=== PATIENT | female | born 1965 | race Caucasian/White ===

== ENCOUNTER 2017-02-16 08:03 | Day surgery (SDC) | payer OTHER ==
[2017-02-16] MEDS ORDERED: CEFAZOLIN 2 GM in DEXTROSE 5%-WATER - 100 ML IVPB ONE (08:25)
[2017-02-16] MEDS: oxyCODONE HCL 10 MG SUSTAINED ACTING TABLET PO STA ×2 (09:00→16:15)
[2017-02-16] MEDS ORDERED: MIDAZOLAM HCL 2 MG/2 ML SINGLE DOSE VIAL ONE (09:04)
[2017-02-16] MEDS ORDERED: fentaNYL CITRATE 250 MCG/5 ML VIAL ONE (09:04)
[2017-02-16] MEDS ORDERED: ONDANSETRON 4 MG/2 ML VIAL ONE (09:15)
[2017-02-16] MEDS ORDERED: ePHEDrine SULFATE 50 MG/1 ML AMPULE ONE (09:15)
[2017-02-16] MEDS ORDERED: PROPOFOL 20 ML ONE ×12 (09:15→12:52)
[2017-02-16] MEDS ORDERED: DEXAMETHASONE SOD PHOSPHATE 4 MG/1 ML VIAL ONE (09:15)
[2017-02-16] MEDS ORDERED: PHENYLEPHRINE HCL 10 MG/1 ML SINGLE DOSE VIAL ONE (09:15)
[2017-02-16] MEDS ORDERED: SODIUM CHLORIDE 0.9% P/F 10 ML VIAL IJ ONE (09:19)
[2017-02-16] MEDS ORDERED: ceFAZolin SODIUM 1 GM VIAL ONE (09:19)
[2017-02-16] MEDS ORDERED: LIDOCAINE HCL/PF 2% SDV 5ML VIAL ONE (09:23)
[2017-02-16 09:46] VITALS: BMI 35.7
--- NOTE | 2017-02-16 10:45 | HP ---
History & Physical Update - History History: No Change - Physical Physical: No Change - Assessment Assessment: No Change - Plan Plan: No Change
[2017-02-16] MEDS ORDERED: LIDOCAINE 1%/EPI 1:100000 (20 ML MULTI DOSE VIAL) ONE (10:57)
[2017-02-16] MEDS ORDERED: THROMBIN (BOVINE) 5,000 UNIT VIAL TP ONE ×2 (10:57→12:36)
[2017-02-16] MEDS ORDERED: LIDOCAINE 1%/EPI 1:100000 (50 ML MULTI DOSE VIAL) INF ONE (12:00)
[2017-02-16] MEDS ORDERED: GELATIN SPONGE,ABSORBABLE 1 GM PACKET TP ONE (12:36)
[2017-02-16] MEDS ORDERED: morphine CARPU-JECT 4 MG/1 ML DISP.SYRIN IVPUSH PRN (13:26)
[2017-02-16] MEDS ORDERED: oxyCODONE HCL 5 MG TABLET PO PRN (13:26)
[2017-02-16] MEDS ORDERED: ONDANSETRON 4 MG/2 ML VIAL IVPUSH PRN (13:26)
[2017-02-16] MEDS ORDERED: LACTATED RINGERS SOLUTION 1,000 ML IV SCH ×2 (13:30→13:45)
--- NOTE | 2017-02-16 13:32 | OP ---
Operative Note - Note: Operative Date: 02/16/17 Pre-Operative Diagnosis: Cervical stenosis with radiculopathy Operation: C5-C7 ACDF Implants: allograft x2 Post-Operative Diagnosis: Same as Pre-op Surgeon: Khadar Umanzor Treatment Technician: Elif Montoya Anesthesiologist/TECHNOLOGY SALES CONSULTANT: Gerard Pimentel Anesthesia: General Specimens Removed: C5/6, C6/7 discs Estimated Blood Loss (mls): 5 Fluid Volume Replaced (mls): 900 Operative Report Dictated: Yes
--- NOTE | 2017-02-16 13:33 | SURG ---
Surgery Security Strategist Note Security Strategist: Gerard Pimentel PA-C Date of Service: 02/16/17 Diagnosis: Cervical stenosis C5/6, C6/7; radiculopathy Procedure: C5-C7 ACDF I was present for the entirety of the operative procedure. For further detail, please refer to operative report. Visit type - Case Type Case Type: Scheduled Admission - New patient This patient is new to me today: Yes Date on this admission: 02/16/17
[2017-02-16] MEDS: ACETAMINOPHEN 1000 MG/100 ML VIAL (NON FORMULARY) IVPB ONE ×2 (13:40→14:14)
[2017-02-16] MEDS ORDERED: PROMETHAZINE HCL 25 MG/1 ML VIAL IVPUSH PRN (13:42)
[2017-02-16] MEDS: KETOROLAC TROMETHAMINE 30 MG/1 ML VIAL IVPUSH PRN ×2 (13:54→20:16)
[2017-02-16] MEDS: oxyCODONE HCL 5 MG TABLET PO PRN (20:16)
[2017-02-16] MEDS: CEFAZOLIN 1 GM/D5W 1 GM/50 ML BAG IVPB SCH (20:16)
[2017-02-16] MEDS ORDERED: QUEtiapine FUMARATE 25 MG TABLET (FP) ONE ×2 (21:14→21:15)
--- NOTE | 2017-02-16 21:40 | OP ---
DATE OF OPERATION: 02/16/2017 PREOPERATIVE DIAGNOSIS: Cervical stenosis, C5-6, C6-7. POSTOPERATIVE DIAGNOSIS: Cervical stenosis, C5-6, C6-7. PROCEDURE PERFORMED: 1. Anterior cervical diskectomy and fusion, C5-6. 2. Anterior cervical diskectomy and fusion, C6-7. 3. Placement of instrumentation at C5 to C7. SURGEON: Khadar Umanzor MD [facility] SUPERVISOR: AYLEEN Monge ESTIMATED BLOOD LOSS: 50 mL INTRAVENOUS FLUIDS: Per Anesthesia. COMPLICATIONS: None. DISPOSITION: Patient brought to the PACU in stable condition. INDICATION FOR SURGERY: The patient is a 51-year-old female who has been suffering from pain from her neck down her arms after an accident. X-rays and MRI noted that she had a herniated disk at C5-6 and C6-7. She had gone through an exhaustive course of treatment for this, which included medications, physical therapy, as well as injections. Unfortunately, her pain continued to persist despite all this. At this point, risks, benefits, and alternatives were discussed, and the patient consented to surgery. DESCRIPTION OF PROCEDURE: Patient was brought to the operating room by anesthesia staff. After appropriate patient identification was performed, general anesthesia was administered. Appropriate anesthesia lines were placed. SCDs were placed on the patient. Her neck was distended to the point that she could tolerate it in the preoperative holding area. A needle was taped onto her neck to juan miguel off the C5-6 level. An x-ray was taken to confirm this as correct. Needle was removed, and 10 mL of lidocaine with epinephrine was injected into her neck at this time. Her neck was prepped and draped in a sterile manner. At this point, timeout was completed. An incision was made in the left side of her neck. Dissection was carried down to the platysma. The platysma was cut in line with the skin incision. Next, the interval between the sternocleidomastoid as well as strap muscles was developed. Next, the interval between the carotid sheath and tracheoesophagus was developed. Peanuts were used to elevate it off of the prevertebral fascia. A needle was placed into the C6-7 disk. An x-ray was taken to confirm this as correct. The needle was removed. Longus coli muscles were elevated off, and retractor blade was placed in. At this point, a Goldsmith pin was placed into the body of C5 and C7. A knife was used to incise the disk, and the disk was distracted. At this point, a Singh was used to elevate the disk off the endplate using a series of pituitaries, Kerrisons, and curettes. A diskectomy was completed. Endplates were decorticated at this time. Cages filled with bone graft were placed into the C5-6 and C6-7 levels. Distraction was removed. Screws were placed into the body of C5, C6, and C7. Goldsmith pins were removed. AP and lateral x-rays confirmed the instrumentation to be in good position. Final tightening was performed. All bleeding was well controlled. Platysma was closed with 2-0 Vicryl suture. Skin was closed with 3-0 Monocryl suture. Dermabond was applied. Steri-Strips were applied. A sterile dressing was applied. Patient was placed supine on the OR bed, extubated in the OR, and brought to the PACU in stable condition. Lily SEGOVIA/[id number]
[2017-02-16] MEDS ORDERED: QUEtiapine FUMARATE 50 MG TABLET PO SCH (22:00)
[2017-02-16] MEDS ORDERED: METFORMIN HCL 1000 MG PO SCH (22:00)
[2017-02-16] MEDS ORDERED: LOSARTAN HCTZ PO SCH (22:00)
[2017-02-16] MEDS ORDERED: PARoxetine HCL 20 MG TABLET (FP) PO SCH (22:00)
[2017-02-16] MEDS ORDERED: LOSARTAN 50MG/HCTZ 12.5MG 1 TAB (FP) PO SCH (22:00)
[2017-02-16] MEDS ORDERED: PAROXETINE HCL 40 MG PO SCH (22:00)
[2017-02-17] MEDS: oxyCODONE HCL 5 MG TABLET PO PRN (02:42)
[2017-02-17] MEDS: CEFAZOLIN 1 GM/D5W 1 GM/50 ML BAG IVPB SCH (03:21)
[2017-02-17 06:14] VITALS: BP 132/69; PULSE 85; TEMP 99
--- NOTE | 2017-02-17 06:59 | DS ---
Physical Exam: SUBJECTIVE: Patient seen and examined. POD #1 s/p C5-C7 ACDF. Alert. Resting in position of comfort. Wearing her c-collar as instructed. According to RN, she is ambulating hallways without difficulty. Voiding spontaneously. C/o incisional tenderness. Adequate pain control via PRN PO meds. Denies n/v/f/c, CP , SOB, LANDIN, palpitations, numbness/weakness. OBJECTIVE: Vital Signs Temperature 99.0 F 02/17/17 06:12 Pulse Rate 85 02/17/17 06:12 Respiratory Rate 18 02/17/17 06:12 Blood Pressure 132/69 02/17/17 06:12 O2 Sat by Pulse Oximetry (%) 98 02/17/17 06:12 PHYSICAL EXAM GENERAL: Awake, alert, and fully oriented, in no acute distress. HEAD: NC. AT EYES: PERRL NECK: Trachea midline, c-collar in place. Transverse incision from midline extending lateral c/d/i. No palpable hematoma LUNGS: CTA bilat anteriorly HEART: RRR ABDOMEN: Soft, NT. ND EXTREMITIES: 2+ pulses, warm, well-perfused, no edema. NEUROLOGICAL: CN II through XII grossly intact. Normal speech, gait not observed. PSYCH: Normal mood, normal affect. SKIN: Warm, dry, normal turgor, no rashes or lesions noted. LABS CBC,CMP POC Glucometer 118 UNITS (80-120) 02/17/17 06:07 HOSPITAL COURSE: Date of Admission:02/16/17 Date of Discharge: 02/17/17 The patient was admitted to the Med-Surg Unit after an elective repair of their C5-C7 spinal stenosis. Now, s/p C5-C7 ACDF. The day of surgery, the patient ambulated the hallways with assistance. Narcotic and non-narcotic pain management control was achieved with an oral and IV approach. An xray was obtained and confirmed hardware placement at C5/6, C6/7, no fractures or dislocations. Maddison-operative IV ABX were administered. DVT prophylaxis was achieved with SCDs and early ambulation. The patient ambulated with Physical Therapy and no services were recommended upon discharge. Narcotic scripts and or muscle relaxants were checked with [facility] [employer] prior to escibe. The discharge instructions and an oral pain management plan were reviewed with the patient. All questions answered. Above plan discussed with Dr. Umanzor and agreed. Minutes to complete discharge: 15 <Gerard Pimentel P - Last Filed: 02/17/17 08:46> Physical Exam: SUBJECTIVE: Patient seen and examined OBJECTIVE: Vital Signs Temperature 99.0 F 02/17/17 06:12 Pulse Rate 85 02/17/17 06:12 Respiratory Rate 18 02/17/17 06:12 Blood Pressure 132/69 02/17/17 06:12 O2 Sat by Pulse Oximetry (%) 98 02/17/17 06:12 PHYSICAL EXAM GENERAL: The patient is awake, alert, and fully oriented, in no acute distress. HEAD: Normal with no signs of trauma. EYES: PERRL, extraocular movements intact, sclera anicteric, conjunctiva clear. ENT: Ears normal, nares patent, oropharynx clear without exudates, moist mucous membranes. NECK: Trachea midline, full range of motion, supple. LUNGS: Breath sounds equal, clear to auscultation bilaterally, no wheezes, no crackles, no accessory muscle use. HEART: Regular rate and rhythm, S1, S2 without murmur, rub or gallop. ABDOMEN: Soft, nontender, nondistended, normoactive bowel sounds, no guarding, no rebound, no hepatosplenomegaly, no masses. EXTREMITIES: 2+ pulses, warm, well-perfused, no edema. NEUROLOGICAL: Cranial nerves II through XII grossly intact. Normal speech, gait not observed. PSYCH: Normal mood, normal affect. SKIN: Warm, dry, normal turgor, no rashes or lesions noted. LABS CBC,CMP POC Glucometer 118 UNITS (80-120) 02/17/17 06:07 HOSPITAL COURSE: Date of Admission:02/16/17 Date of Discharge: 02/19/17 The patient was admitted to the Med-Surg Unit after an elective repair of their C5-7 herniated discs. The day of surgery, the patient ambulated the hallways with assistance. Narcotic and non-narcotic pain management control was achieved with an oral and IV approach. POD #1, the surgical drain was removed fully intact and without incident. An xray was obtained and confirmed hardware placement at C5-7, no fractures or dislocations. Maddison-operative IV ABX were administered. DVT prophylaxis was achieved with SCDs and early ambulation. The patient ambulated with Physical Therapy and no services were recommended upon discharge. Narcotic scripts and or muscle relaxants were checked with [facility] [employer] UNDERWRITER prior to escibe. The discharge instructions and an oral pain management plan were reviewed with the patient. All questions answered. Above plan discussed with Dr. Umanzor and agreed. <Khadar Umanzor - Last Filed: 02/19/17 11:55> Visit type - Case Type Case Type: Scheduled Admission <Gerard Pimentel - Last Filed: 02/17/17 08:46>
[2017-02-17] MEDS ORDERED: morphine SULFATE 4 MG/ML VIAL IVPUSH PRN (08:15)
[2017-02-17] MEDS ORDERED: PT OWN MED DRAWER 7, Y5N ONE (09:20)
[2017-02-17] MEDS ORDERED: PATIENT'S OWN MEDICATION (NON-FORMULARY) (Vitamin B Complex [Vitamin B Complex] 1 EACH) PO SCH (10:00)
[2017-02-17] MEDS ORDERED: VITAMIN B COMP W-C 1 EA TABLET PO SCH (10:00)
[2017-02-17] MEDS ORDERED: FOLIC ACID 1 MG TABLET (FP) PO SCH (10:00)
[2017-02-17] MEDS ORDERED: CITALOPRAM HYDROBROMIDE 20 MG TABLET (FP) PO SCH (10:00)
--- NOTE | 2017-02-17 11:13 | PN ---
Progress Note (short form) - Note Progress Note: 51F POD1 s/p ACDF under [facility]T. Pt doing well, states that pain is moderately well controlled. Does no report any anesthetic complications. Sensory and motor function at baseline in all 4 extremities.
[2017-02-17] MEDS ORDERED: QUEtiapine FUMARATE 25 MG TABLET (FP) PO SCH (22:00)
--- NOTE | 2017-02-18 13:52 | PATH ---
Surgical Pathology Report Patient Name: FRANCISCO RICHARDS Med. Rec. #: [id number] /Age/Gender: 1965 (Age: 51) / F Account: [id number] Location: [facility] Taken: 02/16/2017 Received: 02/16/2017 Reported: 02/18/2017 Physicians: Khadar Umanzor M.D. Specimen(s) Received C5-6, C6-7 DISC Clinical History Cervical stenosis Final Diagnosis C5-6, C6-7, DISCECTOMY: CARTILAGE WITH DEGENERATIVE CHANGES. Electronically Signed Billie Alamo M.D. Gross Description Received in formalin labeled "C5, 6-C6, 7 disc," is a 2.4 x 2.0 x 0.3 cm aggregate of guillen fragments of fibrocartilaginous tissue. A automotive sales representative portion is submitted in one cassette. /02/17/2017 saudi02/17/2017
== END 2017-02-17 13:05 | disposition home or self-care (01) ==
LOC: FASU 08:03 → FM/S 15:13 → FASU 02-17 13:05
PROVIDERS: ATTEND Orthopaedic Surgery Orthopaedic Surgery of the Spine
PROC: 0RG10A0 Fusion of Cervical Vertebral Joint with Interbody Fusion Device, Anterior Approach, Anterior Column, Open Approach (ICD-10-PCS; 2017-02-16)
PROC: 0RG10K0 Fusion of Cervical Vertebral Joint with Nonautologous Tissue Substitute, Anterior Approach, Anterior Column, Open Approach (ICD-10-PCS; 2017-02-16)
PROC: 0RB30ZZ Excision of Cervical Vertebral Disc, Open Approach (ICD-10-PCS; principal; 2017-02-16 10:15)
DX: M48.02 Spinal stenosis, cervical region (principal)
CPT/HCPCS: 72050-TC; 82962; 88304-TC; 94760; 97116-GP; 97161-GP

== ENCOUNTER 2018-01-03 04:04 | Inpatient (IN) | payer OTHER ==
[2018-01-03] MEDS ORDERED: METOPROLOL TARTRATE 5 MG/5 ML VIAL ONE (04:18)
[2018-01-03] MEDS ORDERED: METOPROLOL TARTRATE 5 MG/5 ML VIAL IVPUSH ONE (04:20)
[2018-01-03] MEDS ORDERED: METOPROLOL TARTRATE 50 MG TABLET (FP) PO ONE (04:20)
[2018-01-03] MEDS ORDERED: ASPIRIN 81 MG CHEWABLE TABLETS PO ONE (04:22)
[2018-01-03] MEDS ORDERED: NITROGLYCERIN 2% OINTMENT - 1GM PACKET TD ONE ×2 (04:22→04:25)
[2018-01-03] MEDS ORDERED: NITROGLYCERIN SUBLINGUAL 1/150 0.4 MG TAB SL ONE (04:24)
--- NOTE | 2018-01-03 04:28 | PDOC ---
History of Present Illness - General Chief Complaint: Shortness of Breath Stated Complaint: S.O.B. Time Seen by Provider: 01/03/18 04:20 History Source: Patient Exam Limitations: No Limitations - History of Present Illness Initial Comments: 01/03/18 04:25 SOB; pt is a smoker and she comes with a pulsox on RA of 80% Timing/Duration: momentarily Severity: severe Past History - Travel Traveled outside of the country in the last 30 days: No Close contact w/someone who was outside of country & ill: No - Past Medical History Allergies/Adverse Reactions: Allergies Allergy/AdvReac Type Severity Reaction Status Date / Time No Known Allergies Allergy Verified 01/03/18 04:08 Home Medications: Ambulatory Orders Citalopram Hydrobromide [Celexa -] 20 mg PO DAILY 02/13/17 Folic Acid - 1 mg PO DAILY 02/13/17 Losartan-Hctz 50-12.5 mg Tab 1 each PO HS 02/13/17 Metformin HCl ER 1,000 mg PO HS 02/13/17 Paroxetine HCl [Paxil] 40 mg PO HS 02/13/17 Quetiapine Fumarate [Seroquel -] 50 mg PO HS 02/13/17 Vitamin B Complex 1 each PO DAILY 02/13/17 Hydrocodone/Acetaminophen [Vicodin 5-300 mg Tablet] 1 each PO Q6H PRN #10 tablet MDD 4 02/17/17 Anemia: No Asthma: No Cancer: No Cardiac Disorders: No CVA: No COPD: No CHF: No Dementia: No Diabetes: Yes (TAKES ORAL MEDICATION) GI Disorders: No Disorders: No HTN: Yes Hypercholesterolemia: Yes Liver Disease: No Seizures: No Thyroid Disease: No - Surgical History Abdominal Surgery: No Appendectomy: No Cardiac Surgery: No Cholecystectomy: No Lung Surgery: No Neurologic Surgery: No Orthopedic Surgery: Yes (LEFT HIP REPLACEMENT 2008) - Suicide/Smoking/Psychosocial Hx Smoking Status: Yes Smoking History: Current every day smoker Have you smoked in the past 12 months: No Number of Cigarettes Smoked Daily: 4 Information on smoking cessation initiated: No Hx Alcohol Use: No Drug/Substance Use Hx: No Substance Use Type: None Hx Substance Use Treatment: No Review of Systems - Review of Systems Able to Perform ROS?: Yes Is the patient limited Turkmen proficient: No Constitutional: No: Symptoms Reported, See HPI, Chills, Diaphoresis, Fever, Loss of Appetite, Malaise, Night Sweats, Weakness, Weight Stable, Unintentional Wgt. Loss, Unexplained wgt Loss, Other HEENTM: No: Symptoms Reported, See HPI, Eye Pain, Blurred Vision, Tearing, Recent change in vision, Double Vision, Cataracts, Ear Pain, Ocular Prothesis, Ear Discharge, Nose Pain, Nose Congestion, Tinnitus, Nose Bleeding, Hearing Loss , Throat Pain, Throat Swelling, Mouth Pain, Dental Problems, Difficulty Swallowing, Mouth Swelling, Other Respiratory: Yes: Shortness of Breath, SOB with Exertion, SOB at Rest. No: Symptoms reported, See HPI, Cough, Orthopnea, Stridor, Wheezing, Productive cough, Hemoptysis, Other Cardiac (ROS): Yes: Chest Pain. No: Symptoms Reported, See HPI, Edema, Irregular Heart Rate, Lightheadedness, Palpitations, Syncope, Chest Tightness, Other ABD/GI: No: Symptoms Reported, See HPI, Abdominal Distended, Abd. Pain w/ defecation, Blood Streaked Bowels, Constipated, Diarrhea, Difficulty Swallowing , Nausea, Poor Appetite, Poor Fluid Intake, Rectal Bleeding, Vomiting, Indigestion, Abdominal cramping, Tarry Stools, Other : No: Symptoms Reported, See HPI, Burning, Dysuria, Discharge, Frequency, Flank Pain, Hematuria, Incontinence, Pain, Urgency, Testicular Mass, Testicular Swelling, Lesions, Testicular Pain, Other Musculoskeletal: No: Symptoms Reported, See HPI, Back Pain, Gout, Joint Pain, Joint Swelling, Muscle Pain, Muscle Weakness, Neck Pain, Joint Stiffness, Other Integumentary: No: Symptoms Reported, See HPI, Bruising, Change in Color, Change in Hair/Nails, Dryness, Erythema, Flushing, Lesions, Lumps, Pallor, Pruritus, Rash, Sweating, Other Endocrine: No: Symptoms Reported, See HPI, Excessive Sweating, Flushing, Intolerance to Cold, Intolerance to Heat, Increased Hunger, Increased Thirst, Increased Urine, Unexplained Weight Gain, Unexplained Weight Loss, Change in Weight, Other Hematologic/Lymphatic: No: Symptoms Reported, See HPI, Anemia, Blood Clots, Easy Bleeding, Easy Bruising, Bleeding Diathesis, Lymph Node Abnormalities, Swollen Glands, Other *Physical Exam - Vital Signs Last Vital Signs Temp Pulse Resp BP Pulse Ox 97.3 F L 107 H 24 H 186/113 H 94 L 01/03/18 04:10 01/03/18 04:10 01/03/18 04:10 01/03/18 04:10 01/03/18 04:10 - Physical Exam General Appearance: Yes: Moderate Distress, Obese HEENT: positive: EOMI, MARYANNE, Normal ENT Inspection, Normal Voice, TMs Normal, Pharynx Normal Neck: positive: Trachea midline, Supple Respiratory/Chest: positive: Lungs Clear, Normal Breath Sounds, Respiratory Distress, Wheezing Cardiovascular: positive: Regular Rhythm, S1, S2, Tachycardia Gastrointestinal/Abdominal: positive: Soft, Protuberent. negative: Organomegaly , Increased Bowel Sounds Musculoskeletal: positive: Normal Inspection, CVA Tenderness Extremity: positive: Normal Capillary Refill, Normal Inspection, Normal Range of Motion Integumentary: positive: Normal Color, Dry, Warm Neurologic: positive: project reservoir engineer II-XII NML intact, Fully Oriented, Alert, Normal Mood/ Affect, Normal Response Heart Score/ECG Review - History History: Moderately suspicious - Electrocardiogram EKG: Non specific repolarization disturbance - Age Age: 45-65 - Risk Factors Risk Factors Heart Score: Yes Hx Hypertension, Yes Hx Diabetes, Yes Smoking History, Yes Hx Obesity Based on the list above the patient has:: >/=3 risk factors or Hx atherosclerotic disease - Troponin Troponin: </= normal limit - Score Heart Score - Total: 5 - ECG Intrepretation Rhythm: Regular Rhythm - Archer Archer: Normal - P and PA Delta Wave(s) Present: No WPW: No - QRS Poor R Wave Progression: No Q Wave Present: No - ST and T Early Repolarization: No Non Specific ST-T Wave changes: No Flattened T Waves: No Prolonged Q-T Interval: No - ECG Impressions Normal ECG: Yes Non-specific ST Elevation: No Ischemic Changes: Yes (Q waves in septal leads) ED Treatment Course - LABORATORY CBC & Chemistry Diagram: 01/03/18 04:32 01/03/18 04:32 - RADIOLOGY Radiology Studies Ordered: Category Date Time Status CHEST X-RAY PORTABLE* [RAD] Stat Radiology 01/03/18 04:21 Ordered Medical Decision Making - Medical Decision Making 01/03/18 04:53 VBG pH is normal. Pt is doing better on NRB 100% mask; asnd even better on BiPAP. Pt has a normal CBC. 01/03/18 05:01 BP came down with SLNTG, nitro paste, metoprolol. EKG shows septal Qs. No old EKG for comparison. 01/03/18 05:32 Labs normal. Pt will get a CTA, as admitting team wants to r/o PE; CXR is clear. CTA done. 01/03/18 06:48 Patient Name: FRANCISCO RICHARDS THIS IS A PRELIMINARY REPORT FROM [facility] [employer] DATE OF SERVICE: 2018-01-03 05:48:05 IMAGES: [id number] EXAM: CHEST CTA HISTORY: Shortness of breath COMPARISON: None. FINDINGS: No evidence of a pulmonary embolism, thoracic aortic aneurysm, or dissection The heart is within the upper limits of normal with bilateral interlobular septal thickening and groundglass opacities that is consistent with pulmonary vascular congestion No consolidation, pneumothorax, pleural effusion, or mediastinal lymphadenopathy. Survey of the upper abdomen demonstrate no acute abnormality Mild thoracic spondylosis 01/03/18 06:48 Pt's BP came down to 150s systolic. She has pulm vascular congestion. No pneumonia and no PE. She will be admitted to telemetry observation for CP, ACS, as she has DM and HTN *DC/Admit/Observation/Transfer Diagnosis at time of Disposition: Chest pain, Hypertension, Abnormal Q waves on electrocardiogram, Obesity, Diabetes - Discharge Dispostion Condition at time of disposition: Guarded Decision to Admit order: Yes - Referrals Referrals: Elijah Wolff MD [Primary Care Provider] - - Patient Instructions - Post Discharge Activity
[2018-01-03 04:41] LABS: VENOUS PC02 42.4 mmHg (38-52); VENOUS PH 7.4 (7.32-7.42); VENOUS PO2 46.1 mmHg (28-48)
[2018-01-03] MEDS ORDERED: METOPROLOL TARTRATE 50 MG TABLET (FP) ONE (04:41)
[2018-01-03] MEDS ORDERED: ASPIRIN 81 MG CHEWABLE TABLETS ONE (04:41)
[2018-01-03 04:42] LABS: BASO % 1.2 % (0-2.0); EOS % 1.5 % (0-4.5); HEMATOCRIT 32.9 % (32.4-45.2); HEMOGLOBIN 11.3 GM/dL (10.7-15.3); LYMPH % 29.3 % (8-40); MCH 28.8 pg (25.7-33.7); MCHC 34.4 g/dl (32.0-36.0); MEAN CELL VOLUME 83.7 fl (80-96); MEAN PLT VOLUME 8.9 fl (7.5-11.1); MONO % 6.4 % (3.8-10.2); NEUT % 61.6 % (42.8-82.8); PLATELET COUNT 445 K/MM3 (134-434); RBC 3.94 M/mm3 (3.60-5.2); RDW 16.7 % (11.6-15.6); WHITE BLOOD COUNT 8.8 K/mm3 (4.0-10.0)
[2018-01-03 04:54] LABS: INR 1.19 (0.83-1.09); PROTHROMBIN TIME (PATIENT) 14.1 SEC (9.7-13.0)
[2018-01-03 05:06] LABS: ALBUMIN 3.6 g/dl (3.4-5.0); ALK PHOS 59 U/L (45-117); ANION GAP 8 MMOL/L (8-16); BILIRUBIN,TOTAL 0.4 mg/dL (0.2-1); BLOOD UREA NITROGEN 17 mg/dL (7-18); CALCIUM 8.8 mg/dL (8.5-10.1); CHLORIDE 107 mmol/L (98-107); CO2 25 mmol/L (21-32); CREATININE 0.9 mg/dL (0.55-1.3); GLUCOSE,RANDOM 104 mg/dL (74-106); POTASSIUM 3.6 mmol/L (3.5-5.1); SGOT/AST 18 U/L (15-37); SGPT/ALT 21 U/L (13-61); SODIUM 141 mmol/L (136-145); TOT PROT 7.5 g/dl (6.4-8.2)
[2018-01-03 07:07] LABS: ARTERIAL BLOOD GAS BASE EXCESS 1.8 meq/l (-2-2); ARTERIAL BLOOD GAS PCO2 43.1 mmHg (35-45); CARBOXYHEMOGLOBIN 1.8 gm% (0.5-2.0)
[2018-01-03 07:13] LABS: ALLENS TEST POSITIVE
[2018-01-03 07:21] LABS: ARTERIAL BLOOD GAS PO2 36.4 mmHg (80-100)
[2018-01-03 07:22] LABS: ARTERIAL BLD GAS O2 SATURATION 60.9 % (90-98.9)
--- NOTE | 2018-01-03 08:56 | PDOC ---
*Physical Exam - Vital Signs Last Vital Signs Temp Pulse Resp BP Pulse Ox 97.3 F L 77 18 142/84 97 01/03/18 04:10 01/03/18 05:29 01/03/18 05:29 01/03/18 05:29 01/03/18 08:38 ED Treatment Course - LABORATORY CBC & Chemistry Diagram: 01/03/18 04:32 01/03/18 04:32 - ADDITIONAL ORDERS Additional order review: Laboratory Results 01/03/18 01/03/18 01/03/18 06:52 04:32 04:32 WBC RBC Hgb Hct MCV MCH MCHC RDW Plt Count MPV Absolute Neuts (auto) Neutrophils % Lymphocytes % Monocytes % Eosinophils % Basophils % Nucleated RBC % PT with INR INR Anticoagulation Therapy No Result Required. Puncture Site Right brachial ABG pH 7.40 ABG pCO2 at Pt Temp 43.1 ABG pO2 at Pt Temp 36.4 L* ABG HCO3 26.3 H ABG O2 Sat (Measured) 60.9 L* ABG O2 Content 8.5 L* ABG Base Excess 1.8 Ryland Test Positive VBG pH 7.40 POC VBG pCO2 42.4 POC VBG pO2 46.1 Mixed VBG HCO3 25.7 H Carboxyhemoglobin 1.8 Methemoglobin 0.2 L O2 Delivery Device Non rebreather Oxygen Flow Rate 100% Vent Mode No Result Required. Vent Rate No Result Required. Mechanical Rate No Result Required. Pressure Support Vent No Result Required. Sodium Potassium Chloride Carbon Dioxide Anion Gap BUN Creatinine Creat Clearance w eGFR Random Glucose Lactic Acid 1.4 Calcium Total Bilirubin AST ALT Alkaline Phosphatase Creatine Kinase Creatine Kinase Index CK-MB (CK-2) Troponin I Total Protein Albumin 01/03/18 01/03/18 01/03/18 04:32 04:32 04:32 WBC 8.8 RBC 3.94 Hgb 11.3 Hct 32.9 D MCV 83.7 MCH 28.8 MCHC 34.4 RDW 16.7 H Plt Count 445 H D MPV 8.9 Absolute Neuts (auto) 5.4 Neutrophils % 61.6 Lymphocytes % 29.3 D Monocytes % 6.4 Eosinophils % 1.5 D Basophils % 1.2 Nucleated RBC % 0 PT with INR 14.10 H INR 1.19 H Anticoagulation Therapy Puncture Site ABG pH ABG pCO2 at Pt Temp ABG pO2 at Pt Temp ABG HCO3 ABG O2 Sat (Measured) ABG O2 Content ABG Base Excess Ryland Test VBG pH POC VBG pCO2 POC VBG pO2 Mixed VBG HCO3 Carboxyhemoglobin Methemoglobin O2 Delivery Device Oxygen Flow Rate Vent Mode Vent Rate Mechanical Rate Pressure Support Vent Sodium 141 Potassium 3.6 Chloride 107 Carbon Dioxide 25 Anion Gap 8 BUN 17 Creatinine 0.9 Creat Clearance w eGFR > 60 Random Glucose 104 Lactic Acid Calcium 8.8 Total Bilirubin 0.4 AST 18 ALT 21 Alkaline Phosphatase 59 Creatine Kinase 184 Creatine Kinase Index 0.9 CK-MB (CK-2) 1.8 Troponin I 0.03 Total Protein 7.5 Albumin 3.6 01/03/18 04:32 RBC 3.94 MCV 83.7 MCHC 34.4 RDW 16.7 H MPV 8.9 Neutrophils % 61.6 Lymphocytes % 29.3 D Monocytes % 6.4 Eosinophils % 1.5 D Basophils % 1.2 - Medications Given in the ED: ED Medications Discontinued Medications Generic Name Dose Route Start Last Admin Trade Name Rizwanq PRN Reason Stop Dose Admin Aspirin 162 mg 01/03/18 04:22 01/03/18 04:50 Asa - PO 01/03/18 04:23 162 mg ONCE ONE Administration Metoprolol Tartrate 50 mg 01/03/18 04:20 01/03/18 04:49 Lopressor - PO 01/03/18 04:21 50 mg ONCE ONE Administration Metoprolol Tartrate 5 mg 01/03/18 04:20 01/03/18 04:38 Lopressor Injection - IVPUSH 01/03/18 04:21 5 mg ONCE ONE Administration Nitroglycerin 1 inch 01/03/18 04:22 01/03/18 04:38 Nitro-Bid 2% Paste - TD 01/03/18 04:23 1 inch ONCE ONE Administration Nitroglycerin 0.8 mg 01/03/18 04:24 01/03/18 04:38 Nitrostat - SL 01/03/18 04:25 0.8 mg ONCE ONE Administration Medical Decision Making - Medical Decision Making 01/03/18 08:53 Care received at 0700 Pt pending admission Briefly, pt presents with SOB, hypoxia, HTN SOB improved with nitro, metorpolol CTA neg for PE, infiltrates, +pulm vasc congestion Possible acute pulm edema Case signed out to Dr. Marquez, pt admitted to Dr. Linares Case discussed in detail with admitting physician including history, physical exam and ancillary studies. Admitting physician has assumed care for the patient, will follow all pending diagnostics and will complete the evaluation and treatment. *DC/Admit/Observation/Transfer Diagnosis at time of Disposition: Chest pain, Hypertension, Abnormal Q waves on electrocardiogram, Obesity, Diabetes - Discharge Dispostion Condition at time of disposition: Guarded Decision to Admit order: Yes - Referrals Referrals: Elijah Wolff MD [Primary Care Provider] - - Patient Instructions - Post Discharge Activity - Attestations Physician Attestion: 01/03/18 08:56 I, Dr. Mello Rendon MD, attest that this document has been prepared under my direction and personally reviewed by me in its entirety. I further attest, that it accurately reflects all work, treatment, procedures and medical decision -making performed by me.
[2018-01-03 09:13] LABS: N-TERMINAL BNP 725.1 pg/ml (5-125)
--- NOTE | 2018-01-03 09:16 | PN ---
Teaching Attending Note Name of Resident: Ashly Marquez ATTENDING PHYSICIAN STATEMENT I saw and evaluated the patient. I reviewed the resident's note and discussed the case with the resident. I agree with the resident's findings and plan as documented. SUBJECTIVE: Patient is a 52yo female presents with SOB on exertion and at rest. No fever or chills, no nausea or vomiting. OBJECTIVE: Initial Vital Signs Temp Pulse Resp BP Pulse Ox 97.3 F L 107 H 24 H 186/113 H 94 L 01/03/18 04:10 01/03/18 04:10 01/03/18 04:10 01/03/18 04:10 01/03/18 04:10 Vital Signs Temperature 98.0 F 01/03/18 08:59 Pulse Rate 84 01/03/18 08:59 Respiratory Rate 20 01/03/18 08:59 Blood Pressure 136/83 01/03/18 08:59 O2 Sat by Pulse Oximetry (%) 97 01/03/18 08:38 GENERAL: Awake, alert, and fully oriented, in no acute distress. HEAD: Normal with no signs of trauma. EYES: Pupils equal, round and reactive to light, extraocular movements intact, sclera anicteric, conjunctiva clear. EARS, NOSE, THROAT: Ears normal, oropharynx clear without exudates. Moist mucous membranes. NECK: Normal range of motion, supple without lymphadenopathy, JVD, or masses. LUNGS: decreased BS BL, decreased air entery bilaterally. positive for accessory muscle use. positive for wheezing and coarse BS. HEART: Regular rate and rhythm, normal S1 and S2 , without murmur, rub or gallop. ABDOMEN: Soft, nontender, not distended, normoactive bowel sounds, no guarding, no rebound, no masses. MUSCULOSKELETAL: Normal range of motion at all joints. No bony deformities or tenderness. No CVA tenderness. EXTREMITIES: 2+ pulses, warm, well-perfused. No calf tenderness. No peripheral edema. NEUROLOGICAL: Cranial nerves II-XII intact. Normal speech. Normal gait. PSYCHIATRIC: Cooperative. Good eye contact. Appropriate mood and affect. SKIN: Warm, dry, normal turgor, no rashes or lesions noted, normal capillary refill. CBCD WBC 8.8 K/mm3 (4.0-10.0) 01/03/18 04:32 RBC 3.94 M/mm3 (3.60-5.2) 01/03/18 04:32 Hgb 11.3 GM/dL (10.7-15.3) 01/03/18 04:32 Hct 32.9 % (32.4-45.2) D 01/03/18 04:32 MCV 83.7 fl (80-96) 01/03/18 04:32 MCHC 34.4 g/dl (32.0-36.0) 01/03/18 04:32 RDW 16.7 % (11.6-15.6) H 01/03/18 04:32 Plt Count 445 K/MM3 (134-434) H D 01/03/18 04:32 MPV 8.9 fl (7.5-11.1) 01/03/18 04:32 CMP Sodium 141 mmol/L (136-145) 01/03/18 04:32 Potassium 3.6 mmol/L (3.5-5.1) 01/03/18 04:32 Chloride 107 mmol/L (98-107) 01/03/18 04:32 Carbon Dioxide 25 mmol/L (21-32) 01/03/18 04:32 Anion Gap 8 MMOL/L (8-16) 01/03/18 04:32 BUN 17 mg/dL (7-18) 01/03/18 04:32 Creatinine 0.9 mg/dL (0.55-1.3) 01/03/18 04:32 Creat Clearance w eGFR > 60 (>60) 01/03/18 04:32 Random Glucose 104 mg/dL (74-106) 01/03/18 04:32 Calcium 8.8 mg/dL (8.5-10.1) 01/03/18 04:32 Total Bilirubin 0.4 mg/dL (0.2-1) 01/03/18 04:32 AST 18 U/L (15-37) 01/03/18 04:32 ALT 21 U/L (13-61) 01/03/18 04:32 Alkaline Phosphatase 59 U/L (45-117) 01/03/18 04:32 Total Protein 7.5 g/dl (6.4-8.2) 01/03/18 04:32 Albumin 3.6 g/dl (3.4-5.0) 01/03/18 04:32 CARDIAC ENZYMES Creatine Kinase 184 IU/L (26-192) 01/03/18 04:32 Troponin I 0.03 ng/ml (0.00-0.05) 01/03/18 04:32 Home Medications Medication Instructions Recorded Citalopram Hydrobromide [Celexa -] 20 mg PO DAILY 02/13/17 Folic Acid - 1 mg PO DAILY 02/13/17 Losartan-Hctz 50-12.5 mg Tab 1 each PO HS 02/13/17 Metformin HCl ER 1,000 mg PO HS 02/13/17 Paroxetine HCl [Paxil] 40 mg PO HS 02/13/17 Quetiapine Fumarate [Seroquel -] 50 mg PO HS 02/13/17 Vitamin B Complex 1 each PO DAILY 02/13/17 Hydrocodone/Acetaminophen [Vicodin 1 each PO Q6H PRN #10 tablet MDD 4 02/17/17 5-300 mg Tablet] ABG Results ABG pH 7.40 (7.35-7.45) 01/03/18 06:52 ABG pCO2 at Pt Temp 43.1 mmHg (35-45) 01/03/18 06:52 ABG pO2 at Pt Temp 36.4 mmHg (80-100) L* 01/03/18 06:52 ABG HCO3 26.3 meq/L (22-26) H 01/03/18 06:52 ABG O2 Sat (Measured) 60.9 % (90-98.9) L* 01/03/18 06:52 ABG O2 Content 8.5 % vol (15-22) L* 01/03/18 06:52 ABG Base Excess 1.8 meq/l (-2-2) 01/03/18 06:52 CTA:No evidence of a pulmonary embolism, thoracic aortic aneurysm, or dissection , the heart is within the upper limits of normal with bilateral interlobular septal thickening and groundglass opacities that is consistent with pulmonary vascular congestion. No consolidation, pneumothorax, pleural effusion, or mediastinal lymphadenopathy. Survey of the upper abdomen demonstrate no acute abnormality. Mild thoracic spondylosis ASSESSMENT AND PLAN: This is a 52 year old female, with a history of T2DM, HTN, manic depression, tobacco use 1ppd x30yrs, who presents with coughing, shortness of breath, and chest pain, and was found to be in COPD exacerbation with possible diastolic CHF. #Acute Hypoxic respiratory failure with Acute COPD exacerbation on Venti- mask continue keep O2>90, duonebs Q4H, albuterol prn, given Solu Medrol 125mf IV x1 then continue q6h, zithromax iv. #Acute Diastolic CHF exacerbation troponins q6 x2 sets, 1st set is negative, cardio consult appreciated. # T2DM: sliding scale with coverage # HTN continue BP meds. DVT Px: Heparin - -
--- NOTE | 2018-01-03 09:30 | HP ---
CHIEF COMPLAINT: sob/chest pain PCP: HISTORY OF PRESENT ILLNESS: This is a 52 year old female, with a history of DMII, HTN, manic depression, tobacco use 1ppd x30yrs, who presents with coughing, shortness of breath, and chest pain. Patient was at a green party, unable to dance due to shortness of breath, which provoked ED visit. She endorses clear sputum production for the past week , with intermittent chills and wheezing. Denies fever, n, v, hemoptysis, abdominal pain, orthopnea, jaw pain, numbness, tingling, leg swelling. Chest pain started upon arrival to the emergency room. Pain was a dull heaviness, and constant. Patient was hypoxic in the 80s in ER, hypertensive. She was started on BiPAP, given lasix and nitro. CTA done to r/o pulmonary embolism was negative. Recent Travel: no PAST MEDICAL HISTORY: HTN, DMII, manic depression PAST SURGICAL HISTORY: Spine surgery Social History: Smoking:+30yrs one 1ppd; currently smoking Alcohol:none Drugs: cocaine years ago Family History: Allergies No Known Allergies Allergy (Verified 01/03/18 04:08) HOME MEDICATIONS: Home Medications Medication Instructions Recorded Citalopram Hydrobromide [Celexa -] 20 mg PO DAILY 02/13/17 Folic Acid - 1 mg PO DAILY 02/13/17 Losartan-Hctz 50-12.5 mg Tab 1 each PO HS 02/13/17 Metformin HCl ER 1,000 mg PO HS 02/13/17 Paroxetine HCl [Paxil] 40 mg PO HS 02/13/17 Quetiapine Fumarate [Seroquel -] 50 mg PO HS 02/13/17 Vitamin B Complex 1 each PO DAILY 02/13/17 Hydrocodone/Acetaminophen [Vicodin 1 each PO Q6H PRN #10 tablet MDD 4 02/17/17 5-300 mg Tablet] REVIEW OF SYSTEMS CONSTITUTIONAL: Absent: fever, chills, diaphoresis, generalized weakness, malaise, loss of appetite, weight change HEENT: Absent: rhinorrhea, nasal congestion, throat pain, throat swelling, difficulty swallowing, mouth swelling, ear pain, eye pain, visual changes CARDIOVASCULAR: Absent: chest pain, syncope, palpitations, irregular heart rate, lightheadedness , peripheral edema RESPIRATORY: Absent: cough, shortness of breath, dyspnea with exertion, orthopnea, wheezing, stridor, hemoptysis GASTROINTESTINAL: Absent: abdominal pain, abdominal distension, nausea, vomiting, diarrhea, constipation, melena, hematochezia GENITOURINARY: Absent: dysuria, frequency, urgency, hesitancy, hematuria, flank pain, genital pain MUSCULOSKELETAL: Absent: myalgia, arthralgia, joint swelling, back pain, neck pain SKIN: Absent: rash, itching, pallor HEMATOLOGIC/IMMUNOLOGIC: Absent: easy bleeding, easy bruising, lymphadenopathy, frequent infections ENDOCRINE: Absent: unexplained weight gain, unexplained weight loss, heat intolerance, cold intolerance NEUROLOGIC: Absent: headache, focal weakness or paresthesias, dizziness, unsteady gait, seizure, mental status changes, bladder or bowel incontinence PSYCHIATRIC: Absent: anxiety, depression, suicidal or homicidal ideation, hallucinations. PHYSICAL EXAMINATION Vital Signs - 24 hr 01/03/18 01/03/18 01/03/18 04:10 04:30 04:36 Temperature 97.3 F L Pulse Rate 107 H 88 Pulse Rate [ Right] Respiratory 24 H Rate Blood Pressure 186/113 H Blood Pressure [Left Arm] O2 Sat by Pulse 94 L 100 100 Oximetry (%) 01/03/18 01/03/18 01/03/18 04:38 05:29 08:38 Temperature Pulse Rate Pulse Rate [ 77 Right] Respiratory 18 Rate Blood Pressure 186/115 H Blood Pressure 142/84 [Left Arm] O2 Sat by Pulse 100 97 Oximetry (%) 01/03/18 08:59 Temperature 98.0 F Pulse Rate Pulse Rate [ 84 Right] Respiratory 20 Rate Blood Pressure Blood Pressure 136/83 [Left Arm] O2 Sat by Pulse Oximetry (%) GENERAL: Awake, alert, on venti mask HEAD: Normal with no signs of trauma. EYES: Pupils equal, round and reactive to light, extraocular movements intact, sclera anicteric, conjunctiva clear. No lid lag. EARS, NOSE, THROAT: Ears normal, nares patent, oropharynx clear without exudates. Moist mucous membranes. NECK: Normal range of motion, supple without lymphadenopathy, JVD, or masses. LUNGS:very course breath sounds with wheezing throughout lung dior HEART: Regular rate and rhythm, normal S1 and S2 without murmur, rub or gallop. ABDOMEN: Soft, nontender, not distended, normoactive bowel sounds, no guarding, no rebound, no masses. No hepatomegaly or splenomegaly. MUSCULOSKELETAL: Normal range of motion at all joints. No bony deformities or tenderness. No CVA tenderness. UPPER EXTREMITIES: 2+ pulses, warm, well-perfused. No cyanosis. No clubbing. No peripheral edema. LOWER EXTREMITIES: 2+ pulses, warm, well-perfused. No calf tenderness. trace bilateral edema pedal NEUROLOGICAL: Cranial nerves II-XII intact. Normal speech. Normal gait. PSYCHIATRIC: Cooperative. Good eye contact. Appropriate mood and affect. SKIN: Warm, dry, normal turgor, no rashes or lesions noted, normal capillary refill. Laboratory Results - last 24 hr 01/03/18 01/03/18 01/03/18 04:32 04:32 04:32 WBC 8.8 RBC 3.94 Hgb 11.3 Hct 32.9 D MCV 83.7 MCH 28.8 MCHC 34.4 RDW 16.7 H Plt Count 445 H D MPV 8.9 Absolute Neuts (auto) 5.4 Neutrophils % 61.6 Lymphocytes % 29.3 D Monocytes % 6.4 Eosinophils % 1.5 D Basophils % 1.2 Nucleated RBC % 0 PT with INR 14.10 H INR 1.19 H Anticoagulation Therapy Puncture Site ABG pH ABG pCO2 at Pt Temp ABG pO2 at Pt Temp ABG HCO3 ABG O2 Sat (Measured) ABG O2 Content ABG Base Excess Ryland Test VBG pH POC VBG pCO2 POC VBG pO2 Mixed VBG HCO3 Carboxyhemoglobin Methemoglobin O2 Delivery Device Oxygen Flow Rate Vent Mode Vent Rate Mechanical Rate Pressure Support Vent Sodium 141 Potassium 3.6 Chloride 107 Carbon Dioxide 25 Anion Gap 8 BUN 17 Creatinine 0.9 Creat Clearance w eGFR > 60 Random Glucose 104 Lactic Acid Calcium 8.8 Total Bilirubin 0.4 AST 18 ALT 21 Alkaline Phosphatase 59 Creatine Kinase 184 Creatine Kinase Index 0.9 CK-MB (CK-2) 1.8 Troponin I 0.03 B-Natriuretic Peptide 725.1 H Total Protein 7.5 Albumin 3.6 01/03/18 01/03/18 01/03/18 04:32 04:32 06:52 WBC RBC Hgb Hct MCV MCH MCHC RDW Plt Count MPV Absolute Neuts (auto) Neutrophils % Lymphocytes % Monocytes % Eosinophils % Basophils % Nucleated RBC % PT with INR INR Anticoagulation Therapy No Result Required. Puncture Site Right brachial ABG pH 7.40 ABG pCO2 at Pt Temp 43.1 ABG pO2 at Pt Temp 36.4 L* ABG HCO3 26.3 H ABG O2 Sat (Measured) 60.9 L* ABG O2 Content 8.5 L* ABG Base Excess 1.8 Ryland Test Positive VBG pH 7.40 POC VBG pCO2 42.4 POC VBG pO2 46.1 Mixed VBG HCO3 25.7 H Carboxyhemoglobin 1.8 Methemoglobin 0.2 L O2 Delivery Device Non rebreather Oxygen Flow Rate 100% Vent Mode No Result Required. Vent Rate No Result Required. Mechanical Rate No Result Required. Pressure Support Vent No Result Required. Sodium Potassium Chloride Carbon Dioxide Anion Gap BUN Creatinine Creat Clearance w eGFR Random Glucose Lactic Acid 1.4 Calcium Total Bilirubin AST ALT Alkaline Phosphatase Creatine Kinase Creatine Kinase Index CK-MB (CK-2) Troponin I B-Natriuretic Peptide Total Protein Albumin ASSESSMENT/PLAN: This is a 52 year old female with a 30year smoking history, DMII, hypertension, who presents short of breath, chest pain and hypoxic. Most likely acute exacerbation of undiagnosed COPD, bronchospasm. Will work up for ACS and CHF. #Acute hypoxic respiratory failure #Acute COPD exacerbation #DMII #Hypertension -cont venti mask; keep O2>90 -duonebs Q4H -albuterol Q1H prn -stat 1x solumedrol 125mg IV -continue with 40mg IV solumedrol q8H -azithromycin IVPB; for broncospasm -influenza swab -Chest CTA noted; no PE; +ground glass; atelectasis -f/u echo -f/u second troponin -ECG -insulin SS; BGM ACHS -cont antihypertensive -cardiac and pulmonary consulted Diabetic diet GI ppl: N/A VTE ppl; heparin sq Disposition: admit to telemetry Visit type - Emergency Visit Emergency Visit: Yes ED Registration Date: 01/03/18 Care time: The patient presented to the Emergency Department on the above date and was hospitalized for further evaluation of their emergent condition. - New Patient This patient is new to me today: Yes Date on this admission: 01/03/18 - Critical Care Critical Care patient: No
[2018-01-03] MEDS ORDERED: ALBUTEROL SO4 0.083% IH SOL 2.5 MG/3 ML VIAL.NEB. NEB PRN (10:12)
[2018-01-03] MEDS ORDERED: methylPREDNISolone NA SUCC 125 MG/2 ML VIAL IVPUSH ONE (10:30)
[2018-01-03] MEDS ORDERED: AZITHROMYCIN IVPB 500 MG/250 ML BAG IVPB ONE ×3 (10:30→10:37)
[2018-01-03] MEDS ORDERED: methylPREDNISolone NA SUCC 125 MG/2 ML VIAL ONE (10:34)
[2018-01-03] MEDS: FOLIC ACID 1 MG TABLET (FP) PO SCH (10:47)
[2018-01-03] MEDS: VITAMIN B COMPLEX W/C COMBO TABLET (FP) PO SCH (10:47)
[2018-01-03] MEDS: CITALOPRAM HYDROBROMIDE 20 MG TABLET (FP) PO SCH (10:47)
[2018-01-03] MEDS: INSULIN SLIDING SCALE (NOVOLOG) 1 VIAL SQ SCH ×3 (11:48→22:24)
[2018-01-03] MEDS: NICOTINE 14 MG/24 HOURS TOPICAL PATCH TD SCH (12:44)
[2018-01-03] MEDS ORDERED: ALBUTEROL SO4 2.5/IPRATROPIUM 0.5 INH SOL 3 ML VIAL.NEB. NEB ONE ×3 (12:58→21:31)
[2018-01-03] MEDS: ALBUTEROL SO4 2.5/IPRATROPIUM 0.5 INH SOL 3 ML VIAL.NEB. NEB SCH ×3 (13:00→21:43)
--- NOTE | 2018-01-03 13:34 | EKG ---
Test Reason : Blood Pressure : / mmHG Vent. Rate : 101 BPM Atrial Rate : 101 BPM P-R Int : 128 ms QRS Dur : 086 ms QT Int : 366 ms P-R-T Axes : 063 054 005 degrees QTc Int : 474 ms POOR DATA QUALITY, INTERPRETATION MAY BE ADVERSELY AFFECTED SINUS TACHYCARDIA BIATRIAL ENLARGEMENT SEPTAL INFARCT , AGE UNDETERMINED NONSPECIFIC ST AND T WAVE ABNORMALITY ABNORMAL ECG NO PREVIOUS ECGS AVAILABLE Confirmed by EMMIE LORENZO MD ([id number]) on 01/03/2018 1:34:02 PM Referred By: Confirmed By:EMMIE LORENZO MD
--- NOTE | 2018-01-03 14:29 | CON.CARD ---
Consult Consult Specialty:: Cardiology Referred by:: Hospitalist Reason for Consultation:: SOB, possible CHF - History of Present Illness Chief Complaint: SOB, cough, wheezing History of Present Illness: 52 year old woman pmh HTN, DMII, smoker, depression admitted with sob, cough, chest tightness, chills, wheezing found to be in acute hypoxic respiratory failure. Pt seen and examined today, currently on BIPAP, appears sob. Pt states that her symptoms started approximately 1 month ago and have gotten progressively worse over the past month and significantly worse over the past 3 days. states she has mold in the house at home and she feels this is the source as everytime she goes in the house she gets sob. states her chest pain has been going on over the same period mainly associated with the sob and cough but also on exertion. She states she saw a doctor once in a clinic who prescribed her bronchodilator inhalers but she does not follow regularly with a doctor. denies any known cardiac history. Denies palpitations, pnd, orthopnea, LE edema. No lightheadedness, dizziness, syncope, or near syncope. - History Source History Provided By: Patient, Family Member, Significant Other Limitations to Obtaining History: No Limitations - Past Medical History Cardio/Vascular: Yes: HTN Psych: Yes: Depression Endocrine: Yes: Diabetes Mellitus - Alcohol/Substance Use Hx Alcohol Use: No - Smoking History Smoking history: Current every day smoker Have you smoked in the past 12 months: No Aproximately how many cigarettes per day: 4 - Social History Usual Living Arrangement: With Significant Other ADL: Independent History of Recent Travel: No Home Medications - Allergies Allergies/Adverse Reactions: Allergies Allergy/AdvReac Type Severity Reaction Status Date / Time No Known Allergies Allergy Verified 01/03/18 04:08 - Home Medications Home Medications: Ambulatory Orders Citalopram Hydrobromide [Celexa -] 20 mg PO DAILY 02/13/17 Folic Acid - 1 mg PO DAILY 02/13/17 Losartan-Hctz 50-12.5 mg Tab 1 each PO HS 02/13/17 Metformin HCl ER 1,000 mg PO HS 02/13/17 Paroxetine HCl [Paxil] 40 mg PO HS 02/13/17 Quetiapine Fumarate [Seroquel -] 50 mg PO HS 02/13/17 Vitamin B Complex 1 each PO DAILY 02/13/17 Hydrocodone/Acetaminophen [Vicodin 5-300 mg Tablet] 1 each PO Q6H PRN #10 tablet MDD 4 02/17/17 Family Disease History - Family Disease History Family History: Denies Review of Systems - Review of Systems Constitutional: denies: No Symptoms, Chills, Diaphoresis, Fever, Lethargy, Loss of Appetite, Malaise, Night Sweats, Unintentional Wgt. Loss, Weakness, Other Eyes: denies: No Symptoms, Blind Spots, Blurred Vision, Double Vision, Eye Pain , Floaters, Photophobia, Recent Change in Vision, Other HENT: denies: No Symptoms, Difficult Swallowing, Ear Discharge, Ear Pain, Epistaxis, Gingival Bleeding, Hearing Loss, Mouth Swelling, Nasal Congestion, Ocular Prosthesis, Throat Pain, Toothache, Ringing in Ears, Other Neck: denies: No Symptoms, Decreased ROM, Lumps, Pain on Movement, Stiffness, Swollen Glands, Tenderness, Other Cardiovascular: reports: Chest Pain, Shortness of Breath. denies: No Symptoms, Edema, Palpitations, Other Respiratory: reports: Cough, Exercise Intolerance, SOB, SOB on Exertion, Wheezing. denies: No Symptoms, Hemoptysis, Orthopnea, PND, Snoring, Other Gastrointestinal: denies: No Symptoms, Abdominal Pain, Bloating, Constipation, Diarrhea, Dysphagia, Indigestion, Melena, Nausea, Rectal Bleeding, Vomiting, Vomiting Blood, Other Genitourinary: denies: No Symptoms, Burning, Discharge, Dysuria, Flank Pain, Frequency, Hematuria, Incontinence, Lesions, Menses, Pain, Testicular Mass, Testicular Pain, Testicular Swelling, Urgency, Vaginal Bleeding, Other Breasts: denies: No Symptoms Reported, See HPI, Breast Implants, Discharge from Nipple, Lumps, Pain, Skin Changes, Other Musculoskeletal: denies: No Symptoms, Back Pain, Crepitus, Decreased ROM, Extremity Pain, Joint Pain, Joint Swelling, Muscle Pain, Muscle Cramps, Muscle Weakness, Other Integumentary: denies: No Symptoms, Blister, Bruising, Change in Color, Eczema, Erythema, Incision, Lesions, Lump, Pallor, Pruritis, Rash, Wound, Other Neurological: denies: No Symptoms, Change in LOC, Change in Speech, Confusion, Dizziness, Headache, Incoordination, Numbness, Parasthesia, Pre-Existing Deficit , Seizure, Syncope, Tremors, Unsteady Gait, Weakness, Other Endocrine: denies: No Symptoms, Excessive Sweating, Flushing, Increased Hunger, Increased Thirst, Intolerance to Cold, Intolerance to Heat, Unexplained Weight Gain, Unexplained Weight Loss, Other Hematology/Lymphatic: denies: No Symptoms, Easily Bruised, Excessive Bleeding, Swollen Glands, Other Psychiatric: denies: No Symptoms, Altered Sleep Pattern, Anxiety, Depression, Hallucinations, Panic, Paranoia, Suicidal, Other - Risk Factors Known Risk Factors: Yes: Diabetes Mellitus, Hypertension, Smoking Vital Signs: Vital Signs Temperature 98.0 F 01/03/18 08:59 Pulse Rate 84 01/03/18 08:59 Respiratory Rate 20 01/03/18 13:02 Blood Pressure 136/83 01/03/18 08:59 O2 Sat by Pulse Oximetry (%) 100 01/03/18 13:02 Constitutional: Yes: No Distress, Calm Eyes: Yes: Conjunctiva Clear, EOM Intact, PERRL HENT: Yes: Atraumatic, Normocephalic Neck: Yes: Supple, Trachea Midline Respiratory: Yes: On BiPap, Poor Air Entry, Rhonchi, SOB, Tachypnea, Wheezes. No: Rales Gastrointestinal: Yes: Normal Bowel Sounds, Soft. No: Distention, Tenderness Cardiovascular: Yes: Regular Rate and Rhythm. No: Bradycardia, Tachycardia, Pulse Irregular, Gallop, Rub, Varicosities JVD: No Carotid Bruit: No PMI: Non-Displaced Heart Sounds: Yes: S1, S2. No: Split S2, S3, S4, Clicks, Gallop, Rub, Bruit Murmur: No: Systolic Murmur, Diastolic Murmur Musculoskeletal: Yes: WNL Extremities: Yes: WNL Edema: No Peripheral Pulses WNL: Yes Peripheral Pulses: 2+ Left Doralis Pedis, 2+ Right Dorsalis Pedis Integumentary: Yes: WNL Neurological: Yes: Alert, Oriented Psychiatric: Yes: Alert, Oriented - Other Data Labs, Other Data: CBC, BMP 01/03/18 04:32 01/03/18 04:32 INR, PTT INR 1.19 (0.83-1.09) H 01/03/18 04:32 Troponin, BNP 01/03/18 01/03/18 04:32 11:49 Troponin I 0.03 0.03 B-Natriuretic Peptide 725.1 H Troponin, BNP 01/03/18 01/03/18 04:32 11:49 Troponin I 0.03 0.03 B-Natriuretic Peptide 725.1 H ekg-nsr 77bpm. normal ecg Imaging - Results Chest X-ray: Report Reviewed, Image Reviewed Cat Scan: Report Reviewed, Image Reviewed EKG: Report Reviewed, Image Reviewed Assessment/Plan 52 year old woman pmh HTN, DMII, smoker, depression admitted with sob, cough, chest tightness, chills, wheezing found to be in acute hypoxic respiratory failure. currently on BIPAP, appears sob. Pt states that her symptoms started approximately 1 month ago and have gotten progressively worse over the past month and significantly worse over the past 3 days. states she has mold in the house at home and she feels this is the source as everytime she goes in the house she gets sob. states her chest pain has been going on over the same period mainly associated with the sob and cough but also on exertion. She states she saw a doctor once in a clinic who prescribed her bronchodilator inhalers but she does not follow regularly with a doctor. denies any known cardiac history. Denies palpitations, pnd, orthopnea, LE edema. No lightheadedness, dizziness, syncope, or near syncope. SOB/chest tightness/cough-hypoxic/hypercapneic respiratory failure -wheezing on exam, no peripheral edema, no significant pulmonary edema on CTA chest or on exam, no PE on CTA chest -most likely acute bronchitis, AE COPD, possible contribution of mold in home -Pulmonary to evaluate, pt on Azithromycin, solumedrol, nebulizers, bipap -cardiac enzymes not significantly elevated, no ischemia on ekg -pt was given IV Lasix in ER, can hold further diuretics for now and use Lasix prn -check echo to evaluate LV function, and other structural heart disease -pt does have multiple cardiac risk factors, would benefit from an ischemic evaluation which can likely be done as outpatient when she recovers from her acute illness
--- NOTE | 2018-01-03 14:33 | CON.PULM ---
Consult Consult Specialty:: PULMONARY Referred by:: Dr. Marquez Reason for Consultation:: shortness of breath - History of Present Illness Chief Complaint: shortness of breath History of Present Illness: 52yo female with h/o HTN, DM, bipolar disorder, smoker who presents with worsening shortness of breath x "weeks." Denies chest pain or discomfort but with a cough productive of thick white sputum and wheezing. No fevers but with intermittent chills. Noted to be hypoxic in the 80s in the ER, placed on BiPAP. She is a long time smoker, started at age 20 now down to ~5 cigarettes/day. Denies history of asthma or COPD. CTA chest done which did not show evidence of PE but with areas or mosaic attenuation. - History Source History Provided By: Patient, Medical Record Limitations to Obtaining History: Clinical Condition - Past Medical History Cardio/Vascular: Yes: HTN Psych: Yes: Bipolar Endocrine: Yes: Diabetes Mellitus - Alcohol/Substance Use Hx Alcohol Use: No - Smoking History Smoking history: Current every day smoker Have you smoked in the past 12 months: No Aproximately how many cigarettes per day: 4 Home Medications - Allergies Allergies/Adverse Reactions: Allergies Allergy/AdvReac Type Severity Reaction Status Date / Time No Known Allergies Allergy Verified 01/03/18 04:08 - Home Medications Home Medications: Ambulatory Orders Citalopram Hydrobromide [Celexa -] 20 mg PO DAILY 02/13/17 Folic Acid - 1 mg PO DAILY 02/13/17 Losartan-Hctz 50-12.5 mg Tab 1 each PO HS 02/13/17 Metformin HCl ER 1,000 mg PO HS 02/13/17 Paroxetine HCl [Paxil] 40 mg PO HS 02/13/17 Quetiapine Fumarate [Seroquel -] 50 mg PO HS 02/13/17 Vitamin B Complex 1 each PO DAILY 02/13/17 Hydrocodone/Acetaminophen [Vicodin 5-300 mg Tablet] 1 each PO Q6H PRN #10 tablet MDD 4 02/17/17 Review of Systems - Review of Systems Constitutional: reports: Chills. denies: Fever Eyes: denies: Recent Change in Vision HENT: denies: Nasal Congestion, Throat Pain Neck: denies: Stiffness, Tenderness Cardiovascular: reports: Shortness of Breath. denies: Chest Pain, Palpitations Respiratory: reports: Cough, Exercise Intolerance, Wheezing. denies: Hemoptysis Gastrointestinal: denies: Abdominal Pain, Nausea, Vomiting Genitourinary: denies: Dysuria, Hematuria Neurological: denies: Dizziness, Headache Endocrine: denies: Unexplained Weight Loss Physical Exam Vital Sings: Vital Signs Temperature 98.0 F 01/03/18 08:59 Pulse Rate 84 01/03/18 08:59 Respiratory Rate 20 01/03/18 13:02 Blood Pressure 136/83 01/03/18 08:59 O2 Sat by Pulse Oximetry (%) 100 01/03/18 13:02 Constitutional: Yes: Anxious, Mild Distress Eyes: Yes: Conjunctiva Clear, EOM Intact HENT: Yes: Atraumatic, Normocephalic Neck: Yes: Supple, Trachea Midline Cardiovascular: Yes: Tachycardia Respiratory: Yes: On BiPap, Rhonchi, Wheezes ...Clubbing: No Gastrointestinal: Yes: Normal Bowel Sounds, Soft, Abdomen, Obese. No: Tenderness Edema: No Neurological: Yes: Alert, Oriented Labs: CBC, BMP 01/03/18 04:32 01/03/18 04:32 ABG Results ABG pH 7.40 (7.35-7.45) 01/03/18 06:52 ABG pCO2 at Pt Temp 43.1 mmHg (35-45) 01/03/18 06:52 ABG pO2 at Pt Temp 36.4 mmHg (80-100) L* 01/03/18 06:52 ABG HCO3 26.3 meq/L (22-26) H 01/03/18 06:52 ABG O2 Sat (Measured) 60.9 % (90-98.9) L* 01/03/18 06:52 ABG O2 Content 8.5 % vol (15-22) L* 01/03/18 06:52 ABG Base Excess 1.8 meq/l (-2-2) 01/03/18 06:52 Imaging - Results Chest X-ray: Report Reviewed, Image Reviewed Cat Scan: Report Reviewed, Image Reviewed (bilateral patchy ground glass opacities, mosaic attenuation) Assessment/Plan Acute Hypoxic Respiratory Failure Acute COPD/Asthma Exacerbation Hypertensive Urgency DM Smoker Bipolar Disorder - IV medrol - inhaled bronchodilators standing and PRN - O2 to keep SpO2 >90% - BiPAP as needed to assist in work of breathing - BP control - smoking cessation discussed - outpt PFTs - DVT prophylaxis Thank you for this consult Fransisco Alcazar MD
[2018-01-03] MEDS: HEPARIN NA (PORCINE) 5,000 UNITS/ML 1ML VIAL SQ SCH ×2 (17:58→22:24)
[2018-01-03] MEDS ORDERED: HEPARIN NA (PORCINE) 5,000 UNITS/ML 1ML VIAL ONE (18:00)
[2018-01-03] MEDS ORDERED: INSULIN (NOVOLOG) ASPART 100 UNITS/ML 10ML VIAL ONE ×2 (18:01→22:10)
[2018-01-03] MEDS: LOSARTAN 50MG/HCTZ 12.5MG 1 TAB (FP) PO SCH (22:24)
[2018-01-03] MEDS: QUEtiapine FUMARATE 50 MG TABLET PO SCH (22:25)
[2018-01-03] MEDS: PARoxetine HCL 20 MG TABLET (FP) PO SCH (22:25)
[2018-01-03 23:25] VITALS: BMI 34.9
[2018-01-04] MEDS: methylPREDNISolone NA SUCC 40 MG/1 ML VIAL IVPUSH SCH ×4 (01:03→21:11)
[2018-01-04] MEDS: INSULIN SLIDING SCALE (NOVOLOG) 1 VIAL SQ SCH ×4 (06:29→21:14)
[2018-01-04] MEDS: HEPARIN NA (PORCINE) 5,000 UNITS/ML 1ML VIAL SQ SCH ×3 (06:34→21:11)
[2018-01-04 06:58] LABS: BASO % 0.6 % (0-2.0); HEMATOCRIT 31.4 % (32.4-45.2); MCH 27.1 pg (25.7-33.7); MCHC 31.9 g/dl (32.0-36.0); MEAN CELL VOLUME 84.8 fl (80-96); MEAN PLT VOLUME 8.9 fl (7.5-11.1); MONO % 7.1 % (3.8-10.2); NEUT % 72.3 % (42.8-82.8); PLATELET COUNT 365 K/MM3 (134-434); RDW 16.5 % (11.6-15.6); WHITE BLOOD COUNT 12.4 K/mm3 (4.0-10.0)
[2018-01-04] MEDS: ALBUTEROL SO4 2.5/IPRATROPIUM 0.5 INH SOL 3 ML VIAL.NEB. NEB SCH ×4 (07:20→20:50)
[2018-01-04 07:33] LABS: CHOLESTEROL 198 mg/dL (50-200); HDL CHOLESTEROL 45 mg/dL (40-60); TRIGLYCERIDES 111 mg/dL (0-150)
[2018-01-04 07:46] LABS: ANION GAP 8 MMOL/L (8-16); BLOOD UREA NITROGEN 18 mg/dL (7-18); CHLORIDE 104 mmol/L (98-107); CO2 27 mmol/L (21-32); CREATININE 0.8 mg/dL (0.55-1.3); GLUCOSE,RANDOM 102 mg/dL (74-106); MAGNESIUM 2.4 mg/dL (1.8-2.4); N-TERMINAL BNP 1172.4 pg/ml (5-125); SODIUM 139 mmol/L (136-145)
--- NOTE | 2018-01-04 09:26 | PN ---
Physical Exam: SUBJECTIVE: Patient is 52 y/o female with a history of DM II, bipolar, and hypertension who presents for SOB. Patient reports she had a lot of coughing overnight, but has not had any more sputum production today. Reports she is still having some tightness in her chest. OBJECTIVE: Vital Signs Temperature 98.6 F 01/04/18 06:00 Pulse Rate 93 H 01/04/18 06:00 Respiratory Rate 20 01/04/18 06:00 Blood Pressure 151/91 01/04/18 06:00 O2 Sat by Pulse Oximetry (%) 100 01/03/18 22:53 GENERAL: The patient is awake, alert, and fully oriented, in no acute distress. HEAD: Normal with no signs of trauma. EYES: PERRL, extraocular movements intact LUNGS: patient tachypenic off O2, mild wheezing diffusely HEART: Regular rate and rhythm, S1, S2 without murmur, rub or gallop. ABDOMEN: Soft, nontender, nondistended, normoactive bowel sounds EXTREMITIES: 2+ pulses, warm, well-perfused, no edema. SKIN: Warm, dry, normal turgor, no rashes or lesions noted CBC, BMP 01/04/18 05:50 01/04/18 05:50 Active Medications Albuterol Sulfate (Ventolin 0.083% Nebulizer Soln -) 1 amp NEB Q1H PRN PRN Reason: SHORT OF BREATH/WHEEZING Albuterol/Ipratropium (Duoneb -) 1 amp NEB RQID [facility] Last Admin: 01/04/18 07:20 Dose: 1 amp Citalopram Hydrobromide (Celexa -) 20 mg PO DAILY [facility] Last Admin: 01/03/18 10:47 Dose: 20 mg Folic Acid (Folic Acid -) 1 mg PO DAILY [facility] Last Admin: 01/03/18 10:47 Dose: 1 mg HCTZ/Losartan Potassium (Hyzaar -) 1 tab PO HS [facility] Last Admin: 01/03/18 22:24 Dose: 1 tab Heparin Sodium (Porcine) (Heparin -) 5,000 unit SQ TID [facility] Last Admin: 01/04/18 06:34 Dose: 5,000 unit Azithromycin 250 mg/ Dextrose 250 mls @ 250 mls/hr IVPB DAILY [facility] Insulin Aspart (Novolog Vial Sliding Scale -) 1 vial SQ ACHS [facility]; Protocol Last Admin: 01/04/18 06:29 Dose: Not Given Methylprednisolone Sodium Succinate (Solu-Medrol -) 40 mg IVPUSH Q8H-IV [facility] Last Admin: 01/04/18 01:03 Dose: 40 mg Multivitamins (Total B With C -) 1 each PO DAILY [facility] Last Admin: 01/03/18 10:47 Dose: 1 each Nicotine (Nicoderm Patch -) 14 mg TD DAILY [facility] Last Admin: 01/03/18 12:44 Dose: 14 mg Paroxetine HCl (Paxil -) 40 mg PO HS [facility] Last Admin: 01/03/18 22:25 Dose: 40 mg Quetiapine Fumarate (Seroquel -) 50 mg PO HS [facility] Last Admin: 01/03/18 22:25 Dose: 50 mg ASSESSMENT/PLAN: Patient is 52 y/o female with a history of DM II, bipolar, and hypertension who presents for SOB. #Acute Hypoxic failure 2/2 to Acute COPD vs Asthma exacerbation - satting 96 % on 4L mask - Chest CTA: no PE, scattered ground glass opacification - continue solumderol 60mg q6h - Albuterol q1h prn - Duonebs 1 amp - BIPAP as needed to assist in breathing - f/u Dr. Alcazar/ Dr. Soto - Azythromycin 250 daily day 2 ( QTC 474) #HTN - Hctz/Losartan - BP more controlled - echo: LV normal, LV systolycic fxn normal, EF: 65-70%, RV systolic fxn normal, moderate to severe mitral regurgitation, moderate tricuspid regurgitation #Bipolar - Paroxetine 40 mg hs - Quetiapine 50 mg hs - Citalopram 20 mg daily #DVT ppx - heparin TID DC: monitor clinically, continue IV steroids Visit type - Emergency Visit Emergency Visit: No - New Patient This patient is new to me today: Yes Date on this admission: 01/04/18 - Critical Care Critical Care patient: No
[2018-01-04] MEDS ORDERED: AZITHROMYCIN IVPB 500 MG in DEXTROSE 5%-WATER - 250 ML IVPB ONE (09:47)
[2018-01-04] MEDS: VITAMIN B COMPLEX W/C COMBO TABLET (FP) PO SCH (10:28)
[2018-01-04] MEDS: CITALOPRAM HYDROBROMIDE 20 MG TABLET (FP) PO SCH (10:31)
[2018-01-04] MEDS: NICOTINE 14 MG/24 HOURS TOPICAL PATCH TD SCH (10:31)
[2018-01-04] MEDS: FOLIC ACID 1 MG TABLET (FP) PO SCH (10:31)
--- NOTE | 2018-01-04 10:52 | PN ---
Progress Note, Physician History of Present Illness: PULMONARY ALERT,STILL DYSPNEIC,MILDLY TACHYPNEIC - Current Medication List Current Medications: Active Medications Albuterol Sulfate (Ventolin 0.083% Nebulizer Soln -) 1 amp NEB Q1H PRN PRN Reason: SHORT OF BREATH/WHEEZING Albuterol/Ipratropium (Duoneb -) 1 amp NEB RQID [facility] Last Admin: 01/04/18 07:20 Dose: 1 amp Citalopram Hydrobromide (Celexa -) 20 mg PO DAILY [facility] Last Admin: 01/04/18 10:31 Dose: 20 mg Folic Acid (Folic Acid -) 1 mg PO DAILY [facility] Last Admin: 01/04/18 10:31 Dose: 1 mg HCTZ/Losartan Potassium (Hyzaar -) 1 tab PO HS [facility] Last Admin: 01/03/18 22:24 Dose: 1 tab Heparin Sodium (Porcine) (Heparin -) 5,000 unit SQ TID [facility] Last Admin: 01/04/18 06:34 Dose: 5,000 unit Azithromycin 250 mg/ Dextrose 250 mls @ 250 mls/hr IVPB DAILY [facility] Insulin Aspart (Novolog Vial Sliding Scale -) 1 vial SQ ACHS [facility]; Protocol Last Admin: 01/04/18 06:29 Dose: Not Given Methylprednisolone Sodium Succinate (Solu-Medrol -) 40 mg IVPUSH Q8H-IV [facility] Last Admin: 01/04/18 10:28 Dose: 40 mg Multivitamins (Total B With C -) 1 each PO DAILY [facility] Last Admin: 01/04/18 10:28 Dose: 1 each Nicotine (Nicoderm Patch -) 14 mg TD DAILY [facility] Last Admin: 01/04/18 10:31 Dose: 14 mg Paroxetine HCl (Paxil -) 40 mg PO HS [facility] Last Admin: 01/03/18 22:25 Dose: 40 mg Quetiapine Fumarate (Seroquel -) 50 mg PO HS [facility] Last Admin: 01/03/18 22:25 Dose: 50 mg - Objective Vital Signs: Vital Signs Temperature 98.6 F 01/04/18 06:00 Pulse Rate 93 H 01/04/18 06:00 Respiratory Rate 20 01/04/18 06:00 Blood Pressure 151/91 01/04/18 06:00 O2 Sat by Pulse Oximetry (%) 100 01/03/18 22:53 Constitutional: Yes: Well Nourished, Mild Distress Eyes: Yes: WNL HENT: Yes: WNL Neck: Yes: WNL Cardiovascular: Yes: Regular Rate and Rhythm, S1, S2 Respiratory: Yes: Wheezes (BILATERAL WHEEZES) Gastrointestinal: Yes: Normal Bowel Sounds, Soft Extremities: Yes: WNL Edema: No Labs: CBC, BMP 01/04/18 05:50 01/04/18 05:50 INR, PTT INR 1.19 (0.83-1.09) H 01/03/18 04:32 Problem List - Problems (1) Acute respiratory failure with hypoxia Code(s): J96.01 - ACUTE RESPIRATORY FAILURE WITH HYPOXIA (2) Diabetes Code(s): E11.9 - TYPE 2 DIABETES MELLITUS WITHOUT COMPLICATIONS (3) Hypertension Code(s): I10 - ESSENTIAL (PRIMARY) HYPERTENSION (4) Obesity Code(s): E66.9 - OBESITY, UNSPECIFIED (5) COPD exacerbation Code(s): J44.1 - CHRONIC OBSTRUCTIVE PULMONARY DISEASE W (ACUTE) EXACERBATION (6) Tobacco abuse Code(s): Z72.0 - TOBACCO USE (7) Tobacco abuse counseling Code(s): Z71.6 - TOBACCO ABUSE COUNSELING (8) Hypertensive urgency Code(s): I16.0 - HYPERTENSIVE URGENCY Assessment/Plan Assessment/Plan Acute Hypoxic Respiratory Failure Acute COPD/Asthma Exacerbation Hypertensive Urgency DM Smoker Bipolar Disorder - IV medrol increase dose to 60 q6 - inhaled bronchodilators standing and PRN - O2 to keep SpO2 >90% - BiPAP as needed to assist in work of breathing - BP control - smoking cessation discussed - outpt PFTs - DVT prophylaxis DR HDZ
--- NOTE | 2018-01-04 12:22 | ECHO ---
Name: FRANCISCO RICHARDS Exam:Adult Echocardiogram Study Date: 01/04/2018 09:35 AM Age: 52 yrs Reason For Study: VOLUME OVERLOAD RESPIRATORY FAILURE R/O CHF Height: 69 in Weight: 205 lb BSA: 2.1 m2 MMode/2D Measurements & Calculations IVSd: 1.0 cm Ao root diam: 3.1 cm LVIDd: 4.4 cm LA dimension: 4.8 cm LVIDs: 3.1 cm LVPWd: 1.0 cm EDV(Teich): 87.8 ml ESV(Teich): 36.7 ml Doppler Measurements & Calculations MV V2 max: 271.5 cm/sec MV E max rza: 150.8 cm/sec MV max P.5 mmHg MV A max raz: 54.8 cm/sec MV V2 mean: 154.4 cm/sec MV E/A: 2.7 MV mean P.0 mmHg MV dec time: 0.36 sec MV V2 VTI: 56.5 cm Ao V2 max: 212.2 cm/sec AI max raz: 487.4 cm/sec Ao max P.0 mmHg AI max P.1 mmHg Ao V2 mean: 123.0 cm/sec Ao mean P.1 mmHg AI dec slope: 289.5 cm/sec2 Ao V2 VTI: 39.4 cm AI P1/2t: 493.1 msec LV V1 max P.9 mmHg MR max raz: 585.3 cm/sec LV V1 max: 110.8 cm/sec MR max P.2 mmHg TR max raz: 301.4 cm/sec Med Peak E' Raz: 7.8 cm/sec TR max P.4 mmHg Med E/e': 19.3 Lat Peak E' Raz: 13.1 cm/sec Lat E/e': 11.5 Procedure A complete two-dimensional transthoracic echocardiogram was performed (2D, M-mode, Doppler and color flow Doppler). Left Ventricle The left ventricle is normal in size. Left ventricular systolic function is normal. Ejection Fraction = 65- 70%. No regional wall motion abnormalities noted. Right Ventricle The right ventricle is normal size. The right ventricular systolic function is normal. RV systolic TD I is 10 cm/s. Atria The left atrium is moderately dilated. Right atrial size is normal. Mitral Valve There is mild mitral annular calcification. There is moderate to severe mitral regurgitation. Tricuspid Valve The tricuspid valve is normal in structure and function. There is moderate tricuspid regurgitation. P ulmonary artery systolic pressure is at least 50 mmHg assuming RA pressure of 8 mmHg. Aortic Valve There is mild aortic sclerosis.;. Mild to moderate aortic regurgitation. Pulmonic Valve The pulmonic valve is not well visualized. Mild pulmonic valvular regurgitation. Great Vessels The aortic root is normal size. Pericardium/Pleura There is no pericardial effusion. Interpretation Summary The left ventricle is normal in size. Left ventricular systolic function is normal. No regional wall motion abnormalities noted. Ejection Fraction = 65-70%. The right ventricular systolic function is normal. The left atrium is moderately dilated. Right atrial size is normal. There is mild mitral annular calcification. There is moderate to severe mitral regurgitation. There is moderate tricuspid regurgitation. Pulmonary artery systolic pressure is at least 50 mmHg assuming RA pressure of 8 mmHg There is mild aortic sclerosis. Mild to moderate aortic regurgitation. Mild pulmonic valvular regurgitation. There is no pericardial effusion. Previous study is not available for comparison John Jha MD 01/04/2018 12:22 PM
[2018-01-04] MEDS: AZITHROMYCIN IVPB 250 MG in DEXTROSE 5%-WATER - 250 ML IVPB SCH (13:37)
--- NOTE | 2018-01-04 15:35 | PN ---
Progress Note, Physician Chief Complaint: SOB - improving History of Present Illness: This is a 52 year old female with a PMH of HTN, DM, smoker, depression, admitted with SOB, cough, chest tightness, chills, and presented with hypoxic respiratory failure. She improved with BiPAP. Echocardiogram 01/04/18: Normal LV size and function. EF 65 - 70% The RV is normal. The LA is moderately dilated. Mild MAC. Moderate to severe MR. Moderate TR. PASP 50 mmHg. Mild to moderate AI. Mild pulmonic regurgitation. - Current Medication List Current Medications: Active Medications Albuterol Sulfate (Ventolin 0.083% Nebulizer Soln -) 1 amp NEB Q1H PRN PRN Reason: SHORT OF BREATH/WHEEZING Albuterol/Ipratropium (Duoneb -) 1 amp NEB RQID [facility] Last Admin: 01/04/18 11:30 Dose: 1 amp Citalopram Hydrobromide (Celexa -) 20 mg PO DAILY [facility] Last Admin: 01/04/18 10:31 Dose: 20 mg Folic Acid (Folic Acid -) 1 mg PO DAILY [facility] Last Admin: 01/04/18 10:31 Dose: 1 mg HCTZ/Losartan Potassium (Hyzaar -) 1 tab PO HS [facility] Last Admin: 01/03/18 22:24 Dose: 1 tab Heparin Sodium (Porcine) (Heparin -) 5,000 unit SQ TID [facility] Last Admin: 01/04/18 06:34 Dose: 5,000 unit Azithromycin 250 mg/ Dextrose 250 mls @ 250 mls/hr IVPB DAILY [facility] Last Admin: 01/04/18 13:37 Dose: 250 mls/hr Insulin Aspart (Novolog Vial Sliding Scale -) 1 vial SQ ACHS [facility]; Protocol Last Admin: 01/04/18 12:23 Dose: Not Given Methylprednisolone Sodium Succinate (Solu-Medrol -) 60 mg IVPUSH Q6H-IV [facility] Multivitamins (Total B With C -) 1 each PO DAILY [facility] Last Admin: 01/04/18 10:28 Dose: 1 each Nicotine (Nicoderm Patch -) 14 mg TD DAILY [facility] Last Admin: 01/04/18 10:31 Dose: 14 mg Paroxetine HCl (Paxil -) 40 mg PO HS [facility] Last Admin: 01/03/18 22:25 Dose: 40 mg Quetiapine Fumarate (Seroquel -) 50 mg PO HS [facility] Last Admin: 01/03/18 22:25 Dose: 50 mg - Objective Vital Signs: Vital Signs Temperature 98.6 F 01/04/18 14:00 Pulse Rate 96 H 01/04/18 14:00 Respiratory Rate 20 01/04/18 14:00 Blood Pressure 151/95 01/04/18 14:00 O2 Sat by Pulse Oximetry (%) 100 01/03/18 22:53 Constitutional: Yes: No Distress Eyes: Yes: WNL HENT: Yes: WNL Neck: Yes: WNL Cardiovascular: Yes: Regular Rate and Rhythm (NL S1S2 2/6 HSM apex to axilla) Respiratory: Yes: On Venti-Mask (Scattered wheezing) Gastrointestinal: Yes: Normal Bowel Sounds, Soft Extremities: Yes: WNL Edema: No Neurological: Yes: Alert, Oriented (No focal) Labs: CBC, BMP 01/04/18 05:50 01/04/18 05:50 INR, PTT INR 1.19 (0.83-1.09) H 01/03/18 04:32 Assessment/Plan 52 year old female with a PMH of HTN, DM, smoker, depression, admitted with SOB , cough, chest tightness, chills, and presented with hypoxic respiratory failure. She improved with BiPAP. Pulmonary Status: Improving on current therapy Echocardiogram reveals moderate to severe MR and a PASP of 50 mmHg. She should be followed by Cardiology as an outpatient and an echocardiogram should be repeated when her pulmonary status is improved. At some point in the future (as an outpatient) a right heart cath should be considered to help determine what role the MR has in the high pulmonary pressures. A cardiac stress test as an outpatient (when the [pulmonary status is baseline) is also a consideration. Continue nebs/steroids/Hyzaar Will follow with you.
--- NOTE | 2018-01-04 20:18 | PN ---
Teaching Attending Note Name of Resident: Mary Ellen Ananth ATTENDING PHYSICIAN STATEMENT I saw and evaluated the patient. I reviewed the resident's note and discussed the case with the resident. I agree with the resident's findings and plan as documented. SUBJECTIVE: Patient is feeling better with no acute distress. OBJECTIVE: Vital Signs Temperature 98.4 F 01/04/18 18:00 Pulse Rate 97 H 01/04/18 18:00 Respiratory Rate 20 01/04/18 18:00 Blood Pressure 144/80 01/04/18 18:00 O2 Sat by Pulse Oximetry (%) 98 01/04/18 09:00 GENERAL: Awake, alert, and fully oriented, in no acute distress. HEAD: Normal with no signs of trauma. EYES: Pupils equal, round and reactive to light, extraocular movements intact, sclera anicteric, conjunctiva clear. EARS, NOSE, THROAT: Ears normal, oropharynx clear without exudates. Moist mucous membranes. NECK: Normal range of motion, supple without lymphadenopathy, JVD, or masses. LUNGS: Breath sounds equal, clear to auscultation bilaterally. No wheezes, and no crackles. No accessory muscle use. HEART: Regular rate and rhythm, normal S1 and S2 without murmur, rub or gallop. ABDOMEN: Soft, nontender, not distended, normoactive bowel sounds, no guarding, no rebound, no masses. MUSCULOSKELETAL: Normal range of motion at all joints. No bony deformities or tenderness. No CVA tenderness. EXTREMITIES: 2+ pulses, warm, well-perfused. No calf tenderness. No peripheral edema. NEUROLOGICAL: Cranial nerves II-XII intact. Normal speech. Normal gait. PSYCHIATRIC: Cooperative. Good eye contact. Appropriate mood and affect. SKIN: Warm, dry, normal turgor, no rashes or lesions noted, normal capillary refill. CBCD WBC 12.4 K/mm3 (4.0-10.0) H 01/04/18 05:50 RBC 3.70 M/mm3 (3.60-5.2) 01/04/18 05:50 Hgb 10.0 GM/dL (10.7-15.3) L 01/04/18 05:50 Hct 31.4 % (32.4-45.2) L 01/04/18 05:50 MCV 84.8 fl (80-96) 01/04/18 05:50 MCHC 31.9 g/dl (32.0-36.0) L 01/04/18 05:50 RDW 16.5 % (11.6-15.6) H 01/04/18 05:50 Plt Count 365 K/MM3 (134-434) 01/04/18 05:50 MPV 8.9 fl (7.5-11.1) 01/04/18 05:50 CMP Sodium 139 mmol/L (136-145) 01/04/18 05:50 Potassium 4.0 mmol/L (3.5-5.1) 01/04/18 05:50 Chloride 104 mmol/L (98-107) 01/04/18 05:50 Carbon Dioxide 27 mmol/L (21-32) 01/04/18 05:50 Anion Gap 8 MMOL/L (8-16) 01/04/18 05:50 BUN 18 mg/dL (7-18) 01/04/18 05:50 Creatinine 0.8 mg/dL (0.55-1.3) 01/04/18 05:50 Creat Clearance w eGFR > 60 (>60) 01/04/18 05:50 Random Glucose 102 mg/dL (74-106) 01/04/18 05:50 Calcium 9.0 mg/dL (8.5-10.1) 01/04/18 05:50 Total Bilirubin 0.4 mg/dL (0.2-1) 01/03/18 04:32 AST 18 U/L (15-37) 01/03/18 04:32 ALT 21 U/L (13-61) 01/03/18 04:32 Alkaline Phosphatase 59 U/L (45-117) 01/03/18 04:32 Total Protein 7.5 g/dl (6.4-8.2) 01/03/18 04:32 Albumin 3.6 g/dl (3.4-5.0) 01/03/18 04:32 CARDIAC ENZYMES Creatine Kinase 85 IU/L (26-192) 01/04/18 05:50 Troponin I < 0.02 ng/ml (0.00-0.05) 01/04/18 05:50 Current Medications Generic Name Dose Route Start Last Admin Trade Name Freq PRN Reason Stop Dose Admin Albuterol Sulfate 1 amp 01/03/18 10:12 Ventolin 0.083% Nebulizer Soln - NEB Q1H PRN SHORT OF BREATH/WHEEZING Albuterol/Ipratropium 1 amp 01/03/18 12:00 01/04/18 15:40 Duoneb - NEB 1 amp RQID [facility] Administration Citalopram Hydrobromide 20 mg 01/03/18 10:00 01/04/18 10:31 Celexa - PO 20 mg DAILY [facility] Administration Folic Acid 1 mg 01/03/18 10:00 01/04/18 10:31 Folic Acid - PO 1 mg DAILY [facility] Administration HCTZ/Losartan Potassium 1 tab 01/03/18 22:00 01/03/18 22:24 Hyzaar - PO 1 tab HS [facility] Administration Heparin Sodium (Porcine) 5,000 unit 01/03/18 14:00 01/04/18 15:37 Heparin - SQ 5,000 unit TID [facility] Administration Azithromycin 250 mg/ Dextrose 250 mls @ 250 mls/hr 01/04/18 10:00 01/04/18 13 :37 IVPB 250 mls/hr DAILY [facility] Administration Insulin Aspart 1 vial 01/03/18 11:00 01/04/18 18:35 Novolog Vial Sliding Scale - SQ 4 units ACHS [facility] Administration Protocol Methylprednisolone Sodium Succinate 60 mg 01/04/18 15:00 01/04/18 15:37 Solu-Medrol - IVPUSH 60 mg Q6H-IV [facility] Administration Multivitamins 1 each 01/03/18 10:00 01/04/18 10:28 Total B With C - PO 1 each DAILY [facility] Administration Nicotine 14 mg 01/03/18 10:30 01/04/18 10:31 Nicoderm Patch - TD 14 mg DAILY [facility] Administration Paroxetine HCl 40 mg 01/03/18 22:00 01/03/18 22:25 Paxil - PO 40 mg HS [facility] Administration Quetiapine Fumarate 50 mg 01/03/18 22:00 01/03/18 22:25 Seroquel - PO 50 mg HS [facility] Administration Home Medications Medication Instructions Recorded Citalopram Hydrobromide [Celexa -] 20 mg PO DAILY 02/13/17 Folic Acid - 1 mg PO DAILY 02/13/17 Losartan-Hctz 50-12.5 mg Tab 1 each PO HS 02/13/17 Metformin HCl ER 1,000 mg PO HS 02/13/17 Paroxetine HCl [Paxil] 40 mg PO HS 02/13/17 Quetiapine Fumarate [Seroquel -] 50 mg PO HS 02/13/17 Vitamin B Complex 1 each PO DAILY 02/13/17 Hydrocodone/Acetaminophen [Vicodin 1 each PO Q6H PRN #10 tablet MDD 4 02/17/17 5-300 mg Tablet] Albuterol Sulfate Inhaler - 0.623 mg IH BID 01/04/18 [Ventolin Hfa Inhaler -] Diclofenac Sodium [Voltaren] 20 grams TP DAILY 01/04/18 Ergocalciferol (Vitamin D2) 1 cap PO WEEKLY 01/04/18 [Vitamin D2] Omeprazole 20 mg PO DAILY 01/04/18 CTA:No evidence of a pulmonary embolism, thoracic aortic aneurysm, or dissection ASSESSMENT AND PLAN: This is a 52 year old female, with a history of T2DM, HTN, manic depression, tobacco use 1ppd x30yrs, who presents with coughing, shortness of breath, and chest pain, and was found have COPD exacerbation/CHD. #Acute COPD exacerbation On nebulizer txments/steroid/zithromax continue # Diastolic CHF stable at this time # HTN: continue home meds. DVT Px: Heparin
[2018-01-04] MEDS ORDERED: PT OWN MED DRAWER 7, Y5N ONE (20:51)
[2018-01-04] MEDS: LOSARTAN 50MG/HCTZ 12.5MG 1 TAB (FP) PO SCH (21:11)
[2018-01-04] MEDS: PARoxetine HCL 20 MG TABLET (FP) PO SCH (21:11)
[2018-01-04] MEDS: QUEtiapine FUMARATE 50 MG TABLET PO SCH (21:12)
[2018-01-05] MEDS: methylPREDNISolone NA SUCC 40 MG/1 ML VIAL IVPUSH SCH ×3 (04:00→17:48)
[2018-01-05] MEDS: HEPARIN NA (PORCINE) 5,000 UNITS/ML 1ML VIAL SQ SCH ×3 (05:57→21:48)
[2018-01-05] MEDS: INSULIN SLIDING SCALE (NOVOLOG) 1 VIAL SQ SCH ×4 (06:00→21:48)
[2018-01-05 06:45] LABS: HEMOGLOBIN 10.6 GM/dL (10.7-15.3); MCH 26.6 pg (25.7-33.7); MCHC 31.2 g/dl (32.0-36.0); MEAN CELL VOLUME 85.2 fl (80-96); PLATELET COUNT 398 K/MM3 (134-434); RBC 3.99 M/mm3 (3.60-5.2); RDW 16.8 % (11.6-15.6); WHITE BLOOD COUNT 13.3 K/mm3 (4.0-10.0)
--- NOTE | 2018-01-05 07:14 | PN ---
Physical Exam: SUBJECTIVE:Patient is 52 y/o female with a history of DM II, bipolar, and hypertension who presents for SOB. Patient reports she is still bringing phlem up over night and still feels that she has a tightness when she is breathing. OBJECTIVE: Vital Signs Temperature 98 F 01/05/18 10:30 Pulse Rate 90 01/05/18 10:30 Respiratory Rate 20 01/05/18 10:30 Blood Pressure 153/76 01/05/18 10:30 O2 Sat by Pulse Oximetry (%) 92 L 01/05/18 12:13 GENERAL: The patient is awake, alert, and fully oriented, in no acute distress. HEAD: Normal with no signs of trauma. EYES: PERRL, extraocular movements intact LUNGS: patient tachypenic off O2, mild wheezing diffusely HEART: Regular rate and rhythm, S1, S2 without murmur, rub or gallop. ABDOMEN: Soft, nontender, nondistended, normoactive bowel sounds EXTREMITIES: 2+ pulses, warm, well-perfused, no edema. SKIN: Warm, dry, normal turgor, no rashes or lesions noted Laboratory Results - last 24 hr CBC, BMP 01/05/18 05:30 01/05/18 05:30 Active Medications Albuterol Sulfate (Ventolin 0.083% Nebulizer Soln -) 1 amp NEB Q1H PRN PRN Reason: SHORT OF BREATH/WHEEZING Last Admin: 01/05/18 06:20 Dose: 1 amp Albuterol/Ipratropium (Duoneb -) 1 amp NEB RQID [facility] Last Admin: 01/04/18 20:50 Dose: Not Given Citalopram Hydrobromide (Celexa -) 20 mg PO DAILY [facility] Last Admin: 01/04/18 10:31 Dose: 20 mg Folic Acid (Folic Acid -) 1 mg PO DAILY [facility] Last Admin: 01/04/18 10:31 Dose: 1 mg HCTZ/Losartan Potassium (Hyzaar -) 1 tab PO HS [facility] Last Admin: 01/04/18 21:11 Dose: 1 tab Heparin Sodium (Porcine) (Heparin -) 5,000 unit SQ TID [facility] Last Admin: 01/05/18 05:57 Dose: 5,000 unit Azithromycin 250 mg/ Dextrose 250 mls @ 250 mls/hr IVPB DAILY [facility] Last Admin: 01/04/18 13:37 Dose: 250 mls/hr Insulin Aspart (Novolog Vial Sliding Scale -) 1 vial SQ ACHS [facility]; Protocol Last Admin: 01/05/18 06:00 Dose: Not Given Methylprednisolone Sodium Succinate (Solu-Medrol -) 60 mg IVPUSH Q6H-IV [facility] Last Admin: 01/05/18 04:00 Dose: 60 mg Multivitamins (Total B With C -) 1 each PO DAILY [facility] Last Admin: 01/04/18 10:28 Dose: 1 each Nicotine (Nicoderm Patch -) 14 mg TD DAILY [facility] Last Admin: 01/04/18 10:31 Dose: 14 mg Paroxetine HCl (Paxil -) 40 mg PO HS [facility] Last Admin: 01/04/18 21:11 Dose: 40 mg Quetiapine Fumarate (Seroquel -) 50 mg PO HS [facility] Last Admin: 01/04/18 21:12 Dose: 50 mg ASSESSMENT/PLAN: Patient is 52 y/o female with a history of DM II, bipolar, and hypertension who presents for SOB. #Acute Hypoxic failure 2/2 to Acute COPD vs Asthma exacerbation - satting 96 % on 2.5L NC - Chest CTA: no PE, scattered ground glass opacification - corticosteroid taper, 40 mg q8h today - Albuterol q1h prn - Duonebs 1 amp - BIPAP as needed to assist in breathing - f/u Dr. Alcazar/ Dr. Soto - Azythromycin 250 daily day 3 ( QTC 474) #HTN - Hctz/Losartan 100/25 once a day - BP more controlled - echo: LV normal, LV systolycic fxn normal, EF: 65-70%, RV systolic fxn normal, moderate to severe mitral regurgitation, moderate tricuspid regurgitation #Bipolar - Quetiapine 50 mg hs - Citalopram 20 mg daily #DVT ppx - heparin TID DC: continue steroid taper, can likely go today, continue taper down O2 Visit type - Emergency Visit Emergency Visit: No - New Patient This patient is new to me today: No - Critical Care Critical Care patient: No
[2018-01-05 07:46] LABS: ANION GAP 9 MMOL/L (8-16); BLOOD UREA NITROGEN 21 mg/dL (7-18); CALCIUM 8.7 mg/dL (8.5-10.1); CHLORIDE 104 mmol/L (98-107); CO2 27 mmol/L (21-32); CREATININE 0.9 mg/dL (0.55-1.3); GLUCOSE,RANDOM 123 mg/dL (74-106); POTASSIUM 4.3 mmol/L (3.5-5.1); SODIUM 140 mmol/L (136-145)
[2018-01-05] MEDS: ALBUTEROL SO4 2.5/IPRATROPIUM 0.5 INH SOL 3 ML VIAL.NEB. NEB SCH ×4 (08:40→20:53)
--- NOTE | 2018-01-05 09:43 | PN ---
Teaching Attending Note Name of Resident: Mary Ellen Ananth ATTENDING PHYSICIAN STATEMENT I saw and evaluated the patient. I reviewed the resident's note and discussed the case with the resident. I agree with the resident's findings and plan as documented. SUBJECTIVE: Patient is comfortable, NAD, feels better today. OBJECTIVE: Vital Signs Temperature 98.0 F 01/05/18 07:19 Pulse Rate 94 H 01/05/18 07:19 Respiratory Rate 20 01/05/18 07:19 Blood Pressure 153/72 01/05/18 07:19 O2 Sat by Pulse Oximetry (%) 99 01/05/18 08:40 GENERAL: Awake, alert, and fully oriented, in no acute distress. HEAD: Normal with no signs of trauma. EYES: Pupils equal, round and reactive to light, extraocular movements intact, sclera anicteric, conjunctiva clear. EARS, NOSE, THROAT: Ears normal, oropharynx clear without exudates. Moist mucous membranes. NECK: Normal range of motion, supple without lymphadenopathy, JVD, or masses. LUNGS: Breath sounds equal, clear to auscultation bilaterally. No wheezes, and no crackles. No accessory muscle use. HEART: Regular rate and rhythm, normal S1 and S2 without murmur, rub or gallop. ABDOMEN: Soft, nontender, not distended, normoactive bowel sounds, no guarding, no rebound, no masses. MUSCULOSKELETAL: Normal range of motion at all joints. No bony deformities or tenderness. No CVA tenderness. EXTREMITIES: 2+ pulses, warm, well-perfused. No calf tenderness. No peripheral edema. NEUROLOGICAL: Cranial nerves II-XII intact. Normal speech. Normal gait. PSYCHIATRIC: Cooperative. Good eye contact. Appropriate mood and affect. SKIN: Warm, dry, normal turgor, no rashes or lesions noted, normal capillary refill. CBCD WBC 13.3 K/mm3 (4.0-10.0) H 01/05/18 05:30 RBC 3.99 M/mm3 (3.60-5.2) 01/05/18 05:30 Hgb 10.6 GM/dL (10.7-15.3) L 01/05/18 05:30 Hct 34.0 % (32.4-45.2) 01/05/18 05:30 MCV 85.2 fl (80-96) 01/05/18 05:30 MCHC 31.2 g/dl (32.0-36.0) L 01/05/18 05:30 RDW 16.8 % (11.6-15.6) H 01/05/18 05:30 Plt Count 398 K/MM3 (134-434) 01/05/18 05:30 MPV 9.0 fl (7.5-11.1) 01/05/18 05:30 CMP Sodium 140 mmol/L (136-145) 01/05/18 05:30 Potassium 4.3 mmol/L (3.5-5.1) 01/05/18 05:30 Chloride 104 mmol/L (98-107) 01/05/18 05:30 Carbon Dioxide 27 mmol/L (21-32) 01/05/18 05:30 Anion Gap 9 MMOL/L (8-16) 01/05/18 05:30 BUN 21 mg/dL (7-18) H 01/05/18 05:30 Creatinine 0.9 mg/dL (0.55-1.3) 01/05/18 05:30 Creat Clearance w eGFR > 60 (>60) 01/05/18 05:30 Random Glucose 123 mg/dL (74-106) H 01/05/18 05:30 Calcium 8.7 mg/dL (8.5-10.1) 01/05/18 05:30 Total Bilirubin 0.4 mg/dL (0.2-1) 01/03/18 04:32 AST 18 U/L (15-37) 01/03/18 04:32 ALT 21 U/L (13-61) 01/03/18 04:32 Alkaline Phosphatase 59 U/L (45-117) 01/03/18 04:32 Total Protein 7.5 g/dl (6.4-8.2) 01/03/18 04:32 Albumin 3.6 g/dl (3.4-5.0) 01/03/18 04:32 CARDIAC ENZYMES Creatine Kinase 85 IU/L (26-192) 01/04/18 05:50 Troponin I < 0.02 ng/ml (0.00-0.05) 01/04/18 05:50 Current Medications Generic Name Dose Route Start Last Admin Trade Name Freq PRN Reason Stop Dose Admin Albuterol Sulfate 1 amp 01/03/18 10:12 01/05/18 06:20 Ventolin 0.083% Nebulizer Soln - NEB 1 amp Q1H PRN Administration SHORT OF BREATH/WHEEZING Albuterol/Ipratropium 1 amp 01/03/18 12:00 01/05/18 08:40 Duoneb - NEB 1 amp RQID [facility] Administration Citalopram Hydrobromide 20 mg 01/03/18 10:00 01/04/18 10:31 Celexa - PO 20 mg DAILY [facility] Administration Folic Acid 1 mg 01/03/18 10:00 01/04/18 10:31 Folic Acid - PO 1 mg DAILY [facility] Administration HCTZ/Losartan Potassium 2 tab 01/05/18 10:00 Hyzaar - PO DAILY [facility] Heparin Sodium (Porcine) 5,000 unit 01/03/18 14:00 01/05/18 05:57 Heparin - SQ 5,000 unit TID [facility] Administration Azithromycin 250 mg/ Dextrose 250 mls @ 250 mls/hr 01/04/18 10:00 01/04/18 13 :37 IVPB 250 mls/hr DAILY [facility] Administration Insulin Aspart 1 vial 01/03/18 11:00 01/05/18 06:00 Novolog Vial Sliding Scale - SQ Not Given ACHS [facility] Protocol Methylprednisolone Sodium Succinate 60 mg 01/04/18 15:00 01/05/18 04:00 Solu-Medrol - IVPUSH 60 mg Q6H-IV [facility] Administration Multivitamins 1 each 01/03/18 10:00 01/04/18 10:28 Total B With C - PO 1 each DAILY [facility] Administration Nicotine 14 mg 01/03/18 10:30 01/04/18 10:31 Nicoderm Patch - TD 14 mg DAILY [facility] Administration Paroxetine HCl 40 mg 01/03/18 22:00 01/04/18 21:11 Paxil - PO 40 mg HS [facility] Administration Quetiapine Fumarate 50 mg 01/03/18 22:00 01/04/18 21:12 Seroquel - PO 50 mg HS [facility] Administration Home Medications Medication Instructions Recorded Citalopram Hydrobromide [Celexa -] 20 mg PO DAILY 02/13/17 Folic Acid - 1 mg PO DAILY 02/13/17 Metformin HCl ER 1,000 mg PO HS 02/13/17 Paroxetine HCl [Paxil] 40 mg PO HS 02/13/17 Quetiapine Fumarate [Seroquel -] 50 mg PO HS 02/13/17 Hydrocodone/Acetaminophen [Vicodin 1 each PO Q6H PRN #10 tablet MDD 4 02/17/17 5-300 mg Tablet] Albuterol Sulfate Inhaler - 0.623 mg IH BID 01/04/18 [Ventolin Hfa Inhaler -] Diclofenac Sodium [Voltaren] 20 grams TP DAILY 01/04/18 Ergocalciferol (Vitamin D2) 1 cap PO WEEKLY 01/04/18 [Vitamin D2] Omeprazole 20 mg PO DAILY 01/04/18 Losartan/Hydrochlorothiazide 1 each PO DAILY 01/05/18 [Losartan-Hctz 100-25 mg Tab] Echocardiogram reveals moderate to severe MR and a PASP of 50 mmHg. CTA:No evidence of a pulmonary embolism, thoracic aortic aneurysm, or dissection ASSESSMENT AND PLAN: This is a 52 year old female, with a history of T2DM, HTN, manic depression, tobacco use 1ppd x30yrs, who presents with coughing, shortness of breath, and chest pain, and was found to be in CHF and COPD exacerbation. #Acute COPD exacerbation continue steroid IV 60mg q6h --> reduced the dose to 40mg q8h IV per pulm. continue to taper. continue neb. treatments. Pulmonary consult appreciated. # Diastolic CHF stable at this time. Patient needs follow up an echocardiogram once pulmonary status is improved. As per cardio: A cardiac stress test as an outpatient (when the pulmonary status is baseline) and Right heart cath. recommended. # HTN uncontrolled continue meds. # Hx of Depression Continue Celexa/seroquel # Smoking hx on Nicoderm patch. continue DVT Px: Heparin
--- NOTE | 2018-01-05 09:49 | PN ---
Progress Note, Physician History of Present Illness: seen and examined today in nad. lying flat comfortable. no overnight events. states she is feeling better. - Current Medication List Current Medications: Active Medications Albuterol Sulfate (Ventolin 0.083% Nebulizer Soln -) 1 amp NEB Q1H PRN PRN Reason: SHORT OF BREATH/WHEEZING Last Admin: 01/05/18 06:20 Dose: 1 amp Albuterol/Ipratropium (Duoneb -) 1 amp NEB RQID [facility] Last Admin: 01/05/18 08:40 Dose: 1 amp Citalopram Hydrobromide (Celexa -) 20 mg PO DAILY [facility] Last Admin: 01/04/18 10:31 Dose: 20 mg Folic Acid (Folic Acid -) 1 mg PO DAILY [facility] Last Admin: 01/04/18 10:31 Dose: 1 mg HCTZ/Losartan Potassium (Hyzaar -) 2 tab PO DAILY [facility] Heparin Sodium (Porcine) (Heparin -) 5,000 unit SQ TID [facility] Last Admin: 01/05/18 05:57 Dose: 5,000 unit Azithromycin 250 mg/ Dextrose 250 mls @ 250 mls/hr IVPB DAILY [facility] Last Admin: 01/04/18 13:37 Dose: 250 mls/hr Insulin Aspart (Novolog Vial Sliding Scale -) 1 vial SQ ACHS [facility]; Protocol Last Admin: 01/05/18 06:00 Dose: Not Given Methylprednisolone Sodium Succinate (Solu-Medrol -) 60 mg IVPUSH Q6H-IV [facility] Last Admin: 01/05/18 04:00 Dose: 60 mg Multivitamins (Total B With C -) 1 each PO DAILY [facility] Last Admin: 01/04/18 10:28 Dose: 1 each Nicotine (Nicoderm Patch -) 14 mg TD DAILY [facility] Last Admin: 01/04/18 10:31 Dose: 14 mg Paroxetine HCl (Paxil -) 40 mg PO HS [facility] Last Admin: 01/04/18 21:11 Dose: 40 mg Quetiapine Fumarate (Seroquel -) 50 mg PO HS [facility] Last Admin: 01/04/18 21:12 Dose: 50 mg - Objective Vital Signs: Vital Signs Temperature 98.0 F 01/05/18 07:19 Pulse Rate 94 H 01/05/18 07:19 Respiratory Rate 20 01/05/18 07:19 Blood Pressure 153/72 01/05/18 07:19 O2 Sat by Pulse Oximetry (%) 99 01/05/18 08:40 Constitutional: Yes: No Distress, Calm Eyes: Yes: Conjunctiva Clear, EOM Intact HENT: Yes: Atraumatic, Normocephalic Neck: Yes: Supple, Trachea Midline Cardiovascular: Yes: Regular Rate and Rhythm, Murmur, S1, S2. No: Bradycardia, Tachycardia, Pulse Irregular, Bruit, JVD, Gallop, Rub, S3, S4, Varicosities Respiratory: Yes: Regular, Poor Air Entry. No: Rales, Rhonchi, SOB, Wheezes Gastrointestinal: Yes: Normal Bowel Sounds, Soft. No: Distention, Tenderness Extremities: Yes: WNL Edema: No Peripheral Pulses WNL: Yes Neurological: Yes: Alert, Oriented Psychiatric: Yes: Alert, Oriented Labs: CBC, BMP 01/05/18 05:30 01/05/18 05:30 INR, PTT INR 1.19 (0.83-1.09) H 01/03/18 04:32 - ....Imaging Chest X-ray: Report Reviewed, Image Reviewed EKG: Report Reviewed, Image Reviewed Other: Report Reviewed, Image Reviewed (tele-NSR, frequent APCs, brief self limited PSVT episodes, no clear afib) Assessment/Plan 52 year old woman pmh HTN, DMII, smoker, depression admitted with sob, cough, chest tightness, chills, wheezing found to be in acute hypoxic respiratory failure. currently on BIPAP, appears sob. Pt states that her symptoms started approximately 1 month ago and have gotten progressively worse over the past month and significantly worse over the past 3 days. states she has mold in the house at home and she feels this is the source as everytime she goes in the house she gets sob. states her chest pain has been going on over the same period mainly associated with the sob and cough but also on exertion. She states she saw a doctor once in a clinic who prescribed her bronchodilator inhalers but she does not follow regularly with a doctor. denies any known cardiac history. SOB/chest tightness/cough-hypoxic/hypercapneic respiratory failure -Acute bronchitis, likely AE COPD -improving on current treatment regimen -no signs of CHF or ACS -pulmonary following, cont tx as per their reccs -does not require diuresis -cardiac enzymes did not trend up -pt does have multiple cardiac risk factors, would benefit from an ischemic evaluation which can likely be done as outpatient when she recovers from her acute illness -Echocardiogram reveals moderate to severe MR and a PASP of 50 mmHg. She should be followed by Cardiology as an outpatient and an echocardiogram should be repeated when her pulmonary status is improved. At some point in the future (as an outpatient) a right heart cath should be considered to help determine what role the MR has in the high pulmonary pressures. A cardiac stress test as an outpatient (when the [pulmonary status is baseline) is also a consideration. Arrhythmia-NSR with frequent APCs, brief episodes of PSVT, no clear afib thus far -cont tele until ready for discharge from med/pulm standpoint -if otherwise ready for discharge, should be followed closely as outpatient with plan for Holter monitor in addition to the above work up to further evaluate arrhythmia -would not use bblockers at this time in the setting of acute bronchitis -no current indication for AC unless she develops clear Afib or Aflutter
[2018-01-05] MEDS ORDERED: PT OWN MED DRAWER 7, Y5N ONE (09:53)
[2018-01-05] MEDS: FOLIC ACID 1 MG TABLET (FP) PO SCH (10:31)
[2018-01-05] MEDS: LOSARTAN 50MG/HCTZ 12.5MG 1 TAB (FP) PO SCH (10:31)
[2018-01-05] MEDS: CITALOPRAM HYDROBROMIDE 20 MG TABLET (FP) PO SCH (10:31)
[2018-01-05] MEDS: VITAMIN B COMPLEX W/C COMBO TABLET (FP) PO SCH (10:31)
[2018-01-05] MEDS: NICOTINE 14 MG/24 HOURS TOPICAL PATCH TD SCH (10:32)
[2018-01-05] MEDS: AZITHROMYCIN IVPB 250 MG in DEXTROSE 5%-WATER - 250 ML IVPB SCH (10:32)
--- NOTE | 2018-01-05 11:36 | PN ---
Progress Note, Physician History of Present Illness: PULMONARY ALERT,FEELING BETTER,LESS DYSPNEIC,LESS COUGH - Current Medication List Current Medications: Active Medications Albuterol Sulfate (Ventolin 0.083% Nebulizer Soln -) 1 amp NEB Q1H PRN PRN Reason: SHORT OF BREATH/WHEEZING Last Admin: 01/05/18 06:20 Dose: 1 amp Albuterol/Ipratropium (Duoneb -) 1 amp NEB RQID [facility] Last Admin: 01/05/18 08:40 Dose: 1 amp Citalopram Hydrobromide (Celexa -) 20 mg PO DAILY [facility] Last Admin: 01/05/18 10:31 Dose: 20 mg Folic Acid (Folic Acid -) 1 mg PO DAILY [facility] Last Admin: 01/05/18 10:31 Dose: 1 mg HCTZ/Losartan Potassium (Hyzaar -) 2 tab PO DAILY [facility] Last Admin: 01/05/18 10:31 Dose: 2 tab Heparin Sodium (Porcine) (Heparin -) 5,000 unit SQ TID [facility] Last Admin: 01/05/18 05:57 Dose: 5,000 unit Azithromycin 250 mg/ Dextrose 250 mls @ 250 mls/hr IVPB DAILY [facility] Last Admin: 01/05/18 10:32 Dose: 250 mls/hr Insulin Aspart (Novolog Vial Sliding Scale -) [address] [facility]; Protocol Last Admin: 01/05/18 06:00 Dose: Not Given Methylprednisolone Sodium Succinate (Solu-Medrol -) 60 mg IVPUSH Q6H-IV [facility] Last Admin: 01/05/18 10:32 Dose: 60 mg Multivitamins (Total B With C -) 1 each PO DAILY [facility] Last Admin: 01/05/18 10:31 Dose: 1 each Nicotine (Nicoderm Patch -) 14 mg TD DAILY [facility] Last Admin: 01/05/18 10:32 Dose: 14 mg Paroxetine HCl (Paxil -) 40 mg PO HS [facility] Last Admin: 01/04/18 21:11 Dose: 40 mg Quetiapine Fumarate (Seroquel -) 50 mg PO HS [facility] Last Admin: 01/04/18 21:12 Dose: 50 mg - Objective Vital Signs: Vital Signs Temperature 98 F 01/05/18 10:30 Pulse Rate 90 01/05/18 10:30 Respiratory Rate 20 11/27/18 10:30 Blood Pressure 153/76 11/27/18 10:30 O2 Sat by Pulse Oximetry (%) 99 01/05/18 09:00 Constitutional: Yes: Well Nourished, Calm Eyes: Yes: WNL HENT: Yes: WNL Neck: Yes: WNL Cardiovascular: Yes: Regular Rate and Rhythm, S1, S2 Respiratory: Yes: Wheezes (LESS WHEEZES BILATERALLY) Gastrointestinal: Yes: WNL Extremities: Yes: WNL Edema: No Labs: CBC, BMP 01/05/18 05:30 01/05/18 05:30 INR, PTT INR 1.19 (0.83-1.09) H 01/03/18 04:32 Problem List - Problems (1) Acute respiratory failure with hypoxia Code(s): J96.01 - ACUTE RESPIRATORY FAILURE WITH HYPOXIA (2) Diabetes Code(s): E11.9 - TYPE 2 DIABETES MELLITUS WITHOUT COMPLICATIONS (3) Hypertension Code(s): I10 - ESSENTIAL (PRIMARY) HYPERTENSION (4) Obesity Code(s): E66.9 - OBESITY, UNSPECIFIED (5) COPD exacerbation Code(s): J44.1 - CHRONIC OBSTRUCTIVE PULMONARY DISEASE W (ACUTE) EXACERBATION (6) Tobacco abuse Code(s): Z72.0 - TOBACCO USE (7) Tobacco abuse counseling Code(s): Z71.6 - TOBACCO ABUSE COUNSELING (8) Hypertensive urgency Code(s): I16.0 - HYPERTENSIVE URGENCY Assessment/Plan Assessment/Plan Acute Hypoxic Respiratory Failure improving Acute COPD/Asthma Exacerbation improving Hypertensive Urgency improved DM Smoker Bipolar Disorder - IV medrol start taper - inhaled bronchodilators standing and PRN - O2 to keep SpO2 >90% - BiPAP as needed to assist in work of breathing - BP control - smoking cessation discussed - outpt PFTs - DVT prophylaxis DR HDZ
[2018-01-05] MEDS: QUEtiapine FUMARATE 50 MG TABLET PO SCH (21:48)
[2018-01-05] MEDS ORDERED: RANITIDINE HCL 150 MG TABLET (FP) PO ONE (22:14)
[2018-01-06] MEDS: methylPREDNISolone NA SUCC 40 MG/1 ML VIAL IVPUSH SCH ×2 (02:20→10:03)
[2018-01-06] MEDS: HEPARIN NA (PORCINE) 5,000 UNITS/ML 1ML VIAL SQ SCH ×2 (06:20→14:51)
[2018-01-06] MEDS: INSULIN SLIDING SCALE (NOVOLOG) 1 VIAL SQ SCH ×2 (06:21→12:33)
[2018-01-06 07:20] LABS: HEMATOCRIT 32.8 % (32.4-45.2); HEMOGLOBIN 11.2 GM/dL (10.7-15.3); MCH 28.4 pg (25.7-33.7); MCHC 34.3 g/dl (32.0-36.0); MEAN CELL VOLUME 82.8 fl (80-96); MEAN PLT VOLUME 9.1 fl (7.5-11.1); PLATELET COUNT 430 K/MM3 (134-434); RBC 3.96 M/mm3 (3.60-5.2); RDW 16.5 % (11.6-15.6); WHITE BLOOD COUNT 15.4 K/mm3 (4.0-10.0)
[2018-01-06] MEDS: ALBUTEROL SO4 2.5/IPRATROPIUM 0.5 INH SOL 3 ML VIAL.NEB. NEB SCH (07:35)
[2018-01-06 08:10] LABS: ANION GAP 7 MMOL/L (8-16); BLOOD UREA NITROGEN 21 mg/dL (7-18); CALCIUM 8.7 mg/dL (8.5-10.1); CHLORIDE 103 mmol/L (98-107); CO2 29 mmol/L (21-32); CREATININE 0.9 mg/dL (0.55-1.3); GLUCOSE,RANDOM 80 mg/dL (74-106); POTASSIUM 3.8 mmol/L (3.5-5.1); SODIUM 139 mmol/L (136-145)
[2018-01-06] MEDS ORDERED: PT OWN MED DRAWER 7, Y5N ONE ×2 (09:35→15:29)
[2018-01-06 10:03] VITALS: BP 154/73; TEMP 98
[2018-01-06] MEDS: LOSARTAN 50MG/HCTZ 12.5MG 1 TAB (FP) PO SCH (10:03)
[2018-01-06] MEDS: VITAMIN B COMPLEX W/C COMBO TABLET (FP) PO SCH (10:03)
[2018-01-06] MEDS: CITALOPRAM HYDROBROMIDE 20 MG TABLET (FP) PO SCH (10:03)
[2018-01-06] MEDS: FOLIC ACID 1 MG TABLET (FP) PO SCH (10:03)
[2018-01-06] MEDS: NICOTINE 14 MG/24 HOURS TOPICAL PATCH TD SCH (10:04)
[2018-01-06] MEDS: AZITHROMYCIN IVPB 250 MG in DEXTROSE 5%-WATER - 250 ML IVPB SCH (10:04)
--- NOTE | 2018-01-06 12:00 | PN ---
Progress Note, Physician History of Present Illness: PULMONARY ALERT,FEELING BETTER,DYSPNEA IMPROVING. O2 SAT 98% ON RA - Current Medication List Current Medications: Active Medications Albuterol Sulfate (Ventolin 0.083% Nebulizer Soln -) 1 amp NEB Q1H PRN PRN Reason: SHORT OF BREATH/WHEEZING Last Admin: 01/05/18 06:20 Dose: 1 amp Albuterol/Ipratropium (Duoneb -) 1 amp NEB RQID [facility] Last Admin: 01/06/18 07:35 Dose: 1 amp Citalopram Hydrobromide (Celexa -) 20 mg PO DAILY [facility] Last Admin: 01/06/18 10:03 Dose: 20 mg Folic Acid (Folic Acid -) 1 mg PO DAILY [facility] Last Admin: 01/06/18 10:03 Dose: 1 mg HCTZ/Losartan Potassium (Hyzaar -) 2 tab PO DAILY [facility] Last Admin: 01/06/18 10:03 Dose: 2 tab Heparin Sodium (Porcine) (Heparin -) 5,000 unit SQ TID [facility] Last Admin: 01/06/18 06:20 Dose: 5,000 unit Azithromycin 250 mg/ Dextrose 250 mls @ 250 mls/hr IVPB DAILY [facility] Last Admin: 01/06/18 10:04 Dose: 250 mls/hr Insulin Aspart (Novolog Vial Sliding Scale -) 1 vial SQ ACHS [facility]; Protocol Last Admin: 01/06/18 06:21 Dose: Not Given Methylprednisolone Sodium Succinate (Solu-Medrol -) 40 mg IVPUSH Q8H-IV [facility] Last Admin: 01/06/18 10:03 Dose: 40 mg Multivitamins (Total B With C -) 1 each PO DAILY [facility] Last Admin: 01/06/18 10:03 Dose: 1 each Nicotine (Nicoderm Patch -) 14 mg TD DAILY [facility] Last Admin: 01/06/18 10:04 Dose: 14 mg Quetiapine Fumarate (Seroquel -) 50 mg PO HS [facility] Last Admin: 01/05/18 21:48 Dose: 50 mg - Objective Vital Signs: Vital Signs Temperature 98 F 01/06/18 10:00 Pulse Rate 90 01/06/18 10:00 Respiratory Rate 20 01/06/18 10:00 Blood Pressure 154/73 01/06/18 10:00 O2 Sat by Pulse Oximetry (%) 96 01/06/18 08:29 Constitutional: Yes: Well Nourished, Calm Eyes: Yes: WNL HENT: Yes: WNL Neck: Yes: WNL Cardiovascular: Yes: Regular Rate and Rhythm, S1, S2 Respiratory: Yes: Wheezes (LESS WHEEZES AND RHONCHI BILATERALLY) Gastrointestinal: Yes: Normal Bowel Sounds, Soft Extremities: Yes: WNL Edema: No Labs: CBC, BMP 01/06/18 06:20 01/06/18 06:20 INR, PTT INR 1.19 (0.83-1.09) H 01/03/18 04:32 Problem List - Problems (1) Acute respiratory failure with hypoxia Code(s): J96.01 - ACUTE RESPIRATORY FAILURE WITH HYPOXIA (2) Diabetes Code(s): E11.9 - TYPE 2 DIABETES MELLITUS WITHOUT COMPLICATIONS (3) Hypertension Code(s): I10 - ESSENTIAL (PRIMARY) HYPERTENSION (4) Obesity Code(s): E66.9 - OBESITY, UNSPECIFIED (5) COPD exacerbation Code(s): J44.1 - CHRONIC OBSTRUCTIVE PULMONARY DISEASE W (ACUTE) EXACERBATION (6) Tobacco abuse Code(s): Z72.0 - TOBACCO USE (7) Tobacco abuse counseling Code(s): Z71.6 - TOBACCO ABUSE COUNSELING (8) Hypertensive urgency Code(s): I16.0 - HYPERTENSIVE URGENCY Assessment/Plan Assessment/Plan Acute Hypoxic Respiratory Failure improved Acute COPD/Asthma Exacerbation improving Hypertensive Urgency improved DM Smoker Bipolar Disorder - steroid taper - inhaled bronchodilators standing and PRN - SYMBICORT 160/4.5 2puffs bid - SPIRIVA 2 PUFFS DAILY - O2 to keep SpO2 >90% - BiPAP as needed to assist in work of breathing - BP control - smoking cessation discussed - outpt PFTs - DVT prophylaxis DR HDZ
[2018-01-06] MEDS ORDERED: ALBUTEROL SO4 0.083% IH SOL 2.5 MG/3 ML VIAL.NEB. NEB PRN (12:01)
[2018-01-06] MEDS ORDERED: BUDESONIDE/FORMETEROL FUMARATE 160/4.5 mcg INHALER IH SCH (13:00)
[2018-01-06] MEDS ORDERED: TIOTROPIUM BROMIDE 2.5 MCG (SPIRIVA) RESPIMAT INHALER IH SCH (13:00)
[2018-01-06 14:50] VITALS: PULSE 111
--- NOTE | 2018-01-06 15:21 | PN ---
Progress Note (short form) - Note Progress Note: To whom it may concern, Ms. Tomlinson has expressed that she has significant mold in her home. She has been admitted to the hospital with severe shortness of breathe. We are concerned that the mold at home may at least in part be contributing to her illness. This issue must be addressed and appropriate accommodations be made. Thank you for your assistance in this matter. Sincerely, Adonis Harrison MD.
--- NOTE | 2018-01-06 15:27 | PN ---
Teaching Attending Note Name of Resident: Mary Ellen Wadsworth ATTENDING PHYSICIAN STATEMENT I saw and evaluated the patient. I reviewed the resident's note and discussed the case with the resident. I agree with the resident's findings and plan as documented. SUBJECTIVE: No fever or chills. No OSB . cough has decreased. walked with no SOB OBJECTIVE: NAD Cv : RRR Lungs: CTAB Ext : no edema ASSESSMENT AND PLAN: 52 y/o lady with h/o HTN, active smoking , DM and HLP who presented with SOB , and was diagnosed with active COPD exacerbation . - Acute COPD exa - H/o DM , HTN, and HLP plan: - cont prednisone taper - inhalers ( spiriva and symbicort) at dc - refill her Albuterol Neb at home - f/u with Pulm for PFTs - advised to stop smoking dc home
--- NOTE | 2018-01-06 16:17 | DS ---
Physical Exam: SUBJECTIVE: Patient is 52 y/o female with a history of DM II, bipolar, and hypertension who presents for SOB. Patient reports she is feeling much better today and feels she is back to her baseline. Removed nasal cannula from patients nose her saturations remained above 95%. OBJECTIVE: Vital Signs Temperature 98 F 01/06/18 10:00 Pulse Rate 111 H 01/06/18 13:45 Respiratory Rate 20 01/06/18 10:00 Blood Pressure 154/73 01/06/18 10:00 O2 Sat by Pulse Oximetry (%) 97 01/06/18 13:45 PHYSICAL EXAM GENERAL: The patient is awake, alert, and fully oriented, in no acute distress. HEAD: Normal with no signs of trauma. EYES: PERRL, extraocular movements intact LUNGS: Breath sounds equal, clear to auscultation bilaterally, no wheezes, no crackles, no accessory muscle use. HEART: Regular rate and rhythm, S1, S2 without murmur, rub or gallop. ABDOMEN: Soft, nontender, nondistended, normoactive bowel sounds EXTREMITIES: 2+ pulses, warm, well-perfused, no edema. SKIN: Warm, dry, normal turgor, no rashes or lesions noted CBC, BMP 01/06/18 06:20 01/06/18 06:20 HOSPITAL COURSE: Date of Admission:01/03/18 Patient admitted for SOB. Patient evaluated by Pulmonology and began on IV steroids. Patients dose had to be increased until symptoms began to improve. Patients also covered with Azithromycin for potential PNA. Patients symptoms improved and she was able to be weaned off nasal cannula. Patients vitals remained stable. Patient discharged home on spiriva and symbicort. Patients psych medications continued as home dose. Influenza swab negative CXR: excessive soft tissue, large heart, unfolded aorta, congestive changes and questionable atelectasis or infiltrate at left base CT chest: no evidence of pulmonary embolism, scattered areas of groundglass opacification and atelectasis, may be chronic Date of Discharge: 01/06/18 Minutes to complete discharge: 40 Discharge Summary Reason For Visit: PULMONARY VENOUS CONGESTION,CHEST PAIN,HYPERTENSIO Current Active Problems Obesity (Chronic) Tobacco abuse (Chronic) Condition: Improved - Instructions Diet, Activity, Other Instructions: You came to the hospital because you were short of breath. We treated you with medications to help resolve this. you had COPD exacerbation To finish treatment for your shortness of breath please take: Corticosteroids for 16 days 60 mg ( 6 pills) by mouth for 2 days 50 mg ( 5 pills) by mouth for 2 days 40 mg (4 pills) by mouth for 3 days 30 mg (3 pills) by mouth for 3 days 20 mg (2 pills) by mouth for 3 days 10 mg ( 1 pill) by mouth for 3 days Spiriva 2 puff by mouth every day Symbicort 160/4.5 2 puff's by mouth twice a day Please follow up with Dr. Soto within one week for treatment of your shortness of breath. Please follow up with your Primary Care physician within one week Continue your home medications as prescribed. Return to the Emergency Department if you have worsening shortness of breath, nausea, vomiting, chest pain, or headache. Referrals: Jean Marie Soto MD [Staff Physician] - 1 Week Elijah Wolff MD [Primary Care Provider] - 1 Week Disposition: HOME - Home Medications Comprehensive Discharge Medication List: Ambulatory Orders Citalopram Hydrobromide [Celexa -] 20 mg PO DAILY 02/13/17 Metformin HCl ER 1,000 mg PO HS 02/13/17 Quetiapine Fumarate [Seroquel -] 200 mg PO HS PRN 02/13/17 Albuterol Sulfate Inhaler - [Ventolin HFA Inhaler -] 0.623 mg IH BID 01/04/18 Diclofenac Sodium [Voltaren] 20 grams TP DAILY 01/04/18 Ergocalciferol (Vitamin D2) [Vitamin D2] 1 cap PO WEEKLY 01/04/18 Omeprazole 20 mg PO DAILY 01/04/18 Losartan/Hydrochlorothiazide [Losartan-Hctz 100-25 mg Tab] 1 each PO DAILY 01/05 Albuterol 0.083% Nebulizer Nina [Ventolin 0.083% Nebulizer Soln -] 1 amp NEB DAILY #1 amp 01/06/18 Budesonide/Formeterol Fumarate [SYMBICORT 160/4.5mcg -] 2 puff IH BID #1 inhaler 01/06/18 Prednisone See Taper PO DAILY #52 tablet 01/06/18 Tiotropium [place] [Spiriva Respimat] 2 puff IH DAILY #1 inhaler 01/06/18 This patient is new to me today: No Emergency Visit: No Critical Care patient: No - Discharge Referral Referred to [facility] No
--- NOTE | 2018-01-06 16:43 | PN ---
Progress Note, Physician History of Present Illness: seen and examined today in nad. symptoms significantly improved. pt being discharged. - Current Medication List Current Medications: Active Medications Albuterol Sulfate (Ventolin 0.083% Nebulizer Soln -) 1 amp NEB Q1H PRN PRN Reason: SHORT OF BREATH/WHEEZING Last Admin: 01/05/18 06:20 Dose: 1 amp Albuterol Sulfate (Ventolin 0.083% Nebulizer Soln -) 1 amp NEB Q4H PRN PRN Reason: SHORT OF BREATH/WHEEZING Budesonide/Formoterol Fumarate (Symbicort 160/4.5mcg -) 2 puff IH BID SHAMIR Last Admin: 01/06/18 15:31 Dose: 2 puff Citalopram Hydrobromide (Celexa -) 20 mg PO DAILY SHAMIR Last Admin: 01/06/18 10:03 Dose: 20 mg Folic Acid (Folic Acid -) 1 mg PO DAILY SHAMIR Last Admin: 01/06/18 10:03 Dose: 1 mg HCTZ/Losartan Potassium (Hyzaar -) 2 tab PO DAILY SHAMIR Last Admin: 01/06/18 10:03 Dose: 2 tab Heparin Sodium (Porcine) (Heparin -) 5,000 unit SQ TID SHAMIR Last Admin: 01/06/18 14:51 Dose: Not Given Azithromycin 250 mg/ Dextrose 250 mls @ 250 mls/hr IVPB DAILY SHAMIR Last Admin: 01/06/18 10:04 Dose: 250 mls/hr Insulin Aspart (Novolog Vial Sliding Scale -) 1 vial SQ ACHS SHAMIR; Protocol Last Admin: 01/06/18 12:33 Dose: Not Given Methylprednisolone Sodium Succinate (Solu-Medrol -) 40 mg IVPUSH Q8H-IV SHAMIR Last Admin: 01/06/18 10:03 Dose: 40 mg Multivitamins (Total B With C -) 1 each PO DAILY SHAMIR Last Admin: 01/06/18 10:03 Dose: 1 each Nicotine (Nicoderm Patch -) 14 mg TD DAILY SHAMIR Last Admin: 01/06/18 10:04 Dose: 14 mg Quetiapine Fumarate (Seroquel -) 50 mg PO HS SHAMIR Last Admin: 01/05/18 21:48 Dose: 50 mg Tiotropium [place] (Spiriva Respimat) 2 puff IH DAILY [facility] Last Admin: 01/06/18 15:31 Dose: 2 puff - Objective Vital Signs: Vital Signs Temperature 98 F 01/06/18 10:00 Pulse Rate 111 H 01/06/18 13:45 Respiratory Rate 20 01/06/18 10:00 Blood Pressure 154/73 01/06/18 10:00 O2 Sat by Pulse Oximetry (%) 97 01/06/18 13:45 Constitutional: Yes: No Distress, Calm Eyes: Yes: Conjunctiva Clear, EOM Intact HENT: Yes: Atraumatic, Normocephalic Neck: Yes: Supple, Trachea Midline Cardiovascular: Yes: Regular Rate and Rhythm, S1, S2. No: Bradycardia, Tachycardia, Pulse Irregular, Bruit, JVD, Gallop, Murmur, Rub, S3, S4, Varicosities Respiratory: Yes: Regular. No: Rales, Rhonchi, SOB, Wheezes Gastrointestinal: Yes: Normal Bowel Sounds, Soft. No: Distention, Tenderness Musculoskeletal: Yes: WNL Extremities: Yes: WNL Edema: No Peripheral Pulses WNL: Yes Peripheral Pulses: Left Doralis Pedis: 2+, Right Dorsalis Pedis: 2+ Neurological: Yes: Alert, Oriented Psychiatric: Yes: Alert, Oriented Labs: CBC, BMP 01/06/18 06:20 01/06/18 06:20 INR, PTT INR 1.19 (0.83-1.09) H 01/03/18 04:32 - ....Imaging Chest X-ray: Report Reviewed, Image Reviewed EKG: Report Reviewed, Image Reviewed Other: Report Reviewed, Image Reviewed (tele-nsr, sinus tach no arrhythmias) Assessment/Plan 52 year old woman pmh HTN, DMII, smoker, depression admitted with sob, cough, chest tightness, chills, wheezing found to be in acute hypoxic respiratory failure. currently on BIPAP, appears sob. Pt states that her symptoms started approximately 1 month ago and have gotten progressively worse over the past month and significantly worse over the past 3 days. states she has mold in the house at home and she feels this is the source as everytime she goes in the house she gets sob. states her chest pain has been going on over the same period mainly associated with the sob and cough but also on exertion. She states she saw a doctor once in a clinic who prescribed her bronchodilator inhalers but she does not follow regularly with a doctor. denies any known cardiac history. SOB/chest tightness/cough-hypoxic/hypercapneic respiratory failure -Acute bronchitis, likely AE COPD -improving on current treatment regimen -no signs of CHF or ACS -pulmonary following, cont tx as per their reccs -does not require diuresis -cardiac enzymes did not trend up -pt does have multiple cardiac risk factors, would benefit from an ischemic evaluation which can likely be done as outpatient when she recovers from her acute illness -Echocardiogram reveals moderate to severe MR and a PASP of 50 mmHg. She should be followed by Cardiology as an outpatient and an echocardiogram should be repeated when her pulmonary status is improved. At some point in the future (as an outpatient) a right heart cath should be considered to help determine what role the MR has in the high pulmonary pressures. A cardiac stress test as an outpatient (when the [pulmonary status is baseline) is also a consideration. Arrhythmia-NSR with frequent APCs, brief episodes of PSVT, no clear afib thus far -no further arrhythmias on telemetry -should be followed closely as outpatient with plan for Holter monitor in addition to the above work up to further evaluate arrhythmia -would not use bblockers at this time in the setting of acute bronchitis -no current indication for AC unless she develops clear Afib or Aflutter Please call with any additional questions.
== END 2018-01-06 16:48 | disposition home or self-care (01) | DRG 133 ==
LOC: JER 04:04 → JERBED 08:56 → J4W 22:50
PROVIDERS: ADMIT Internal Medicine; ATTEND Internal Medicine
PROC: 5A09457 Assistance with Respiratory Ventilation, 24-96 Consecutive Hours, Continuous Positive Airway Pressure (ICD-10-PCS; principal; 2018-01-03)
PROC: 3E0F7GC Introduction of Other Therapeutic Substance into Respiratory Tract, Via Natural or Artificial Opening (ICD-10-PCS; 2018-01-03)
DX: J96.01 Acute respiratory failure with hypoxia (principal); J96.92 Respiratory failure, unspecified with hypercapnia; J18.9 Pneumonia, unspecified organism; I11.0 Hypertensive heart disease with heart failure; J44.1 Chronic obstructive pulmonary disease with (acute) exacerbation; I36.1 Nonrheumatic tricuspid (valve) insufficiency; J44.0 Chronic obstructive pulmonary disease with (acute) lower respiratory infection; J45.901 Unspecified asthma with (acute) exacerbation; I50.30 Unspecified diastolic (congestive) heart failure; E66.9 Obesity, unspecified; Z68.34 Body mass index [BMI] 34.0-34.9, adult; J20.9 Acute bronchitis, unspecified; E11.9 Type 2 diabetes mellitus without complications; I16.0 Hypertensive urgency; J98.11 Atelectasis; F17.210 Nicotine dependence, cigarettes, uncomplicated; F31.9 Bipolar disorder, unspecified; Z79.84 Long term (current) use of oral hypoglycemic drugs; I34.0 Nonrheumatic mitral (valve) insufficiency; Z71.6 Tobacco abuse counseling
CPT/HCPCS: 36415; 36600; 71045-TC-FY; 71275-TC; 80048; 80053; 80061; 82375; 82550; 82553; 82803; 82962; 83050; 83605; 83721; 83735; 83880; 84484; 85025; 85027; 85610; 93005; 93010; 93306-TC; 94640; 94761; 99285-25; J1644

== ENCOUNTER 2018-01-29 08:51 | Emergency (ER) | payer SELFPAY ==
[2018-01-29 09:03] VITALS: BMI 33.5
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
[2018-01-29] MEDS ORDERED: VANCOMYCIN 1,000 MG in DEXTROSE 5%-WATER - 250 ML IVPB ONE (09:48)
[2018-01-29] MEDS ORDERED: ALPRAZolam 0.25 MG TABLET PO ONE (09:49)
[2018-01-29] MEDS ORDERED: PIPERACILLIN/TAZOB 3.375 GM 3.375 GM in DEXTROSE 5%-WATER - 50 ML IVPB ONE (09:49)
[2018-01-29 10:18] LABS: EOS % 1.2 % (0-4.5); HEMATOCRIT 28.2 % (32.4-45.2); HEMOGLOBIN 9.3 GM/dL (10.7-15.3); LYMPH % 18.5 % (8-40); MCH 27.4 pg (25.7-33.7); MEAN CELL VOLUME 83.1 fl (80-96); MONO % 5.3 % (3.8-10.2); PLATELET COUNT 457 K/MM3 (134-434); RDW 17.9 % (11.6-15.6); WHITE BLOOD COUNT 12.2 K/mm3 (4.0-10.0)
[2018-01-29 10:41] LABS: INR 1.19 (0.83-1.09); PROTHROMBIN TIME (PATIENT) 14.1 SEC (9.7-13.0)
[2018-01-29 11:01] LABS: ALBUMIN 3.6 g/dl (3.4-5.0); ALK PHOS 51 U/L (45-117); ANION GAP 9 MMOL/L (8-16); BILIRUBIN,TOTAL 0.9 mg/dL (0.2-1); BLOOD UREA NITROGEN 14 mg/dL (7-18); CALCIUM 9.5 mg/dL (8.5-10.1); CHLORIDE 105 mmol/L (98-107); CO2 26 mmol/L (21-32); CREATININE 1.2 mg/dL (0.55-1.3); GLUCOSE,RANDOM 140 mg/dL (74-106); POTASSIUM 3.6 mmol/L (3.5-5.1); SGOT/AST 28 U/L (15-37); SGPT/ALT 23 U/L (13-61); SODIUM 140 mmol/L (136-145); TOT PROT 7.2 g/dl (6.4-8.2)
[2018-01-29] MEDS ORDERED: ALPRAZolam 0.25 MG TABLET ONE (11:12)
[2018-01-29 11:29] LABS: URINE APPEARANCE CLOUDY; URINE GLUCOSE (UA) NEGATIVE (NEGATIVE); URINE KETONE NEGATIVE (NEGATIVE); URINE LEUK ESTERASE NEGATIVE (NEGATIVE); URINE NITRITE NEGATIVE (NEGATIVE); URINE PROTEIN 1+ (NEGATIVE); URINE UROBILINOGEN 4.0 E.U/dl mg/dL (0.2-1.0)
[2018-01-29 11:33] LABS: URINE COLOR YELLOW
[2018-01-29] MEDS ORDERED: SODIUM CHLORIDE 1,000 ML IV STA (11:33)
[2018-01-29 11:42] LABS: EPI CELLS MODERATE /HPF (FEW); URINE HYALINE CAST 16 /lpf; URINE MUCUS MODERATE
--- NOTE | 2018-01-29 15:22 | EKG ---
Test Reason : Blood Pressure : / mmHG Vent. Rate : 088 BPM Atrial Rate : 088 BPM P-R Int : 144 ms QRS Dur : 088 ms QT Int : 376 ms P-R-T Axes : 061 050 -02 degrees QTc Int : 454 ms NORMAL SINUS RHYTHM SEPTAL INFARCT (CITED ON OR BEFORE 03-JAN-2018) T WAVE ABNORMALITY, CONSIDER INFERIOR ISCHEMIA ABNORMAL ECG WHEN COMPARED WITH ECG OF 03-JAN-2018 04:16, NONSPECIFIC T WAVE ABNORMALITY NOW EVIDENT IN ANTEROLATERAL LEADS Confirmed by SAMMI BOYKIN, JODY ([id number]) on 01/29/2018 3:22:20 PM Referred By: Confirmed By:JODY CHAPA MD
[2018-01-29 15:56] VITALS: BP 120/78; TEMP 98.1
[2018-01-29 16:15] VITALS: PULSE 86
== END 2018-01-29 16:24 | disposition short-term general hospital (02) ==
LOC: JER 08:51
DX: M27.2 Inflammatory conditions of jaws (principal); I10 Essential (primary) hypertension; E11.9 Type 2 diabetes mellitus without complications; E78.00 Pure hypercholesterolemia, unspecified; Z96.642 Presence of left artificial hip joint
CPT/HCPCS: 36415; 70487-TC; 80053; 81003; 81015; 83605; 84702; 84703; 85025; 85610; 87040; 87086; 93005; 93010; 99285-25; J7030

== ENCOUNTER 2018-07-05 23:58 | Inpatient (IN) | payer OTHER ==
[2018-07-06 00:49] VITALS: BMI 23.6
--- NOTE | 2018-07-06 00:52 | PDOC ---
History of Present Illness - General Chief Complaint: Shortness of Breath Stated Complaint: SOB History Source: Patient Exam Limitations: No Limitations - History of Present Illness Initial Comments: 07/06/18 00:41 52YOF with h/o HTN, DMII, smoker, depression, bipolar disorder, paroxysmal SVT, bronchitis, and likely COPD as diagnosed on last [facility] admission, who p/w SOB for the past 2-3 weeks, significantly worse today, and now with left chest tightness/discomfort. She notes having just returned from a trip to [place] where her symptoms worsened progressively. She has additionally had cough and recent weight loss, but denies any additional symptoms. She has tried her albuterol neb and MDI treatments without improvement. States has never been placed on steroids for her breathing. Past History - Past Medical History Allergies/Adverse Reactions: Allergies Allergy/AdvReac Type Severity Reaction Status Date / Time No Known Allergies Allergy Verified 01/29/18 09:32 Home Medications: Ambulatory Orders NK [No Known Home Medication] 01/29/18 Anemia: No Asthma: No Cancer: No Cardiac Disorders: No CVA: No COPD: No CHF: No Dementia: No Diabetes: Yes GI Disorders: No Disorders: No HTN: Yes Hypercholesterolemia: Yes Liver Disease: No Seizures: No Thyroid Disease: No - Surgical History Abdominal Surgery: No Appendectomy: No Cardiac Surgery: No Cholecystectomy: No Lung Surgery: No Neurologic Surgery: No Orthopedic Surgery: Yes (LEFT HIP REPLACEMENT 2008) - Immunization History Immunization Up to Date: Yes - Suicide/Smoking/Psychosocial Hx Smoking Status: Yes Smoking History: Current some day smoker Have you smoked in the past 12 months: No Number of Cigarettes Smoked Daily: 10 Hx Alcohol Use: No Drug/Substance Use Hx: No Substance Use Type: None Hx Substance Use Treatment: No Review of Systems - Review of Systems Able to Perform ROS?: Yes Comments:: 07/06/18 00:56 GEN: weight loss, no fever, chills, malaise, or generalized weakness HEENT: no ear pain, sore throat, vision change, or eye pain CV: chest pain, palpitations, no lightheadedness, syncope, or edema RESP: cough, wheezing, or SOB GI: no abdominal pain, nausea, vomiting, diarrhea, constipation, or white/black/ bloody stool : no dysuria, hematuria, incontinence, retention, bleeding, or discharge MSK: no neck/back pain, muscle weakness/pain, or joint swelling/pain NEURO: headache, no seizure, vertigo, numbness, tingling, or focal weakness PSYCH: anxiety, no substance use, no behavior change SKIN: no jaundice, no rash ROS otherwise negative except as noted in HPI *Physical Exam - Vital Signs Initial Vital Signs Temp Pulse Resp BP Pulse Ox 98.7 F 102 H 22 H 143/84 96 07/05/18 23:58 07/05/18 23:58 07/05/18 23:58 07/05/18 23:58 07/05/18 23:58 - Physical Exam Comments: 07/06/18 00:57 GENERAL: anxious and occasionally tearful, well-appearing, A/Ox4, no distress, answers questions appropriately HEENT: PERRLA, EOMI, moist mucous membranes NECK/BACK: no midline ttp, no spinal stepoff or deformity, no hematoma, full ROM , neck supple CARDIOVASCULAR: regular rate/rhythm, normal S1S2, no MGR, strong peripheral pulses, capillary refill <2 seconds, extremities wwp, no edema LUNGS/RESPIRATORY: no respiratory distress, CTAB GI/ABDOMEN: symmetric [id number], normoactive BS, soft, no ttp, no midline pulsatile masses : no CVA tenderness EXTREMITIES: no muscle atrophy, no acute deformity SKIN: warm and dry, no pallor, no jaundice, no rash, no bruising, no skin breakdown, no cuts, no lesions NEUROLOGICAL: GCS 15, CN II-XII grossly intact, 5/5 strength proximally and distally, no facial droop Heart Score/ECG Review - History History: Moderately suspicious - Electrocardiogram EKG: Normal - Age Age: 45-65 - Risk Factors Risk Factors Heart Score: Yes Hx Hypercholesterolemia, Yes Hx Hypertension, Yes Hx Diabetes, Yes Smoking History Based on the list above the patient has:: >/=3 risk factors or Hx atherosclerotic disease - Troponin Troponin: </= normal limit - Score Heart Score - Total: 4 #1 07/06/18 02:02 Sinus tachycardia, rate 101, normal axis, prolonged [id number], no ischemic ST-T changes ED Treatment Course - LABORATORY CBC & Chemistry Diagram: 07/06/18 01:28 07/06/18 01:28 Medical Decision Making - Medical Decision Making 07/06/18 02:55 Adult Pt p/w chest pain. Initial Vital Signs Temp Pulse Resp BP Pulse Ox 98.7 F 102 H 22 H 143/84 96 07/05/18 23:58 07/05/18 23:58 07/05/18 23:58 07/05/18 23:58 07/05/18 23:58 Exam: As noted in Physical Exam section. DDX IBNLT: ACS, pericarditis, tamponade, aortic dissection, AAA, PTX, PE, esophageal tear, esophagitis (e.g. pill, infectious), esophageal stricture, esophageal FB, gastritis, PUD, pancreatitis, cholecystitis, cholangitis, colitis , bowel perforation, PNA/bronchitis, pleurisy, pleuritis, MVP, pulmonary HTN, musculoskeletal, panic/anxiety, etc. W/U ordered: Labs as noted below, EKG CXR. TX ordered: monitor, ASA 324, O2 via NC if needed EKG: Reviewed; results as noted in ECG Review section. Laboratory Tests 07/06/18 07/06/18 07/06/18 01:28 01:28 01:28 WBC 9.5 RBC 3.83 Hgb 8.5 L Hct 27.8 L MCV 72.6 L MCH 22.1 L MCHC 30.5 L RDW 20.7 H Plt Count 355 D MPV 8.6 Absolute Neuts (auto) 6.2 Neutrophils % 64.7 Lymphocytes % 25.5 D Monocytes % 7.0 Eosinophils % 1.5 Basophils % 1.3 Nucleated RBC % 0 Hypochromia 1+ Platelet Estimate Adequate Platelet Comment No clotting detected Polychromasia 1+ Anisocytosis 2+ Microcytosis 1+ Spherocytes 1+ Sodium 143 Potassium 3.5 Chloride 114 H Carbon Dioxide 23 Anion Gap 6 L BUN 18 Creatinine 0.9 Est GFR (CKD-EPI)AfAm 86.41 Est GFR (CKD-EPI)NonAf 74.55 Random Glucose 98 Calcium 8.3 L Total Bilirubin 0.4 AST 16 ALT 26 Alkaline Phosphatase 53 Creatine Kinase 186 Creatine Kinase Index 0.8 CK-MB (CK-2) 1.5 Troponin I 0.04 Total Protein 6.5 Albumin 3.1 L Serum , Qual Negative Reassessment: Patient with improved WOB still with residual expiratory wheezes. 07/06/18 03:28 Patient still with chest discomfort and some residual SOB. DuoNeb x2 and Ofirmev ordered. CXR shows some vascular congestion and has been sent to [facility] and order created; pending results. 07/06/18 03:51 HEART score of 4 indicates Pt is higher risk and should be managed in hospital with cardiology consult. The Pt is unsafe for discharge at this time. They require further hospital observation, workup, and treatment. Patient states she has ho PCP at this time. Microblog sent to [facility] for admission. Blank Decision to Admit order is placed per ED protocol. I have [facility], Decision to Admit corrected with Dr. Arellano's name. Repeat cardiac enzymes ordered, also BNP, UA, UCx, U-tox, serum EtOH. *DC/Admit/Observation/Transfer Diagnosis at time of Disposition: COPD exacerbation Chest pain Qualifiers: Chest pain type: unspecified Qualified Code(s): R07.9 - Chest pain, unspecified CHF (congestive heart failure) Qualifiers: Heart failure type: unspecified Heart failure chronicity: unspecified Qualified Code(s): I50.9 - Heart failure, unspecified - Discharge Dispostion Condition at time of disposition: Guarded Decision to Admit order: Yes - Referrals - Patient Instructions - Post Discharge Activity
[2018-07-06] MEDS ORDERED: ALBUTEROL SO4 2.5/IPRATROPIUM 0.5 INH SOL 3 ML VIAL.NEB. NEB ONE ×4 (00:53→03:28)
[2018-07-06] MEDS ORDERED: methylPREDNISolone NA SUCC 125 MG/2 ML VIAL IVPB ONE (00:53)
[2018-07-06] MEDS ORDERED: methylPREDNISolone NA SUCC 125 MG/2 ML VIAL ONE (01:14)
[2018-07-06 01:41] LABS: BASO % 1.3 % (0-2.0); EOS % 1.5 % (0-4.5); HEMATOCRIT 27.8 % (32.4-45.2); HEMOGLOBIN 8.5 GM/dL (10.7-15.3); LYMPH % 25.5 % (8-40); MCH 22.1 pg (25.7-33.7); MCHC 30.5 g/dl (32.0-36.0); MEAN CELL VOLUME 72.6 fl (80-96); MEAN PLT VOLUME 8.6 fl (7.5-11.1); NEUT % 64.7 % (42.8-82.8); PLATELET COUNT 355 K/MM3 (134-434); RBC 3.83 M/mm3 (3.60-5.2); RDW 20.7 % (11.6-15.6); WHITE BLOOD COUNT 9.5 K/mm3 (4.0-10.0)
--- NOTE | 2018-07-06 02:01 | PDOC ---
Documentation entered by Waldo Campos SCRIBE, acting as scribe for Olga Christensen MD. Olga Christensen MD: This documentation has been prepared by the nAdres whitfield Matthew, SCRIBE, under my direction and personally reviewed by me in its entirety. I confirm that the documentation accurately reflects all work, treatment, procedures, and medical decision making performed by me. Attending Attestation - Resident Resident Name: Kayla Mccullough - ED Attending Attestation I have performed the following: I have examined & evaluated the patient, The case was reviewed & discussed with the resident, I agree w/resident's findings & plan, Exceptions are as noted - HPI HPI: 07/06/18 01:14 Patient is a 52 year old female with a significant past medical history of HTN , DMII, smoker, depression, bipolar disorder, paroxysmal SVT, bronchitis, who presents to the ED with complaints of shortness of breath that began 3 weeks ago. Patient reports experiencing gradual shortness of breath that she states increased in intensity shortly after returning from a trip to [place]. Patient states she has additionally had cough and recent weight loss, but denies any additional symptoms. She reports trying her albuterol neb and MDI treatments without improvement. Denies chest pain, sob. [place] nausea, vomiting. Denies contact with sick individuals. Denies dysuria, hematuria. Denies dysuria, hematuria. Denies any other symptoms. Allergies: NKDA Social history: current smoker. No alcohol. No illicit drugs. Surgical history: None PMD: None - Physicial Exam PE: 07/06/18 01:15 wnwd 52 yo female states she has chest pain and shortness of breath head ncat neck supple lungs no rales,no crackles cvs [id number] abd nontender extremities no pitting edema no cva tenderness skin warm and dry neuro axox3,ambulatory, no gross focal neuro deficits psych anxious - Medical Decision Making 07/06/18 01:02 52 yo female p/w shortness of breath PMH HTN,DM2,bipolar,Tobacco use since age 20 -she had echo 12/27 that showed normal LV and EF of 65% 07/06/18 01:30 pt is not hypoxic and her pulse ox=99% on room air lungs cta b/l diff diag includes asthma ,ACS,PNA cxr,ekg,labs pending
[2018-07-06 02:15] LABS: ALBUMIN 3.1 g/dl (3.4-5.0); BILIRUBIN,TOTAL 0.4 mg/dL (0.2-1); CALCIUM 8.3 mg/dL (8.5-10.1); CREATININE 0.9 mg/dL (0.55-1.3); POTASSIUM 3.5 mmol/L (3.5-5.1); TOT PROT 6.5 g/dl (6.4-8.2)
[2018-07-06 02:53] LABS: ANISOCYTOSIS 2+; PLATELET ESTIMATE ADEQUATE
[2018-07-06] MEDS ORDERED: ASPIRIN 81 MG CHEWABLE TABLETS PO ONE (02:58)
[2018-07-06] MEDS ORDERED: ASPIRIN 81 MG CHEWABLE TABLETS ONE (03:27)
[2018-07-06] MEDS ORDERED: ACETAMINOPHEN INJECTION 100 ML IVPB ONE (03:27)
[2018-07-06] MEDS ORDERED: ACETAMINOPHEN 1000 MG/100 ML VIAL (NON FORMULARY) IVPB ONE (03:28)
--- NOTE | 2018-07-06 04:19 | PN ---
Teaching Attending Note Name of Resident: Rk Mane ATTENDING PHYSICIAN STATEMENT I saw and evaluated the patient. I reviewed the resident's note and discussed the case with the resident. I agree with the resident's findings and plan as documented. SUBJECTIVE: Patient is a 52 year old woman with PMH of HTN, NIDDM, Tobacco use, depression, cocaine and marijuana abuse, left hip replacement, bipolar disorder, paroxysmal SVT and bronchitis, who presents to the ER with complaints of shortness of breath that began 3 weeks ago. Patient reports experiencing gradual shortness of breath that she states increased in intensity shortly after returning from a trip to [place]. Pain is significantly worse today, and now with associated left chest tightness/discomfort. Patient states she has additionally had cough and recent weight loss, but denies any additional symptoms. She reports trying her Albuterol nebulizer and Metered Dose Inhaler treatments without improvement. Denies chest pain, nausea or vomiting. Denies contact with sick individuals, dysuria or hematuria. Menopause was 15 years ago. OBJECTIVE: Alert Vital Signs Period Temp Pulse Resp BP Sys/Melvin Pulse Ox Last 24 Hr 98.7 F-98.7 F 98-102 20-24 143-175/84-104 95-99 HEENT: No Jaundice, eye redness or discharge, PERRLA, EOMI. Normocephalic, atraumatic. External ears are normal and hearing is grossly intact. No nasal discharge. Neck: Supple, nontender. No palpable adenopathy or thyromegaly. No JVD Chest: Good effort. Clear to auscultation. End expiratory wheezing and prolonged expiration. Heart: Regular. No S3, rub or murmur Abdomen: Not distended, soft, nontender and no HSM. No rebound or guarding. Normal bowel sounds. Ext: Peripheral pulses intact. No leg edema. Skin: Warm and dry. No petechiae, rash or ecchymosis. Neuro: Alert. Oriented x3. CN 2-12 grossly intact. Sensation grossly intact in all four extremities and DTR are symmetric. Psych: Appropriate mood and affect. Good insight. Home Medications Medication Instructions Recorded NK [No Known Home Medication] 01/29/18 Abnormal Lab Results 07/06/18 07/06/18 01:28 01:28 Hgb 8.5 L Hct 27.8 L MCV 72.6 L MCH 22.1 L MCHC 30.5 L RDW 20.7 H Chloride 114 H Anion Gap 6 L Calcium 8.3 L Albumin 3.1 L ASSESSMENT AND PLAN: 1. Chest pain/COPD exacerbation - Will treat for COPD exacerbation with duoneb, solumedrol and azithromycin. Chest pain is atypical. Initial troponin is negative and EKG shows sinus tachycardia with no significant ST-T wave changes. In view history of cocaine use, will admit to telemetry to rule out ACS. CXR shows cardiomegaly, possible pericardial effusion and increased interstitial markings. Repeat ECHO. ECHO from 01/04/18 showed normal right ventricular and left ventricular systolic function, LVEF of 65-70% and valvular disease. Despite recent travel history, low index of suspicion for pulmonary embolism. Will get urinalysis, urine toxicology and d-dimer. 2. Hypoalbuminemia - Possibly due to combined effects of malnutrition and inflammation associated with comorbid chronic conditions. Will ensure adequate dietary protein intake and also consult cloth burler. 3. DM Will implement sliding scale insulin regimen. Provide comprehensive diabetes care with patient teaching and counseling about the importance of adherence to prescribed diabetes regimen, euglycemia, eye care and foot care. 4. Low MCV Anemia - Cause unclear. Will do basic anemia work up including serial stool guaiacs, reticulocyte count and iron studies. GI consult for possible outpatient colonoscopy. 5. Drug abuse - Counseled patient about abstaining from illicit drug use. Will consult software applications specialist and refer to drug detox upon discharge. 6. Hypertension - Restart outpatient antihypertensive drugs and revise regimen to ensure smooth [id number] good BP control. Nonpharmacologic measures to control hypertension like weight loss, salt restriction and exercise discussed. 7. Tobacco Use Counseled on risks associated with tobacco use. We will provide patient all the necessary assistance to facilitate smoking cessation and prescribe Nicotine patch. 8. DVT prophylaxis - Lovenox 40 mg SQ q 24 hours. 9. Advance directives - Full code
[2018-07-06] MEDS ORDERED: ONDANSETRON 4 MG/2 ML VIAL IVPUSH ONE (04:38)
[2018-07-06] MEDS ORDERED: ALBUTEROL SO4 0.083% IH SOL 2.5 MG/3 ML VIAL.NEB. NEB PRN (05:12)
--- NOTE | 2018-07-06 05:16 | HP ---
CHIEF COMPLAINT: sob PCP: none HISTORY OF PRESENT ILLNESS: Patient is a 52 yo F with a PMHx of DM, HTN, Depression, Bipolar disorder, Paroxysmal SVTs, recently dx COPD, presented to the ED with 2 weeks of worsening SOB. She said it became significantly worse yesterday after flying back from [place] with associated chest tightness/discomfort and wheezing. She says she also has been coughing (dry) more with no improvement when taking her breathing treatments. Patient has been off all of her medications due to insurance issues since being discharged on in 01/06. At the time, she was discharged on a steroid taper. She says she now has insurance and needs to start taking her meds. Patient denies fevers, chills, nausea, vomiting, chest pain, runny nose, sick contacts, urinary changes, diarrhea, blood in stool. ER course was notable for: (1) Duonebs, Medrol 125mg IV (2) CXR w/ B/L interstitial prominence. Cardiomegaly and/or pericardial effusion. Recent Travel: Came back from [place] yesterday PAST MEDICAL HISTORY: per [facility] LMP 15 years ago. PAST SURGICAL HISTORY: hip replacement, 3 cervical herniated disk repairs Social History: Smokin-4 Cigs a day from 2 PPD 1 month ago. Drugs: smokes marijuana daily. "quit" cocaine 2 months ago Allergies No Known Allergies Allergy (Verified 01/29/18 09:32) HOME MEDICATIONS: Home Medications Medication Instructions Recorded NK [No Known Home Medication] 01/29/18 REVIEW OF SYSTEMS CONSTITUTIONAL: Absent: fever, chills, diaphoresis, generalized weakness, malaise, loss of appetite, weight change HEENT: Absent: rhinorrhea, nasal congestion, throat pain, throat swelling, difficulty swallowing, mouth swelling, ear pain, eye pain, visual changes CARDIOVASCULAR: peripheral edema Absent: chest pain, syncope, palpitations, irregular heart rate, lightheadedness RESPIRATORY: sob, cough, wheezing Absent: dyspnea with exertion, orthopnea, stridor, hemoptysis GASTROINTESTINAL: Absent: abdominal pain, abdominal distension, nausea, vomiting, diarrhea, constipation, melena, hematochezia GENITOURINARY: Absent: dysuria, frequency, urgency, hesitancy, hematuria, flank pain, genital pain NEUROLOGIC: Absent: headache, focal weakness or paresthesias, dizziness, unsteady gait, seizure, mental status changes, bladder or bowel incontinence PSYCHIATRIC: Absent: anxiety, depression, suicidal or homicidal ideation, hallucinations. PHYSICAL EXAMINATION Vital Signs - 24 hr 07/05/18 07/06/18 07/06/18 23:58 00:40 02:07 Temperature 98.7 F 98.7 F Pulse Rate 102 H Pulse Rate [ 98 H Right] Respiratory 22 H 24 H Rate Blood Pressure 143/84 Blood Pressure 145/87 [Left] O2 Sat by Pulse 96 96 99 Oximetry (%) 07/06/18 03:44 Temperature Pulse Rate Pulse Rate [ 102 H Right] Respiratory 20 Rate Blood Pressure Blood Pressure 175/104 H [Left] O2 Sat by Pulse 95 Oximetry (%) GENERAL: dyspneic, a/o x 3 HEAD: Normal with no signs of trauma. EYES: Pupils equal, round and reactive to light, extraocular movements intact, sclera anicteric, conjunctiva clear EARS, NOSE, THROAT: oropharynx clear without exudates. Moist mucous membranes. NECK: supple without lymphadenopathy, JVD, or masses. LUNGS: mild exp wheezing, crackles in b/l bases HEART: RRR, no murmurs appreciated ABDOMEN: soft, nt, nd. LOWER EXTREMITIES: 2+ pulses, warm, well-perfused. No peripheral edema. NEUROLOGICAL: Cranial nerves II-XII intact. Normal speech. Laboratory Results - last 24 hr 07/06/18 07/06/18 07/06/18 01:28 01:28 01:28 WBC 9.5 RBC 3.83 Hgb 8.5 L Hct 27.8 L MCV 72.6 L MCH 22.1 L MCHC 30.5 L RDW 20.7 H Plt Count 355 D MPV 8.6 Absolute Neuts (auto) 6.2 Neutrophils % 64.7 Lymphocytes % 25.5 D Monocytes % 7.0 Eosinophils % 1.5 Basophils % 1.3 Nucleated RBC % 0 Hypochromia 1+ Platelet Estimate Adequate Platelet Comment No clotting detected Polychromasia 1+ Anisocytosis 2+ Microcytosis 1+ Spherocytes 1+ Sodium 143 Potassium 3.5 Chloride 114 H Carbon Dioxide 23 Anion Gap 6 L BUN 18 Creatinine 0.9 Est GFR (CKD-EPI)AfAm 86.41 Est GFR (CKD-EPI)NonAf 74.55 Random Glucose 98 Calcium 8.3 L Total Bilirubin 0.4 AST 16 ALT 26 Alkaline Phosphatase 53 Creatine Kinase 186 Creatine Kinase Index 0.8 CK-MB (CK-2) 1.5 Troponin I 0.04 Total Protein 6.5 Albumin 3.1 L Serum , Qual Negative ASSESSMENT/PLAN: 52 yo F with a PMHx of DM, HTN, Depression, Bipolar disorder, Paroxysmal SVTs, recently dx COPD, presented to the ED with 2 weeks of worsening SOB. #SOB -2/2 COPD exacerbation and/or New Onset CHF -CXR w/ B/L interstitial prominence. Cardiomegaly and/or pericardial effusion. -B/L Crackles on PE -Duonebs QID standing -Albuterol PRN -IV Medrol 40q8 -Pulm consult: Dr. Soto -unlikely PE due to the overall clinical picture and history, consider d-dimer if suspicious -Supplemental o2 -Keep O2 > 88 -FU ABG -FU BNP -Echo Ordered. -Echo on 01/29: LVEF 65-70%. -1x Lasix 40mg #Chest pain/tightness -likely from COPD exacerbation -trend trop. first trop 0.04 -tele monitoring -treat COPD as per above. #HTN -not on any meds since last d/c -start Losartan/HCTZ 100/25mg daily. She was discharged on this in December. #DM -SSI -BGM q4h -HgbA1c #Microcytic Anemia -FU stool for occult -iron studies -b12/folic acid -retic count #Bipolar/Depression -currently not on any meds -patient was d/c last time on Celexa 20mg Daily, Seroquel 200mg HS -Consider restarting #Drug abuse -patient uses cocaine, marijuana -classification counselor on importance of quitting -FU urine tox #QTc Prolongation -QTC 500 -avoid qtc prolonging agents #FEN -No IV fluids -monitor lytes -sodium diet #Dvt -hep sq Visit type - Emergency Visit Emergency Visit: Yes ED Registration Date: 07/06/18 Care time: The patient presented to the Emergency Department on the above date and was hospitalized for further evaluation of their emergent condition. - New Patient This patient is new to me today: Yes Date on this admission: 07/06/18 - Critical Care Critical Care patient: No
[2018-07-06] MEDS ORDERED: ONDANSETRON 4 MG/2 ML VIAL ONE (05:28)
[2018-07-06] MEDS ORDERED: FUROSEMIDE 40 MG/4 ML INJECTABLE VIAL IVPUSH ONE (05:39)
[2018-07-06 06:33] LABS: ARTERIAL BLD GAS O2 SATURATION 93.9 % (95-98); ARTERIAL BLOOD GAS BASE EXCESS -2.7 meq/l (-2-2); ARTERIAL BLOOD GAS PCO2 35.3 mmHg (35-45); ARTERIAL BLOOD GAS PO2 76.3 mmHg (80-105)
[2018-07-06] MEDS ORDERED: HEPARIN NA (PORCINE) 5,000 UNITS/ML 1ML VIAL ONE (07:09)
[2018-07-06] MEDS ORDERED: FUROSEMIDE 40 MG/4 ML INJECTABLE VIAL ONE (07:10)
[2018-07-06] MEDS: HEPARIN NA (PORCINE) 5,000 UNITS/ML 1ML VIAL SQ SCH ×3 (07:29→22:50)
[2018-07-06 07:40] LABS: BASO % 0.5 % (0-2.0); HEMATOCRIT 29.2 % (32.4-45.2); LYMPH % 5.5 % (8-40); MCH 22.5 pg (25.7-33.7); MCHC 30.9 g/dl (32.0-36.0); MEAN CELL VOLUME 72.6 fl (80-96); MEAN PLT VOLUME 8.5 fl (7.5-11.1); PLATELET COUNT 403 K/MM3 (134-434); RBC 4.02 M/mm3 (3.60-5.2); RDW 20.8 % (11.6-15.6); WHITE BLOOD COUNT 8.4 K/mm3 (4.0-10.0)
[2018-07-06] MEDS ORDERED: ALBUTEROL SO4 2.5/IPRATROPIUM 0.5 INH SOL 3 ML VIAL.NEB. NEB SCH (08:00)
--- NOTE | 2018-07-06 08:20 | PN ---
Physical Exam: SUBJECTIVE: Patient seen and examined at bedside; patient states that she is feeling"ok"- that her breathing has gotten worse over the past few weeks, that her exercise tolerance has decreased and that her albuterol treatments havent been helping and that she needs to get on the right track for her kids- she denies CP/N/V fevers or chills OBJECTIVE: Vital Signs Period Temp Pulse Resp BP Sys/Melvin Pulse Ox Last 24 Hr 98.1 F-98.7 F 98-102 20-24 143-175/84-104 95-100 GENERAL: The patient is awake, alert, and fully oriented, in slight acute distress on nasal canula. EYES: PEERLA: EOMI no scleral icterus. NECK: no JVD; no lymphadenopathy LUNGS: slight crackles at the bases B/L HEART: Regular rate and rhythm, S1, S2 without murmur, rub or gallop. ABDOMEN: Soft, nontender, nondistended, normoactive bowel sounds, no guarding, no rebound, no hepatosplenomegaly, no masses. EXTREMITIES: 2+ pulses, warm, well-perfused, trace edema B/L. PSYCH: Normal mood, normal affect. SKIN: Warm, dry, normal turgor, no rashes or lesions noted Laboratory Results - last 24 hr 07/06/18 07/06/18 07/06/18 01:28 01:28 01:28 WBC 9.5 RBC 3.83 Hgb 8.5 L Hct 27.8 L MCV 72.6 L MCH 22.1 L MCHC 30.5 L RDW 20.7 H Plt Count 355 D MPV 8.6 Absolute Neuts (auto) 6.2 Neutrophils % 64.7 Lymphocytes % 25.5 D Monocytes % 7.0 Eosinophils % 1.5 Basophils % 1.3 Nucleated RBC % 0 Hypochromia 1+ Platelet Estimate Adequate Platelet Comment No clotting detected Polychromasia 1+ Anisocytosis 2+ Microcytosis 1+ Spherocytes 1+ Anticoagulation Therapy Puncture Site ABG pH ABG pCO2 at Pt Temp ABG pO2 at Pt Temp ABG HCO3 ABG O2 Sat (Measured) ABG O2 Content ABG Base Excess Ryland Test O2 Delivery Device Oxygen Flow Rate Vent Mode Vent Rate Mechanical Rate Pressure Support Vent Sodium 143 Potassium 3.5 Chloride 114 H Carbon Dioxide 23 Anion Gap 6 L BUN 18 Creatinine 0.9 Est GFR (CKD-EPI)AfAm 86.41 Est GFR (CKD-EPI)NonAf 74.55 Random Glucose 98 Calcium 8.3 L Total Bilirubin 0.4 AST 16 ALT 26 Alkaline Phosphatase 53 Creatine Kinase 186 Creatine Kinase Index 0.8 CK-MB (CK-2) 1.5 Troponin I 0.04 B-Natriuretic Peptide Total Protein 6.5 Albumin 3.1 L Serum , Qual Negative Alcohol, Quantitative 07/06/18 07/06/18 07/06/18 05:30 05:30 05:30 WBC RBC Hgb Hct MCV MCH MCHC RDW Plt Count MPV Absolute Neuts (auto) Neutrophils % Lymphocytes % Monocytes % Eosinophils % Basophils % Nucleated RBC % Hypochromia Platelet Estimate Platelet Comment Polychromasia Anisocytosis Microcytosis Spherocytes Anticoagulation Therapy Puncture Site ABG pH ABG pCO2 at Pt Temp ABG pO2 at Pt Temp ABG HCO3 ABG O2 Sat (Measured) ABG O2 Content ABG Base Excess Ryland Test O2 Delivery Device Oxygen Flow Rate Vent Mode Vent Rate Mechanical Rate Pressure Support Vent Sodium Potassium Chloride Carbon Dioxide Anion Gap BUN Creatinine Est GFR (CKD-EPI)AfAm Est GFR (CKD-EPI)NonAf Random Glucose Calcium Total Bilirubin AST ALT Alkaline Phosphatase Creatine Kinase Creatine Kinase Index CK-MB (CK-2) Troponin I 0.03 B-Natriuretic Peptide 1149.2 H Total Protein Albumin Serum , Qual Alcohol, Quantitative < 3.0 07/06/18 07/06/18 06:18 07:18 WBC 8.4 RBC 4.02 Hgb 9.0 L Hct 29.2 L MCV 72.6 L MCH 22.5 L MCHC 30.9 L RDW 20.8 H Plt Count 403 MPV 8.5 Absolute Neuts (auto) 7.9 Neutrophils % 93.0 H D Lymphocytes % 5.5 L D Monocytes % 1.0 L D Eosinophils % 0.0 D Basophils % 0.5 Nucleated RBC % 0 Hypochromia Platelet Estimate Platelet Comment Polychromasia Anisocytosis Microcytosis Spherocytes Anticoagulation Therapy No Result Required. Puncture Site Right radial ABG pH 7.40 ABG pCO2 at Pt Temp 35.3 ABG pO2 at Pt Temp 76.3 L ABG HCO3 21.2 L ABG O2 Sat (Measured) 93.9 L ABG O2 Content 11.5 L ABG Base Excess -2.7 L Ryland Test No Result Required. O2 Delivery Device N/c Oxygen Flow Rate 3 lpm Vent Mode No Result Required. Vent Rate No Result Required. Mechanical Rate No Result Required. Pressure Support Vent No Result Required. Sodium Potassium Chloride Carbon Dioxide Anion Gap BUN Creatinine Est GFR (CKD-EPI)AfAm Est GFR (CKD-EPI)NonAf Random Glucose Calcium Total Bilirubin AST ALT Alkaline Phosphatase Creatine Kinase Creatine Kinase Index CK-MB (CK-2) Troponin I B-Natriuretic Peptide Total Protein Albumin Serum , Qual Alcohol, Quantitative Active Medications Generic Name Dose Route Start Last Admin Trade Name Freq PRN Reason Stop Dose Admin Albuterol Sulfate 1 amp 07/06/18 05:12 Ventolin 0.083% Nebulizer Soln - NEB Q6H PRN SHORT OF BREATH/WHEEZING Albuterol/Ipratropium 1 amp 07/06/18 08:00 Duoneb - NEB RQID SHAMIR Heparin Sodium (Porcine) 5,000 unit 07/06/18 06:00 07/06/18 07:29 Heparin - SQ 5,000 unit TID SHAMIR Administration Hydrochlorothiazide 25 mg 07/06/18 08:00 Hctz - PO DAILY [facility] Insulin Aspart 1 vial 07/06/18 07:00 Novolog Vial Sliding Scale - SQ ACHS [facility] Protocol Losartan Potassium 100 mg 07/06/18 10:00 Cozaar - PO DAILY SHAMIR Methylprednisolone Sodium Succinate 40 mg 07/06/18 10:00 Solu-Medrol - IVPUSH Q8H-IV SHAMIR ASSESSMENT/PLAN: 52 yo F with a PMHx of DM, HTN, Depression, Bipolar disorder, Paroxysmal SVTs, recently dx COPD, presented to the ED with 2 weeks of worsening SOB. #SOB -2/2 COPD exacerbation and/or New Onset CHF -CXR w/ B/L interstitial prominence. Cardiomegaly seen -Azithromycin -Duonebs QID standing -Albuterol PRN -IV Medrol 40q8 -Pulm consult: Dr. Soto -Supplemental o2 -Keep O2 > 88 -BNP 1149 (slightly decreased from last visit) -Echo done showing EF 60% severe TR, mild-mod TR, mild pulmonary hypertension; trivial pericardial effusion not hemodynamically significant -D-dimer and LE dopplers ordered given patients recent travel to [place] #Chest pain/tightness -likely from COPD exacerbation -trop 0.04 (#1), 0.03 (#2) 0.02 (#3) -treat COPD as per above. -cardio consulted #HTN -not on any meds since last d/c -start Losartan/HCTZ 100/25mg daily. She was discharged on this in December. #DM -SSI -BGM q4h -HgbA1c (5.4) #Microcytic Anemia -FU stool for occult -iron studies still pending -b12/folic acid; wnl -retic count elevated at 2.01 #Bipolar/Depression -currently not on any meds -patient was d/c last time on Celexa 20mg Daily, Seroquel 200mg HS -Consider restarting #Drug abuse -patient uses cocaine, marijuana -budget counselor on importance of quitting -FU urine tox #QTc Prolongation -QTC 500 -avoid qtc prolonging agents #FEN -No IV fluids -monitor lytes -sodium diet Problem List - Problems (1) CHF (congestive heart failure) Code(s): I50.9 - HEART FAILURE, UNSPECIFIED Qualifiers: Heart failure type: unspecified Heart failure chronicity: unspecified Qualified Code(s): I50.9 - Heart failure, unspecified (2) COPD exacerbation Code(s): J44.1 - CHRONIC OBSTRUCTIVE PULMONARY DISEASE W (ACUTE) EXACERBATION (3) Chest pain Code(s): R07.9 - CHEST PAIN, UNSPECIFIED Qualifiers: Chest pain type: unspecified Qualified Code(s): R07.9 - Chest pain, unspecified Visit type - Emergency Visit Emergency Visit: Yes ED Registration Date: 07/06/18 Care time: The patient presented to the Emergency Department on the above date and was hospitalized for further evaluation of their emergent condition. - New Patient This patient is new to me today: Yes Date on this admission: 07/06/18 - Critical Care Critical Care patient: No
[2018-07-06 08:49] LABS: ALBUMIN 3.6 g/dl (3.4-5.0); ALK PHOS 61 U/L (45-117); ANION GAP 9 MMOL/L (8-16); BILIRUBIN,TOTAL 0.5 mg/dL (0.2-1); BLOOD UREA NITROGEN 18 mg/dL (7-18); CALCIUM 8.6 mg/dL (8.5-10.1); CHLORIDE 109 mmol/L (98-107); CHOLESTEROL 235 mg/dL (50-200); CO2 22 mmol/L (21-32); CREATININE 1.1 mg/dL (0.55-1.3); GLUCOSE,RANDOM 180 mg/dL (74-106); HDL CHOLESTEROL 55 mg/dL (40-60); MAGNESIUM 2.4 mg/dL (1.8-2.4); PHOSPHOROUS 3.7 mg/dL (2.5-4.9); POTASSIUM 3.6 mmol/L (3.5-5.1); SGOT/AST 14 U/L (15-37); SGPT/ALT 30 U/L (13-61); SODIUM 140 mmol/L (136-145); TOT PROT 7.6 g/dl (6.4-8.2); TRIGLYCERIDES 43 mg/dL (0-150)
--- NOTE | 2018-07-06 09:29 | ECHO ---
Version: 1 Name: FRANCISCO RICHARDS Exam: Adult Echocardiogram Study Date: 07/06/2018, 8:56 AM Age: 52 Years MMode/2D Measurements & Calculations IVSd: 1.27 cm LVIDs: 2.9 cm LVIDd: 5.0 cm LVPWd: 1.40 cm LAV (MOD-bp): 102.0 ml LVOT diam: 1.96 cm Ao root diam: 2.9 cm Doppler Measurements & Calculations MV E max raz: 156.0 cm/sec MVA(VTI): 1.60 cm MV A max raz: 147.5 cm/sec MV V2 max: 209.6 cm/sec MV mean P.9 mmHg MV max P.6 mmHg MV E/A: 1.06 Med E/e': 21.1 Lat E/e': 28.1 Med Peak E' Raz: 7.4 cm/sec Lat Peak E' Raz: 5.5 cm/sec MR max P.9 mmHg Ao max P.2 mmHg WIN(I,D): 2.09 cm Ao mean P.7 mmHg LV V1 mean: 97.0 cm/sec Ao V2 max: 224.8 cm/sec LV V1 mean P.4 mmHg AI P1/2t: 403.8 msec TR max raz: 316.7 cm/sec TR max P.3 mmHg Procedure A complete two-dimensional transthoracic echocardiogram was performed (2D, M-mode, Doppler and color flow Doppler). Left Ventricle The left ventricle is normal in size. There is mild concentric left ventricular hypertrophy. Ejectio n Fraction = 60%. The transmitral spectral Doppler flow pattern is suggestive of impaired LV relaxatio n. The left ventricular wall motion is normal. Right Ventricle The right ventricle is normal in size and function. Atria The left atrium is moderately dilated. Right atrial size is normal. Mitral Valve The mitral valve leaflets appear normal. There is no evidence of stenosis, fluttering, or prolapse. Prolapse of the posterior mitral leaflet(s). There is moderate to severe mitral regurgitation. Tricuspid Valve Right ventricular systolic pressure is elevated at 40 mmhg. There is mild pulmonary hypertension. Th ere is mild to moderate tricuspid regurgitation. Aortic Valve There is mild aortic valve thickening. Trace to mild aortic regurgitation. Pulmonic Valve The pulmonic valve is normal in structure and function. Trace pulmonic valvular regurgitation. Great Vessels The aortic root is normal size. Pericardium/Pleura Trivial pericardial effusion not hemodynamically significant. There is no pleural effusion. Summary Statements The left ventricle is normal in size. There is mild concentric left ventricular hypertrophy. Ejection Fraction = 60%. The right ventricle is normal in size and function. The left atrium is moderately dilated. Prolapse of the posterior mitral leaflet(s). There is moderate to severe mitral regurgitation. There is mild to moderate tricuspid regurgitation. Right ventricular systolic pressure is elevated at 40 mmhg. There is mild pulmonary hypertension. There is mild aortic valve thickening. Trace to mild aortic regurgitation. Trivial pericardial effusion not hemodynamically significant MD Jamie Desir 07/06/2018, 8:28 AM Ordering Physician: Rk Mane Performed By: Drea Yates
[2018-07-06] MEDS: INSULIN SLIDING SCALE (NOVOLOG) 1 VIAL SQ SCH ×2 (09:30→13:58)
[2018-07-06] MEDS: HYDROCHLOROTHIAZIDE 25 MG TABLET (FP) PO SCH (09:30)
[2018-07-06] MEDS ORDERED: HYDROCHLOROTHIAZIDE 25 MG TABLET (FP) PO SCH (10:00)
[2018-07-06] MEDS: LOSARTAN POTASSIUM 50 MG TABLET (FP) PO SCH (10:00)
[2018-07-06] MEDS ORDERED: methylPREDNISolone NA SUCC 40 MG/1 ML VIAL IVPUSH SCH (10:00)
[2018-07-06] MEDS ORDERED: INSULIN (NOVOLOG) ASPART 100 UNITS/ML 10ML VIAL ONE (10:18)
[2018-07-06] MEDS ORDERED: AZITHROMYCIN IVPB 500 MG/250 ML BAG IVPB ONE (10:45)
--- NOTE | 2018-07-06 10:51 | CON.CARD ---
Consult Consult Specialty:: Cardiology Referred by:: Hospitalist Reason for Consultation:: possible pericardial effusion, possible chf, sob - History of Present Illness Chief Complaint: sob, cough, wheezing History of Present Illness: 52 year old woman pmh HTN, DMII, smoker, depression, COPD prior admission with sob, cough, chest tightness, chills, wheezing found to be in acute hypoxic respiratory failure, now admitted with 2 week h/o progressively worsening SOB, cough, wheezing, chest tightness. recently traveled to [place] by plane but states her symptoms started prior to her trip. states she has not taken her medications due to insurance issues. when she returned home last night she used her nebulizers and inhaled bronchodilators but did not improve so she came to the ER. She was seen and examined today in [facility]. states she feels slightly better this am but still sob and wheezing with chest tightness. - History Source History Provided By: Patient, Medical Record Limitations to Obtaining History: No Limitations - Past Medical History Cardio/Vascular: Yes: HTN Pulmonary: Yes: COPD Psych: Yes: Depression Endocrine: Yes: Diabetes Mellitus - Alcohol/Substance Use Hx Alcohol Use: No - Smoking History Smoking history: Current every day smoker Have you smoked in the past 12 months: No Aproximately how many cigarettes per day: 10 - Social History Usual Living Arrangement: With Significant Other ADL: Independent History of Recent Travel: No Home Medications - Allergies Allergies/Adverse Reactions: Allergies Allergy/AdvReac Type Severity Reaction Status Date / Time No Known Allergies Allergy Verified 07/06/18 05:52 - Home Medications Home Medications: Ambulatory Orders Bupropion HCl [Wellbutrin -] 100 mg PO BID 07/06/18 Quetiapine Fumarate "Xr" [Seroquel Xr -] 200 mg PO DAILY 07/06/18 Family Disease History - Family Disease History Family History: Denies Review of Systems - Review of Systems Constitutional: denies: No Symptoms, Chills, Diaphoresis, Fever, Lethargy, Loss of Appetite, Malaise, Night Sweats, Unintentional Wgt. Loss, Weakness, Other Eyes: denies: No Symptoms, Blind Spots, Blurred Vision, Double Vision, Eye Pain , Floaters, Photophobia, Recent Change in Vision, Other HENT: denies: No Symptoms, Difficult Swallowing, Ear Discharge, Ear Pain, Epistaxis, Gingival Bleeding, Hearing Loss, Mouth Swelling, Nasal Congestion, Ocular Prosthesis, Throat Pain, Toothache, Ringing in Ears, Other Neck: denies: No Symptoms, Decreased ROM, Lumps, Pain on Movement, Stiffness, Swollen Glands, Tenderness, Other Cardiovascular: reports: Shortness of Breath. denies: No Symptoms, Chest Pain, Edema, Palpitations, Other Respiratory: reports: Cough, SOB, SOB on Exertion, Wheezing. denies: No Symptoms, Exercise Intolerance, Hemoptysis, Orthopnea, PND, Snoring, Other Gastrointestinal: denies: No Symptoms, Abdominal Pain, Bloating, Constipation, Diarrhea, Dysphagia, Indigestion, Melena, Nausea, Rectal Bleeding, Vomiting, Vomiting Blood, Other Genitourinary: denies: No Symptoms, Burning, Discharge, Dysuria, Flank Pain, Frequency, Hematuria, Incontinence, Lesions, Menses, Pain, Testicular Mass, Testicular Pain, Testicular Swelling, Urgency, Vaginal Bleeding, Other Breasts: denies: No Symptoms Reported, See HPI, Breast Implants, Discharge from Nipple, Lumps, Pain, Skin Changes, Other Musculoskeletal: denies: No Symptoms, Back Pain, Crepitus, Decreased ROM, Extremity Pain, Joint Pain, Joint Swelling, Muscle Pain, Muscle Cramps, Muscle Weakness, Other Integumentary: denies: No Symptoms, Blister, Bruising, Change in Color, Eczema, Erythema, Incision, Lesions, Lump, Pallor, Pruritis, Rash, Wound, Other Neurological: denies: No Symptoms, Change in LOC, Change in Speech, Confusion, Dizziness, Headache, Incoordination, Numbness, Parasthesia, Pre-Existing Deficit , Seizure, Syncope, Tremors, Unsteady Gait, Weakness, Other Endocrine: denies: No Symptoms, Excessive Sweating, Flushing, Increased Hunger, Increased Thirst, Intolerance to Cold, Intolerance to Heat, Unexplained Weight Gain, Unexplained Weight Loss, Other Hematology/Lymphatic: denies: No Symptoms, Easily Bruised, Excessive Bleeding, Swollen Glands, Other Psychiatric: denies: No Symptoms, Altered Sleep Pattern, Anxiety, Depression, Hallucinations, Panic, Paranoia, Suicidal, Other Vital Signs: Vital Signs Temperature 98.1 F 07/06/18 06:10 Pulse Rate 95 H 07/06/18 10:00 Respiratory Rate 28 H 07/06/18 10:00 Blood Pressure 149/76 07/06/18 10:00 O2 Sat by Pulse Oximetry (%) 98 07/06/18 10:00 Constitutional: Yes: No Distress, Calm Eyes: Yes: Conjunctiva Clear, EOM Intact HENT: Yes: Atraumatic, Normocephalic Neck: Yes: Supple, Trachea Midline Respiratory: Yes: Regular, Cough, SOB, Wheezes Gastrointestinal: No: WNL, Normal Bowel Sounds, Soft, Abdomen, Obese, Ascites, Distention, Hematemesis, Hemorrhoids, Hepatomegaly, Hernia, Hyperactive Bowel Sounds, Hypoactive Bowel Sounds, Melena, Palpable Mass, Pulsatile Mass, Rectal Bleeding, Splenomegaly, Tenderness, Tenderness, Epigastrium, Tenderness, Rebound , Vomiting, Other Renal/: No: WNL, Anuria, Bladder Distention, CVA Tenderness - Left, CVA Tenderness - Right, Navarro Present, Hematuria, Incontinence, Menses Present, Oliguria, Polyuria, , Scrotal Edema, Urethral Discharge, Vaginal Bleeding, Vaginal Discharge, Other Cardiovascular: Yes: Regular Rate and Rhythm. No: Bradycardia, Tachycardia, Pulse Irregular, Gallop, Rub, Varicosities JVD: No Carotid Bruit: No PMI: Non-Displaced Heart Sounds: Yes: S1, S2. No: Split S2, S3, S4, Clicks, Gallop, Rub, Bruit Murmur: No: Systolic Murmur Musculoskeletal: Yes: WNL Extremities: Yes: WNL Edema: No Peripheral Pulses WNL: Yes Peripheral Pulses: 2+ Left Doralis Pedis, 2+ Right Dorsalis Pedis Neurological: Yes: Alert, Oriented Psychiatric: Yes: Alert, Oriented - Other Data Labs, Other Data: CBC, BMP 07/06/18 07:18 07/06/18 08:06 Troponin, BNP 07/06/18 07/06/18 07/06/18 01:28 05:30 05:30 Troponin I 0.04 0.03 B-Natriuretic Peptide 1149.2 H 07/06/18 08:06 Troponin I < 0.02 B-Natriuretic Peptide Troponin, BNP 07/06/18 07/06/18 07/06/18 01:28 05:30 05:30 Troponin I 0.04 0.03 B-Natriuretic Peptide 1149.2 H 07/06/18 08:06 Troponin I < 0.02 B-Natriuretic Peptide ekg sinus tach 101bpm, septal infarct, lae Echo: Report Reviewed Imaging - Results Chest X-ray: Report Reviewed, Image Reviewed EKG: Report Reviewed, Image Reviewed Other: Report Reviewed, Image Reviewed Assessment/Plan 52 year old woman pmh HTN, DMII, smoker, depression, COPD prior admission with sob, cough, chest tightness, chills, wheezing found to be in acute hypoxic respiratory failure, now admitted with 2 week h/o progressively worsening SOB, cough, wheezing, chest tightness. recently traveled to [place] by plane but states her symptoms started prior to her trip. states she has not taken her medications due to insurance issues. when she returned home last night she used her nebulizers and inhaled bronchodilators but did not improve so she came to the ER. She was seen and examined today in [facility]. states she feels slightly better this am but still sob and wheezing with chest tightness. SOB/chest tightness/cough- -does not appear cardiac in origin -most likely recurrent Acute bronchitis, likely AE COPD, in setting of continued smoking -no signs of CHF or ACS -does not require diuresis at this time -cardiac enzymes wnl -ECHO today 07/06/18 showed normal LVEF, mod to severe MR (unchanged from prior echo), Trivial pericardial effusion -pt does have multiple cardiac risk factors, would benefit from an ischemic evaluation which can likely be done as outpatient when she recovers from her acute illness -Echocardiogram shows moderate to severe MR and a previous PASP of 50 mmHg. She should be followed by Cardiology as an outpatient and an echocardiogram should be repeated when her pulmonary status is improved. At some point in the future ( as an outpatient) a right heart cath should be considered to help determine what role the MR has in the high pulmonary pressures. A cardiac stress test as an outpatient (when the pulmonary status is baseline) is also a consideration. Arrhythmia-NSR with frequent APCs, History of brief episodes of PSVT on prior admission, no clear afib had been documented thus far -should be followed closely as outpatient with plan for Holter monitor in addition to the above work up to further evaluate arrhythmia -would not use bblockers at this time in the setting of acute bronchitis -no current indication for AC unless she develops clear Afib or Aflutter
[2018-07-06 11:16] LABS: ANISOCYTOSIS 2+; MACROCYTOSIS 0; PLATELET ESTIMATE NORMAL; TEAR DROP CELLS 1+
--- NOTE | 2018-07-06 11:27 | EKG ---
Test Reason : Blood Pressure : / mmHG Vent. Rate : 101 BPM Atrial Rate : 101 BPM P-R Int : 134 ms QRS Dur : 086 ms QT Int : 386 ms P-R-T Axes : 057 052 045 degrees QTc Int : 500 ms SINUS TACHYCARDIA POSSIBLE LEFT ATRIAL ENLARGEMENT SEPTAL INFARCT (CITED ON OR BEFORE 03-JAN-2018) ABNORMAL ECG WHEN COMPARED WITH ECG OF 29-JAN-2018 15:08, NO SIGNIFICANT CHANGE WAS FOUND Confirmed by Jamie Desir MD ([id number]) on 07/06/2018 11:26:44 AM Referred By: Confirmed By:Jamie Desir MD
--- NOTE | 2018-07-06 12:00 | PN ---
Teaching Attending Note Name of Resident: Jeimy Murphy ATTENDING PHYSICIAN STATEMENT I saw and evaluated the patient. I reviewed the resident's note and discussed the case with the resident. I agree with the resident's findings and plan as documented. SUBJECTIVE:c.o dyspnea at rest but improved since arrival. states she had these symptoms since her discharge in December because she was unable to afford any of her medications but now has medicaid and coverage. says her symptoms escalated since her flight home from [place]. Denies Cp, fever, chills, N/V/C/D OBJECTIVE: Last Vital Signs Temp Pulse Resp BP Pulse Ox 98.1 F 95 H 28 H 149/76 98 07/06/18 06:10 07/06/18 10:00 07/06/18 10:00 07/06/18 10:00 07/06/18 10:00 General NAD CV S1 S2 RRR no murmur/rub/gallop Lungs CTA B/L no wheezing/rales/rhonchi Abdomen soft NT/ND extremities 1+ pitting edema iwht calf tenderness ASSESSMENT AND PLAN: 52yo F with PMH HTN, DM, bipolar, depression, SVT and continuous polysubstance dependence presented to the ER with progressive dyspnea and found to have acute hypoxic respiratory failure 1. Acute hypoxic respiratory failure- likely due to COPD exacerbation however could also have PE. although has low suspicion. on Medrol 40mg Q8H, start azithro for inflammatory. re-start inhalers as recommended on previous hospitalization. nebs prn requiring 3L NC to maintain spO2 >90%. check ddimer to r/o PE. pulmonary consulted. will check o2 requirement prior to discharge 2. HTN- uncontrolled likely due to difficulty breathing. re-start home medications. titrate as needed to optimize BP. 3. SVT- echo and cardio pending. would not start betaklocker due to COPD and cocaine use. 4. microcytic anemia- no signs of bleeding. iron studies pending. 5. DM- not on medications. A1c 5.4. pt is not diabetic. will d/c bgm/iss 6. bipolar- cont home regimen 7. Continuous polysubstance abuse- nicotine patch. counselled on drug abstinence. not interested in rehab 8. DVT ppx- hep sq
[2018-07-06 12:13] LABS: URINE APPEARANCE CLEAR; URINE BILIRUBIN NEGATIVE (NEGATIVE); URINE COLOR YELLOW; URINE GLUCOSE (UA) TRACE (NEGATIVE); URINE KETONE NEGATIVE (NEGATIVE); URINE LEUK ESTERASE NEGATIVE (NEGATIVE); URINE NITRITE NEGATIVE (NEGATIVE); URINE PROTEIN NEGATIVE (NEGATIVE); URINE UROBILINOGEN 0.2 mg/dL (0.2-1.0)
[2018-07-06 12:30] LABS: COCAINE, UR NEGATIVE ng/ml (CUTOFF=300); METHADONE, UR NEGATIVE ng/ml (CUTOFF=300); OPIATES, URI NEGATIVE ng/ml (CUTOFF=300); PHENCYCLIDINE,URINE NEGATIVE ng/ml (CUTOFF=25); URINE AMPHETAMINES NEGATIVE ng/ml (CUTOFF=500); URINE BARBITURATES NEGATIVE ng/ml (CUTOFF=200); URINE BENZODIAZEPINES NEGATIVE ng/ml (CUTOFF=200)
--- NOTE | 2018-07-06 14:45 | PN ---
Progress Note (short form) - Note Progress Note: PULMONARY CONSULTATION DICTATED 07/06/18 IMP COPD EXACERBATION HTN DM ELEVATED D-DIMER SMOKER PULMONARY HTN MODERATE-SEVERE MITRAL REGURGITATION PLAN IV STEROIDS INHALED BRONCHODILATORS O2 CHEST CTA PFTS OUTPATIENT SMOKING CESSATION COUNSELED YEARLY LOW DOSE CHEST CT FOR LUNG CANCER SCREENING AMBULATORY O2 SAT PRIOR TO DISCHARGE DR HDZ Problem List - Problems (1) Pulmonary HTN Code(s): I27.20 - PULMONARY HYPERTENSION, UNSPECIFIED (2) COPD exacerbation Code(s): J44.1 - CHRONIC OBSTRUCTIVE PULMONARY DISEASE W (ACUTE) EXACERBATION (3) Chest pain Code(s): R07.9 - CHEST PAIN, UNSPECIFIED Qualifiers: Chest pain type: unspecified Qualified Code(s): R07.9 - Chest pain, unspecified (4) Tobacco abuse Code(s): Z72.0 - TOBACCO USE (5) COPD exacerbation Code(s): J44.1 - CHRONIC OBSTRUCTIVE PULMONARY DISEASE W (ACUTE) EXACERBATION (6) Diabetes Code(s): E11.9 - TYPE 2 DIABETES MELLITUS WITHOUT COMPLICATIONS
[2018-07-06] MEDS: BUDESONIDE/FORMETEROL FUMARATE 160/4.5 mcg INHALER IH SCH ×2 (14:55→22:49)
--- NOTE | 2018-07-06 15:43 | CONS ---
DATE OF CONSULTATION: 07/06/2018 PULMONARY CONSULTATION REFERRING PHYSICIAN: Rosy De Guzman MD HISTORY OF PRESENT ILLNESS: Patient is a 52-year-old black female known to me in previous hospitalization with past medical history of chronic obstructive disease, longstanding history of tobacco use, diabetes, hypertension, depression, hospitalized in December 2017 secondary to hypoxic respiratory failure treated with inhaled bronchodilators and good response who was admitted to [facility] complaining of a 2-week history of progressive shortness of breath, cough, bronchospasm, and chest tightness. Patient states that she recently went to [place]. She returned home this past Thursday. She states the symptoms started prior to going to [place], but they have worsened since returning home. Patient states she has been using her inhaler, which is not offering much improvement. She presented to the emergency room with the above. In the ER, she was treated with inhaled bronchodilators and steroids with some clinical response. She was evaluated by Cardiology who felt that the patient had a COPD asthma exacerbation. No evidence of CHF. Echocardiogram was performed today which revealed normal LV function, no evidence of pulmonary hypertension, [id number] mitral regurgitation. Of note, also the patient has been noted to have elevated D-dimer of 1856. Patient denies any history of pulmonary emboli in the past. PAST MEDICAL HISTORY: Again includes COPD, history of hypoxic respiratory failure, hypertension, diabetes, depression. REVIEW OF SYSTEMS: Positive for cough. Positive chest tightness. Positive chest pressure. No fever. No chills. No hemoptysis. No nausea. No vomiting. No diaphoresis. No abdominal pain. Positive mild lower extremity edema. CURRENT MEDICATIONS: Include Symbicort 160/4.5, Solu-Medrol 40 q.8, Cozaar, Zithromax, heparin, Spiriva, albuterol, and hydrochlorothiazide. PHYSICAL EXAMINATION: General: Patient is a well-developed, well-nourished female, awake, alert, in no acute distress. Vital Signs: She is afebrile, heart rate is 95, respiratory rate is 20, blood pressure 136/76, and O2 saturation is 98% on 2 L nasal cannula. HEENT: Exam is normocephalic, atraumatic. Neck: Supple. Heart: Regular, S1, S2. Chest: Scattered bilateral wheezes. Abdomen: Soft. Bowel sounds positive. Extremities: No cyanosis or edema. LABORATORIES: Initial blood gas on admission was pH 7.40, PCO2 of 35, PO2 of 76, a bicarbonate of 21, saturating 93.9. WBC is 8.4, hemoglobin 9, hematocrit 29.2. BUN 18, creatinine 1.1. Hemoglobin A1c is 5.4. D-dimer is 1856. DUPLEX LOWER EXTREMITIES: No evidence of DVT. CHEST X-RAY: Less congestive changes. No infiltrates or effusions. IMPRESSION: 1. Dyspnea, cough, most likely secondary to chronic obstructive pulmonary disease exacerbation, acute exacerbation. 2. Hypertension. 3. Diabetes. 4. History of hypoxemic respiratory failure. 5. Elevated D-dimer, nonspecific, although cannot completely exclude pulmonary embolus. Patient with increased risk secondary to recent air travel and smoker. 6. Smoker. PLAN: IV steroids. Inhaled bronchodilators. Supplemental O2. Chest CTA. Pulmonary function tests outpatient. Smoking cessation counseled. Also, yearly low-dose chest CT for lung cancer screening. MYRTLE HDZ M.D. [id number]
[2018-07-06] MEDS: methylPREDNISolone NA SUCC 40 MG/1 ML VIAL IVPUSH SCH ×2 (16:37→21:50)
[2018-07-06] MEDS: PANTOPRAZOLE 40 MG TABLET (FP) PO SCH (16:38)
[2018-07-06] MEDS: buPROPion HCL 100 MG TABLET PO SCH (22:49)
[2018-07-07 05:00] LABS: SERUM IRON SATURATION 6 % (15-55); TOTAL IRON BINDING CAPACITY 343 ug/dL (250-450); UIBC 324 ug/dL (131-425)
[2018-07-07] MEDS: methylPREDNISolone NA SUCC 40 MG/1 ML VIAL IVPUSH SCH ×4 (06:12→21:50)
[2018-07-07] MEDS: HEPARIN NA (PORCINE) 5,000 UNITS/ML 1ML VIAL SQ SCH ×3 (06:12→21:50)
[2018-07-07 07:26] LABS: HEMATOCRIT 26.6 % (32.4-45.2); HEMOGLOBIN 8.2 GM/dL (10.7-15.3); MCH 22.2 pg (25.7-33.7); MEAN CELL VOLUME 71.6 fl (80-96); MEAN PLT VOLUME 8.8 fl (7.5-11.1); PLATELET COUNT 410 K/MM3 (134-434); RBC 3.71 M/mm3 (3.60-5.2); RDW 20.6 % (11.6-15.6); WHITE BLOOD COUNT 14.7 K/mm3 (4.0-10.0)
--- NOTE | 2018-07-07 07:46 | PN ---
Physical Exam: SUBJECTIVE: Patient seen and examined at bedside- no acute events overnight; patient states that she is feeling better but still getting dyspneic upon exertion- denies CP/N/V fevers or chills OBJECTIVE: Vital Signs Period Temp Pulse Resp BP Sys/Melvin Pulse Ox Last 24 Hr 98 F-98.8 F 95-114 18- 136-153/74-87 98-100 GENERAL: The patient is awake, alert, and fully oriented, in no acute distress. EYES: PEERLA EOMI no scleral icterus NECK: no JVD: no lymphadenopathy LUNGS: slight wheezing B/L gigi at the bases HEART: Regular rate and rhythm, S1, S2 without murmur, rub or gallop. ABDOMEN: Soft, nontender, nondistended, normoactive bowel sounds, no guarding, no rebound, no hepatosplenomegaly, no masses. EXTREMITIES: 2+ pulses, warm, well-perfused, no edema. . PSYCH: Normal mood, normal affect. SKIN: Warm, dry, normal turgor, no rashes or lesions noted Laboratory Results - last 24 hr 07/06/18 07/06/18 07/06/18 07:18 07:18 07:18 WBC 8.4 RBC 4.02 Hgb 9.0 L Hct 29.2 L MCV 72.6 L MCH 22.5 L MCHC 30.9 L RDW 20.8 H Plt Count 403 MPV 8.5 Absolute Neuts (auto) 7.9 Neutrophils % 93.0 H D Neutrophils % (Manual) 91.9 H Band Neutrophils % 0.0 Lymphocytes % 5.5 L D Lymphocytes % (Manual) 7.1 L Monocytes % 1.0 L D Monocytes % (Manual) 0 L Eosinophils % 0.0 D Eosinophils % (Manual) 0.0 Basophils % 0.5 Basophils % (Manual) 0.0 Myelocytes % (Man) 0 Promyelocytes % (Man) 0 Blast Cells % (Manual) 0 Nucleated RBC % 0 Metamyelocytes 0 Hypochromia 1+ Platelet Estimate Normal Platelet Comment Present Polychromasia 1+ Poikilocytosis 0 Anisocytosis 2+ Microcytosis 1+ Macrocytosis 0 Tear Drop Cells 1+ Acanthocytes (Spur) 1+ Schistocytes 1+ Retic Count D-Dimer Sodium Potassium Chloride Carbon Dioxide Anion Gap BUN Creatinine Est GFR (CKD-EPI)AfAm Est GFR (CKD-EPI)NonAf Random Glucose Hemoglobin A1c % 5.4 Calcium Phosphorus Magnesium Iron TIBC Iron Saturation Ferritin 55.7 Total Bilirubin AST ALT Alkaline Phosphatase Troponin I Total Protein Albumin Triglycerides Cholesterol Total LDL Cholesterol HDL Cholesterol Vitamin B12 Serum Folate 5 TSH Urine Color Urine Appearance Urine pH Ur Specific [place] Urine Protein Urine Glucose (UA) Urine Ketones Urine Blood Urine Nitrite Urine Bilirubin Urine Urobilinogen Ur Leukocyte Esterase Opiates Screen Methadone Screen Barbiturate Screen Phencyclidine Screen Ur Amphetamines Screen MDMA (Ecstasy) Screen Benzodiazepines Screen Cocaine Screen U Marijuana (THC) Screen 07/06/18 07/06/18 07/06/18 07:18 08:06 08:06 WBC RBC Hgb Hct MCV MCH MCHC RDW Plt Count MPV Absolute Neuts (auto) Neutrophils % Neutrophils % (Manual) Band Neutrophils % Lymphocytes % Lymphocytes % (Manual) Monocytes % Monocytes % (Manual) Eosinophils % Eosinophils % (Manual) Basophils % Basophils % (Manual) Myelocytes % (Man) Promyelocytes % (Man) Blast Cells % (Manual) Nucleated RBC % Metamyelocytes Hypochromia Platelet Estimate Platelet Comment Polychromasia Poikilocytosis Anisocytosis Microcytosis Macrocytosis Tear Drop Cells Acanthocytes (Spur) Schistocytes Retic Count D-Dimer Sodium 140 Potassium 3.6 Chloride 109 H Carbon Dioxide 22 Anion Gap 9 BUN 18 Creatinine 1.1 Est GFR (CKD-EPI)AfAm 67.79 Est GFR (CKD-EPI)NonAf 58.49 Random Glucose 180 H Hemoglobin A1c % Calcium 8.6 Phosphorus 3.7 Magnesium 2.4 Iron 19 L TIBC 343 Iron Saturation 6 L Ferritin Total Bilirubin 0.5 AST 14 L ALT 30 Alkaline Phosphatase 61 Troponin I < 0.02 Total Protein 7.6 Albumin 3.6 Triglycerides 43 Cholesterol 235 H Total LDL Cholesterol 155 H HDL Cholesterol 55 Vitamin B12 616 Serum Folate TSH 0.38 Urine Color Urine Appearance Urine pH Ur Specific [place] Urine Protein Urine Glucose (UA) Urine Ketones Urine Blood Urine Nitrite Urine Bilirubin Urine Urobilinogen Ur Leukocyte Esterase Opiates Screen Methadone Screen Barbiturate Screen Phencyclidine Screen Ur Amphetamines Screen MDMA (Ecstasy) Screen Benzodiazepines Screen Cocaine Screen U Marijuana (THC) Screen 07/06/18 07/06/18 07/06/18 08:06 11:49 12:00 WBC RBC Hgb Hct MCV MCH MCHC RDW Plt Count MPV Absolute Neuts (auto) Neutrophils % Neutrophils % (Manual) Band Neutrophils % Lymphocytes % Lymphocytes % (Manual) Monocytes % Monocytes % (Manual) Eosinophils % Eosinophils % (Manual) Basophils % Basophils % (Manual) Myelocytes % (Man) Promyelocytes % (Man) Blast Cells % (Manual) Nucleated RBC % Metamyelocytes Hypochromia Platelet Estimate Platelet Comment Polychromasia Poikilocytosis Anisocytosis Microcytosis Macrocytosis Tear Drop Cells Acanthocytes (Spur) Schistocytes Retic Count 2.07 H D-Dimer 1856 H Sodium Potassium Chloride Carbon Dioxide Anion Gap BUN Creatinine Est GFR (CKD-EPI)AfAm Est GFR (CKD-EPI)NonAf Random Glucose Hemoglobin A1c % Calcium Phosphorus Magnesium Iron TIBC Iron Saturation Ferritin Total Bilirubin AST ALT Alkaline Phosphatase Troponin I Total Protein Albumin Triglycerides Cholesterol Total LDL Cholesterol HDL Cholesterol Vitamin B12 Serum Folate TSH Urine Color Yellow Urine Appearance Clear Urine pH 5.0 Ur Specific [place] 1.011 Urine Protein Negative Urine Glucose (UA) Trace Urine Ketones Negative Urine Blood Negative Urine Nitrite Negative Urine Bilirubin Negative Urine Urobilinogen 0.2 Ur Leukocyte Esterase Negative Opiates Screen Methadone Screen Barbiturate Screen Phencyclidine Screen Ur Amphetamines Screen MDMA (Ecstasy) Screen Benzodiazepines Screen Cocaine Screen U Marijuana (THC) Screen 07/06/18 12:00 WBC RBC Hgb Hct MCV MCH MCHC RDW Plt Count MPV Absolute Neuts (auto) Neutrophils % Neutrophils % (Manual) Band Neutrophils % Lymphocytes % Lymphocytes % (Manual) Monocytes % Monocytes % (Manual) Eosinophils % Eosinophils % (Manual) Basophils % Basophils % (Manual) Myelocytes % (Man) Promyelocytes % (Man) Blast Cells % (Manual) Nucleated RBC % Metamyelocytes Hypochromia Platelet Estimate Platelet Comment Polychromasia Poikilocytosis Anisocytosis Microcytosis Macrocytosis Tear Drop Cells Acanthocytes (Spur) Schistocytes Retic Count D-Dimer Sodium Potassium Chloride Carbon Dioxide Anion Gap BUN Creatinine Est GFR (CKD-EPI)AfAm Est GFR (CKD-EPI)NonAf Random Glucose Hemoglobin A1c % Calcium Phosphorus Magnesium Iron TIBC Iron Saturation Ferritin Total Bilirubin AST ALT Alkaline Phosphatase Troponin I Total Protein Albumin Triglycerides Cholesterol Total LDL Cholesterol HDL Cholesterol Vitamin B12 Serum Folate TSH Urine Color Urine Appearance Urine pH Ur Specific [place] Urine Protein Urine Glucose (UA) Urine Ketones Urine Blood Urine Nitrite Urine Bilirubin Urine Urobilinogen Ur Leukocyte Esterase Opiates Screen Negative Methadone Screen Negative Barbiturate Screen Negative Phencyclidine Screen Negative Ur Amphetamines Screen Negative MDMA (Ecstasy) Screen Negative Benzodiazepines Screen Negative Cocaine Screen Negative U Marijuana (THC) Screen Negative Active Medications Generic Name Dose Route Start Last Admin Trade Name Freq PRN Reason Stop Dose Admin Albuterol Sulfate 1 amp 07/06/18 14:56 Ventolin 0.083% Nebulizer Soln - NEB Q4H PRN SHORT OF BREATH/WHEEZING Budesonide/Formoterol Fumarate 2 puff 07/06/18 12:15 07/06/18 22:49 Symbicort 160/4.5mcg - IH 2 puff BID SHAMIR Administration Bupropion HCl 100 mg 07/06/18 22:00 07/06/18 22:49 Wellbutrin - PO 100 mg BID SHAMIR Administration Heparin Sodium (Porcine) 5,000 unit 07/06/18 06:00 07/07/18 06:12 Heparin - SQ 5,000 unit TID SHAMIR Administration Hydrochlorothiazide 25 mg 07/06/18 08:00 07/06/18 09:30 Hctz - PO 25 mg DAILY SHAMIR Administration Azithromycin 250 mg/ Dextrose 250 mls @ 250 mls/hr 07/07/18 10:00 IVPB DAILY SHAMIR Losartan Potassium 100 mg 07/06/18 10:00 07/06/18 10:00 Cozaar - PO 100 mg DAILY SHAMIR Administration Methylprednisolone Sodium Succinate 40 mg 07/06/18 15:00 07/07/18 06:12 Solu-Medrol - IVPUSH 40 mg Q6H-IV SHAMIR Administration Pantoprazole Sodium 40 mg 07/06/18 15:00 07/06/18 16:38 Protonix - PO 40 mg DAILY SHAMIR Administration Quetiapine Fumarate 200 mg 07/07/18 10:00 Seroquel Xr - PO DAILY SHAMIR Tiotropium [place] 2 puff 07/07/18 10:00 Spiriva Respimat IH DAILY SHAMIR ASSESSMENT/PLAN: 52 yo F with a PMHx of DM, HTN, Depression, Bipolar disorder, Paroxysmal SVTs, recently dx COPD, presented to the ED with 2 weeks of worsening SOB. #SOB -2/2 COPD exacerbation and/or New Onset CHF -CXR w/ B/L interstitial prominence. Cardiomegaly seen -Azithromycin ( day 2) -restarted patients spiriva and symbicort -Albuterol PRN -IV Medrol 40q6 -Pulm consult: Dr. Soto -Supplemental o2 -Keep O2 > 88 -BNP 1149 (slightly decreased fr om last visit) -Echo done showing EF 60% severe TR, mild-mod TR, mild pulmonary hypertension; trivial pericardial effusion not hemodynamically significant -CTA negative for PE #Chest pain/tightness -likely from COPD exacerbation -trop 0.04 (#1), 0.03 (#2) 0.02 (#3) -treat COPD as per above. -cardio consulted #HTN -not on any meds since last d/c -start Losartan/HCTZ 100/25mg daily. She was discharged on this in December. #DM -SSI -BGM q4h -HgbA1c (5.4) #Microcytic Anemia -FU stool for occult -iron studies done- ferritn and TIBA wnl; iron low -b12/folic acid; wnl -retic count elevated at 2.01 -will give IV venofer #Bipolar/Depression -c/w seroquel #Drug abuse -patient uses cocaine, marijuana -international student counselor on importance of quitting -FU urine tox #QTc Prolongation -QTC 500 -avoid qtc prolonging agents #FEN -No IV fluids -monitor lytes -sodium diet Problem List - Problems (1) CHF (congestive heart failure) Code(s): I50.9 - HEART FAILURE, UNSPECIFIED Qualifiers: Heart failure type: unspecified Heart failure chronicity: unspecified Qualified Code(s): I50.9 - Heart failure, unspecified (2) COPD exacerbation Code(s): J44.1 - CHRONIC OBSTRUCTIVE PULMONARY DISEASE W (ACUTE) EXACERBATION (3) Chest pain Code(s): R07.9 - CHEST PAIN, UNSPECIFIED Qualifiers: Chest pain type: unspecified Qualified Code(s): R07.9 - Chest pain, unspecified Visit type - Emergency Visit Emergency Visit: Yes ED Registration Date: 07/06/18 Care time: The patient presented to the Emergency Department on the above date and was hospitalized for further evaluation of their emergent condition. - New Patient This patient is new to me today: No - Critical Care Critical Care patient: No
[2018-07-07 08:24] LABS: CALCIUM 8.9 mg/dL (8.5-10.1); CREATININE 0.8 mg/dL (0.55-1.3); MAGNESIUM 2.3 mg/dL (1.8-2.4); PHOSPHOROUS 4.2 mg/dL (2.5-4.9); POTASSIUM 4.1 mmol/L (3.5-5.1)
[2018-07-07] MEDS ORDERED: NAPH,MB-DB/K PH,MBDB POWDER PACKET PO ONE (08:25)
[2018-07-07] MEDS ORDERED: PT OWN MED DRAWER 7, Y5N ONE (09:23)
[2018-07-07] MEDS: AZITHROMYCIN IVPB 250 MG in DEXTROSE 5%-WATER - 250 ML IVPB SCH (09:29)
[2018-07-07] MEDS: PANTOPRAZOLE 40 MG TABLET (FP) PO SCH (09:30)
[2018-07-07] MEDS: BUDESONIDE/FORMETEROL FUMARATE 160/4.5 mcg INHALER IH SCH ×2 (09:30→21:49)
[2018-07-07] MEDS: TIOTROPIUM BROMIDE 2.5 MCG (SPIRIVA) RESPIMAT INHALER IH SCH (09:30)
[2018-07-07] MEDS: HYDROCHLOROTHIAZIDE 25 MG TABLET (FP) PO SCH (09:30)
[2018-07-07] MEDS: LOSARTAN POTASSIUM 50 MG TABLET (FP) PO SCH (09:30)
[2018-07-07] MEDS ORDERED: IRON SUCROSE INJECTION 100 MG in SODIUM CHLORIDE 95 ML IVPB ONE (10:30)
--- NOTE | 2018-07-07 12:09 | PN ---
Teaching Attending Note Name of Resident: Jeimy Murphy ATTENDING PHYSICIAN STATEMENT I saw and evaluated the patient. I reviewed the resident's note and discussed the case with the resident. I agree with the resident's findings and plan as documented. SUBJECTIVE:remains dyspnic on exertion. continues to have cough. denies Cp, fever, chills, N/V/C/D OBJECTIVE: Last Vital Signs Temp Pulse Resp BP Pulse Ox 98.3 F 94 H 18 150/84 95 07/07/18 11:00 07/07/18 11:00 07/07/18 11:00 07/07/18 11:00 07/07/18 09:49 General NAD CV S1 S2 tachy no murmur/rub/gallop Lungs scattered wheezing Abdomen soft NT/ND ASSESSMENT AND PLAN: 52yo F with PMH HTN, DM, bipolar, depression, SVT and continuous polysubstance dependence presented to the ER with progressive dyspnea and found to have acute hypoxic respiratory failure 1. Acute hypoxic respiratory failure- likely due to COPD exacerbation. CTA done and negative for PE. pt noted to be very dyspnic when ambulating down the gautam. will maintain current steroid dosing at Q6H, azithro day 2, symbicort,spiriva, ( was started on last hospitalization but pt not compliant) encourage neb prn. currently requiring 2L NC to maintain spO2 >90% and will need eval if will require on discharge. pulmonary on board. will need furhter testing as outpatient. day camp counselor on smoking cessation 2. HTN- improved. cont current management. 3. SVT- echo noted. appreciate cardio recommendations. will need repeat as outpatient and possible L&R heart cath to further assess. no betablocker use at this time 4. Iron def anemia- could also potentiate dyspnea. Hgb stable, no signs of bleeding. will give venofer x5 doses while hospitalized. will need repeat iron studies 5. DM- not on medications. A1c 5.4. pt is not diabetic. will d/c bgm/iss 6. bipolar- cont home regimen 7. Continuous polysubstance abuse- nicotine patch. counselled on drug abstinence. not interested in rehab 8. DVT ppx- hep sq
--- NOTE | 2018-07-07 12:24 | PN ---
Progress Note (short form) - Note Progress Note: PULMONARY Breathing slightly improving but still short of breath with cough, wheezing and chest tightness. CT chest done showing nonspecific ground glass opacities. Vital Signs Period Temp Pulse Resp BP Sys/Melvin Pulse Ox Last 24 Hr 98 F-98.8 F 94-114 18-20 136-153/74-87 95-100 Gen: tachypneic with speaking Heart: RRR Lung: scattered rhonchi, wheezes Abd: soft, nontender Ext: no edema CBC, BMP 07/07/18 06:45 07/07/18 06:45 Active Medications Albuterol Sulfate (Ventolin 0.083% Nebulizer Soln -) 1 amp NEB Q4H PRN PRN Reason: SHORT OF BREATH/WHEEZING Budesonide/Formoterol Fumarate (Symbicort 160/4.5mcg -) 2 puff IH BID [facility] Last Admin: 07/07/18 09:30 Dose: 2 puff Bupropion HCl (Wellbutrin -) 100 mg PO BID [facility] Last Admin: 07/06/18 22:49 Dose: 100 mg Heparin Sodium (Porcine) (Heparin -) 5,000 unit SQ TID [facility] Last Admin: 07/07/18 06:12 Dose: 5,000 unit Hydrochlorothiazide (Hctz -) 25 mg PO DAILY [facility] Last Admin: 07/07/18 09:30 Dose: 25 mg Azithromycin 250 mg/ Dextrose 250 mls @ 250 mls/hr IVPB DAILY [facility] Last Admin: 07/07/18 09:29 Dose: 250 mls/hr Losartan Potassium (Cozaar -) 100 mg PO DAILY [facility] Last Admin: 07/07/18 09:30 Dose: 100 mg Methylprednisolone Sodium Succinate (Solu-Medrol -) 40 mg IVPUSH Q6H-IV [facility] Last Admin: 07/07/18 09:30 Dose: 40 mg Nicotine (Nicoderm Patch -) 21 mg TD DAILY [facility] Pantoprazole Sodium (Protonix -) 40 mg PO DAILY [facility] Last Admin: 07/07/18 09:30 Dose: 40 mg Quetiapine Fumarate (Seroquel Xr -) 200 mg PO DAILY [facility] Tiotropium [place] (Spiriva Respimat) 2 puff IH DAILY [facility] Last Admin: 07/07/18 09:30 Dose: Not Given A/P Acute COPD Exacerbation Mitral Regurgitation Pulmonary HTN HTN DM Smoker - continue medrol at current dose - inhaled bronchodilators standing and PRN - O2 to keep SpO2 >90% - azithromycin - outpt PFTs - smoking cessation - DVT prophylaxis
[2018-07-07] MEDS: buPROPion HCL 100 MG TABLET PO SCH ×2 (12:30→21:58)
[2018-07-07] MEDS: ALBUTEROL SO4 0.083% IH SOL 2.5 MG/3 ML VIAL.NEB. NEB PRN (12:40)
[2018-07-07] MEDS: NICOTINE 21 MG/24 HOURS TOPICAL PATCH TD SCH (13:23)
--- NOTE | 2018-07-07 14:57 | PN ---
Progress Note, Physician Chief Complaint: less sob History of Present Illness: 52 year old woman pmh HTN, DMII, smoker, depression, COPD prior admission with sob, cough, chest tightness, chills, wheezing found to be in acute hypoxic respiratory failure, now admitted with 2 week h/o progressively worsening SOB, cough, wheezing, chest tightness. recently traveled to [place] by plane but states her symptoms started prior to her trip. states she has not taken her medications due to insurance issues. when she returned home last night she used her nebulizers and inhaled bronchodilators but did not improve so she came to the ER. She was seen and examined today in [facility] [place]. states she feels slightly better this am but still sob and wheezing with chest tightness. - Current Medication List Current Medications: Active Medications Albuterol Sulfate (Ventolin 0.083% Nebulizer Soln -) 1 amp NEB Q4H PRN PRN Reason: SHORT OF BREATH/WHEEZING Last Admin: 07/07/18 12:40 Dose: 1 amp Budesonide/Formoterol Fumarate (Symbicort 160/4.5mcg -) 2 puff IH BID [facility] Last Admin: 07/07/18 09:30 Dose: 2 puff Bupropion HCl (Wellbutrin -) 100 mg PO BID [facility] Last Admin: 07/07/18 12:30 Dose: 100 mg Heparin Sodium (Porcine) (Heparin -) 5,000 unit SQ TID [facility] Last Admin: 07/07/18 13:23 Dose: 5,000 unit Hydrochlorothiazide (Hctz -) 25 mg PO DAILY [facility] Last Admin: 07/07/18 09:30 Dose: 25 mg Azithromycin 250 mg/ Dextrose 250 mls @ 250 mls/hr IVPB DAILY [facility] Last Admin: 07/07/18 09:29 Dose: 250 mls/hr Losartan Potassium (Cozaar -) 100 mg PO DAILY [facility] Last Admin: 07/07/18 09:30 Dose: 100 mg Methylprednisolone Sodium Succinate (Solu-Medrol -) 40 mg IVPUSH Q6H-IV [facility] Last Admin: 07/07/18 09:30 Dose: 40 mg Nicotine (Nicoderm Patch -) 21 mg TD DAILY [facility] Last Admin: 07/07/18 13:23 Dose: 21 mg Pantoprazole Sodium (Protonix -) 40 mg PO DAILY [facility] Last Admin: 05/29/19 09:30 Dose: 40 mg Quetiapine Fumarate (Seroquel Xr -) 200 mg PO DAILY [facility] Last Admin: 07/07/18 12:30 Dose: 200 mg Tiotropium [place] (Spiriva Respimat) 2 puff IH DAILY [facility] Last Admin: 07/07/18 09:30 Dose: Not Given - Objective Vital Signs: Vital Signs Temperature 97.7 F 07/07/18 13:39 Pulse Rate 113 H 07/07/18 13:39 Respiratory Rate 18 07/07/18 13:39 Blood Pressure 157/85 07/07/18 13:39 O2 Sat by Pulse Oximetry (%) 95 07/07/18 09:49 Constitutional: Yes: No Distress, Calm Eyes: Yes: EOM Intact HENT: Yes: Normocephalic Neck: Yes: Trachea Midline Cardiovascular: Yes: Regular Rate and Rhythm Respiratory: Yes: Rhonchi Gastrointestinal: Yes: Normal Bowel Sounds, Soft Musculoskeletal: Yes: WNL Extremities: Yes: WNL Edema: No Labs: CBC, BMP 07/07/18 06:45 07/07/18 06:45 Assessment/Plan 52 year old woman pmh HTN, DMII, smoker, depression, COPD prior admission with sob, cough, chest tightness, chills, wheezing found to be in acute hypoxic respiratory failure, now admitted with 2 week h/o progressively worsening SOB, cough, wheezing, chest tightness. recently traveled to [place] by plane but states her symptoms started prior to her trip. states she has not taken her medications due to insurance issues. when she returned home last night she used her nebulizers and inhaled bronchodilators but did not improve so she came to the ER. She was seen and examined today in [facility] [place]. states she feels slightly better this am but still sob and wheezing with chest tightness. SOB/chest tightness/cough- -does not appear cardiac in origin -most likely recurrent Acute bronchitis, likely AE COPD, in setting of continued smoking -no signs of CHF or ACS -does not require diuresis at this time -cardiac enzymes wnl -ECHO 07/06/18 showed normal LVEF, mod to severe MR (unchanged from prior echo), Trivial pericardial effusion -pt does have multiple cardiac risk factors, would benefit from an ischemic evaluation which can likely be done as outpatient when she recovers from her acute illness -Echocardiogram shows moderate to severe MR and a previous PASP of 50 mmHg. She should be followed by Cardiology as an outpatient and and should be repeated when her pulmonary status is improved. At some point in the future (as an outpatient) a right heart cath should be considered to help determine what role the MR has in the high pulmonary pressures. A cardiac stress test as an outpatient (when the pulmonary status is baseline) is also a consideration. Arrhythmia-NSR with frequent APCs, History of brief episodes of PSVT on prior admission, no clear afib had been documented thus far -should be followed closely as outpatient with plan for Holter monitor in addition to the above work up to further evaluate arrhythmia -would not use bblockers at this time in the setting of acute bronchitis -no current indication for AC unless she develops clear Afib or Aflutter will see as outpatient.
--- NOTE | 2018-07-07 17:24 | EKG ---
Test Reason : Blood Pressure : / mmHG Vent. Rate : 110 BPM Atrial Rate : 110 BPM P-R Int : 142 ms QRS Dur : 086 ms QT Int : 360 ms P-R-T Axes : 066 057 -37 degrees QTc Int : 487 ms SINUS TACHYCARDIA WITH OCCASIONAL PREMATURE VENTRICULAR COMPLEXES LEFT ATRIAL ENLARGEMENT ANTEROSEPTAL INFARCT (CITED ON OR BEFORE 03-JAN-2018) ABNORMAL ECG WHEN COMPARED WITH ECG OF 29-JAN-2018 15:08, PREMATURE VENTRICULAR COMPLEXES ARE NOW PRESENT QUESTIONABLE CHANGE IN INITIAL FORCES OF ANTERIOR LEADS Confirmed by ROBERTO BOYKIN, ALVIN ([id number]) on 07/07/2018 5:24:24 PM Referred By: Confirmed By:ALVIN MEJIA MD
[2018-07-08] MEDS: methylPREDNISolone NA SUCC 40 MG/1 ML VIAL IVPUSH SCH ×3 (04:01→17:03)
[2018-07-08] MEDS: HEPARIN NA (PORCINE) 5,000 UNITS/ML 1ML VIAL SQ SCH ×3 (05:28→21:59)
[2018-07-08 07:05] LABS: HEMATOCRIT 29.4 % (32.4-45.2); HEMOGLOBIN 9.1 GM/dL (10.7-15.3); MCH 22.6 pg (25.7-33.7); MCHC 31.1 g/dl (32.0-36.0); MEAN CELL VOLUME 72.6 fl (80-96); MEAN PLT VOLUME 8.9 fl (7.5-11.1); PLATELET COUNT 419 K/MM3 (134-434); RBC 4.05 M/mm3 (3.60-5.2); RDW 20.7 % (11.6-15.6); WHITE BLOOD COUNT 15.9 K/mm3 (4.0-10.0)
[2018-07-08 07:43] LABS: CALCIUM 9.2 mg/dL (8.5-10.1); MAGNESIUM 2.5 mg/dL (1.8-2.4); PHOSPHOROUS 3.9 mg/dL (2.5-4.9)
--- NOTE | 2018-07-08 08:14 | PN ---
Physical Exam: SUBJECTIVE: Patient seen and examined at bedside- no acute events overnight; patient states that she feels a bit better with her breathing however is still getting slightly breathless with movement and is still having a dry cough; deneis CP/N/v. fevers or chills OBJECTIVE: Vital Signs Period Temp Pulse Resp BP Sys/Melvin Pulse Ox Last 24 Hr 97.7 F-99.0 F 94-113 18-18 146-161/76-93 95-98 GENERAL: The patient is awake, alert, and fully oriented, in no acute distress. EYES: PEERLA: EOMI no scleral icterus NECK: no JVD: no lymphadenopathy LUNGS: slight wheezing B/L however improving HEART: Regular rate and rhythm, S1, S2 without murmur, rub or gallop. ABDOMEN: Soft, nontender, nondistended, normoactive bowel sounds, no guarding, no rebound, no hepatosplenomegaly, no masses. EXTREMITIES: 2+ pulses, warm, well-perfused, no edema. PSYCH: Normal mood, normal affect. SKIN: Warm, dry, normal turgor, no rashes or lesions noted Laboratory Results - last 24 hr 07/07/18 07/07/18 07/07/18 06:45 06:45 21:53 WBC RBC Hgb Hct MCV MCH MCHC RDW Plt Count MPV Sodium 135 L Potassium 4.1 Chloride 104 Carbon Dioxide 24 Anion Gap 8 BUN 16 Creatinine 0.8 Est GFR (CKD-EPI)AfAm 99.63 Est GFR (CKD-EPI)NonAf 85.96 POC Glucometer 248 Random Glucose 146 H Calcium 8.9 Phosphorus 4.2 Magnesium 2.3 Iron 16 L 07/08/18 07/08/18 06:30 06:30 WBC 15.9 H RBC 4.05 Hgb 9.1 L Hct 29.4 L MCV 72.6 L MCH 22.6 L MCHC 31.1 L RDW 20.7 H Plt Count 419 MPV 8.9 Sodium 137 Potassium 4.0 Chloride 104 Carbon Dioxide 26 Anion Gap 8 BUN 21 H Creatinine 1.0 Est GFR (CKD-EPI)AfAm 76.07 Est GFR (CKD-EPI)NonAf 65.64 POC Glucometer Random Glucose 190 H Calcium 9.2 Phosphorus 3.9 Magnesium 2.5 H Iron Active Medications Generic Name Dose Route Start Last Admin Trade Name Freq PRN Reason Stop Dose Admin Albuterol Sulfate 1 amp 07/06/18 14:56 07/07/18 12:40 Ventolin 0.083% Nebulizer Soln - NEB 1 amp Q4H PRN Administration SHORT OF BREATH/WHEEZING Budesonide/Formoterol Fumarate 2 puff 07/06/18 12:15 07/07/18 21:49 Symbicort 160/4.5mcg - IH 2 puff BID SHAMIR Administration Bupropion HCl 100 mg 07/06/18 22:00 07/07/18 21:58 Wellbutrin - PO 100 mg BID SHAMIR Administration Heparin Sodium (Porcine) 5,000 unit 07/06/18 06:00 07/08/18 05:28 Heparin - SQ 5,000 unit TID SHAMIR Administration Hydrochlorothiazide 25 mg 07/06/18 08:00 07/07/18 09:30 Hctz - PO 25 mg DAILY SHAMIR Administration Azithromycin 250 mg/ Dextrose 250 mls @ 250 mls/hr 07/07/18 10:00 07/07/18 09 :29 IVPB 250 mls/hr DAILY SHAMIR Administration Iron Sucrose 100 mg/ Sodium 100 mls @ 200 mls/hr 07/08/18 09:00 Chloride IVPB 07/08/18 09:29 ONCE ONE Losartan Potassium 100 mg 07/06/18 10:00 07/07/18 09:30 Cozaar - PO 100 mg DAILY SHAMIR Administration Methylprednisolone Sodium Succinate 40 mg 07/06/18 15:00 07/08/18 04:01 Solu-Medrol - IVPUSH 40 mg Q6H-IV SHAMIR Administration Nicotine 21 mg 07/07/18 12:15 07/07/18 13:23 Nicoderm Patch - TD 21 mg DAILY SHAMIR Administration Pantoprazole Sodium 40 mg 07/06/18 15:00 07/07/18 09:30 Protonix - PO 40 mg DAILY SHAMIR Administration Quetiapine Fumarate 200 mg 07/07/18 10:00 07/07/18 12:30 Seroquel Xr - PO 200 mg DAILY SHAMIR Administration Tiotropium [place] 2 puff 07/07/18 10:00 07/07/18 09:30 Spiriva Respimat IH Not Given DAILY SHAMIR ASSESSMENT/PLAN: 52 yo F with a PMHx of DM, HTN, Depression, Bipolar disorder, Paroxysmal SVTs, recently dx COPD, presented to the ED with 2 weeks of worsening SOB. #SOB -2/2 COPD exacerbation and/or New Onset CHF -CXR w/ B/L interstitial prominence. Cardiomegaly seen -Azithromycin ( day 3) -restarted patients spiriva and symbicort -Albuterol PRN -IV Medrol 40q8H -Pulm consult: Dr. Soto -Supplemental o2 -Keep O2 > 88 -chest CT showed some interstitial lung disease- will f/u CULLEN and RF #Chest pain/tightness -likely from COPD exacerbation -resolving #HTN -start Losartan/HCTZ 100/25mg daily. #DM -SSI -BGM q4h -HgbA1c (5.4) #Microcytic Anemia -iron studies done- ferritn and TIBA wnl; iron low -b12/folic acid; wnl -retic count elevated at 2.01 -will give IV venofer (X5) #Bipolar/Depression -c/w seroquel #Drug abuse -patient uses cocaine, marijuana -school guidance counselor on importance of quitting -FU urine tox #QTc Prolongation -QTC 500 -avoid qtc prolonging agents #FEN -No IV fluids -monitor lytes -sodium diet Problem List - Problems (1) CHF (congestive heart failure) Code(s): I50.9 - HEART FAILURE, UNSPECIFIED Qualifiers: Heart failure type: unspecified Heart failure chronicity: unspecified Qualified Code(s): I50.9 - Heart failure, unspecified (2) COPD exacerbation Code(s): J44.1 - CHRONIC OBSTRUCTIVE PULMONARY DISEASE W (ACUTE) EXACERBATION (3) Chest pain Code(s): R07.9 - CHEST PAIN, UNSPECIFIED Qualifiers: Chest pain type: unspecified Qualified Code(s): R07.9 - Chest pain, unspecified Visit type - Emergency Visit Emergency Visit: Yes ED Registration Date: 07/06/18 Care time: The patient presented to the Emergency Department on the above date and was hospitalized for further evaluation of their emergent condition. - New Patient This patient is new to me today: No - Critical Care Critical Care patient: No
[2018-07-08] MEDS ORDERED: IRON SUCROSE INJECTION 100 MG in SODIUM CHLORIDE 95 ML IVPB ONE (09:00)
--- NOTE | 2018-07-08 09:02 | PN ---
Progress Note (short form) - Note Progress Note: Breathing feels the same. Still with some short of breath, cough, wheezing, and chest tightness but less than on admission. No acute events overnight. Intake & Output 07/05/18 07/06/18 07/07/18 07/08/18 23:59 23:59 23:59 23:59 Intake Total 210 1050 50 Balance 210 1050 50 Weight 160 lb 195 lb 9.6 oz 192 lb 14.4 oz 192 lb 3 oz Last Vital Signs Temp Pulse Resp BP Pulse Ox 98.0 F 94 H 18 161/76 97 07/08/18 06:15 07/08/18 06:15 07/08/18 06:15 07/08/18 06:15 07/07/18 20:44 Active Medications Albuterol Sulfate (Ventolin 0.083% Nebulizer Soln -) 1 amp NEB Q4H PRN PRN Reason: SHORT OF BREATH/WHEEZING Last Admin: 07/07/18 12:40 Dose: 1 amp Budesonide/Formoterol Fumarate (Symbicort 160/4.5mcg -) 2 puff IH BID [facility] Last Admin: 07/07/18 21:49 Dose: 2 puff Bupropion HCl (Wellbutrin -) 100 mg PO BID [facility] Last Admin: 07/07/18 21:58 Dose: 100 mg Heparin Sodium (Porcine) (Heparin -) 5,000 unit SQ TID [facility] Last Admin: 07/08/18 05:28 Dose: 5,000 unit Hydrochlorothiazide (Hctz -) 25 mg PO DAILY [facility] Last Admin: 07/07/18 09:30 Dose: 25 mg Azithromycin 250 mg/ Dextrose 250 mls @ 250 mls/hr IVPB DAILY [facility] Last Admin: 07/07/18 09:29 Dose: 250 mls/hr Iron Sucrose 100 mg/ Sodium (Chloride) 100 mls @ 200 mls/hr IVPB ONCE ONE Stop: 07/08/18 09:29 Losartan Potassium (Cozaar -) 100 mg PO DAILY [facility] Last Admin: 07/07/18 09:30 Dose: 100 mg Methylprednisolone Sodium Succinate (Solu-Medrol -) 40 mg IVPUSH Q6H-IV [facility] Last Admin: 07/08/18 04:01 Dose: 40 mg Nicotine (Nicoderm Patch -) 21 mg TD DAILY [facility] Last Admin: 07/07/18 13:23 Dose: 21 mg Pantoprazole Sodium (Protonix -) 40 mg PO DAILY [facility] Last Admin: 07/07/18 09:30 Dose: 40 mg Quetiapine Fumarate (Seroquel Xr -) 200 mg PO DAILY [facility] Last Admin: 07/07/18 12:30 Dose: 200 mg Tiotropium [place] (Spiriva Respimat) 2 puff IH DAILY [facility] Last Admin: 07/07/18 09:30 Dose: Not Given Gen: Mildly tachypneic with speaking Heart: RRR Lung: scattered rhonchi, wheezes Abd: soft, nontender Ext: no edema Laboratory Results - last 24 hr 07/07/18 07/07/18 07/08/18 06:45 21:53 06:30 WBC 15.9 H RBC 4.05 Hgb 9.1 L Hct 29.4 L MCV 72.6 L MCH 22.6 L MCHC 31.1 L RDW 20.7 H Plt Count 419 MPV 8.9 Sodium Potassium Chloride Carbon Dioxide Anion Gap BUN Creatinine Est GFR (CKD-EPI)AfAm Est GFR (CKD-EPI)NonAf POC Glucometer 248 Random Glucose Calcium Phosphorus Magnesium Iron 16 L 07/08/18 06:30 WBC RBC Hgb Hct MCV MCH MCHC RDW Plt Count MPV Sodium 137 Potassium 4.0 Chloride 104 Carbon Dioxide 26 Anion Gap 8 BUN 21 H Creatinine 1.0 Est GFR (CKD-EPI)AfAm 76.07 Est GFR (CKD-EPI)NonAf 65.64 POC Glucometer Random Glucose 190 H Calcium 9.2 Phosphorus 3.9 Magnesium 2.5 H Iron A/P Suspected ILD: diffuse ground glass changes noted on CT 12/27: no previous imaging to this Acute COPD Exacerbation Mitral Regurgitation Pulmonary HTN HTN DM Smoker - Can screen with CULLEN & RF - continue medrol at current dose - inhaled bronchodilators standing and PRN - O2 to keep SpO2 >90% - azithromycin - Will need outpatient PFTs and High resolution CT in about 4 o 6 weeks after discharge - smoking cessation - DVT prophylaxis Dr Blackmon
[2018-07-08] MEDS: AZITHROMYCIN IVPB 250 MG in DEXTROSE 5%-WATER - 250 ML IVPB SCH (09:32)
[2018-07-08] MEDS: PANTOPRAZOLE 40 MG TABLET (FP) PO SCH (09:33)
[2018-07-08] MEDS: NICOTINE 21 MG/24 HOURS TOPICAL PATCH TD SCH (09:33)
[2018-07-08] MEDS: HYDROCHLOROTHIAZIDE 25 MG TABLET (FP) PO SCH (09:33)
[2018-07-08] MEDS: LOSARTAN POTASSIUM 50 MG TABLET (FP) PO SCH (09:33)
[2018-07-08] MEDS: buPROPion HCL 100 MG TABLET PO SCH ×2 (09:34→22:00)
[2018-07-08] MEDS: TIOTROPIUM BROMIDE 2.5 MCG (SPIRIVA) RESPIMAT INHALER IH SCH (09:34)
[2018-07-08] MEDS: BUDESONIDE/FORMETEROL FUMARATE 160/4.5 mcg INHALER IH SCH ×2 (09:34→21:59)
--- NOTE | 2018-07-08 13:22 | PN ---
Teaching Attending Note Name of Resident: Jeimy Murphy ATTENDING PHYSICIAN STATEMENT I saw and evaluated the patient. I reviewed the resident's note and discussed the case with the resident. I agree with the resident's findings and plan as documented. SUBJECTIVE:breathing slightly improved. can ambulate to bathroom without dyspnea. denies Cp, SOB, fever, chills, N/V/C/D OBJECTIVE: Last Vital Signs Temp Pulse Resp BP Pulse Ox 97.6 F 95 H 22 H 146/105 H 99 07/08/18 09:00 07/08/18 09:00 07/08/18 09:00 07/08/18 09:00 07/08/18 09:00 General NAD CV S1 S2 tachy no murmur/rub/gallop Lungs scattered wheezing Abdomen soft NT/ND ASSESSMENT AND PLAN: 52yo F with PMH HTN, DM, bipolar, depression, SVT and continuous polysubstance dependence presented to the ER with progressive dyspnea and found to have acute hypoxic respiratory failure 1. Acute hypoxic respiratory failure- likely due to COPD exacerbation. CTA done and negative for PE. improved today. will decrease medrol to Q8H, azithro day 3 , symbicort,spiriva, (was started on last hospitalization but pt not compliant) encourage neb prn. currently requiring 2L NC to maintain spO2 >90% and will need eval if will require on discharge. pulmonary on board. will need further testing as outpatient. family court counsellor on smoking cessation 2. HTN- improved. cont current management. 3. SVT- echo noted. appreciate cardio recommendations. will need repeat as outpatient and possible L&R heart cath to further assess. no betablocker use at this time 4. Iron def anemia- could also potentiate dyspnea. Hgb stable, no signs of bleeding. will give venofer x5 doses while hospitalized. day 2 today. will need repeat iron studies 5. DM- not on medications. A1c 5.4. pt is not diabetic. will d/c bgm/iss 6. bipolar- cont home regimen 7. Continuous polysubstance abuse- nicotine patch. counselled on drug abstinence. not interested in rehab 8. DVT ppx- hep sq
[2018-07-09] MEDS: methylPREDNISolone NA SUCC 40 MG/1 ML VIAL IVPUSH SCH ×3 (01:07→22:50)
[2018-07-09] MEDS: ALBUTEROL SO4 0.083% IH SOL 2.5 MG/3 ML VIAL.NEB. NEB PRN ×2 (05:04→20:09)
[2018-07-09] MEDS: HEPARIN NA (PORCINE) 5,000 UNITS/ML 1ML VIAL SQ SCH ×3 (05:05→22:50)
--- NOTE | 2018-07-09 08:06 | PN ---
Physical Exam: SUBJECTIVE: Patient seen and examined at bedside- no acute events overnight patient states that she feels her breathing is better and walked a little this AM- will repeat pre and post today she is still haing some chest tightness but only associated with coughing; denies N/V/fevers or chills OBJECTIVE: Vital Signs Period Temp Pulse Resp BP Sys/Melvin Pulse Ox Last 24 Hr 97.5 F-98.2 F 92-112 18-22 146-160/80-105 97-99 GENERAL: The patient is awake, alert, and fully oriented, in no acute distress. EYES: PEERLA; EOMI no scleral icterus NECK: no JVD; no lymphadenopathy LUNGS: scattered rhonchi however improving; no rales, wheezing appreciated HEART: Regular rate and rhythm, S1, S2 without murmur, rub or gallop. ABDOMEN: Soft, nontender, nondistended, normoactive bowel sounds, no guarding, no rebound, no hepatosplenomegaly, no masses. EXTREMITIES: 2+ pulses, warm, well-perfused, no edema. PSYCH: Normal mood, normal affect. SKIN: Warm, dry, normal turgor, no rashes or lesions noted Laboratory Results - last 24 hr 07/08/18 09:25 Rheumatoid Factor < 10.0 Active Medications Generic Name Dose Route Start Last Admin Trade Name Freq PRN Reason Stop Dose Admin Albuterol Sulfate 1 amp 07/06/18 14:56 07/09/18 05:04 Ventolin 0.083% Nebulizer Soln - NEB 1 amp Q4H PRN Administration SHORT OF BREATH/WHEEZING Amlodipine Besylate 5 mg 07/09/18 10:00 Norvasc - PO DAILY SHAMIR Budesonide/Formoterol Fumarate 2 puff 07/06/18 12:15 07/08/18 21:59 Symbicort 160/4.5mcg - IH 2 puff BID SHAMIR Administration Bupropion HCl 100 mg 07/06/18 22:00 07/08/18 22:00 Wellbutrin - PO 100 mg BID SHAMIR Administration Heparin Sodium (Porcine) 5,000 unit 07/06/18 06:00 07/09/18 05:05 Heparin - SQ 5,000 unit TID SHAMIR Administration Hydrochlorothiazide 25 mg 07/06/18 08:00 07/08/18 09:33 Hctz - PO 25 mg DAILY SHAMIR Administration Azithromycin 250 mg/ Dextrose 250 mls @ 250 mls/hr 07/07/18 10:00 07/08/18 09 :32 IVPB 250 mls/hr DAILY SHAMIR Administration Iron Sucrose 100 mg/ Sodium 100 mls @ 200 mls/hr 07/09/18 09:00 Chloride IVPB 07/09/18 09:29 ONCE ONE Losartan Potassium 100 mg 07/06/18 10:00 07/08/18 09:33 Cozaar - PO 100 mg DAILY SHAMIR Administration Methylprednisolone Sodium Succinate 40 mg 07/08/18 18:00 07/09/18 01:07 Solu-Medrol - IVPUSH 40 mg Q8H-IV SHAMIR Administration Nicotine 21 mg 07/07/18 12:15 07/08/18 09:33 Nicoderm Patch - TD 21 mg DAILY SHAMIR Administration Pantoprazole Sodium 40 mg 07/06/18 15:00 07/08/18 09:33 Protonix - PO 40 mg DAILY SHAMIR Administration Quetiapine Fumarate 200 mg 07/07/18 10:00 07/08/18 09:33 Seroquel Xr - PO 200 mg DAILY SHAMIR Administration Tiotropium [place] 2 puff 07/07/18 10:00 07/08/18 09:34 Spiriva Respimat IH Not Given DAILY SHAMIR ASSESSMENT/PLAN: 52 yo F with a PMHx of DM, HTN, Depression, Bipolar disorder, Paroxysmal SVTs, recently dx COPD, presented to the ED with 2 weeks of worsening SOB. #SOB -2/2 COPD exacerbation and/or New Onset CHF -Azithromycin ( day 3) - spiriva and symbicort -Albuterol PRN -IV Medrol 40BID -Pulm consult: Dr. Soto -Supplemental o2 -Keep O2 > 88 -chest CT showed some interstitial lung disease- will f/u CULLEN and RF (negative) -will repeat pre and post today and see if patient qualifies for home o2 #Chest pain/tightness -likely from COPD exacerbation -resolving #HTN -restart Losartan/HCTZ 100/25mg daily. -adding norvasc 5mg daily as patients BP has been elevated since being here #DM -SSI -BGM q4h -HgbA1c (5.4) #Microcytic Anemia -b12/folic acid; wnl -retic count elevated at 2.01 -will give IV venofer (X5) #Bipolar/Depression -c/w seroquel #Drug abuse -patient uses cocaine, marijuana -community health counselor on importance of quitting -nicotine patch #QTc Prolongation -QTC 500 -avoid qtc prolonging agents #FEN -No IV fluids -monitor lytes -sodium diet Problem List - Problems (1) CHF (congestive heart failure) Code(s): I50.9 - HEART FAILURE, UNSPECIFIED Qualifiers: Heart failure type: unspecified Heart failure chronicity: unspecified Qualified Code(s): I50.9 - Heart failure, unspecified (2) COPD exacerbation Code(s): J44.1 - CHRONIC OBSTRUCTIVE PULMONARY DISEASE W (ACUTE) EXACERBATION (3) Chest pain Code(s): R07.9 - CHEST PAIN, UNSPECIFIED Qualifiers: Chest pain type: unspecified Qualified Code(s): R07.9 - Chest pain, unspecified Visit type - Emergency Visit Emergency Visit: Yes ED Registration Date: 07/06/18 Care time: The patient presented to the Emergency Department on the above date and was hospitalized for further evaluation of their emergent condition. - New Patient This patient is new to me today: No - Critical Care Critical Care patient: No
[2018-07-09] MEDS ORDERED: IRON SUCROSE INJECTION 100 MG in SODIUM CHLORIDE 95 ML IVPB ONE (09:00)
[2018-07-09] MEDS ORDERED: PT OWN MED DRAWER 7, Y5N ONE ×3 (09:05→23:50)
[2018-07-09] MEDS: PANTOPRAZOLE 40 MG TABLET (FP) PO SCH (09:18)
[2018-07-09] MEDS: LOSARTAN POTASSIUM 50 MG TABLET (FP) PO SCH (09:18)
[2018-07-09] MEDS: HYDROCHLOROTHIAZIDE 25 MG TABLET (FP) PO SCH (09:18)
[2018-07-09] MEDS: buPROPion HCL 100 MG TABLET PO SCH ×2 (09:19→22:50)
[2018-07-09] MEDS: NICOTINE 21 MG/24 HOURS TOPICAL PATCH TD SCH (09:19)
[2018-07-09] MEDS: BUDESONIDE/FORMETEROL FUMARATE 160/4.5 mcg INHALER IH SCH ×2 (09:22→22:50)
[2018-07-09] MEDS: AZITHROMYCIN IVPB 250 MG in DEXTROSE 5%-WATER - 250 ML IVPB SCH (09:28)
[2018-07-09] MEDS ORDERED: amLODIPine BESYLATE 5 MG TABLET (FP) PO SCH (10:00)
--- NOTE | 2018-07-09 11:53 | PN ---
Teaching Attending Note Name of Resident: Jeimy Murphy ATTENDING PHYSICIAN STATEMENT I saw and evaluated the patient. I reviewed the resident's note and discussed the case with the resident. I agree with the resident's findings and plan as documented. SUBJECTIVE:breathing improved. can ambulate to elevators with minimal difficulty. +non productive cough. denies Cp, fever, chills, N/V/C/D OBJECTIVE: Last Vital Signs Temp Pulse Resp BP Pulse Ox 98.3 F 89 18 145/88 97 07/09/18 10:00 07/09/18 10:00 07/09/18 10:07/09/18 10:00 07/08/18 21:00 General NAD CV S1 S2 tachy no murmur/rub/gallop Lungs scattered wheezing Abdomen soft NT/ND ASSESSMENT AND PLAN: 52yo F with PMH HTN, DM, bipolar, depression, SVT and continuous polysubstance dependence presented to the ER with progressive dyspnea and found to have acute hypoxic respiratory failure 1. Acute hypoxic respiratory failure- likely due to COPD exacerbation. CTA done and negative for PE. improved today. will decrease medrol to Q12H, azithro day 4 , symbicort,spiriva, (was started on last hospitalization but pt not compliant) encourage neb prn. will repeat pre and post to see if qualifies for home o2. pulmonary on board. will need further testing as outpatient. assistant counsel on smoking cessation 2. HTN- above goal. will start norvasc. monitor for improvement. 3. SVT- echo noted. appreciate cardio recommendations. will need repeat as outpatient and possible L&R heart cath to further assess. no beta amrit use at this time 4. Iron def anemia- could also potentiate dyspnea. Hgb stable, no signs of bleeding. will give venofer x5 doses while hospitalized. day 3 today. will need repeat iron studies 5. DM-A1c 5.4. now states she take metformin 500mg BID at home. advised to take it 1x/day and have A1c repeated in 3 months. 6. bipolar- cont home regimen 7. Continuous polysubstance abuse- nicotine patch. counselled on drug abstinence. not interested in rehab 8. DVT ppx- hep sq 9. anticipate discharge in next 24H. SW aware of possible need for home o2
--- NOTE | 2018-07-09 15:19 | PN ---
Progress Note, Physician History of Present Illness: PULMONARY ALERT,FEELING BETTER,STILL DYSPNEIC WITH EXERTION,-CP - Current Medication List Current Medications: Active Medications Albuterol Sulfate (Ventolin 0.083% Nebulizer Soln -) 1 amp NEB Q4H PRN PRN Reason: SHORT OF BREATH/WHEEZING Last Admin: 07/09/18 05:04 Dose: 1 amp Amlodipine Besylate (Norvasc -) 5 mg PO DAILY [facility] Last Admin: 07/09/18 09:18 Dose: 5 mg Budesonide/Formoterol Fumarate (Symbicort 160/4.5mcg -) 2 puff IH BID [facility] Last Admin: 07/09/18 09:22 Dose: 2 puff Bupropion HCl (Wellbutrin -) 100 mg PO BID [facility] Last Admin: 07/09/18 09:19 Dose: 100 mg Heparin Sodium (Porcine) (Heparin -) 5,000 unit SQ TID [facility] Last Admin: 07/09/18 14:19 Dose: 5,000 unit Hydrochlorothiazide (Hctz -) 25 mg PO DAILY [facility] Last Admin: 07/09/18 09:18 Dose: 25 mg Azithromycin 250 mg/ Dextrose 250 mls @ 250 mls/hr IVPB DAILY [facility] Last Admin: 07/09/18 09:28 Dose: 250 mls/hr Losartan Potassium (Cozaar -) 100 mg PO DAILY [facility] Last Admin: 07/09/18 09:18 Dose: 100 mg Methylprednisolone Sodium Succinate (Solu-Medrol -) 40 mg IVPUSH BID [facility] Nicotine (Nicoderm Patch -) 21 mg TD DAILY [facility] Last Admin: 07/09/18 09:19 Dose: 21 mg Pantoprazole Sodium (Protonix -) 40 mg PO DAILY [facility] Last Admin: 07/09/18 09:18 Dose: 40 mg Quetiapine Fumarate (Seroquel Xr -) 200 mg PO DAILY [facility] Last Admin: 07/09/18 09:34 Dose: Not Given Tiotropium [place] (Spiriva Respimat) 2 puff IH DAILY [facility] Last Admin: 07/08/18 09:34 Dose: Not Given - Objective Vital Signs: Vital Signs Temperature 98.3 F 07/09/18 10:00 Pulse Rate 98 H 07/09/18 11:20 Respiratory Rate 18 07/09/18 10:00 Blood Pressure 145/88 07/09/18 10:00 O2 Sat by Pulse Oximetry (%) 98 07/09/18 11:20 Constitutional: Yes: Well Nourished, Calm Eyes: Yes: WNL HENT: Yes: WNL Neck: Yes: WNL Cardiovascular: Yes: Regular Rate and Rhythm, S1 Respiratory: Yes: CTA Bilaterally Gastrointestinal: Yes: Normal Bowel Sounds, Soft Extremities: Yes: WNL Edema: No Labs: CBC, BMP 07/08/18 06:30 07/08/18 06:30 Problem List - Problems (1) Pulmonary HTN Code(s): I27.20 - PULMONARY HYPERTENSION, UNSPECIFIED (2) COPD exacerbation Code(s): J44.1 - CHRONIC OBSTRUCTIVE PULMONARY DISEASE W (ACUTE) EXACERBATION (3) Chest pain Code(s): R07.9 - CHEST PAIN, UNSPECIFIED Qualifiers: Chest pain type: unspecified Qualified Code(s): R07.9 - Chest pain, unspecified (4) Tobacco abuse Code(s): Z72.0 - TOBACCO USE (5) COPD exacerbation Code(s): J44.1 - CHRONIC OBSTRUCTIVE PULMONARY DISEASE W (ACUTE) EXACERBATION (6) Diabetes Code(s): E11.9 - TYPE 2 DIABETES MELLITUS WITHOUT COMPLICATIONS Assessment/Plan IMP COPD EXACERBATION IMPROVING ? ILD HTN DM ELEVATED D-DIMER CTA - FOR PE SMOKER PULMONARY HTN MODERATE-SEVERE MITRAL REGURGITATION PLAN IV STEROIDS PREDNISONE IN AM INHALED BRONCHODILATORS PT DOES NOT REQUIRE HOME O2 PFTS OUTPATIENT SMOKING CESSATION COUNSELED CHEST CT HIGH RESOLUTION 4-6 WKS YEARLY LOW DOSE CHEST CT FOR LUNG CANCER SCREENING DR HDZ Problem List - Problems (1) Pulmonary HTN Code(s): I27.20 - PULMONARY HYPERTENSION, UNSPECIFIED (2) COPD exacerbation Code(s): J44.1 - CHRONIC OBSTRUCTIVE PULMONARY DISEASE W (ACUTE) EXACERBATION (3) Chest pain Code(s): R07.9 - CHEST PAIN, UNSPECIFIED Qualifiers: Chest pain type: unspecified Qualified Code(s): R07.9 - Chest pain, unspecified (4) Tobacco abuse Code(s): Z72.0 - TOBACCO USE (5) COPD exacerbation Code(s): J44.1 - CHRONIC OBSTRUCTIVE PULMONARY DISEASE W (ACUTE) EXACERBATION (6) Diabetes Code(s): E11.9 - TYPE 2 DIABETES MELLITUS WITHOUT COMPLICATIONS
[2018-07-09] MEDS: TIOTROPIUM BROMIDE 2.5 MCG (SPIRIVA) RESPIMAT INHALER IH SCH (15:38)
[2018-07-10] MEDS: HEPARIN NA (PORCINE) 5,000 UNITS/ML 1ML VIAL SQ SCH (06:46)
[2018-07-10] MEDS ORDERED: PT OWN MED DRAWER 7, Y5N ONE (07:37)
--- NOTE | 2018-07-10 07:39 | DS ---
Physical Exam: SUBJECTIVE: Patient seen and examined. continues to have non productive cough. able to ambulate with no difficulty OBJECTIVE: Vital Signs Period Temp Pulse Resp BP Sys/Melvin Pulse Ox Last 24 Hr 98.0 F-98.5 F 83-104 18-20 135-164/65-95 98-100 PHYSICAL EXAM GENERAL: The patient is awake, alert, and fully oriented, in no acute distress. HEAD: Normal with no signs of trauma. EYES: PERRL, extraocular movements intact, sclera anicteric, conjunctiva clear. ENT: Ears normal, nares patent, oropharynx clear without exudates, moist mucous membranes. NECK: Trachea midline, full range of motion, supple. LUNGS: few scattered wheezes, no accessory muscle use. HEART: Regular rate and rhythm, S1, S2 without murmur, rub or gallop. ABDOMEN: Soft, nontender, nondistended, normoactive bowel sounds, no guarding, no rebound, no hepatosplenomegaly, no masses. EXTREMITIES: 2+ pulses, warm, well-perfused, no edema. NEUROLOGICAL: Cranial nerves II through XII grossly intact. Normal speech, gait not observed. PSYCH: Normal mood, normal affect. SKIN: Warm, dry, normal turgor, no rashes or lesions noted. LABS Laboratory Results - last 24 hr 07/08/18 09:25 CULLEN Screen Negative HOSPITAL COURSE: Date of Admission:07/06/18 Date of Discharge: 07/10/18 Admitting diagnosis: ACute COPD exacerbation, acute hypoxic respiratory failure , Iron def anemia Pre hospital course Patient is a 52 yo F with a PMHx of DM, HTN, Depression, Bipolar disorder, Paroxysmal SVTs, recently dx COPD, presented to the ED with 2 weeks of worsening SOB. She said it became significantly worse yesterday after flying back from [place] with associated chest tightness/discomfort and wheezing. She says she also has been coughing (dry) more with no improvement when taking her breathing treatments. Patient has been off all of her medications due to insurance issues since being discharged on in 01/06. At the time, she was discharged on a steroid taper. She says she now has insurance and needs to start taking her meds. Patient denies fevers, chills, nausea, vomiting, chest pain, runny nose, sick contacts, urinary changes, diarrhea, blood in stool. Subsequent hospital course Admitted to medicine. started on iv steroids, azithro and re-started inhalers that patient was unable to take from previous hospitalization. pt clinically improved. tested for O2 which she did not qualify, Norvasc started to optimize BP, instructed to take metformin once daily instead of twice based on good A1c. IV Iron given due to iron def anemia. clinically improved. counselled in detail about importance of medication complaince and follow up as well as smoking cessation. d/c on steroid taper and pulm follow up Minutes to complete discharge: 40 Discharge Summary Reason For Visit: ACUTE EXACERBATION OF CHRONIC OBSTRUCTIVE PULMONAR Current Active Problems CHF (congestive heart failure) (Acute) COPD exacerbation (Acute) Chest pain (Acute) Diabetes (Acute) Pulmonary HTN (Acute) Condition: Stable - Instructions Diet, Activity, Other Instructions: You came to the emergency room with complaints of worsening shortness of breath over the past few weeks with increasing cough. You were seen by a machine sizer while you were in the hospital. We did a CT scan of your chest which showed no signs of blood clots in your lungs. We gave you intravenous steroids in addition to restarting some of your inhalers. Your symptoms improved and you were stable to be discharged home. Please resume all of your home medications in addition: We are putting you on a Prednisone taper : 40mg X 3 days (07/11-07/13) 30mg X 3 days (07/14-07/16) 20mg X 3 days (07/17-07/19) 10mg X 3 days (07/20-07/20) Please take your Spiriva and Symbicort inhalers daily, These should be used EVERY day regardless if your having symptoms. The albuterol inhaler is indicated only when you are having symptoms. We started you on an additional blood pressure medication, Norvasc 10mg to be taken daily Please take Metformin 500mg once a day instead of twice a day as your hemoglobin A1c was 5.4 Please have your Hemoglobin A1c repeated in 3 months and decide with your primary care doctor how to adjust your treatment You will need to have a CT scan of your chest repeated in 4-6 weeks in addition to having outpatient pulmonary function testing We are referring you to a primary care physician to follow up with within one week. Have your blood pressure checked and see if you need further adjustment to your medications. You will also need an iron panel repeated in 3 months. You received IV iron while you were hospitalized Please follow up with the machine sizer, Dr. Blackmon within one week we are also referring you to brusher and shearer, Dr. Harrison to follow up with *if you begin to experience worsening shortness of breath, chest pains, nausea/ vomiting, fevers please return to the emergency room immediately Referrals: Oli Garcia MD [Staff Physician] - 1 Week Adonis Harrison MD [Staff Physician] - 1 Week Doron Blackmon MD [Staff Physician] - 1 Week Disposition: HOME - Home Medications Comprehensive Discharge Medication List: Ambulatory Orders Bupropion HCl [Wellbutrin -] 100 mg PO BID 07/06/18 Quetiapine Fumarate "Xr" [Seroquel XR] 200 mg PO DAILY 07/06/18 Budesonide/Formeterol Fumarate [SYMBICORT 160/4.5mcg -] 2 puff IH BID #1 inhaler 07/09/18 Hydrochlorothiazide [Hctz -] 25 mg PO DAILY #30 tablet 07/09/18 Losartan Potassium [Cozaar -] 100 mg PO DAILY #30 tablet 07/09/18 Tiotropium Melvern [Spiriva Respimat] 2 puff IH DAILY #1 inhaler 07/09/18 predniSONE [Deltasone -] See Taper PO UTDICT 12 Days tablet 07/09/18 Amlodipine Besylate [Norvasc -] 10 mg PO DAILY #30 tablet 07/10/18 This patient is new to me today: No Emergency Visit: Yes ED Registration Date: 07/06/18 Care time: The patient presented to the Emergency Department on the above date and was hospitalized for further evaluation of their emergent condition. Critical Care patient: No - Discharge Referral Referred to [facility] Med P.C.: No
[2018-07-10] MEDS: buPROPion HCL 100 MG TABLET PO SCH (09:26)
[2018-07-10] MEDS: AZITHROMYCIN IVPB 250 MG in DEXTROSE 5%-WATER - 250 ML IVPB SCH (09:26)
[2018-07-10] MEDS: TIOTROPIUM BROMIDE 2.5 MCG (SPIRIVA) RESPIMAT INHALER IH SCH (09:26)
[2018-07-10] MEDS: BUDESONIDE/FORMETEROL FUMARATE 160/4.5 mcg INHALER IH SCH (09:26)
[2018-07-10] MEDS: PANTOPRAZOLE 40 MG TABLET (FP) PO SCH (09:27)
[2018-07-10] MEDS: LOSARTAN POTASSIUM 50 MG TABLET (FP) PO SCH (09:27)
[2018-07-10] MEDS: NICOTINE 21 MG/24 HOURS TOPICAL PATCH TD SCH (09:27)
[2018-07-10] MEDS: HYDROCHLOROTHIAZIDE 25 MG TABLET (FP) PO SCH (09:27)
[2018-07-10] MEDS: methylPREDNISolone NA SUCC 40 MG/1 ML VIAL IVPUSH SCH (09:27)
[2018-07-10] MEDS ORDERED: predniSONE 20 MG TABLET (UD) PO SCH (10:00)
[2018-07-10] MEDS ORDERED: amLODIPine BESYLATE 10 MG TABLET (FP) PO SCH (10:00)
[2018-07-10 10:54] VITALS: BP 152/103; PULSE 85; TEMP 97.6
== END 2018-07-10 10:57 | disposition home or self-care (01) | DRG 133 ==
LOC: JER 23:58 → JERBED 07-06 03:50 → J7W 07-06 12:23
PROVIDERS: ADMIT Internal Medicine; ATTEND Internal Medicine
PROC: 3E0F7GC Introduction of Other Therapeutic Substance into Respiratory Tract, Via Natural or Artificial Opening (ICD-10-PCS; principal; 2018-07-06)
DX: J96.01 Acute respiratory failure with hypoxia (principal); J84.9 Interstitial pulmonary disease, unspecified; E46 Unspecified protein-calorie malnutrition; I27.20 Pulmonary hypertension, unspecified; I11.0 Hypertensive heart disease with heart failure; J44.0 Chronic obstructive pulmonary disease with (acute) lower respiratory infection; I47.1 Supraventricular tachycardia; E88.09 Other disorders of plasma-protein metabolism, not elsewhere classified; J44.1 Chronic obstructive pulmonary disease with (acute) exacerbation; I45.81 Long QT syndrome; I50.9 Heart failure, unspecified; E11.9 Type 2 diabetes mellitus without complications; D50.9 Iron deficiency anemia, unspecified; J20.9 Acute bronchitis, unspecified; I34.0 Nonrheumatic mitral (valve) insufficiency; F12.10 Cannabis abuse, uncomplicated; F17.210 Nicotine dependence, cigarettes, uncomplicated; F31.9 Bipolar disorder, unspecified; Z96.642 Presence of left artificial hip joint
CPT/HCPCS: 36415; 36600; 71045-TC-FY; 71275-TC; 80048; 80053; 80061; 80307; 81003; 82550; 82553; 82607; 82728; 82746; 82803; 82962; 83036; 83540; 83550; 83721; 83735; 83880; 84100; 84443; 84484; 84703; 85025; 85027; 85044; 85379; 86038; 86431; 87086; 93005; 93010; 93306-TC; 93970-TC; 94640; 94761; 97116-GP; 97162-GP; 99285-25; J0131; J1644; J1756

== ENCOUNTER 2018-12-30 08:15 | Day surgery (SDC) | payer OTHER ==
[2018-12-29 08:45] VITALS: BMI 25.4
[2018-12-30 09:34] VITALS: TEMP 97.6
[2018-12-30 14:47] VITALS: BP 149/86; PULSE 68
== END 2018-12-30 11:15 | disposition home or self-care (01) ==
LOC: JASU-ENDO 08:15
PROVIDERS: ATTEND Internal Medicine Gastroenterology
PROC: 0DJD8ZZ Inspection of Lower Intestinal Tract, Via Natural or Artificial Opening Endoscopic (ICD-10-PCS; principal; 2018-12-30 09:00)
DX: Z12.11 Encounter for screening for malignant neoplasm of colon (principal); I10 Essential (primary) hypertension; J44.9 Chronic obstructive pulmonary disease, unspecified; G47.30 Sleep apnea, unspecified; E11.9 Type 2 diabetes mellitus without complications; K21.9 Gastro-esophageal reflux disease without esophagitis; Z53.8 Procedure and treatment not carried out for other reasons

== ENCOUNTER 2019-01-11 10:19 | Day surgery (SDC) | payer OTHER ==
[2019-01-10 09:30] VITALS: BMI 25.4
[2019-01-11 12:43] VITALS: TEMP 97.8
[2019-01-11 14:15] VITALS: BP 148/92; PULSE 61
--- NOTE | 2019-01-12 17:31 | PATH ---
Surgical Pathology Report Patient Name: FRANCISCO RICHARDS [facility]. Rec. #: [id number] /Age/Gender: 1965 (Age: 53) / F Account: [id number] Location: [facility]-ENDOSCOPY Taken: 01/11/2019 Received: 01/11/2019 Reported: 01/12/2019 Physicians: Sawyer Manzanares D.O. Specimen(s) Received A: DUODENUM B: ANTRUM C: BODY D: GE JUNCTION Clinical History Weight loss Postoperative diagnosis: Hiatal hernia, reflux esophagitis, gastritis Final Diagnosis A. SECOND PORTION OF DUODENUM, BIOPSY: DUODENUM MUCOSA WITH FOCAL NONSPECIFIC CHRONIC DUODENITIS. NO HISTOLOGIC EVIDENCE OF INTRAEPITHELIAL LYMPHOCYTOSIS. B. ANTRUM AND PREPYLORUS, BIOPSY: GASTRIC MUCOSA WITH REACTIVE GASTROPATHY. IMMUNOSTAIN FOR H. PYLORI IS NEGATIVE. NEGATIVE FOR INTESTINAL METAPLASIA. C. BODY, STOMACH, BIOPSY: GASTRIC MUCOSA WITH MILD CHRONIC GASTRITIS. IMMUNOSTAIN FOR H. PYLORI IS NEGATIVE. NEGATIVE FOR INTESTINAL METAPLASIA. D. GE JUNCTION, EROSION, BIOPSY: GASTROESOPHAGEAL JUNCTIONAL MUCOSA WITH MODERATE TO SEVERE REFLUX ESOPHAGITIS. NEGATIVE FOR INTESTINAL METAPLASIA. Electronically Signed Rand Riggs M.D. Gross Description A. Received in formalin, labeled "biopsy second portion of duodenum" are 3 guillen, irregular portions of soft tissue ranging from 0.1-0.4 cm. in greatest dimension. The specimens are submitted in toto in one cassette. B. Received in formalin, labeled "biopsy antrum" is a guillen, irregular portion of soft tissue measuring 0.5 cm. in greatest dimension. The specimen is submitted in toto in one cassette. C. Received in formalin, labeled "biopsy body" are 2 guillen, irregular portions of soft tissue measuring 0.4 and 0.5 cm. in greatest dimension. The specimens are submitted in toto in one cassette. D. Received in formalin, labeled "biopsy GE junction erosion" are 3 guillen, irregular portions of soft tissue ranging from 0.3-0.6 cm. in greatest dimension. The specimens are submitted in toto in one cassette. DL/01/11/2019 saudi01/11/2019
== END 2019-01-11 14:00 | disposition home or self-care (01) ==
LOC: JASU-ENDO 10:19
PROVIDERS: ATTEND Internal Medicine Gastroenterology
PROC: 0DB68ZX Excision of Stomach, Via Natural or Artificial Opening Endoscopic, Diagnostic (ICD-10-PCS; 2019-01-11)
PROC: 0DB48ZX Excision of Esophagogastric Junction, Via Natural or Artificial Opening Endoscopic, Diagnostic (ICD-10-PCS; 2019-01-11)
PROC: 0DB98ZX Excision of Duodenum, Via Natural or Artificial Opening Endoscopic, Diagnostic (ICD-10-PCS; principal; 2019-01-11 10:15)
DX: K29.70 Gastritis, unspecified, without bleeding (principal); K44.9 Diaphragmatic hernia without obstruction or gangrene; K21.0 Gastro-esophageal reflux disease with esophagitis
CPT/HCPCS: 88305-TC; 88342-TC

== ENCOUNTER 2019-02-10 10:35 | Day surgery (SDC) | payer OTHER ==
[2019-02-07 16:45] VITALS: BMI 25.4
[2019-02-10 12:31] VITALS: TEMP 97.9
[2019-02-10 12:48] VITALS: PULSE 66
[2019-02-10 13:22] VITALS: BP 108/62
--- NOTE | 2019-02-11 15:56 | PATH ---
Surgical Pathology Report Patient Name: FRANCISCO RICHARDS [facility]. Rec. #: [id number] /Age/Gender: 1965 (Age: 53) / F Account: [id number] Location: [facility]-ENDOSCOPY Taken: 02/10/2019 Received: 02/10/2019 Reported: 02/11/2019 Physicians: Sawyer Manzanares D.O. Specimen(s) Received CECAL POLYP Clinical History Abdominal pain Postoperative diagnosis: Colon polyp, mild diverticulosis Final Diagnosis CECAL POLYP, POLYPECTOMY: SESSILE SERRATED POLYP. Electronically Signed Rand Riggs M.D. Gross Description Received in formalin, labeled "biopsy cecal polyp" are 2 guillen, irregular portions of soft tissue averaging 0.2 cm. in greatest dimension. The specimens are submitted in toto in one cassette. 02/10/2019 [facility] with [facility]02/10/2019
== END 2019-02-10 13:21 | disposition home or self-care (01) ==
LOC: JASU-ENDO 10:35
PROVIDERS: ATTEND Internal Medicine Gastroenterology
PROC: 0DBH8ZX Excision of Cecum, Via Natural or Artificial Opening Endoscopic, Diagnostic (ICD-10-PCS; principal; 2019-02-10 11:00)
DX: Z12.11 Encounter for screening for malignant neoplasm of colon (principal); D12.0 Benign neoplasm of cecum; K57.30 Diverticulosis of large intestine without perforation or abscess without bleeding; K64.8 Other hemorrhoids; K63.89 Other specified diseases of intestine; E11.9 Type 2 diabetes mellitus without complications
CPT/HCPCS: 81025; 88305-TC

== ENCOUNTER 2019-11-11 06:45 | Day surgery (SDC) | payer OTHER ==
--- OUTSIDE RECORDS SUMMARY | 2019-11-07 13:04 | XMS ---
:1965 Author Organization [facility] Care Team Providers Name Role Phone Jose, Oli Unavailable Jose, Oli Unavailable Jose, Oli Unavailable Jose, Oli Unavailable Jose, Oli Unavailable Re-disclosure Warning The records that you are about to access may contain information from federally- assisted alcohol or drug abuse programs. If such information is present, then the following federally mandated warning applies: This information has been disclosed to you from records protected by federal confidentiality rules (42 CFR part 2). The federal rules prohibit you from making any further disclosure of this information unless further disclosure is expressly permitted by the written consent of the person to whom it pertains or as otherwise permitted by 42 CFR part 2. A general authorization for the release of medical or other information is NOT sufficient for this purpose. The Federal rules restrict any use of the information to criminally investigate or prosecute any alcohol or drug abuse patient.The records that you are about to access may contain highly sensitive health information, the redisclosure of which is protected by Article 27-F of the [facility] Public Health law. If you continue you may haveaccess to information: Regarding HIV / AIDS; Provided by facilities licensed or operated by the [facility] Office of Mental Health; or Provided by the [facility] Office for People With Developmental Disabilities. If such information is present, then the following [facility] mandated warning applies: This information has been disclosed to you from confidential records which are protected by state law. State law prohibits you from making any further disclosure of this information without the specific written consent of the person to whom it pertains, or as otherwise permitted by law. Any unauthorized further disclosure in violation of state law may result in a fine or longterm sentence or both. A general authorization for the release of medical or other information is NOT sufficient authorization for further disclosure. Encounters Encounter Providers Location Date Indications Data Source(s ) Attender: Oli 08/19/2019 [facility] ( [facility] 12:00:00 AM EDT [facility]) Office Attender: Oli Garcia 08/19/2019 12:00:00 AM E DT [facility] ([facility] Office Attender: Oli Garcia 08/19/2019 12:00:00 AM E DT [facility] ([facility] Office Attender: Oli Garcia 08/19/2019 12:00:00 AM E DT [facility] ([facility] Office Attender: Oli Garcia 08/19/2019 12:00:00 AM E DT [facility] ([facility] Office Attender: Oli Garcia 08/19/2019 12:00:00 AM E DT [facility] ([facility] Office Attender: Oli Garcia 08/19/2019 12:00:00 AM E DT [facility] ([facility] Office Attender: Oli Garcia 08/19/2019 12:00:00 AM E DT [facility] ([facility] Office Attender: Oli Garcia 08/19/2019 12:00:00 AM E DT [facility] ([facility] Office Attender: Oli Garcia 08/19/2019 12:00:00 AM E DT [facility] ([facility] Office Attender: Oli Garcia 08/19/2019 12:00:00 AM E DT [facility] ([facility] Office Attender: Oli Garcia 08/19/2019 12:00:00 AM E DT [facility] ([facility] Office Attender: Oli Aritand 08/19/2019 12:00:00 AM E DT [facility] [place] [place] Attender: Oliashlee Aritand 08/19/2019 12:00:00 AM E DT [facility] [place] [place] Office Attender: Oliashlee Garcia 08/19/2019 12:00:00 AM E DT [facility] [place] [place] Office Attender: Oli Garcia 08/19/2019 12:00:00 AM E DT [facility] [place] [place] Office Attender: Oliashlee Aritand 08/19/2019 12:00:00 AM E DT [facility] [place] [place] Office Attender: Oliashlee Garcia 08/19/2019 12:00:00 AM E DT [facility] [place] [place] Office Immunizations Vaccine Date Status Description Data Source(s) pneumococcal 12/31/2018 completed [facility] ([facility] polysaccharide PPV23 12:00:00 AM EST Medi lamin, ) New in 2011. IIV4 12/31/2018 completed [facility] ([facility] 12:00:00 AM EST Medical, ) pneumococcal 12/31/2018 completed [facility] ([facility] polysaccharide PPV23 12:00:00 AM EST Medi lamin, ) New in 2011. IIV4 12/31/2018 completed [facility] (S t [facility] 12:00:00 AM EST Medical, ) Medications Medication Brand Start Product Dose Route Administrative Pharmacy [facility] Indications Reaction Description Data Name Date Form Instructions Instructions Source(s) Metformin METFOR 04/18/ TABLET 30 complet METFOR MIN [facility] (St hydrochlori MIN:86 2019 ed [facility] de 500 MG 1007 12:00: Medical, Oral Tablet 00 AM ) METFORMIN:8 EDT 71261 Metformin METFOR 04/18/ TABLET 30 complet METFOR MIN [facility] (St hydrochlori MIN:86 2019 ed [facility] de 500 MG 1006 12:00: Medical, Oral Tablet 00 AM ) METFORMIN:8 EDT 81289 atorvastati LIPITO 04/04/ TABLET 90 complet LIPI TOR [facility] (St n 40 MG R:6173 2019 ed [facility] Oral Tablet 20 12:00: Medica l, [Lipitor] 00 AM PC) LIPITOR:617 EST 320 atorvastati LIPITO 04/04/ TABLET 90 complet LIPI TOR [facility] (St n 40 MG R:6173 2019 ed [facility] Oral Tablet 20 12:00: Medica l, [Lipitor] 00 AM PC) LIPITOR:617 EST 320 VASCEPA:181 04/01/ CAPSULE 30 complet VASCE PA [facility] (St 1182019 ed [facility] 12:00: Medical, 00 AM PC) EST VASCEPA:181 04/01/ CAPSULE 30 complet VASCE PA [facility] (St 1182019 ed [facility] 12:00: Medical, 00 AM PC) EST pantoprazol PANTOP 01/11/ DELAYED 60 complet STEIBNERG TOPRAZOLE [facility] (St e 40 MG RAZOLE 2018 RELEASE ed [facility] Delayed :94356 12:00: TABLET Medica l, Release 0 00 AM PC) Oral Tablet EST PANTOPRAZOL E:880532 pantoprazol PANTOP 01/11/ DELAYED 60 complet STEINBERG TOPRAZOLE [facility] (St e 40 MG RAZOLE 2018 RELEASE ed [facility] Delayed :46815 12:00: TABLET Medica l, Release 0 00 AM PC) Oral Tablet EST PANTOPRAZOL E:768691 Albuterol ALBUTE 12/31/ SOLUTION 1 complet ALBU TEROL [facility] (St 0.83 MG/ML ROL 2018 ed SULFATE [facility] Inhalant SULFAT 12:00: Medical , Solution E:6302 00 AM PC) ALBUTEROL 08 EST SULFATE:630 208 Chlorthalid CHLORT 12/31/ TABLET 30 complet CHLO RTHALIDO [facility] (St one 25 MG HALIDO 2018 ed NE [facility] Oral Tablet NE:197 12:00: Medi lamin, CHLORTHALID 499 00 AM PC) ONE:897951 EST quetiapine SEROQU 12/31/ TABLET 30 complet SEROQ UEL [facility] (St 200 MG Oral EL:153 2018 ed [facility] Tablet 640 12:00: Medical, [Seroquel] 00 AM PC) SEROQUEL:15 EST 3640 Chlorthalid CHLORT 12/31/ TABLET 30 complet CHLO RTHALIDO [facility] (St one 25 MG HALIDO 2018 ed NE [facility] Oral Tablet NE:197 12:00: Medi lamin, CHLORTHALID 499 00 AM PC) ONE:221973 EST Paroxetine PAXIL: 12/31/ TABLET 30 complet PAXIL [facility] (St 20 MG Oral [id number] 4365 ed [facility] Tablet 12:00: Medical, [Paxil] 00 AM PC) PAXIL:82717 EST 9 Albuterol ALBUTE 12/31/ SOLUTION 1 complet ALBU TEROL [facility] (St 0.83 MG/ML ROL 2019 ed SULFATE [facility] Inhalant SULFAT 12:00: Medical , Solution E:6302 00 AM PC) ALBUTEROL 08 EST SULFATE:630 208 quetiapine SEROQU 12/31/ TABLET 30 complet SEROQ UEL [facility] (St 200 MG Oral EL:153 2018 ed [facility] Tablet 640 12:00: Medical, [Seroquel] 00 AM PC) SEROQUEL:15 EST 3640 Paroxetine PAXIL: 12/31/ TABLET 30 complet PAXIL [facility] (St 20 MG Oral 118593 4965 ed [facility] Tablet 12:00: Medical, [Paxil] 00 AM PC) PAXIL:70445 EST 9 Bisacodyl 5 DULCOL DELAYED 6 complet DUL COLAX [facility] (St MG Delayed AX 2019 RELEASE ed LAXATIVE [facility] Release LAXATI 12:00: TABLET Medica l, Oral Tablet VE:209 00 AM PC) [Dulcolax] 613 EST DULCOLAX LAXATIVE:20 9613 Bisacodyl 5 DULCOL 12/15/ DELAYED 6 complet DUL COLAX [facility] (St MG Delayed AX 2019 RELEASE ed LAXATIVE [facility] Release LAXATI 12:00: TABLET Medica l, Oral Tablet VE:209 00 AM PC) [Dulcolax] 613 EST DULCOLAX LAXATIVE:20 9613 Losartan LOSART 15/ TABLET 30 complet LOSARTA N [facility] (St Potassium AN 2018 ed POTASSIUM [facility] 100 MG Oral POTASS 12:00: Medi lamin, Tablet IUM:97 00 AM PC) LOSARTAN 9480 EDT POTASSIUM:9 51828 Losartan LOSART 15/ TABLET 30 complet LOSARTA N [facility] (St Potassium AN 2018 ed POTASSIUM [facility] 100 MG Oral POTASS 12:00: Medi lamin, Tablet IUM:97 00 AM PC) LOSARTAN 9480 EDT POTASSIUM:9 38312 Amlodipine AMLODI 11/23/ TABLET 30 complet AMLOD IPINE [facility] (St 10 MG Oral PINE:3 2018 ed [facility] Tablet 55131 12:00: Medical, AMLODIPINE: 00 AM PC) 642030 EDT Amlodipine AMLODI 10/15/ TABLET 30 complet AMLOD IPINE [facility] (St 10 MG Oral PINE:3 2018 ed [facility] Tablet 22320 12:00: Medical, AMLODIPINE: 00 AM PC) 979435 EDT pantoprazol PANTOP 11/16/ DELAYED 30 complet STEINBERG TOPRAZOLE [facility] (St e 40 MG RAZOLE 2019 RELEASE ed [facility] Delayed :30439 12:00: TABLET Medica l, Release 0 00 AM PC) Oral Tablet EDT PANTOPRAZOL E:846864 pantoprazol PANTOP 11/16/ DELAYED 30 complet STEINBERG TOPRAZOLE MED[facility] (St e 40 MG RAZOLE 2019 RELEASE ed [facility] Delayed :20910 12:00: TABLET Medica l, Release 0 00 AM PC) Oral Tablet EDT PANTOPRAZOL E:139518 SPIRIVA 10/25/ AEROSOL 1 complet SPIRIVA M EDGEN (St RESPIMAT:2018 ed RESPIMAT [facility] 20168 12:00: Medical, 00 AM PC) EDT 120 ACTUAT SYMBIC 10/25/ AEROSOL 1 complet SYMB ICORT [facility] (St Budesonide ORT:2018 ed Chana 0.16 89401 12:00: Medical, MG/ACTUAT / 00 AM PC) formoterol EDT fumarate 0.0045 MG/ACTUAT Metered Dose Inhaler [Symbicort] SYMBICORT:1 753736 varenicline CHANTI 10/25/ TABLET 30 complet JI TIX [facility] (St 1 MG Oral X:6371 2018 ed [facility] Tablet 90 12:00: Medical, [Chantix] 00 AM PC) CHANTIX:637 EDT 190 NEBULIZER 10/25/ complet NEBULIZER [facility] (St COMPRESSOR 2018 ed COMPRESSOR [facility] KIT: 12:00: KIT Medical, 00 AM PC) EDT varenicline CHANTI 10/25/ TABLET 30 complet JI TIX [facility] (St 1 MG Oral X:6371 2018 ed Loys Tablet 90 12:00: Medical, [Chantix] 00 AM PC) CHANTIX:637 EDT 190 Albuterol ALBUTE 09/16/ AEROSOL 1 complet ALBUT JAIMIE [facility] (St 0 ROL 2018 ed SULFATE HFA [facility] MG/ACTUAT SULFAT 12:00: Medica l, Metered E 00 AM PC) Dose HFA:13 EDT Inhaler 21551 ALBUTEROL SULFATE HFA:7014406 NEBULIZER 10/25/ complet NEBULIZER MED[facility] (St COMPRESSOR 2018 ed COMPRESSOR [facility] KIT: 12:00: KIT Medical, 00 AM PC) EDT SPIRIVA 10/25/ AEROSOL 1 complet SPIRIVA M EDGEN (St RESPIMAT:2018 ed RESPIMAT [facility] 09076 12:00: Medical, 00 AM PC) EDT Albuterol ALBUTE 10/25/ AEROSOL 1 complet ALBUT JAIMIE [facility] (St 02018 ed SULFATE HFA [facility] MG/ACTUAT SULFAT 12:00: Medica l, Metered E 00 AM PC) Dose HFA:13 EDT Inhaler 47796 ALBUTEROL SULFATE HFA:[id number] 120 ACTUAT SYMBIC 10/25/ AEROSOL 1 complet SYMB ICORT MED[facility] (St Budesonide ORT:2018 ed [facility] 0.16 08572 12:00: Medical, MG/ACTUAT / 00 AM PC) formoterol EDT fumarate 0.0045 MG/ACTUAT Metered Dose Inhaler [Symbicort] SYMBICORT:1 806961 Lisinopril 574246 complet [place] [5 mg 393 ed [facility] Tablet]: 5 Health MG Oral Care DAILY Corporatio n Clindamycin 873953 complet [place] t[place] HCl [150 mg 339 ed [facility] Capsule]: Health 450 MG Oral Care EVERY 6 Corporatio HOURS n Metformin 298052 complet [place] [1,000 mg 974 ed [facility] Tablet]: 1 Health Tablet Oral Care 2 TIMES A Corporatio DAY n Chlorhexidi 515224 complet [place] tcheste ne 959 ed [facility] Gluconate Health [0.12 % Care Cup]: 15 ML Corporat io Oral 3 n TIMES A DAY Ferrous 644728 complet [place] Sulfate 645 ed [facility] [325 mg (65 Health mg iron) Care Tablet]: Corporatio 325 MG Oral n SPECIAL DAYS OF THE WEEK Amlodipine 102968 complet [place] [10 mg 927 ed [facility] Tablet]: 10 Health MG Oral Care DAILY IN Corporatio MORNING n Folic Acid 742155 complet [place] [1 mg 366 ed r [facility] Tablet]: 1 Health MG Oral Care DAILY IN Corporatio MORNING n Insurance Providers Payer name Policy type Policy ID Covered Covered republican's Policy P dinorah / Coverage republican ID relationship to [place] Inf ormation type irving MEDICAID OF [id number] 1 [id number] [place] CARE [id number] 1 [id number] [place] [id number] SP [id number] 000 HEALTH NON CAP [place] [id number] SP [id number] 000 HEALTH NON CAP MEDICAID [id number] SP [id number] MEDICAID [id number] SP [id number] TRAVELERS [id number] SP [id number] THE [id number] MOISE [id number] Problems, Conditions, and Diagnoses Code Display Name Description Problem Effective Data Type Dates Source(s) E66.8 Other obesity OTHER OBESITY Problem 08/19/2019 MEDGEN ( St 12:00:00 AM [facility], ) E66.8 Other obesity OTHER OBESITY Problem 08/19/2019 MEDGEN ( St 12:00:00 AM [facility], ) M54.16 Radiculopathy, lumbar RADICULOPATHY, LUMBAR Problem 07/2019 MEDGEN (St region REGION 12:00:00 AM [facility], ) M50.00 Cervical disc CERVICAL DISC Problem 04/25/2019 MEDGEN ( St disorder with DISORDER WITH 12:00:00 AM [facility] myelopathy, MYELOPATHY, [facility], ) unspecified cervical UNSPECIFIED CERVICAL region REGION M50.00 Cervical disc CERVICAL DISC Problem 04/25/2019 MEDGEN ( St disorder with DISORDER WITH 12:00:00 AM [facility] myelopathy, MYELOPATHY, [facility], ) unspecified cervical UNSPECIFIED CERVICAL region REGION E78.5 Hyperlipidemia, HYPERLIPIDEMIA, Problem 04/19/2019 MEDG EN (St unspecified UNSPECIFIED 12:00:00 AM [facility], ) E78.1 Pure PURE Problem 04/19/2019 MEDGEN (St hyperglyceridemia HYPERGLYCERIDEMIA 12:00:00 AM [facility], ) G56.02 Carpal tunnel CARPAL TUNNEL Problem 04/19/2019 MEDGEN ( St syndrome, left upper SYNDROME, LEFT UPPER 12:00 :00 AM [facility], ) 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 Problem 020 MEDGEN (St and larynx AND LARYNX 12:00:00 AM [facility], ) E78.5 Hyperlipidemia, HYPERLIPIDEMIA, Problem 04/19/2019 MEDG EN (St unspecified UNSPECIFIED 12:00:00 AM [facility], ) E78.1 Pure PURE Problem 04/19/2019 MEDGEN (St hyperglyceridemia HYPERGLYCERIDEMIA 12:00:00 AM [facility], ) G56.02 Carpal tunnel CARPAL TUNNEL Problem 04/19/2019 MEDGEN ( St syndrome, left upper SYNDROME, LEFT UPPER 12:00 :00 AM [facility], ) 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 Problem 020 MEDGEN (St and larynx AND LARYNX 12:00:00 AM [facility], ) R20.2 Paresthesia of skin PARESTHESIA OF SKIN Problem 020 MEDGEN (St 12:00:00 AM [facility], ) Z00.01 Encounter for general ENCOUNTER FOR GENERAL Problem 11/2019 MEDGEN ( adult medical ADULT MEDICAL 12:00:00 AM [facility] examination with EXAMINATION WITH EST Me dical, ) abnormal findings ABNORMAL FINDINGS R20.2 Paresthesia of skin PARESTHESIA OF SKIN Problem 020 MEDGEN (St 12:00:00 AM [facility], ) Z00.01 Encounter for general ENCOUNTER FOR GENERAL Problem 11/2019 MEDGEN (St adult medical ADULT MEDICAL 12:00:00 AM [facility] examination with EXAMINATION WITH EST Me dical, ) abnormal findings ABNORMAL FINDINGS Z12.31 Encounter for ENCOUNTER FOR Problem 12/31/2018 MEDGEN ( St screening mammogram SCREENING MAMMOGRAM 12:00:0 0 AM [facility] for malignant FOR MALIGNANT EST Medical, ) neoplasm of breast NEOPLASM OF BREAST Z12.31 Encounter for ENCOUNTER FOR Problem 12/31/2018 MEDGEN ( St screening mammogram SCREENING MAMMOGRAM 12:00:0 0 AM [facility] for malignant FOR MALIGNANT [facility], ) neoplasm of breast NEOPLASM OF BREAST D64.9 Anemia, unspecified ANEMIA, UNSPECIFIED Problem MEDGEN (St 12:00:00 AM [facility], ) R10.84 Generalized abdominal GENERALIZED ABDOMINAL Problem 07/2018 MEDGEN (St pain PAIN 12:00:00 AM [facility], ) D64.9 Anemia, unspecified ANEMIA, UNSPECIFIED Problem 019 MEDGEN (St 12:00:00 AM [facility], ) R10.84 Generalized abdominal GENERALIZED ABDOMINAL Problem 07/2018 MEDGEN (St pain PAIN 12:00:00 AM [facility], ) R91.8 Other nonspecific OTHER NONSPECIFIC Problem 12/08/2018 MEDGEN (St abnormal finding of ABNORMAL FINDING OF 12:00:0 0 AM [facility] LUNG [facility], ) F31.9 Bipolar disorder, BIPOLAR DISORDER, Problem 12/08/2018 MEDGEN (St unspecified UNSPECIFIED 12:00:00 AM [facility], ) R91.8 Other nonspecific OTHER NONSPECIFIC Problem 12/08/2018 MEDGEN (St abnormal finding of ABNORMAL FINDING OF 12:00:[address] [facility], ) F31.9 Bipolar disorder, BIPOLAR DISORDER, Problem 12/08/2018 MEDGEN (St unspecified UNSPECIFIED 12:00:00 AM [facility], ) R22.1 Localized swelling, LOCALIZED SWELLING, Problem 019 MED[facility] (St mass and lump, neck MASS AND LUMP, NECK 12:00:0 0 AM [facility], ) R22.1 Localized swelling, LOCALIZED SWELLING, Problem MEDGEN (St mass and lump, neck MASS AND LUMP, NECK 12:00:0 0 AM [facility], ) Z71.6 Tobacco abuse TOBACCO ABUSE Problem 11/01/2018 MEDGEN ( St counseling COUNSELING 12:00:00 AM [facility], ) Z71.6 Tobacco abuse TOBACCO ABUSE Problem 11/01/2018 MEDGEN ( St counseling COUNSELING 12:00:00 AM [facility], ) D50.9 Iron deficiency IRON DEFICIENCY Problem 10/25/2018 MEDG EN (St anemia, unspecified ANEMIA, UNSPECIFIED 12:00:0 0 AM [facility], ) J44.9 Chronic obstructive CHRONIC OBSTRUCTIVE Problem 019 MEDGEN (St pulmonary disease, PULMONARY DISEASE, 12:00:00 AM [facility] unspecified UNSPECIFIED [facility], ) K21.9 Gastro-esophageal GASTRO-ESOPHAGEAL Problem 10/25/2018 MEDGEN (St reflux disease REFLUX DISEASE 12:00:00 AM [facility] without esophagitis WITHOUT ESOPHAGITIS [facility], ) I10 Essential (primary) ESSENTIAL (PRIMARY) Problem 019 MEDGEN (St hypertension HYPERTENSION 12:00:00 AM [facility], ) E11.9 Type 2 diabetes TYPE 2 DIABETES Problem 10/25/2018 MEDG EN (St mellitus without MELLITUS WITHOUT 12:00:00 AM J [facility] complications COMPLICATIONS [facility], ) 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 12:00:0 0 AM [facility], ) D50.9 Iron deficiency IRON DEFICIENCY Problem 10/25/2018 MEDG EN (St anemia, unspecified ANEMIA, UNSPECIFIED 12:00:0 0 AM [facility], ) J44.9 Chronic obstructive CHRONIC OBSTRUCTIVE Problem 019 MEDGEN (St pulmonary disease, PULMONARY DISEASE, 12:00:00 AM [facility] unspecified UNSPECIFIED [facility], ) K21.9 Gastro-esophageal GASTRO-ESOPHAGEAL Problem 10/25/2018 MED[facility] (St reflux disease REFLUX DISEASE 12:00:00 AM [facility] without esophagitis WITHOUT ESOPHAGITIS [facility], ) I10 Essential (primary) ESSENTIAL (PRIMARY) Problem 019 MEDGEN (St hypertension HYPERTENSION 12:00:00 AM [facility], ) E11.9 Type 2 diabetes TYPE 2 DIABETES Problem 10/25/2018 MEDG EN (St mellitus without MELLITUS WITHOUT 12:00:00 AM J [facility] complications COMPLICATIONS [facility], ) 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 12:00:0 0 AM [facility] ) Surgeries/Procedures Procedure Description Date Indications Data Source(s) OFFICE OUTPATIENT VISIT 08/19/2019 MED[facility] EN ([facility] 15 MINUTES 12:00:00 AM EDT Medical, ) OFFICE OUTPATIENT VISIT 08/19/2019 MED[facility] EN ([facility] 15 MINUTES 12:00:00 AM EDT [facility], ) Documentation of current 08/15/2019 MED GEN ([facility] medications (procedure) 12:00:00 AM EDT [facility], ) OFFICE OUTPATIENT VISIT 08/15/2019 MEDG EN ([facility] 15 MINUTES 12:00:00 AM EDT Medical, ) OFFICE OUTPATIENT VISIT 04/25/2019 MEDG EN ([facility] 10 MINUTES 12:00:00 AM EDT Medical, ) OFFICE OUTPATIENT VISIT 04/25/2019 MEDG EN ([facility] 10 MINUTES 12:00:00 AM EDT Medical, ) PREVENT MED [employer] MECHANIC&/RISK 04/19/2019 ME DGEN ([facility] FACTOR REDJ SPX 15 MIN 12:00:00 AM EDT Al [facility], ) OFFICE OUTPATIENT VISIT 04/19/2019 MEDG EN ([facility] 15 MINUTES 12:00:00 AM EDT Medical, ) PREVENT MED [employer] G[employer] MECHANIC&/RISK 04/19/2019 ME DGEN ([facility] FACTOR REDJ SPX 15 MIN 12:00:00 AM EDT Al dicwy, ) OFFICE OUTPATIENT VISIT 04/19/2019 MEDG EN ([facility] 15 MINUTES 12:00:00 AM EDT [facility], ) Documentation of current 03/21/2019 MED GEN ([facility] medications (procedure) 12:00:00 AM [facility], ) Documentation of current 03/21/2019 MED GEN ([facility] medications (procedure) 12:00:00 AM [facility], PC) Documentation of current 03/21/2019 MED GEN ([facility] medications (procedure) 12:00:00 AM EST [facility], PC) Documentation of current 03/21/2019 MED GEN ([facility] medications (procedure) 12:00:00 AM [facility], PC) Documentation of current 03/21/2019 MED GEN ([facility] medications (procedure) 12:00:00 AM NOE [facility]) Documentation of current 03/21/2019 MED GEN ([facility] medications (procedure) 12:00:00 AM NOE [place]) Documentation of current 03/21/2019 MED GEN ([facility] medications (procedure) 12:00:00 AM NOE [facility]) Documentation of current 03/21/2019 MED GEN ([facility] medications (procedure) 12:00:00 AM NOE [facility]) Documentation of current 03/21/2019 MED GEN ([facility] medications (procedure) 12:00:00 AM NOE [facility]) Documentation of current 03/21/2019 MED GEN ([facility] medications (procedure) 12:00:00 AM NOE [facility]) Documentation of current 03/21/2019 MED GEN ([facility] medications (procedure) 12:00:00 AM NOE [facility]) Documentation of current 03/21/2019 MED GEN ([facility] medications (procedure) 12:00:00 AM NOE [facility]) Documentation of current 03/21/2019 MED GEN ([facility] medications (procedure) 12:00:00 AM NOE [facility]) Documentation of current 03/21/2019 MED GEN ([facility] medications (procedure) 12:00:00 AM NOE [facility]) Documentation of current 03/21/2019 MED GEN ([facility] medications (procedure) 12:00:00 AM NOE [facility]) OFFICE OUTPATIENT VISIT 03/21/2019 MEDG EN ([facility] 25 MINUTES 12:00:00 AM NOE [place]) Documentation of current 03/21/2019 MED GEN ([facility] medications (procedure) 12:00:00 AM NOE [facility]) Documentation of current 03/21/2019 MED GEN ([facility] medications (procedure) 12:00:00 AM NOE [facility]) Documentation of current 03/21/2019 MED GEN ([facility] medications (procedure) 12:00:00 AM NOE [facility]) Documentation of current 03/21/2019 MED GEN ([facility] medications (procedure) 12:00:00 AM NOE [facility]) Documentation of current 03/21/2019 MED GEN ([facility] medications (procedure) 12:00:00 AM [facility]ON farias, NOE) Documentation of current 03/21/2019 MED GEN ([facility] medications (procedure) 12:00:00 AM NOE [facility]) Documentation of current 03/21/2019 MED GEN ([facility] medications (procedure) 12:00:00 AM NOE [facility]) Documentation of current 03/21/2019 MED GEN ([facility] medications (procedure) 12:00:00 AM [facility] farias, NOE) Documentation of current 03/21/2019 MED GEN ([facility] medications (procedure) 12:00:00 AM [facility] farias, NOE) Documentation of current 03/21/2019 MED GEN ([facility] medications (procedure) 12:00:00 AM [facility] farias, NOE) Documentation of current 03/21/2019 MED GEN ([facility] medications (procedure) 12:00:00 AM [facility] farias, NOE) Documentation of current 03/21/2019 MED GEN ([facility] medications (procedure) 12:00:00 AM [facility] farias, NOE) Documentation of current 03/21/2019 MED GEN ([facility] medications (procedure) 12:00:00 AM [facility], PC) Documentation of current 03/21/2019 MED GEN ([facility] medications (procedure) 12:00:00 AM [facility] farias, NOE) Documentation of current 03/21/2019 MED GEN ([facility] medications (procedure) 12:00:00 AM NOE [facility]) Documentation of current 03/21/2019 MED GEN ([facility] medications (procedure) 12:00:00 AM NOE [place]) Documentation of current 03/21/2019 MED GEN ([facility] medications (procedure) 12:00:00 AM [facility], PC) Documentation of current 03/21/2019 MED GEN ([facility] medications (procedure) 12:00:00 AM [facility] farias, NOE) Documentation of current 03/21/2019 MED GEN ([facility] medications (procedure) 12:00:00 AM [facility], PC) Documentation of current 03/21/2019 MED GEN ([facility] medications (procedure) 12:00:00 AM [facility], PC) Documentation of current 03/21/2019 MED GEN ([facility] medications (procedure) 12:00:00 AM [facility] farias, NOE) Documentation of current 03/21/2019 MED GEN ([facility] medications (procedure) 12:00:00 AM NOE [facility]) OFFICE OUTPATIENT VISIT 03/21/2019 MEDG EN ([facility] 25 MINUTES 12:00:00 AM [facility]) Documentation of current 03/21/2019 MED GEN ([facility] medications (procedure) 12:00:00 AM NOE [facility]) Documentation of current 03/21/2019 MED GEN ([facility] medications (procedure) 12:00:00 AM [facility]arias, NOE) Documentation of current 03/21/2019 MED GEN ([facility] medications (procedure) 12:00:00 AM [facility], NOE) Documentation of current 03/21/2019 MED GEN ([facility] medications (procedure) 12:00:00 AM NOE [facility]) Documentation of current 03/21/2019 MED GEN ([facility] medications (procedure) 12:00:00 AM [facility], NOE) Documentation of current 03/21/2019 MED GEN ([facility] medications (procedure) 12:00:00 AM [facility]) Documentation of current 03/21/2019 MED GEN ([facility] medications (procedure) 12:00:00 AM NOE [place]) Documentation of current 01/03/2019 MED GEN ([facility] medications (procedure) 12:00:00 AM NOE [place]) Documentation of current 01/03/2019 MED GEN ([facility] medications (procedure) 12:00:00 AM NOE [place]) Documentation of current 01/03/2019 MED GEN ([facility] medications (procedure) 12:00:00 AM [facility]) Documentation of current 01/03/2019 MED GEN ([facility] medications (procedure) 12:00:00 AM NOE [place]) Documentation of current 01/03/2019 MED GEN ([facility] medications (procedure) 12:00:00 AM [facility]arias, NOE) OFFICE OUTPATIENT VISIT 01/03/2019 MEDG EN ([facility] 15 MINUTES 12:00:00 AM [facility]) Documentation of current 01/03/2019 MED GEN ([facility] medications (procedure) 12:00:00 AM NOE [place]) Documentation of current 01/03/2019 MED GEN ([facility] medications (procedure) 12:00:00 AM NOE [facility]) Documentation of current 01/03/2019 MED GEN ([facility] medications (procedure) 12:00:00 AM [facility]) Documentation of current 01/03/2019 MED GEN ([facility] medications (procedure) 12:00:00 AM [facility]) Documentation of current 01/03/2019 MED GEN ([facility] medications (procedure) 12:00:00 AM [facility]) OFFICE OUTPATIENT VISIT 01/03/2019 MEDG EN ([facility] 15 MINUTES 12:00:00 AM [facility]) Documentation of current 12/31/2018 MED GEN ([facility] medications (procedure) 12:00:00 AM [facility], NOE) Documentation of current 12/31/2018 MED GEN ([facility] medications (procedure) 12:00:00 AM [facility], NOE) Documentation of current 12/31/2018 MED GEN ([facility] medications (procedure) 12:00:00 AM NOE [facility]) Documentation of current 12/31/2018 MED GEN ([facility] medications (procedure) 12:00:00 AM NOE [facility]) Documentation of current 12/31/2018 MED GEN ([facility] medications (procedure) 12:00:00 AM NOE [place]) Documentation of current 12/31/2018 MED GEN ([facility] medications (procedure) 12:00:00 AM [facility]) Documentation of current 12/31/2018 MED GEN ([facility] medications (procedure) 12:00:00 AM [facility]) Documentation of current 12/31/2018 MED GEN ([facility] medications (procedure) 12:00:00 AM [facility]) Documentation of current 12/31/2018 MED GEN ([facility] medications (procedure) 12:00:00 AM [facility]) OFFICE OUTPATIENT VISIT 12/31/2018 MEDG EN ([facility] 15 MINUTES 12:00:00 AM [facility]) Documentation of current 12/31/2018 MED GEN ([facility] medications (procedure) 12:00:00 AM [facility]) Documentation of current 12/31/2018 MED GEN ([facility] medications (procedure) 12:00:00 AM NOE [facility]) Documentation of current 12/31/2018 MED GEN ([facility] medications (procedure) 12:00:00 AM [facility]) Documentation of current 12/31/2018 MED GEN ([facility] medications (procedure) 12:00:00 AM [facility]) Documentation of current 12/31/2018 MED GEN ([facility] medications (procedure) 12:00:00 AM [facility]) Documentation of current 12/31/2018 MED GEN ([facility] medications (procedure) 12:00:00 AM [facility]) Documentation of current 12/31/2018 MED GEN ([facility] (procedure) 12:00:00 AM [facility]) Documentation of current 12/31/2018 MED GEN ([facility] medications (procedure) 12:00:00 AM [facility]) Documentation of current 12/31/2018 MED GEN ([facility] medications (procedure) 12:00:00 AM NOE [facility]) OFFICE OUTPATIENT VISIT 12/31/2018 MEDG EN ([facility] 15 MINUTES 12:00:00 AM [facility]) Documentation of current 12/15/2018 MED GEN ([facility] medications (procedure) 12:00:00 AM [facility]) Documentation of current 12/15/2018 MED GEN ([facility] medications (procedure) 12:00:00 AM [facility]) Documentation of current 12/15/2018 MED GEN ([facility] medications (procedure) 12:00:00 AM [facility]) Documentation of current 12/15/2018 MED GEN ([facility] medications (procedure) 12:00:00 AM [facility]) Documentation of current 12/15/2018 MED GEN ([facility] medications (procedure) 12:00:00 AM [facility]) Documentation of current 12/15/2018 MED GEN ([facility] medications (procedure) 12:00:00 AM NOE [facility]) Documentation of current 12/15/2018 MED GEN ([facility] medications (procedure) 12:00:00 AM NOE [place]) Documentation of current 12/15/2018 MED GEN ([facility] medications (procedure) 12:00:00 AM NOE [place]) Documentation of current 12/15/2018 MED GEN ([facility] medications (procedure) 12:00:00 AM NOE [place]) Documentation of current 12/15/2018 MED GEN ([facility] medications (procedure) 12:00:00 AM NOE [place]) Documentation of current 12/15/2018 MED GEN ([facility] medications (procedure) 12:00:00 AM NOE [facility]) BLOOD OCCULT PEROXIDASE 12/15/2018 MEDG EN ([facility] ACTV QUAL OTHER SOURCES 12:00:00 AM NOE [facility]) COLLECTION VENOUS BLOOD 12/15/2018 MEDG EN ([facility] VENIPUNCTURE 12:00:00 AM NOE [place]) Documentation of current 12/15/2018 MED GEN ([facility] medications (procedure) 12:00:00 AM NOE [place]) Documentation of current 12/15/2018 MED GEN ([facility] medications (procedure) 12:00:00 AM NOE [place]) Documentation of current 12/15/2018 MED GEN ([facility] medications (procedure) 12:00:00 AM NOE [place]) Documentation of current 12/15/2018 MED GEN ([facility] medications (procedure) 12:00:00 AM NOE [place]) Documentation of current 12/15/2018 MED GEN ([facility] medications (procedure) 12:00:00 AM [facility]) Documentation of current 12/15/2018 MED GEN ([facility] medications (procedure) 12:00:00 AM NOE [place]) Documentation of current 12/15/2018 MED GEN ([facility] medications (procedure) 12:00:00 AM NOE [place]) Documentation of current 12/15/2018 MED GEN ([facility] medications (procedure) 12:00:00 AM NOE [place]) Documentation of current 12/15/2018 MED GEN ([facility] medications (procedure) 12:00:00 AM [facility]) Documentation of current 12/15/2018 MED GEN ([facility] medications (procedure) 12:00:00 AM EST [facility]) Documentation of current 12/15/2018 MED GEN ([facility] medications (procedure) 12:00:00 AM EST [facility]) BLOOD OCCULT PEROXIDASE 12/15/2018 MEDG EN ([facility] ACTV QUAL OTHER SOURCES 12:00:00 AM NOE [place]) COLLECTION VENOUS BLOOD 12/15/2018 MEDG EN ([facility] VENIPUNCTURE 12:00:00 AM [facility]) Documentation of current 12/08/2018 MED GEN ([facility] medications (procedure) 12:00:00 AM EDNOE [place]) Documentation of current 12/08/2018 MED GEN ([facility] medications (procedure) 12:00:00 AM EDNiki [facility]) Documentation of current 12/08/2018 MED GEN ([facility] medications (procedure) 12:00:00 AM EDNiki [facility]) Documentation of current 12/08/2018 MED GEN ([facility] (procedure) 12:00:00 AM EDNiki [facility]) Documentation of current 12/08/2018 MED GEN ([facility] medications (procedure) 12:00:00 AM EDNiki [facility]) Documentation of current 12/08/2018 MED GEN ([facility] medications (procedure) 12:00:00 AM EDNiki [facility]) Documentation of current 12/08/2018 MED GEN ([facility] medications (procedure) 12:00:00 AM EDT [facility]) Documentation of current 12/08/2018 MED GEN ([facility] medications (procedure) 12:00:00 AM EDT [facility]) Documentation of current 12/08/2018 MED GEN ([facility] medications (procedure) 12:00:00 AM EDT [facility]) Documentation of current 12/08/2018 MED GEN ([facility] medications (procedure) 12:00:00 AM EDT [facility]) Documentation of current 12/08/2018 MED GEN ([facility] medications (procedure) 12:00:00 AM EDT edical, ) Documentation of current 12/08/2018 MED GEN ([facility] medications (procedure) 12:00:00 AM EDT edical, ) Documentation of current 12/08/2018 [facility] current 12/08/2018 MED GEN [facility]) [facility] of current 12/08/2018 MED GEN [facility]procedure) [facility]ation of current 12/08/2018 MED GEN ([facility]procedure) [facility]ation of current 12/08/2018 MED GEN ([facility] (procedure) [facility]ation of current 12/08/2018 MED GEN ([facility]procedure) [facility]PAT[facility] VISIT 11/16/2018 MEDG EN ([facility] 15 MINUTES 12:00:00 AM [facility], ) GLUC BLD GLUC MNTR DEV 11/16/2018 MEDGE N ([facility] CLEARED FDA SPEC HOME USE 12:00:00 AM [facility], ) OFFICE OUTPATIENT VISIT 11/16/2018 MEDG EN ([facility] 15 MINUTES 12:00:00 AM [facility], [facility]) GLUC BLD GLUC MNTR DEV 11/16/2018 MEDGE N ([facility] CLEARED FDA SPEC HOME USE 12:00:00 AM [facility], ) Documentation of current 11/01/2018 MED GEN ([facility] medications (procedure) 12:00:00 AM EDT edical, ) Documentation of current 11/01/2018 MED GEN ([facility] medications (procedure) 12:00:00 AM EDT edical, ) Documentation of current 11/01/2018 MED GEN ([facility] medications (procedure) 12:00:00 AM EDT edical, ) Documentation of current 11/01/2018 MED GEN ([facility] medications (procedure) 12:00:00 AM EDT [facility]) Documentation of current 11/01/2018 MED GEN ([facility] medications (procedure) 12:00:00 AM EDT [facility]) Documentation of current 11/01/2018 MED GEN ([facility] medications (procedure) 12:00:00 AM EDT [facility]) Documentation of current 11/01/2018 MED GEN ([facility] medications (procedure) 12:00:00 AM EDT [facility]) Documentation of current 11/01/2018 MED GEN ([facility] medications (procedure) 12:00:00 AM EDT [facility]) Documentation of current 11/01/2018 MED GEN ([facility] medications (procedure) 12:00:00 AM EDT [facility]) Documentation of current 11/01/2018 MED GEN ([facility] medications (procedure) 12:00:00 AM EDT [facility]) Documentation of current 11/01/2018 MED GEN ([facility] medications (procedure) 12:00:00 AM EDT [facility]) Documentation of current 11/01/2018 MED GEN ([facility] medications (procedure) 12:00:00 AM EDT [facility]) Documentation of current 11/01/2018 MED GEN ([facility] medications (procedure) 12:00:00 AM EDT [facility]) Documentation of current 11/01/2018 MED GEN ([facility] medications (procedure) 12:00:00 AM EDT [facility]) Documentation of current 11/01/2018 MED GEN ([facility] medications (procedure) 12:00:00 AM EDT [facility]) Documentation of current 11/01/2018 MED GEN ([facility] medications (procedure) 12:00:00 AM EDT [facility]) Documentation of current 11/01/2018 MED GEN ([facility] medications (procedure) 12:00:00 AM EDT [facility]) Documentation of current 11/01/2018 MED GEN ([facility] medications (procedure) 12:00:00 AM EDT [facility]) Documentation of current 11/01/2018 MED GEN ([facility] medications (procedure) 12:00:00 AM EDT M [facility]) Documentation of current 11/01/2018 MED GEN ([facility] medications (procedure) 12:00:00 AM EDT [facility]) Documentation of current 11/01/2018 MED GEN ([facility] medications (procedure) 12:00:00 AM EDT [facility]) OFFICE OUTPATIENT VISIT 11/01/2018 MEDG EN ([facility] 15 MINUTES 12:00:00 AM EDT [facility], PC) COLLECTION VENOUS BLOOD 11/01/2018 MEDG EN ([facility] VENIPUNCTURE 12:00:00 AM [facility], [facility]) Documentation of current 11/01/2018 MED GEN ([facility] medications (procedure) 12:00:00 AM EDT [facility]) Documentation of current 11/01/2018 MED GEN ([facility] medications (procedure) 12:00:00 AM EDT [facility]) Documentation of current 11/01/2018 MED GEN ([facility] medications (procedure) 12:00:00 AM EDT [facility]) Documentation of current 11/01/2018 MED GEN ([facility] medications (procedure) 12:00:00 AM EDT [facility]) Documentation of current 11/01/2018 MED GEN ([facility] medications (procedure) 12:00:00 AM EDT [facility]) Documentation of current 11/01/2018 MED GEN ([facility] medications (procedure) 12:00:00 AM EDT [facility]) Documentation of current 11/01/2018 MED GEN ([facility] medications (procedure) 12:00:00 AM EDT [facility]) Documentation of current 11/01/2018 MED GEN ([facility] medications (procedure) 12:00:00 AM EDT [facility]) Documentation of current 11/01/2018 MED GEN ([facility] medications (procedure) 12:00:00 AM EDT [facility]) Documentation of current 11/01/2018 MED GEN ([facility] medications (procedure) 12:00:00 AM EDT [facility]) Documentation of current 11/01/2018 MED GEN ([facility] medications (procedure) 12:00:00 AM EDT [facility]) Documentation of current 11/01/2018 MED GEN ([facility] medications (procedure) 12:00:00 AM EDT [facility]) Documentation of current 11/01/2018 MED GEN ([facility] medications (procedure) 12:00:00 AM EDT [facility]) Documentation of current 11/01/2018 MED GEN ([facility] medications (procedure) 12:00:00 AM EDT [facility]) Documentation of current 11/01/2018 MED GEN ([facility] medications (procedure) 12:00:00 AM EDT [facility]) Documentation of current 11/01/2018 MED GEN ([facility] medications (procedure) 12:00:00 AM EDT [facility]) Documentation of current 11/01/2018 MED GEN ([facility] medications (procedure) 12:00:00 AM EDT [facility]) Documentation of current 11/01/2018 MED GEN ([facility] medications (procedure) 12:00:00 AM EDT [facility]) Documentation of current 11/01/2018 MED GEN ([facility] medications (procedure) 12:00:00 AM EDT [facility]) Documentation of current 11/01/2018 MED GEN ([facility] medications (procedure) 12:00:00 AM EDT [facility]) Documentation of current 11/01/2018 MED GEN ([facility] medications (procedure) 12:00:00 AM EDT [facility]) OFFICE OUTPATIENT VISIT 11/01/2018 MEDG EN ([facility] 15 MINUTES 12:00:00 AM EDT [facility], PC) COLLECTION VENOUS BLOOD 11/01/2018 MEDG EN ([facility] VENIPUNCTURE 12:00:00 AM ED [facility], PC) Documentation of current 10/25/2018 MED GEN ([facility] medications (procedure) 12:00:00 AM EDT [facility]) Documentation of current 10/25/2018 MED GEN ([facility] medications (procedure) 12:00:00 AM EDT [facility]) Documentation of current 10/25/2018 MED GEN ([facility] medications (procedure) 12:00:00 AM EDT [facility]) Documentation of current 10/25/2018 MED GEN ([facility] medications (procedure) 12:00:00 AM EDT [facility]) Documentation of current 10/25/2018 MED GEN ([facility] medications (procedure) 12:00:00 AM EDT [facility]) Documentation of current 10/25/2018 MED GEN ([facility] medications (procedure) 12:00:00 AM EDT [facility]) Documentation of current 10/25/2018 MED GEN ([facility] medications (procedure) 12:00:00 AM EDT [facility]) Documentation of current 10/25/2018 MED GEN ([facility] medications (procedure) 12:00:00 AM EDT [facility]) Documentation of current 10/25/2018 MED GEN ([facility] medications (procedure) 12:00:00 AM EDT [facility]) Documentation of current 10/25/2018 MED GEN ([facility] medications (procedure) 12:00:00 AM EDT [facility]) Documentation of current 10/25/2018 MED GEN ([facility] medications (procedure) 12:00:00 AM EDT [facility]) Documentation of current 10/25/2018 MED GEN ([facility] medications (procedure) 12:00:00 AM EDT [facility]) Documentation of current 10/25/2018 MED GEN ([facility] medications (procedure) 12:00:00 AM EDT [facility]) Documentation of current 10/25/2018 MED GEN ([facility] medications (procedure) 12:00:00 AM EDT [facility]) Documentation of current 10/25/2018 MED GEN ([facility] medications (procedure) 12:00:00 AM EDT [facility]) Documentation of current 10/25/2018 MED GEN ([facility] medications (procedure) 12:00:00 AM EDT [facility]) Documentation of current 10/25/2018 MED GEN ([facility] medications (procedure) 12:00:00 AM EDT [facility]) Documentation of current 10/25/2018 MED GEN ([facility] medications (procedure) 12:00:00 AM EDT [facility]) TOBACCO USE CESSATION 10/25/2018 MEDGEN ([facility] INTENSIVE >10 MINUTES 12:00:00 AM EDT Med ical, PC) NONINVASIVE EAR/PULSE 10/25/2018 MEDGEN ([facility] OXIMETRY OVERNIGHT 12:00:00 AM EDT Medica l, ) MONITOR GLUC BLD GLUC MNTR DEV 10/25/2018 MEDGE N ([facility] CLEARED FDA SPEC HOME USE 12:00:00 AM ED Medical, ) COLLECTION VENOUS BLOOD 10/25/2018 MEDG EN ([facility] VENIPUNCTURE 12:00:00 AM [facility], ) Documentation of current 10/25/2018 MED GEN ([facility] medications (procedure) 12:00:00 AM EDT [facility], [facility]) Documentation of current 10/25/2018 MED GEN ([facility] medications (procedure) 12:00:00 AM EDT [facility], [facility]) Documentation of current 10/25/2018 MED GEN ([facility] medications (procedure) 12:00:00 AM EDT [facility], [facility]) Documentation of current 10/25/2018 MED GEN ([facility] medications (procedure) 12:00:00 AM EDT [facility], ) Documentation of current 10/25/2018 MED GEN ([facility] medications (procedure) 12:00:00 AM EDT [facility], [facility]) Documentation of current 10/25/2018 MED GEN ([facility] medications (procedure) 12:00:00 AM EDT [facility], [facility]) Documentation of current 10/25/2018 MED GEN ([facility] medications (procedure) 12:00:00 AM EDT [facility], [facility]) Documentation of current 10/25/2018 MED GEN ([facility] medications (procedure) 12:00:00 AM EDT [facility], [facility]) Documentation of current 10/25/2018 MED GEN ([facility] medications (procedure) 12:00:00 AM EDT [facility], [facility]) Documentation of current 10/25/2018 MED GEN ([facility] medications (procedure) 12:00:00 AM EDT [facility], [facility]) Documentation of current 10/25/2018 MED GEN ([facility] medications (procedure) 12:00:00 AM EDT [facility], [facility]) Documentation of current 10/25/2018 MED GEN ([facility] medications (procedure) 12:00:00 AM EDT edical, ) Documentation of current 10/25/2018 MED GEN [facility] Documentation of current 10/25/2018 MED GEN [facility]procedure[facility] Documentation of current 10/25/2018 MED GEN ([facility] medications (procedure) 12:00:00 AM EDT [facility], ) Documentation of current 10/25/2018 MED GEN ([facility] medications (procedure) 12:00:00 AM EDT [facility], ) Documentation of current 10/25/2018 MED GEN ([facility] medications (procedure) 12:00:00 AM EDT [facility], ) Documentation of current 10/25/2018 MED GEN ([facility] medications (procedure) 12:00:00 AM EDT [facility], ) TOBACCO USE CESSATION 10/25/2018 MEDGEN ([facility] INTENSIVE >10 MINUTES 12:00:00 AM EDT Med ical, ) NONINVASIVE EAR/PULSE 10/25/2018 MEDGEN ([facility] OXIMETRY OVERNIGHT 12:00:00 AM ED Medica l, ) MONITOR GLUC BLD GLUC MNTR DEV 10/25/2018 MEDGE N ([facility] CLEARED FDA SPEC [facility] VENOUS BLOOD 10/25/2018 MEDG EN ([facility] VENIPUNCTURE 12:00:00 AM [facility], ) Results ID Date Data Source [id number] 03/21/2019 12:00:00 AM EST [facility], ) Name Value Range Interpretation Code Description Data Patti rce(s) Supporting Document(s ) ID Date Data Source [id number] 03/21/2019 12:00:00 AM EST [facility] ([facility], ) Name Value Range Interpretation Code Description Data Patti rce(s) Supporting Document(s ) ID Date Data Source [id number] 03/21/2019 12:00:00 AM EST [facility], ) Name Value Range Interpretation Code Description Data Patti rce(s) Supporting Document(s ) RPR Non Reactive Normal (applies to MEDGEN ( St non-numeric [facility] results) [facility], [facility]) ID Date Data Source [id number] 03/21/2019 12:00:00 AM EST [facility]) Name Value Range Interpretation Description Data Sup porting Code Source(s) Document(s ) HIV Screen Non Normal (applies MEDGEN (St 4th Reactive to non-numeric [facility] Generation results) Medical, [facility]) wRfx ID Date Data Source [id number] 03/21/2019 12:00:00 AM EST [facility] Name Value Range Interpretation Code Description Data Patti rce(s) Supporting Document(s ) TSH 1.700 Normal (applies to MEDGEN (St uIU/mL non-numeric results) [facility]) ID Date Data Source [id number] 03/21/2019 12:00:00 AM EST [facility]) Name Value Range Interpretation Description Data Sup porting Code Source(s) Document(s ) Hemoglobin 6.0 % Above high normal MEDGEN (St A1c/Hemoglobin. [facility] total in Blood [facility], [facility]) ID Date Data Source [id number] 03/21/2019 12:00:00 AM EST [facility]) Name Value Range Interpretation Code Description Data Patti rce(s) Supporting Document(s ) PDF Image . Normal (applies to MEDGEN (St non-numeric results) [facility]) ID Date Data Source [id number] 03/21/2019 12:00:00 AM EST [facility] Name Value Range Interpretation Code Description Data Patti rce(s) Supporting Document(s ) FSH 75.9 mIU/mL Normal (applies to MEDGEN (S t non-numeric results) [facility], [facility]) LH 45.0 mIU/mL Normal (applies to MEDGEN (S t non-numeric results) [facility]) ID Date Data Source [id number] 03/21/2019 12:00:00 AM EST [facility]) Name Value Range Interpretation Description Data Sup porting Code Source(s) Document(s ) Chlamydia Negative Normal (applies MEDGEN (St trachomatis rRNA to non-numeric [facility] [Presence] in results) Medical, ) Unspecified specimen by Probe and target amplification method Neisseria Negative Normal (applies MEDGEN (St gonorrhoeae rRNA to non-numeric [facility] [Presence] in results) [facility], ) Unspecified specimen by Probe and target amplification method ID Date Data Source [id number] 03/21/2019 12:00:00 AM EST [facility], ) Name Value Range Interpretation Description Data Sup porting Code Source(s) Document(s ) Hepatitis A Indeterminate Abnormal MEDGEN (St virus IgM Ab (applies to [facility] [Presence] in non-numeric Medical, Serum or results) ) Plasma by Immunoassay HBsAg Screen Negative Normal (applies MEDGEN (St to non-numeric [facility] results) [facility], ) Hepatitis B Negative Normal (applies MEDGEN (St virus core to non-numeric [facility] IgM Ab results) [facility], [Presence] in PC) Serum or Plasma by Immunoassay Hep C Virus <0.1 Normal (applies MEDGEN (St Ab to non-numeric [facility] results) [facility], ) ID Date Data Source [id number] 03/21/2019 12:00:00 AM EST [facility], ) Name Value Range Interpretation Description Data Sup porting Code Source(s) Document(s ) Cholesterol 275 Above high normal MEDGEN (St [Mass/volume] in mg/dL [facility] Serum or Plasma [facility], ) HDL Cholesterol 72 mg/dL Normal (applies MEDGEN ( St to non-numeric [facility] results) Medical, ) Triglyceride 155 Above high normal MEDGEN (S t [Mass/volume] in mg/dL [facility] Serum or Plasma [facility], ) VLDL Cholesterol 31 mg/dL Normal (applies MEDGEN (St Lamin to non-numeric [facility] results) [facility], ) LDL Cholesterol 172 Above high normal MEDGEN (St Calc mg/dL [facility], ) ID Date Data Source [id number] 03/21/2019 12:00:00 AM EST [facility], ) Name Value Range Interpretation Description Data Sup porting Code Source(s) Document(s ) Glucose 72 mg/dL Normal (applies MEDGEN (St [Mass/volume] in to non-numeric [facility] Urine collected for results) Medical, unspecified PC) duration Creatinine 0.82 Normal (applies MEDGEN (St [Interpretation] in mg/dL to non-numeric [facility] s Urine results) [facility], [facility]) Urea nitrogen 20 mg/dL Normal (applies [facility] (St [Mass/volume] in to non-numeric [facility] Serum or Plasma results) [facility], [facility]) eGFR If NonAfricn 83 Normal (applies [facility] (St Am mL/min/1 to non-numeric [facility] .73 results) [facility], [facility]) eGFR If Africn Am 96 Normal (applies [facility] (St mL/min/1 to non-numeric [facility] .73 results) [facility], [facility]) BUN/Creatinine 24 Above high [facility] (St Ratio normal [facility]) Sodium 141 Normal (applies [facility] (St [Moles/volume] in mmol/L to non-numeric [facility] Serum or Plasma results) [facility], [facility]) Potassium 3.5 Normal (applies [facility] (St [Mass/volume] in mmol/L to non-numeric [facility] Blood results) [facility], [facility]) Chloride 100 Normal (applies [facility] (St [Moles/volume] in mmol/L to non-numeric [facility] Serum or Plasma results) [facility], [facility]) Carbon dioxide, 26 Normal (applies [facility] ( St total mmol/L to non-numeric [facility] [Moles/volume] in results) Medical, Serum or Plasma PC) Calcium 9.2 Normal (applies [facility] (St [Moles/volume] in mg/dL to non-numeric [facility] Urine collected for results) Medical, unspecified PC) duration Microalbumin 4.3 g/dL Normal (applies [facility] (St [Mass/time] in to non-numeric [facility] Urine collected for results) Medical, unspecified PC) duration Protein 7.4 g/dL Normal (applies [facility] (St [Mass/volume] in to non-numeric [facility] Serum or Plasma results) [facility], [facility]) Globulin, Total 3.1 g/dL Normal (applies [facility] ( St to non-numeric [facility] results) [facility], [facility]) A/G Ratio 1.4 Normal (applies [facility] (St to non-numeric [facility] results) [facility], [facility]) Bilirubin.total 0.3 Normal (applies [facility] ( St [Mass/volume] in mg/dL to non-numeric [facility] Serum or Plasma results) Medical, ) Alkaline 69 IU/L Normal (applies [facility] (St phosphatase to non-numeric [facility] [Enzymatic results) Medical, activity/volume] in ) Serum, Plasma or Blood Aspartate 23 IU/L Normal (applies [facility] (St aminotransferase to non-numeric [facility] [Enzymatic results) Medical, activity/volume] in ) Serum or Plasma Alanine 22 IU/L Normal (applies [facility] (St aminotransferase to non-numeric [facility] [Enzymatic results) Medical, activity/volume] in ) Serum or Plasma ID Date Data Source [id number] 03/21/2019 12:00:00 AM EST [facility], ) Name Value Range Interpretation Description Data Sup porting Code Source(s) Document(s ) Leukocytes 6.5 Normal (applies [facility] (St [#/volume] in x10E3/uL to non-numeric [facility] Blood by results) Medical, ) Automated count Erythrocytes 4.58 Normal (applies [facility] (St [#/volume] in x10E6/uL to non-numeric [facility] Blood by results) Medical, ) Automated count Hemoglobin 12.8 Normal (applies [facility] (St [Mass/volume] in g/dL to non-numeric [facility] Blood results) Medical, ) MCV 84 fL Normal (applies [facility] (St to non-numeric [facility] results) [facility], ) Hematocrit 38.3 % Normal (applies [facility] (St [Volume to non-numeric [facility] Fraction] of results) Medical, ) Blood by Automated count MCH 27.9 pg Normal (applies [facility] (St to non-numeric [facility] results) Medical, ) MCHC 33.4 Normal (applies [facility] (St g/dL to non-numeric [facility] results) Medical, ) RDW 17.7 % Above high normal [facility] ([facility], ) Platelets 309 Normal (applies [facility] (St [#/area] in x10E3/uL to non-numeric [facility] Blood by results) Medical, ) Microscopy high power field Neutrophils [#] 51 % Normal (applies [facility] ( St in Body fluid by to non-numeric [facility] Manual count results) Medical, ) Monocytes 10 % Normal (applies [facility] (St [#/volume] in to non-numeric [facility] Cord blood results) Medical, ) Lymphs 37 % Normal (applies [facility] (St to non-numeric [facility] results) Medical, ) Basos 1 % Normal (applies [facility] (St to non-numeric [facility] results) Medical, ) Eos 1 % Normal (applies [facility] (St to non-numeric [facility] results) Medical, ) Neutrophils 3.3 Normal (applies [facility] (St (Absolute) x10E3/uL to non-numeric [facility] results) Medical, ) Monocytes(Absolu 0.6 Normal (applies [facility] (St te) x10E3/uL to non-numeric [facility] results) Medical, ) Lymphs 2.4 Normal (applies [facility] (St (Absolute) x10E3/uL to non-numeric [facility] results) Medical, ) Eos (Absolute) 0.1 Normal (applies [facility] (S t x10E3/uL to non-numeric [facility] results) Medical, ) Baso (Absolute) 0.0 Normal (applies [facility] ( St x10E3/uL to non-numeric [facility] results) Medical, ) Immature 0 % Normal (applies [facility] (St Granulocytes to non-numeric [facility] results) Medical, ) Immature Grans 0.0 Normal (applies [facility] (S t (Abs) x10E3/uL to non-numeric [facility] results) Medical, ) ID Date Data Source [id number] 03/21/2019 12:00:00 AM EST [facility] ([facility], ) Name Value Range Interpretation Code Description Data Patti rce(s) Supporting Document(s ) ID Date Data Source [id number] 03/21/2019 12:00:00 AM EST [facility] ([facility], ) Name Value Range Interpretation Code Description Data Patti rce(s) Supporting Document(s ) ID Date Data Source [id number] 03/21/2019 12:00:00 AM EST [facility] ([facility], ) Name Value Range Interpretation Code Description Data Patti rce(s) Supporting Document(s ) RPR Non Reactive Normal (applies to [facility] ( St non-numeric [facility] results) Medical, ) ID Date Data Source [id number] 03/21/2019 12:00:00 AM EST [facility] ([facility]) Name Value Range Interpretation Description Data Sup porting Code Source(s) Document(s ) HIV Screen Non Normal (applies [facility] (St 4th Reactive to non-numeric [facility] Generation results) [facility], ) wRfx ID Date Data Source [id number] 03/21/2019 12:00:00 AM EST [facility] ([facility], ) Name Value Range Interpretation Code Description Data Patti rce(s) Supporting Document(s ) TSH 1.700 Normal (applies to [facility] (St uIU/mL non-numeric results) [facility]) ID Date Data Source [id number] 03/21/2019 12:00:00 AM EST [facility] ([facility], ) Name Value Range Interpretation Description Data Sup porting Code Source(s) Document(s ) Hemoglobin 6.0 % Above high normal [facility] (St A1c/Hemoglobin. [facility] total in Blood [facility], ) ID Date Data Source [id number] 03/21/2019 12:00:00 AM EST [facility] ([facility], ) Name Value Range Interpretation Code Description Data Patti rce(s) Supporting Document(s ) PDF Image . Normal (applies to [facility] (St non-numeric results) [facility]) ID Date Data Source [id number] 03/21/2019 12:00:00 AM EST [facility] ([facility]) Name Value Range Interpretation Code Description Data Patti rce(s) Supporting Document(s ) LH 45.0 mIU/mL Normal (applies to [facility] (S t non-numeric results) [facility]) FSH 75.9 mIU/mL Normal (applies to [facility] (S t non-numeric results) [facility]) ID Date Data Source [id number] 03/21/2019 12:00:00 AM EST [facility] ([facility], ) Name Value Range Interpretation Description Data Sup porting Code Source(s) Document(s ) Chlamydia Negative Normal (applies [facility] (St trachomatis rRNA to non-numeric [facility] [Presence] in results) [facility], ) Unspecified specimen by Probe and target amplification method Neisseria Negative Normal (applies [facility] (St gonorrhoeae rRNA to non-numeric [facility] [Presence] in results) [facility], ) Unspecified specimen by Probe and target amplification method ID Date Data Source [id number] 03/21/2019 12:00:00 AM EST [facility] ([facility], ) Name Value Range Interpretation Description Data Sup porting Code Source(s) Document(s ) Hepatitis A Indeterminate Abnormal [facility] (St virus IgM Ab (applies to [facility] [Presence] in non-numeric Medical, Serum or results) ) Plasma by Immunoassay HBsAg Screen Negative Normal (applies [facility] (St to non-numeric [facility] results) [facility], ) Hepatitis B Negative Normal (applies [facility] (St virus core to non-numeric [facility] IgM Ab results) [facility], [Presence] in PC) Serum or Plasma by Immunoassay Hep C Virus <0.1 Normal (applies [facility] (St Ab to non-numeric [facility] results) [facility], ) ID Date Data Source [id number] 03/21/2019 12:00:00 AM EST [facility] ([facility], ) Name Value Range Interpretation Description Data Sup porting Code Source(s) Document(s ) Cholesterol 275 Above high normal [facility] (St [Mass/volume] in mg/dL [facility] Serum or Plasma [facility], ) HDL Cholesterol 72 mg/dL Normal (applies [facility] ( St to non-numeric [facility] results) [facility], ) Triglyceride 155 Above high normal [facility] (S t [Mass/volume] in mg/dL [facility] Serum or Plasma [facility], ) VLDL Cholesterol 31 mg/dL Normal (applies [facility] (St Lamin to non-numeric [facility] results) [facility], ) LDL Cholesterol 172 Above high normal [facility] (St Calc mg/dL [facility], ) ID Date Data Source [id number] 03/21/2019 12:00:00 AM EST [facility] ([facility], ) Name Value Range Interpretation Description Data Sup porting Code Source(s) Document(s ) Glucose 72 mg/dL Normal (applies [facility] (St [Mass/volume] in to non-numeric [facility] Urine collected for results) [facility], unspecified PC) duration Urea nitrogen 20 mg/dL Normal (applies [facility] (St [Mass/volume] in to non-numeric [facility] Serum or Plasma results) [facility], ) Creatinine 0.82 Normal (applies [facility] (St [Interpretation] in mg/dL to non-numeric [facility] Urine results) Medical, PC) eGFR If NonAfricn 83 Normal (applies [facility] (St Am mL/min/1 to non-numeric [facility] .73 results) Medical, PC) eGFR If Africn Am 96 Normal (applies [facility] (St mL/min/1 to non-numeric [facility] .73 results) [facility], PC) Sodium 141 Normal (applies [facility] (St [Moles/volume] in mmol/L to non-numeric [facility] Serum or Plasma results) [facility], PC) BUN/Creatinine 24 Above high [facility] (St Ratio normal [facility], [facility]) Chloride 100 Normal (applies [facility] (St [Moles/volume] in mmol/L to non-numeric [facility] Serum or Plasma results) [facility], PC) Potassium 3.5 Normal (applies [facility] (St [Mass/volume] in mmol/L to non-numeric [facility] Blood results) [facility], PC) Calcium 9.2 Normal (applies [facility] (St [Moles/volume] in mg/dL to non-numeric [facility] Urine collected for results) Medical, unspecified PC) duration Protein 7.4 g/dL Normal (applies [facility] (St [Mass/volume] in to non-numeric [facility] Serum or Plasma results) [facility], PC) Carbon dioxide, 26 Normal (applies [facility] ( St total mmol/L to non-numeric [facility] [Moles/volume] in results) Medical, Serum or Plasma PC) Globulin, Total 3.1 g/dL Normal (applies [facility] ( St to non-numeric [facility] results) [facility], PC) Microalbumin 4.3 g/dL Normal (applies [facility] (St [Mass/time] in to non-numeric [facility] Urine collected for results) Medical, unspecified PC) duration A/G Ratio 1.4 Normal (applies [facility] (St to non-numeric [facility] results) [facility], PC) Bilirubin.total 0.3 Normal (applies [facility] ( St [Mass/volume] in mg/dL to non-numeric [facility] Serum or Plasma results) [facility], PC) Alkaline 69 IU/L Normal (applies [facility] (St phosphatase to non-numeric [facility] [Enzymatic results) Medical, activity/volume] in PC) Serum, Plasma or Blood Aspartate 23 IU/L Normal (applies [facility] (St aminotransferase to non-numeric [facility] [Enzymatic results) Medical, activity/volume] in ) Serum or Plasma Alanine 22 IU/L Normal (applies [facility] (St aminotransferase to non-numeric [facility] [Enzymatic results) Medical, activity/volume] in ) Serum or Plasma ID Date Data Source [id number] 03/21/2019 12:00:00 AM EST [facility] ([facility], ) Name Value Range Interpretation Description Data Sup porting Code Source(s) Document(s ) Leukocytes 6.5 Normal (applies [facility] (St [#/volume] in x10E3/uL to non-numeric [facility] Blood by results) Medical, ) Automated count Erythrocytes 4.58 Normal (applies [facility] (St [#/volume] in x10E6/uL to non-numeric [facility] Blood by results) [facility], ) Automated count Hemoglobin 12.8 Normal (applies [facility] (St [Mass/volume] in g/dL to non-numeric [facility] Blood results) [facility], ) MCV 84 fL Normal (applies [facility] (St to non-numeric [facility] results) [facility], ) Hematocrit 38.3 % Normal (applies [facility] (St [Volume to non-numeric [facility] Fraction] of results) [facility], ) Blood by Automated count MCHC 33.4 Normal (applies [facility] (St g/dL to non-numeric [facility] results) [facility], ) MCH 27.9 pg Normal (applies [facility] (St to non-numeric [facility] results) [facility], ) RDW 17.7 % Above high normal [facility] ([facility], ) Platelets 309 Normal (applies [facility] (St [#/area] in x10E3/uL to non-numeric [facility] Blood by results) [facility], ) Microscopy high power field Neutrophils [#] 51 % Normal (applies [facility] ( St in Body fluid by to non-numeric [facility] Manual count results) [facility], ) Monocytes 10 % Normal (applies [facility] (St [#/volume] in to non-numeric [facility] Cord blood results) [facility], ) Lymphs 37 % Normal (applies [facility] (St to non-numeric [facility] results) [facility], ) Eos 1 % Normal (applies [facility] (St to non-numeric [facility] results) Medical, ) Basos 1 % Normal (applies [facility] (St to non-numeric [facility] results) Medical, ) Lymphs 2.4 Normal (applies [facility] (St (Absolute) x10E3/uL to non-numeric [facility] results) Medical, ) Neutrophils 3.3 Normal (applies [facility] (St (Absolute) x10E3/uL to non-numeric [facility] results) Medical, ) Monocytes(Absolu 0.6 Normal (applies [facility] (St te) x10E3/uL to non-numeric [facility] results) Medical, ) Eos (Absolute) 0.1 Normal (applies [facility] (S t x10E3/uL to non-numeric [facility] results) Medical, ) Baso (Absolute) 0.0 Normal (applies [facility] ( St x10E3/uL to non-numeric [facility] results) Medical, ) Immature 0 % Normal (applies [facility] (St Granulocytes to non-numeric [facility] results) [facility], ) Immature Grans 0.0 Normal (applies [facility] (S t (Abs) x10E3/uL to non-numeric [facility] results) [facility], ) ID Date Data Source [id number] 12/15/2018 12:00:00 AM EST [facility] ([facility]) Name Value Range Interpretation Code Description Data Patti rce(s) Supporting Document(s ) Ferritin, 38 ng/mL Normal (applies to [facility] (St Serum non-numeric [facility] results) [facility], ) ID Date Data Source [id number] 12/15/2018 12:00:00 AM EST [facility] ([facility]) Name Value Range Interpretation Description Data Sup porting Code Source(s) Document(s ) Deamidated 8 units Normal (applies [facility] (St Gliadin Abs, IgA to non-numeric [facility] results) [facility], ) t-Transglutaminas <2 Normal (applies [facility] (St e (tTG) IgA to non-numeric [facility] results) [facility], ) Immunoglobulin A, 332 Normal (applies [facility] (St Qn, Serum mg/dL to non-numeric [facility] results) [facility], ) ID Date Data Source [id number] 12/15/2018 12:00:00 AM EST [facility] ([facility], ) Name Value Range Interpretation Description Data Sup porting Code Source(s) Document(s ) Iron 386 ug/dL Normal (applies to [facility] (St Bind.Cap.(TIBC non-numeric [facility] ) results) [facility], ) UIBC 336 ug/dL Normal (applies to [facility] (St non-numeric [facility] results) [facility], ) Iron 50 ug/dL Normal (applies to [facility] (St [Mass/volume] non-numeric [facility] in Serum or results) [facility], ) Plasma Iron 13 % Below low normal [facility] (St saturation [facility] [[facility], ) Fraction] in Serum or Plasma ID Date Data Source [id number] 12/15/2018 12:00:00 AM EST [facility] ( [facility], ) Name Value Range Interpretation Description Data Sup porting Code Source(s) Document(s ) Leukocytes 5.3 Normal (applies [facility] (St [#/volume] in x10E3/uL to non-numeric [facility] Blood by results) [facility], ) Automated count Erythrocytes 4.86 Normal (applies [facility] (St [#/volume] in x10E6/uL to non-numeric [facility] Blood by results) [facility], ) Automated count Hemoglobin 12.2 Normal (applies [facility] (St [Mass/volume] in g/dL to non-numeric [facility] Blood results) [facility], ) MCV 80 fL Normal (applies [facility] (St to non-numeric [facility] results) [facility], ) Hematocrit 38.8 % Normal (applies [facility] (St [Volume to non-numeric [facility] Fraction] of results) [facility], ) Blood by Automated count MCHC 31.4 Below low normal [facility] (St g/dL [facility], ) MCH 25.1 pg Below low normal [facility] ([facility], ) Platelets 308 Normal (applies [facility] (St [#/area] in x10E3/uL to non-numeric [facility] Blood by results) [facility], ) Microscopy high power field RDW 19.0 % Above high normal [facility] ([facility], ) Neutrophils [#] 56 % Normal (applies [facility] ( St in Body fluid by to non-numeric [facility] Manual count results) [facility], ) Monocytes 8 % Normal (applies [facility] (St [#/volume] in to non-numeric [facility] Cord blood results) Medical, ) Lymphs 34 % Normal (applies [facility] (St to non-numeric [facility] results) Medical, ) Basos 1 % Normal (applies [facility] (St to non-numeric [facility] results) Medical, ) Eos 1 % Normal (applies [facility] (St to non-numeric [facility] results) Medical, ) Neutrophils 3.0 Normal (applies [facility] (St (Absolute) x10E3/uL to non-numeric [facility] results) Medical, ) Lymphs 1.8 Normal (applies [facility] (St (Absolute) x10E3/uL to non-numeric [facility] results) Medical, ) Eos (Absolute) 0.0 Normal (applies [facility] (S t x10E3/uL to non-numeric [facility] results) Medical, ) Monocytes(Absolu 0.4 Normal (applies [facility] (St te) x10E3/uL to non-numeric [facility] results) Medical, ) Baso (Absolute) 0.0 Normal (applies [facility] ( St x10E3/uL to non-numeric [facility] results) Medical, ) Immature 0 % Normal (applies [facility] (St Granulocytes to non-numeric [facility] results) Medical, ) Immature Grans 0.0 Normal (applies [facility] (S t (Abs) x10E3/uL to non-numeric [facility] results) [facility], ) ID Date Data Source [id number] 12/15/2018 12:00:00 AM EST [facility] ([facility], ) Name Value Range Interpretation Description Data Sup porting Code Source(s) Document(s ) Glucose 88 mg/dL Normal (applies [facility] (St [Mass/volume] in to non-numeric [facility] Urine collected for results) Medical, unspecified ) duration Urea nitrogen 16 mg/dL Normal (applies [facility] (St [Mass/volume] in to non-numeric [facility] Serum or Plasma results) Medical, ) eGFR If NonAfricn 77 Normal (applies [facility] (St Am mL/min/1 to non-numeric [facility] .73 results) Medical, ) Creatinine 0.87 Normal (applies [facility] (St [Interpretation] in mg/dL to non-numeric [facility] Urine results) Medical, PC) BUN/Creatinine 18 Normal (applies [facility] (S t Ratio to non-numeric [facility] results) [facility], PC) eGFR If Africn Am 89 Normal (applies [facility] (St mL/min/1 to non-numeric [facility] .73 results) Medical, PC) Sodium 141 Normal (applies [facility] (St [Moles/volume] in mmol/L to non-numeric [facility] Serum or Plasma results) [facility], PC) Potassium 4.3 Normal (applies [facility] (St [Mass/volume] in mmol/L to non-numeric [facility] Blood results) [facility], PC) Chloride 105 Normal (applies [facility] (St [Moles/volume] in mmol/L to non-numeric [facility] Serum or Plasma results) [facility], PC) Calcium 9.6 Normal (applies [facility] (St [Moles/volume] in mg/dL to non-numeric [facility] Urine collected for results) Medical, unspecified PC) duration Carbon dioxide, 22 Normal (applies [facility] ( St total mmol/L to non-numeric [facility] [Moles/volume] in results) Medical, Serum or Plasma PC) Microalbumin 4.6 g/dL Normal (applies [facility] (St [Mass/time] in to non-numeric [facility] Urine collected for results) Medical, unspecified PC) duration Protein 7.3 g/dL Normal (applies [facility] (St [Mass/volume] in to non-numeric [facility] Serum or Plasma results) Medical, PC) Globulin, Total 2.7 g/dL Normal (applies [facility] ( St to non-numeric [facility] results) [facility], PC) A/G Ratio 1.7 Normal (applies [facility] (St to non-numeric [facility] results) [facility], PC) Bilirubin.total 0.3 Normal (applies [facility] ( St [Mass/volume] in mg/dL to non-numeric [facility] Serum or Plasma results) Medical, PC) Alkaline 61 IU/L Normal (applies [facility] (St phosphatase to non-numeric [facility] [Enzymatic results) Medical, activity/volume] in PC) Serum, Plasma or Blood Aspartate 11 IU/L Normal (applies [facility] (St aminotransferase to non-numeric [facility] [Enzymatic results) Medical, activity/volume] in PC) Serum or Plasma Alanine 8 IU/L Normal (applies [facility] (St aminotransferase to non-numeric [facility] [Enzymatic results) [facility], activity/volume] in ) Serum or Plasma ID Date Data Source [id number] 12/15/2018 12:00:00 AM EST [facility] ([facility], ) Name Value Range Interpretation Code Description Data Patti rce(s) Supporting Document(s ) Ferritin, 38 ng/mL Normal (applies to [facility] (St Serum non-numeric [facility] results) [facility]) ID Date Data Source [id number] 12/15/2018 12:00:00 AM EST [facility] ([facility], ) Name Value Range Interpretation Description Data Sup porting Code Source(s) Document(s ) Deamidated 8 units Normal (applies [facility] (St Gliadin Abs, IgA to non-numeric [facility] results) [facility], ) t-Transglutaminas <2 Normal (applies [facility] (St e (tTG) IgA to non-numeric [facility] results) [facility], ) Immunoglobulin A, 332 Normal (applies [facility] (St Qn, Serum mg/dL to non-numeric [facility] results) [facility]) ID Date Data Source [id number] 12/15/2018 12:00:00 AM EST [facility] ([facility], ) Name Value Range Interpretation Description Data Sup porting Code Source(s) Document(s ) UIBC 336 ug/dL Normal (applies to [facility] (St non-numeric [facility] results) [facility], ) Iron 386 ug/dL Normal (applies to [facility] (St Bind.Cap.(TIBC non-numeric [facility] ) results) [facility], ) Iron 50 ug/dL Normal (applies to [facility] (St [Mass/volume] non-numeric [facility] in Serum or results) [facility], ) Plasma Iron 13 % Below low normal [facility] (St saturation [facility] [Mass [facility], ) Fraction] in Serum or Plasma ID Date Data Source [id number] 12/15/2018 12:00:00 AM EST [facility] ([facility], ) Name Value Range Interpretation Description Data Sup porting Code Source(s) Document(s ) Leukocytes 5.3 Normal (applies [facility] (St [#/volume] in x10E3/uL to non-numeric [facility] Blood by results) [facility], ) Automated count Erythrocytes 4.86 Normal (applies [facility] (St [#/volume] in x10E6/uL to non-numeric [facility] Blood by results) [facility], ) Automated count Hematocrit 38.8 % Normal (applies [facility] (St [Volume to non-numeric [facility] Fraction] of results) [facility]) Blood by Automated count Hemoglobin 12.2 Normal (applies [facility] (St [Mass/volume] in g/dL to non-numeric [facility] Blood results) [facility]) MCH 25.1 pg Below low normal [facility] ([facility], ) MCV 80 fL Normal (applies [facility] (St to non-numeric [facility] results) [facility]) MCHC 31.4 Below low normal [facility] (St g/dL [facility], ) RDW 19.0 % Above high normal [facility]GEN ([facility], ) Platelets 308 Normal (applies MEDGEN (St [#/area] in x10E3/uL to non-numeric [facility] Blood by results) [facility], ) Microscopy high power field Neutrophils [#] 56 % Normal (applies MEDGEN ( St in Body fluid by to non-numeric [facility] Manual count results) [facility]) Lymphs 34 % Normal (applies MEDGEN (St to non-numeric [facility] results) [facility]) Monocytes 8 % Normal (applies MEDGEN (St [#/volume] in to non-numeric [facility] Cord blood results) [facility]) Basos 1 % Normal (applies MEDGEN (St to non-numeric [facility] results) [facility]) Eos 1 % Normal (applies MEDGEN (St to non-numeric [facility] results) [facility]) Lymphs 1.8 Normal (applies MEDGEN (St (Absolute) x10E3/uL to non-numeric [facility] results) [facility]) Neutrophils 3.0 Normal (applies MEDGEN (St (Absolute) x10E3/uL to non-numeric [facility] results) [facility]) Monocytes(Absolu 0.4 Normal (applies MEDGEN (St te) x10E3/uL to non-numeric [facility] results) [facility], ) Eos (Absolute) 0.0 Normal (applies MEDGEN (S t x10E3/uL to non-numeric [facility] results) [facility]) Baso (Absolute) 0.0 Normal (applies MEDGEN ( St x10E3/uL to non-numeric [facility] results) [facility], [facility]) Immature 0 % Normal (applies [facility]GEN (St Granulocytes to non-numeric [facility] results) [facility], [facility]) Immature Grans 0.0 Normal (applies MEDGEN (S t (Abs) x10E3/uL to non-numeric [facility] results) [facility]) ID Date Data Source [id number] 12/15/2018 12:00:00 AM EST [facility] ([facility] Name Value Range Interpretation Description Data Sup porting Code Source(s) Document(s ) Glucose 88 mg/dL Normal (applies MEDGEN (St [Mass/volume] in to non-numeric [facility] Urine collected for results) Medical, unspecified PC) duration Urea nitrogen 16 mg/dL Normal (applies MEDGEN (St [Mass/volume] in to non-numeric [facility] Serum or Plasma results) [facility], [facility]) Creatinine 0.87 Normal (applies MEDGEN (St [Interpretation] in mg/dL to non-numeric [facility] Urine results) [facility], [facility]) eGFR If Africn Am 89 Normal (applies MEDGEN (St mL/min/1 to non-numeric [facility] .73 results) [facility], [facility]) eGFR If NonAfricn 77 Normal (applies MEDGEN (St Am mL/min/1 to non-numeric [facility] .73 results) [facility], [facility]) Sodium 141 Normal (applies MEDGEN (St [Moles/volume] in mmol/L to non-numeric [facility] Serum or Plasma results) [facility], [facility]) BUN/Creatinine 18 Normal (applies [facility]GEN (S t Ratio to non-numeric [facility] results) [facility]) Chloride 105 Normal (applies MEDGEN (St [Moles/volume] in mmol/L to non-numeric [facility] Serum or Plasma results) [facility], [facility]) Potassium 4.3 Normal (applies MEDGEN (St [Mass/volume] in mmol/L to non-numeric [facility] Blood results) [facility], [facility]) Carbon dioxide, 22 Normal (applies MEDGEN ( St total mmol/L to non-numeric [facility] [Moles/volume] in results) Medical, Serum or Plasma PC) Calcium 9.6 Normal (applies MEDGEN (St [Moles/volume] in mg/dL to non-numeric [facility] Urine collected for results) Medical, unspecified PC) duration Protein 7.3 g/dL Normal (applies MEDGEN (St [Mass/volume] in to non-numeric [facility] Serum or Plasma results) Medical, ) Microalbumin 4.6 g/dL Normal (applies MEDGEN (St [Mass/time] in to non-numeric [facility] Urine collected for results) Medical, unspecified PC) duration Globulin, Total 2.7 g/dL Normal (applies MEDGEN ( St to non-numeric [facility] results) Medical, ) A/G Ratio 1.7 Normal (applies [facility]GEN (St to non-numeric [facility] results) Medical, ) Alkaline 61 IU/L Normal (applies MEDGEN (St phosphatase to non-numeric [facility] [Enzymatic results) Medical, activity/volume] in ) Serum, Plasma or Blood Bilirubin.total 0.3 Normal (applies MEDGEN ( St [Mass/volume] in mg/dL to non-numeric [facility] Serum or Plasma results) Medical, ) Alanine 8 IU/L Normal (applies MEDGEN (St aminotransferase to non-numeric [facility] [Enzymatic results) Medical, activity/volume] in PC) Serum or Plasma Aspartate 11 IU/L Normal (applies MEDGEN (St aminotransferase to non-numeric [facility] [Enzymatic results) Medical, activity/volume] in PC) Serum or Plasma ID Date Data Source [id number] 11/01/2018 12:00:00 AM EDT [facility] ([facility], ) Name Value Range Interpretation Description Data Sup porting Code Source(s) Document(s ) Folate 3.1 ng/mL Normal (applies to MEDGEN (St (Folic non-numeric [facility] Acid), Serum results) [facility], ) Vitamin B12 468 pg/mL Normal (applies to MEDGEN (S t non-numeric [facility] results) [facility], ) ID Date Data Source [id number] 11/01/2018 12:00:00 AM EDT [facility] ([facility], ) Name Value Range Interpretation Description Data Sup porting Code Source(s) Document(s ) Folate 3.1 ng/mL Normal (applies to MEDGEN (St (Folic non-numeric [facility] Acid), Serum results) Medical, ) Vitamin B12 468 pg/mL Normal (applies to MEDGEN (S t non-numeric [facility] results) [facility], ) ID Date Data Source [id number] 10/25/2018 12:00:00 AM EDT MEDGEN ([facility], ) Name Value Range Interpretation Description Data Sup porting Code Source(s) Document(s ) Leukocytes 10.7 Normal (applies MEDGEN (St [#/volume] in x10E3/uL to non-numeric [facility] Blood by results) [facility], ) Automated count Erythrocytes 3.78 Normal (applies MEDGEN (St [#/volume] in x10E6/uL to non-numeric [facility] Blood by results) [facility], ) Automated count Hemoglobin 9.7 g/dL Below low normal MEDGEN (St [Mass/volume] in [facility] Blood [facility], ) Hematocrit 32.1 % Below low normal MEDGEN (St [Volume [facility] Fraction] of [facility], ) Blood by Automated count MCV 85 fL Normal (applies MEDGEN (St to non-numeric [facility] results) [facility], ) MCH 25.7 pg Below low normal [facility] ([facility] MCHC 30.2 Below low normal MEDGEN (St g/dL [facility], ) RDW 18.5 % Above high normal MEDGEN ([facility], ) Platelets 496 Above high normal MEDGEN (St [#/area] in x10E3/uL [facility] Blood by [facility], ) Microscopy high power field ID Date Data Source [id number] 10/25/2018 12:00:00 AM EDT MEDGEN ([facility], ) Name Value Range Interpretation Description Data Sup porting Code Source(s) Document(s ) Urea nitrogen 19 mg/dL Normal (applies MEDGEN (St [Mass/volume] in to non-numeric [facility] Serum or Plasma results) [facility], ) Glucose 97 mg/dL Normal (applies MEDGEN (St [Mass/volume] in to non-numeric [facility] Urine collected for results) [facility] ) duration eGFR If NonAfricn 70 Normal (applies MEDGEN (St Am mL/min/1 to non-numeric [facility] .73 results) [facility], ) Creatinine 0.95 Normal (applies MEDGEN (St [Interpretation] in mg/dL to non-numeric [facility] Urine results) Medical, ) eGFR If Africn Am 80 Normal (applies MEDGEN (St mL/min/1 to non-numeric [facility] .73 results) [facility], [facility]) BUN/Creatinine 20 Normal (applies [facility]GEN (S t Ratio to non-numeric [facility] results) [facility], [facility]) Sodium 141 Normal (applies MEDGEN (St [Moles/volume] in mmol/L to non-numeric [facility] Serum or Plasma results) [facility], [facility]) Potassium 4.0 Normal (applies MEDGEN (St [Mass/volume] in mmol/L to non-numeric [facility] Blood results) Medical, ) Chloride 106 Normal (applies MEDGEN (St [Moles/volume] in mmol/L to non-numeric [facility] Serum or Plasma results) Medical, ) Calcium 9.4 Normal (applies MEDGEN (St [Moles/volume] in mg/dL to non-numeric [facility] Urine collected for results) Medical, unspecified [facility]) duration Protein 7.2 g/dL Normal (applies [facility]GEN (St [Mass/volume] in to non-numeric [facility] Serum or Plasma results) Medical, ) Microalbumin 4.1 g/dL Normal (applies MEDGEN (St [Mass/time] in to non-numeric [facility] Urine collected for results) Medical, unspecified [facility]) duration Globulin, Total 3.1 g/dL Normal (applies MEDGEN ( St to non-numeric [facility] results) Medical, ) A/G Ratio 1.3 Normal (applies MEDGEN (St to non-numeric [facility] results) Medical, ) Bilirubin.total 0.7 Normal (applies MEDGEN ( St [Mass/volume] in mg/dL to non-numeric [facility] Serum or Plasma results) Medical, ) Alkaline 62 IU/L Normal (applies MEDGEN (St phosphatase to non-numeric [facility] [Enzymatic results) Medical, activity/volume] in PC) Serum, Plasma or Blood Aspartate 13 IU/L Normal (applies MEDGEN (St aminotransferase to non-numeric [facility] [Enzymatic results) Medical, activity/volume] in PC) Serum or Plasma ID Date Data Source [id number] 10/25/2018 12:00:00 AM EDT [facility] ([facility], ) Name Value Range Interpretation Code Description Data Patti rce(s) Supporting Document(s ) ID Date Data Source [id number] 10/25/2018 12:00:00 AM EDT [facility] ([facility], ) Name Value Range Interpretation Code Description Data Patti rce(s) Supporting Document(s ) PDF Image . Normal (applies to MEDGEN (St non-numeric results) [facility], ) ID Date Data Source [id number] 10/25/2018 12:00:00 AM EDT [facility] ([facility], ) Name Value Range Interpretation Code Description Data Patti rce(s) Supporting Document(s ) Ferritin, 66 ng/mL Normal (applies to MEDGEN (St Serum non-numeric [facility] results) [facility], ) ID Date Data Source [id number] 10/25/2018 12:00:00 AM EDT [facility] ([facility], ) Name Value Range Interpretation Description Data Sup porting Code Source(s) Document(s ) Hemoglobin 5.5 % Normal (applies to MEDGEN (St A1c/Hemoglobin. non-numeric [facility] total in Blood results) [facility], ) ID Date Data Source [id number] 10/25/2018 12:00:00 AM EDT [facility] ([facility], ) Name Value Range Interpretation Description Data Sup porting Code Source(s) Document(s ) UIBC 324 ug/dL Normal (applies to MEDGEN (St non-numeric [facility] results) [facility], ) Iron 359 ug/dL Normal (applies to MEDGEN (St Bind.Cap.(TIBC non-numeric [facility] ) results) [facility], ) Iron 10 % Below low normal MEDGEN (St saturation [facility] [[facility]) Fraction] in Serum or Plasma Iron 35 ug/dL Normal (applies to MEDGEN (St [Mass/volume] non-numeric [facility] in Serum or results) Medical, ) Plasma ID Date Data Source [id number] 10/25/2018 12:00:00 AM EDT [facility] ([facility], ) Name Value Range Interpretation Description Data Sup porting Code Source(s) Document(s ) Leukocytes 10.7 Normal (applies MEDGEN (St [#/volume] in x10E3/uL to non-numeric [facility] Blood by results) [facility], ) Automated count Hemoglobin 9.7 g/dL Below low normal MEDGEN (St [Mass/volume] in [facility] Blood [facility], ) Erythrocytes 3.78 Normal (applies MEDGEN (St [#/volume] in x10E6/uL to non-numeric [facility] Blood by results) Medical, ) Automated count MCV 85 fL Normal (applies [facility]GEN (St to non-numeric [facility] results) [facility], [facility]) Hematocrit 32.1 % Below low normal MEDGEN (St [Volume [facility] Fraction] of [facility], ) Blood by Automated count MCH 25.7 pg Below low normal [facility] ([facility], ) MCHC 30.2 Below low normal MEDGEN (St g/dL [facility], ) Platelets 496 Above high normal MEDGEN (St [#/area] in x10E3/uL [facility] Blood by [facility], ) Microscopy high power field RDW 18.5 % Above high normal [facility] ([facility], ) ID Date Data Source [id number] 10/25/2018 12:00:00 AM EDT [facility] ([facility], ) Name Value Range Interpretation Description Data Sup porting Code Source(s) Document(s ) Glucose 97 mg/dL Normal (applies MEDGEN (St [Mass/volume] in to non-numeric [facility] Urine collected for results) [facility], unspecified ) duration Creatinine 0.95 Normal (applies MEDGEN (St [Interpretation] in mg/dL to non-numeric [facility] Urine results) Medical, ) Urea nitrogen 19 mg/dL Normal (applies MEDGEN (St [Mass/volume] in to non-numeric [facility] Serum or Plasma results) Medical, ) eGFR If Africn Am 80 Normal (applies MEDGEN (St mL/min/1 to non-numeric [facility] .73 results) Medical, ) eGFR If NonAfricn 70 Normal (applies MEDGEN (St Am mL/min/1 to non-numeric [facility] .73 results) Medical, ) Potassium 4.0 Normal (applies MEDGEN (St [Mass/volume] in mmol/L to non-numeric [facility] Blood results) Medical, ) Sodium 141 Normal (applies MEDGEN (St [Moles/volume] in mmol/L to non-numeric [facility] Serum or Plasma results) Medical, ) BUN/Creatinine 20 Normal (applies MEDGEN (S t Ratio to non-numeric [facility] results) Medical, ) Chloride 106 Normal (applies MEDGEN (St [Moles/volume] in mmol/L to non-numeric [facility] Serum or Plasma results) Medical, ) Calcium 9.4 Normal (applies [facility]GEN (St [Moles/volume] in mg/dL to non-numeric [facility] Urine collected for results) Medical, unspecified PC) duration Microalbumin 4.1 g/dL Normal (applies MEDGEN (St [Mass/time] in to non-numeric [facility] Urine collected for results) Medical, unspecified PC) duration Protein 7.2 g/dL Normal (applies MEDGEN (St [Mass/volume] in to non-numeric [facility] Serum or Plasma results) Medical, ) A/G Ratio 1.3 Normal (applies MEDGEN (St to non-numeric [facility] results) Medical, ) Globulin, Total 3.1 g/dL Normal (applies MEDGEN ( St to non-numeric [facility] results) Medical, ) Alkaline 62 IU/L Normal (applies MEDGEN (St phosphatase to non-numeric [facility] [Enzymatic results) Medical, activity/volume] in PC) Serum, Plasma or Blood Bilirubin.total 0.7 Normal (applies MEDGEN ( St [Mass/volume] in mg/dL to non-numeric [facility] Serum or Plasma results) Medical, ) Aspartate 13 IU/L Normal (applies MEDGEN (St aminotransferase to non-numeric [facility] [Enzymatic results) Medical, activity/volume] in PC) Serum or Plasma ID Date Data Source [id number] 10/25/2018 12:00:00 AM EDT [facility] ([facility], ) Name Value Range Interpretation Code Description Data Patti rce(s) Supporting Document(s ) ID Date Data Source [id number] 10/25/2018 12:00:00 AM EDT [facility] ([facility] Name Value Range Interpretation Code Description Data Patti rce(s) Supporting Document(s ) PDF Image . Normal (applies to MEDGEN (St non-numeric results) [facility], ) ID Date Data Source [id number] 10/25/2018 12:00:00 AM EDT [facility] ([facility], ) Name Value Range Interpretation Code Description Data Patti rce(s) Supporting Document(s ) Ferritin, 66 ng/mL Normal (applies to MEDGEN (St Serum non-numeric [facility] results) Medical, ) ID Date Data Source [id number] 10/25/2018 12:00:00 AM EDT [facility] Name Value Range Interpretation Description Data Sup porting Code Source(s) Document(s ) Hemoglobin 5.5 % Normal (applies to MEDGEN (St A1c/Hemoglobin. non-numeric [facility] total in Blood results) Medical, ) ID Date Data Source [id number] 10/25/2018 12:00:00 AM EDT [facility] ([facility], ) Name Value Range Interpretation Description Data Sup porting Code Source(s) Document(s ) Iron 359 ug/dL Normal (applies to MEDGEN (St Bind.Cap.(TIBC non-numeric [facility] ) results) Medical, ) Iron 35 ug/dL Normal (applies to [facility]GEN (St [Mass/volume] non-numeric [facility] in Serum or results) Medical, ) Plasma UIBC 324 ug/dL Normal (applies to MEDGEN (St non-numeric [facility] results) [facility], ) Iron 10 % Below low normal MEDGEN (St saturation [facility] [[facility], ) Fraction] in Serum or Plasma ID Date Data Source [id number] 01/31/2018 11:03:32 AM [facility] [id number] [facility] Name Value Range Interpretation Description Data Sup porting Code Source(s) Document(s ) Chest PA (PACSIMAGE <td> 01/29/2018 [facility] & 20:10</td><td> [facility] ) Final Chest PA & [facility] Result </td><td>[facility] Name: MAURICE hugh FRANCISCO MRN: styleCode="Sal [id number] Sex: F ">(PACSIMAGE : 1965 )</paragraph>
Location: F
Final Admitting Result Physician:

EMERGENCY Name: [facility]
Requesting Sex: Physician: F
TAY KLEIN : Exam: CHEST 1965 PA AND LATERAL Location: F 01/29/2018
20:42 Admitting HISTORY: Physician: Admission EMERGENCY SERVICE TECHNIQUE:
Portable, Requesting frontal Physician: TAY radiograph of LATOYA the chest

COMPARISON: No Exam: CHEST PA AND priors LATERAL 01/29/2018 available -- 20:42 FINDINGS:

Lines/Tubes/Ot HISTORY: her: Anterior Admission cervical disc

fusion TECHNIQUE: hardware is Portable, frontal visualized. radiograph of the chest Cardiomediasti

nal silhouette COMPARISON: No is borderline priors available in size. No -- focal

consolidations FINDINGS: . No pleural
effusions. No Lines/Tubes/Other: pneumothorax. Anterior cervical disc fusion IMPRESSION: hardware is No focal
consolidations visualized. or pulmonary

edema. Cardiomediastinal Resident silhouette is Radiologist: borderline in Max Barraza size. No focal MD Resident
Radiologist consolidations. No Attending pleural effusions. Radiologist: No pneumothorax. Tonia Farooq MD

Finalizing IMPRESSION: Radiologist:

Tonia Farooq No focal MD consolidations or Transcribed pulmonary edema. Date: 01/29/2018

<br 20:45 /> Resident Finalized Radiologist: Max Date: Madi BOYKIN Resident 01/29/2018 Radiologist 21:44
Attending Radiologist: Tonia Farooq MD
Finalizing Radiologist: Tonia Faroqo MD
Transcribed Date: 01/29/2018 20:45
Finalized Date: 01/29/2018 21:44

</td> Chest PA (PACSIMAGE <td> 01/29/2018 [facility] & 20:10</td><td> [facility] ) Final Chest PA & Lateral Health Care Result </td><td>[facility] Name: hugh RICHARDS MRN: styleCode="Italics [id number] Sex: F ">(PACSIMAGE : 1965 )</paragraph>
Location: F
Final Admitting Result Physician:

EMERGENCY Name: [facility]
Requesting Sex: Physician: F
TAY KLEIN : Exam: CHEST 1965 PA AND LATERAL Location: F 01/29/2018
20:42 Admitting HISTORY: Physician: Admission EMERGENCY SERVICE TECHNIQUE:
Portable, Requesting frontal Physician: TAY radiograph of LATOYA the chest

COMPARISON: No Exam: CHEST PA AND priors LATERAL 01/29/2018 available -- 20:42 FINDINGS:

Lines/Tubes/Ot HISTORY: her: Anterior Admission cervical disc

fusion TECHNIQUE: hardware is Portable, frontal visualized. radiograph of the chest Cardiomediasti

nal silhouette COMPARISON: No is borderline priors available in size. No -- focal

consolidations FINDINGS: . No pleural
effusions. No Lines/Tubes/Other: pneumothorax. Anterior cervical disc fusion IMPRESSION: hardware is No focal
consolidations visualized. or pulmonary

edema. Cardiomediastinal Resident silhouette is Radiologist: borderline in Max Barraza size. No focal MD Resident
Radiologist consolidations. No Attending pleural effusions. Radiologist: No pneumothorax. Tonia Farooq MD

Finalizing IMPRESSION: Radiologist:

Tonia Farooq No focal consolidations or Transcribed pulmonary edema. Date: 01/29/2018

<br 20:45 /> Resident Finalized Radiologist: Max Date: Barraza MD Resident 01/29/2018 Radiologist 21:44
Attending Radiologist: Tonia Farooq MD
Finalizing Radiologist: Tonia Farooq MD
Transcribed Date: 01/29/2018 20:45
Finalized Date: 01/29/2018 21:44

</td> Chest PA (PACSIMAGE <td> 01/29/2018 [facility] & 20:10</td><td> [facility] ) Final Chest PA & [facility] Health [facility] Result </td><td>[facility] Name: hugh RICHARDS MRN: styleCode="Sal [id number] Sex: F ">(PACSIMAGE : 1965 )</paragraph>
Location: F
Final Admitting Result Physician:

EMERGENCY Name: [facility]
Requesting Sex: Physician: F
TAY KLEIN : Exam: CHEST 1965 PA AND LATERAL Location: F 01/29/2018
20:42 Admitting HISTORY: Physician: Admission EMERGENCY SERVICE TECHNIQUE:
Portable, Requesting frontal Physician: TAY radiograph of LATOYA the chest

COMPARISON: No Exam: CHEST PA AND priors LATERAL 01/29/2018 available -- 20:42 FINDINGS:

Lines/Tubes/Ot HISTORY: her: Anterior Admission cervical disc

fusion TECHNIQUE: hardware is Portable, frontal visualized. radiograph of the chest Cardiomediasti

nal silhouette COMPARISON: No is borderline priors available in size. No -- focal

consolidations FINDINGS: . No pleural
effusions. No Lines/Tubes/Other: pneumothorax. Anterior cervical disc fusion IMPRESSION: hardware is No focal
consolidations visualized. or pulmonary

edema. Cardiomediastinal Resident silhouette is Radiologist: borderline in Max Barraza size. No focal MD Resident
Radiologist consolidations. No Attending pleural effusions. Radiologist: No pneumothorax. Tonia Farooq MD

Finalizing IMPRESSION: Radiologist:

Tonia Farooq No focal consolidations or Transcribed pulmonary edema. Date: 01/29/2018

<br 20:45 /> Resident Finalized Radiologist: Max Date: Madi BOYKIN Resident 01/29/2018 Radiologist 21:44
Attending Radiologist: Tonia Farooq MD
Finalizing Radiologist: Tonia Farooq MD
Transcribed Date: 01/29/2018 20:45
Finalized Date: 01/29/2018 21:44

</td> ID Date Data Source [id number] 01/31/2018 11:03:[address] [facility] [id number] Corporation Name Value Range Interpretation Description Data Sup porting Code Source(s) Document(s ) Hematocrit 28.2 % 37.0-4 <td> [facility] [Volume 7.0 % 02/01/2018 [facility] Fraction] of 07:30</td><td> Health Care Blood by HCT [facility] Automated count </td><td><para graph styleCode="Ella d"> 28.2 L </paragraph><b r/> (37.0-47.0) % </td> Erythrocytes 3.32 m/mm3 3.90-5 <td> [facility] [#/volume] in .20 02/01/2018 [facility] Blood m/mm3 07:30</td><td> Health Care RBC [facility] </td><td><para graph styleCode="Ella d"> 3.32 L </paragraph><b r/> (3.90-5.20) m/mm3 </td> Hemoglobin 8.8 g/dL 12.0-1 <td> [facility] [Mass/volume] in 6.0 02/01/2018 [facility] Blood g/dL 07:30</td><td> Health Care HGB [facility] </td><td><para graph styleCode="Ella d"> 8.8 L </paragraph><b r/> (12.0-16.0) g/dL </td> Erythrocyte mean 84.9 fL 81.0-9 <td> [facility] corpuscular 9.0 fL 02/01/2018 [facility] volume [Entitic 07:30</td><td> Health Ca re volume] by MCV </td><td> Corporation Automated count 84.9
(81.0-99.0) fL </td> Leukocytes 8.4 k/mm3 4.8-10 <td> [facility] [#/volume] in .8 02/01/2018 [facility] Blood by k/mm3 07:30</td><td> Health Care Automated count WBC </td><td> Corporati on 8.4
(4.8-10.8) k/mm3 </td> Platelets 484 k/mm3 160-41 <td> [facility] [#/volume] in 0 02/01/2018 [facility] Blood by k/mm3 07:30</td><td> Health Care Automated count Platelet Count Corporati on </td><td><par agraph styleCode="Ella d"> 484 H </paragraph><b r/> (160-410) k/mm3 </td> Erythrocyte mean 26.5 pg 27.0-3 <td> [facility] corpuscular 1.5 pg 02/01/2018 [facility] hemoglobin 07:30</td><td> Health Care [Entitic mass] [facility] Corporation by Automated </td><td><para count graph styleCode="Ella d"> 26.5 L </paragraph><b r/> (27.0-31.5) pg </td> Lymphocytes 32.3 % 17.0-5 <td> [facility] [#/volume] in 0.0 % 01/29/2018 [facility] Blood by 21:03</td><td> Health Care Automated count Lymphocytes [facility] </td><td> 32.3
(17.0-50.0) % </td> Platelet mean 10.4 fL 9.8-12 <td> [facility] volume [Entitic .8 fL 02/01/2018 [facility] volume] in Blood 07:30</td><td> Health C are by Automated MPV </td><td> Corporation count 10.4
(9.8-12.8) fL </td> Erythrocyte mean 31.2 % 32.0-3 <td> [facility] corpuscular 6.0 % 02/01/2018 [facility] hemoglobin 07:30</td><td> [facility] [Mass/volume] in </td><td><para Blood from [facility] graph by Automated styleCode="Ella count d"> 31.2 L </paragraph><b r/> (32.0-36.0) % </td> Erythrocyte 16.9 % 11.5-1 <td> [facility] distribution 4.5 % 02/01/2018 [facility] width [Entitic 07:30</td><td> Health Car e volume] by RDW [facility] Automated count </td><td><para graph styleCode="Ella d"> 16.9 H </paragraph><b r/> (11.5-14.5) % </td> Immature 0.3 % 0.0-0. <td> [place] granulocytes/100 5 % 01/29/2018 [facility] leukocytes in 21:03</td><td> Health Care Blood by IG% </td><td> [facility] Automated count 0.3
(0.0-0.5) %
The IG fraction represents metamyelocytes , myelocytes and/or
promyelocytes and is only reported as part of the automated
differential when found at a percentage of less than 6.
If higher than 6%, a manual differential will be performed.

(0.0-0.5) % </td> Monocytes/Leukoc 6.6 % 0.0-11 <td> [place] ytes [Pure .0 % 01/29/2018 [facility] number fraction] 21:03</td><td> Health C are in Blood by Monocytes. Corporation Automated count </td><td> 6.6
(0.0-11.0) % </td> Basophils 0.1 % 0.0-2. <td> [place] [#/volume] in 0 % 01/29/2018 [facility] Blood by 21:03</td><td> Health Care Automated count Basophils [employer] </td><td> 0.1
(0.0-2.0) % </td> Basophils+Eosino 2.0 % 0.0-5. <td> [place] phils+Monocytes 0 % 01/29/2018 [facility] [#/volume] in 21:03</td><td> Health Care Blood by Eosinophils [facility] Automated count </td><td> 2.0
(0.0-5.0) % </td> Glucose 94 mg/dL 70-105 <td> [place] [Mass/volume] in mg/dL 02/01/2018 [facility] Blood 07:30</td><td> Health Care Glucose-Serum [employer] </td><td> 94
(70-105) mg/dL </td> Neutrophils [#] 58.7 % 40.0-7 <td> [place] in Body fluid by 6.0 % 01/29/2018 [facility] Manual count 21:03</td><td> Health Care Neutrophils [facility] </td><td> 58.7
(40.0-76.0) % </td> Sodium 139 mEq/L 135-14 <td> [place] [Moles/volume] 5 02/01/2018 [facility] in Serum or mEq/L 07:30</td><td> Health Care Plasma Sodium-Serum [facility] </td><td> 139
(135-145) mEq/L </td> Urea nitrogen 12 mg/dL 6-22 <td> [place] [Mass/volume] in mg/dL 02/01/2018 [facility] Blood 07:30</td><td> Health Care BUN </td><td> Corporation 12
(6-22) mg/dL </td> Chloride 108 mEq/L 98-107 <td> [place] [Moles/volume] mEq/L 02/01/2018 [facility] in Serum or 07:30</td><td> Health Care Plasma Chloride [facility] </td><td><para graph styleCode="Ella d"> 108 H </paragraph><b r/> (98-107) mEq/L </td> Carbon dioxide, 25 mEq/L 22-30 <td> [place] total mEq/L 02/01/2018 [facility] [Moles/volume] 07:30</td><td> Health Car e in Serum or CO2 </td><td> Corporation Plasma 25
(22-30) mEq/L </td> Aspartate 8 U/L 4-35 <td> [place] aminotransferase U/L 02/01/2018 [facility] [Enzymatic 07:30</td><td> Health Care activity/volume] AST (SGOT) [employer] in Serum or </td><td> Plasma 8
(4-35) U/L </td> Creatinine 0.99 mg/dL 0.57-1 <td> [place] [Moles/volume] .11 02/01/2018 [facility] in Serum or mg/dL 07:30</td><td> Health Care Plasma Creatinine. Corporation </td><td> 0.99
(0.57-1.11) mg/dL </td> Potassium 3.8 mEq/L 3.5-5. <td> [place] [Moles/volume] 1 02/01/2018 [facility] in Serum or mEq/L 07:30</td><td> Health Care Plasma Potassium-Seru [employer] m </td><td> 3.8
(3.5-5.1) mEq/L </td> Alanine 10 U/L 6-55 <td> [place] aminotransferase U/L 02/01/2018 [facility] [Enzymatic 07:30</td><td> Health Care activity/volume] ALT (SGPT) [facility] in Serum or </td><td> Plasma 10
(6-55) U/L </td> Albumin 3.5 g/dL 3.4-4. <td> [place] [Mass/volume] in 8 g/dL 02/01/2018 [facility] Serum or Plasma 07:30</td><td> Health Ca re Albumin [employer] </td><td> 3.5
(3.4-4.8) g/dL </td> Calcium 8.8 mg/dL 8.6-10 <td> [place] [Mass/volume] in .2 02/01/2018 [facility] Blood mg/dL 07:30</td><td> Health Care Calcium [facility] </td><td> 8.8
(8.6-10.2) mg/dL </td> Anion gap in 6 mEq/L 7-13 <td> [place] Serum or Plasma mEq/L 02/01/2018 [facility] 07:30</td><td> Health Care Anion Gap [employer] </td><td><para graph styleCode="Ella d"> 6 L </paragraph><b r/> (7-13) mEq/L </td> Bilirubin.total 0.6 mg/dL 0.2-1. <td> [place] [Mass/volume] in 3 02/01/2018 [facility] Blood mg/dL 07:30</td><td> Health Care Bilirubin - [facility] Total </td><td> 0.6
(0.2-1.3) mg/dL </td> Proteins - Total 6.6 g/dL 6.4-8. <td> [place] 3 g/dL 02/01/2018 [facility] 07:30</td><td> Health Care Proteins - [facility] Total </td><td> 6.6
(6.4-8.3) g/dL </td> Phosphate 2.9 mg/dL 2.3-4. <td> [place] [Mass/volume] in 7 02/01/2018 [facility] Serum or Plasma mg/dL 07:30</td><td> Health Ca re Inorganic [facility] Phosphorus </td><td> 2.9
(2.3-4.7) mg/dL </td> Globulin 3.1 gm/dL 2.9-4. <td> [place] [Mass/volume] in 0 02/01/2018 [facility] Serum gm/dL 07:30</td><td> Health Care Globulin [employer] </td><td> 3.1
(2.9-4.0) gm/dL </td> Hemolysis index No <td> [place] of Serum or Hemolysis 02/01/2018 [facility] Plasma 07:30</td><td> Health Care Hemolysis [employer] Index </td><td> No Hemolysis
</td> Icteric index of Not <td> [place] Serum or Plasma Icteric 02/01/2018 [facility] 07:30</td><td> Health Care Icteric Index [facility] </td><td> Not Icteric
</td> Magnesium 2.0 mg/dL 1.6-2. <td> [place] [Mass/volume] in 6 02/01/2018 [facility] Serum or Plasma mg/dL 07:30</td><td> Health Ca Magnesium [employer] Level </td><td> 2.0
(1.6-2.6) mg/dL </td> Lipemic index of No Lipemia <td> [place] Serum or Plasma 02/01/2018 [facility] 07:30</td><td> Health Care Lipemia Index [employer] </td><td> No Lipemia
</td> Hemoglobin A1C 5.6 % 4.0-5. <td> [place] 6 % 01/31/2018 [facility] 09:11</td><td> Health Care Hemoglobin [employer] A1C </td><td> 5.6
(4.0-5.6) %
Increased risk for diabetes mellitus is seen in patients with HgA1C values
between 5.7-6.4%. Values > or = 6.5% are considered diagnostic of diabetes
mellitus.
=====
ESTIMATED AVERAGE GLUCOSE (eAG)
-----
RELATIONSHIP BETWEEN A1C AND eAG
=====
A1C(%) eAG(mg/dL)
6 126
7 154
8 183
9 212
10 -240
11 -269
12 -298
Source: Adapted from [place] [employer]. Standards of medical
care in diabetes-2014. Diabetes Care.2014;37(S [facility] 1):S14-S80, table 8.

PLEASE NOTE NEW REFERENCE RANGES EFFECTIVE 14

(4.0-5.6) % </td> Glucose 94 mg/dL 70-105 <td> [place] [Mass/volume] in mg/dL 02/01/2018 [facility] Capillary blood 12:32</td><td> Health Ca re by Glucometer Glucose - Corporation Finger Stick </td><td> 94
(70-105) mg/dL </td> Hemoglobin 8.8 g/dL 12.0-1 <td> [place] [Mass/volume] in 6.0 02/01/2018 [facility] Blood g/dL 07:30</td><td> Health Care HGB [facility] </td><td><para graph styleCode="Ella d"> 8.8 L </paragraph><b r/> (12.0-16.0) g/dL </td> Erythrocytes 3.32 m/mm3 3.90-5 <td> [place] [#/volume] in .20 02/01/2018 [facility] Blood m/mm3 07:30</td><td> Health Care RBC [facility] </td><td><para graph styleCode="Ella d"> 3.32 L </paragraph><b r/> (3.90-5.20) m/mm3 </td> Leukocytes 8.4 k/mm3 4.8-10 <td> [place] [#/volume] in .8 02/01/2018 [facility] Blood by k/mm3 07:30</td><td> Health Care Automated count WBC </td><td> Corpor[employer] on 8.4
(4.8-10.8) k/mm3 </td> Platelet mean 10.4 fL 9.8-12 <td> [place] volume [Entitic .8 fL 02/01/2018 [facility] volume] in Blood 07:30</td><td> Health C are by Automated MPV </td><td> Corporation count 10.4
(9.8-12.8) fL </td> Erythrocyte 16.9 % 11.5-1 <td> [place] distribution 4.5 % 02/01/2018 [facility] width [Entitic 07:30</td><td> Health Car e volume] by RDW [employer] Automated count </td><td><para graph styleCode="Ella d"> 16.9 H </paragraph><b r/> (11.5-14.5) % </td> Erythrocyte mean 31.2 % 32.0-3 <td> [place] corpuscular 6.0 % 02/01/2018 [facility] hemoglobin 07:30</td><td> Health Care concentration [employer] [Mass/volume] in </td><td><para Blood from [place] graph by Automated styleCode="Ella count d"> 31.2 L </paragraph><b r/> (32.0-36.0) % </td> Erythrocyte mean 26.5 pg 27.0-3 <td> [place] corpuscular 1.5 pg 02/01/2018 [facility] hemoglobin 07:30</td><td> Health Care [Entitic mass] [employer] by Automated </td><td><para count graph styleCode="Ella d"> 26.5 L </paragraph><b r/> (27.0-31.5) pg </td> Erythrocyte mean 84.9 fL 81.0-9 <td> [place] corpuscular 9.0 fL 02/01/2018 [facility] volume [Entitic 07:30</td><td> Health Ca re volume] by MCV </td><td> [employer] Automated count 84.9
(81.0-99.0) fL </td> Hematocrit 28.2 % 37.0-4 <td> [place] [Volume 7.0 % 02/01/2018 [facility] of 07:30</td><td> Health Care Blood by HCT [employer] Automated count </td><td><para graph styleCode="Ella d"> 28.2 L </paragraph><b r/> (37.0-47.0) % </td> Immature 0.3 % 0.0-0. <td> [place] granulocytes/100 5 % 01/29/2018 [facility] leukocytes in 21:03</td><td> Health Care Blood by IG% </td><td> [employer] Automated count 0.3
(0.0-0.5) %
The IG fraction represents metamyelocytes , myelocytes and/or
promyelocytes and is only reported as part of the automated
differential when found at a percentage of less than 6.
If higher than 6%, a manual differential will be performed.

(0.0-0.5) % </td> Basophils 0.1 % 0.0-2. <td> [place] [#/volume] in 0 % 01/29/2018 [facility] Blood by 21:03</td><td> Health Care Automated count Basophils [employer] </td><td> 0.1
(0.0-2.0) % </td> Basophils+Eosino 2.0 % 0.0-5. <td> [place] phils+Monocytes 0 % 01/29/2018 [facility] [#/volume] in 21:03</td><td> Health Care Blood by Eosinophils [employer] Automated count </td><td> 2.0
(0.0-5.0) % </td> Monocytes/Leukoc 6.6 % 0.0-11 <td> [place] ytes [Pure .0 % 01/29/2018 [facility] number fraction] 21:03</td><td> Health C are in Blood by Monocytes. [employer] Automated count </td><td> 6.6
(0.0-11.0) % </td> Lymphocytes 32.3 % 17.0-5 <td> [place] [#/volume] in 0.0 % 01/29/2018 [facility] Blood by 21:03</td><td> Health Care Automated count Lymphocytes [employer] </td><td> 32.3
(17.0-50.0) % </td> Platelets 484 k/mm3 160-41 <td> [place] [#/volume] in 0 02/01/2018 [facility] Blood by k/mm3 07:30</td><td> Health Care Automated count Platelet Count [employer] on </td><td><par agraph styleCode="Ella d"> 484 H </paragraph><b r/> (160-410) k/mm3 </td> Carbon dioxide, 25 mEq/L 22-30 <td> [place] total mEq/L 02/01/2018 [facility] [Moles/volume] 07:30</td><td> Health Car e in Serum or CO2 </td><td> [facility] Plasma 25
(22-30) mEq/L </td> Chloride 108 mEq/L 98-107 <td> [place] [Moles/volume] mEq/L 02/01/2018 [facility] in Serum or 07:30</td><td> Health Care Plasma Chloride [facility] </td><td><para graph styleCode="Ella d"> 108 H </paragraph><b r/> (98-107) mEq/L </td> Potassium 3.8 mEq/L 3.5-5. <td> [place] [Moles/volume] 1 02/01/2018 [facility] in Serum or mEq/L 07:30</td><td> Health Care Plasma Potassium-Seru [facility] m </td><td> 3.8
(3.5-5.1) mEq/L </td> Sodium 139 mEq/L 135-14 <td> [place] [Moles/volume] 5 02/01/2018 [facility] in Serum or mEq/L 07:30</td><td> Health Care Plasma Sodium-Serum [employer] </td><td> 139
(135-145) mEq/L </td> Glucose 94 mg/dL 70-105 <td> [place] [Mass/volume] in mg/dL 02/01/2018 [facility] Blood 07:30</td><td> Health Care Glucose-Serum [employer] </td><td> 94
(70-105) mg/dL </td> Neutrophils [#] 58.7 % 40.0-7 <td> [place] in Body fluid by 6.0 % 01/29/2018 [facility] Manual count 21:03</td><td> Health Care Neutrophils [employer] </td><td> 58.7
(40.0-76.0) % </td> Albumin 3.5 g/dL 3.4-4. <td> [place] [Mass/volume] in 8 g/dL 02/01/2018 [facility] Serum or Plasma 07:30</td><td> Health Ca re Albumin [employer] </td><td> 3.5
(3.4-4.8) g/dL </td> Proteins - Total 6.6 g/dL 6.4-8. <td> [place] 3 g/dL 02/01/2018 [facility] 07:30</td><td> Health Care Proteins - [employer] Total </td><td> 6.6
(6.4-8.3) g/dL </td> Bilirubin.total 0.6 mg/dL 0.2-1. <td> [place] [Mass/volume] in 3 02/01/2018 [facility] Blood mg/dL 07:30</td><td> Health Care Bilirubin - [employer] Total </td><td> 0.6
(0.2-1.3) mg/dL </td> Alanine 10 U/L 6-55 <td> [place] aminotransferase U/L 02/01/2018 [facility] [Enzymatic 07:30</td><td> Health Care activity/volume] ALT (SGPT) [facility] in Serum or </td><td> Plasma 10
(6-55) U/L </td> Aspartate 8 U/L 4-35 <td> [place] aminotransferase U/L 02/01/2018 [facility] [Enzymatic 07:30</td><td> Health Care activity/volume] AST (SGOT) [facility] in Serum or </td><td> Plasma 8
(4-35) U/L </td> Creatinine 0.99 mg/dL 0.57-1 <td> [place] [Moles/volume] .11 02/01/2018 [facility] in Serum or mg/dL 07:30</td><td> Health Care Plasma Creatinine. [facility] </td><td> 0.99
(0.57-1.11) mg/dL </td> Urea nitrogen 12 mg/dL 6-22 <td> [place] [Mass/volume] in mg/dL 02/01/2018 [facility] Blood 07:30</td><td> Health Care BUN </td><td> [employer] 12
(6-22) mg/dL </td> Icteric index of Not <td> [place] Serum or Plasma Icteric 02/01/2018 [facility] 07:30</td><td> Health Care Icteric Index [facility] </td><td> Not Icteric
</td> Lipemic index of No Lipemia <td> [place] Serum or Plasma 02/01/2018 [facility] 07:30</td><td> Health Care Lipemia Index [facility] </td><td> No Lipemia
</td> Hemolysis index No <td> [place] of Serum or Hemolysis 02/01/2018 [facility] Plasma 07:30</td><td> Health Care Hemolysis [employer] Index </td><td> No Hemolysis
</td> Globulin 3.1 gm/dL 2.9-4. <td> [place] [Mass/volume] in 0 02/01/2018 [facility] Serum gm/dL 07:30</td><td> Health Care Globulin [employer] </td><td> 3.1
(2.9-4.0) gm/dL </td> Anion gap in 6 mEq/L 7-13 <td> [place] Serum or Plasma mEq/L 02/01/2018 [facility] 07:30</td><td> Health Care Anion Gap [facility] </td><td><para graph styleCode="Ella d"> 6 L </paragraph><b r/> (7-13) mEq/L </td> Calcium 8.8 mg/dL 8.6-10 <td> [place] [Mass/volume] in .2 02/01/2018 [facility] Blood mg/dL 07:30</td><td> Health Care Calcium [facility] </td><td> 8.8
(8.6-10.2) mg/dL </td> Glucose 94 mg/dL 70-105 <td> [place] [Mass/volume] in mg/dL 02/01/2018 [facility] Capillary blood 12:32</td><td> Health Ca re by Glucometer Glucose - [facility] Finger Stick </td><td> 94
(70-105) mg/dL </td> Hemoglobin A1C 5.6 % 4.0-5. <td> [place] 6 % 01/31/2018 [facility] 09:11</td><td> [facility] Hemoglobin [facility] A1C </td><td> 5.6
(4.0-5.6) %
Increased risk for diabetes mellitus is seen in patients with HgA1C values
between 5.7-6.4%. Values > or = 6.5% are considered diagnostic of diabetes
mellitus.
=====
ESTIMATED AVERAGE GLUCOSE (eAG)
-----
RELATIONSHIP BETWEEN A1C AND eAG
=====
A1C(%) eAG(mg/dL)
6 126
7 154
8 183
9 212
10 -240
11 -269
12 -298
Source: Adapted from [place] [employer]. Standards of medical
care in diabetes-2014. Diabetes Care.2014;37(S [facility] 1):S14-S80, table 8.

PLEASE NOTE NEW REFERENCE RANGES EFFECTIVE 14

(4.0-5.6) % </td> Magnesium 2.0 mg/dL 1.6-2. <td> [place] [Mass/volume] in 6 02/01/2018 [facility] Serum or Plasma mg/dL 07:30</td><td> [employer] Magnesium [facility] Level </td><td> 2.0
(1.6-2.6) mg/dL </td> Phosphate 2.9 mg/dL 2.3-4. <td> [place] [Mass/volume] in 7 02/01/2018 [facility] Serum or Plasma mg/dL 07:30</td><td> [employer] Inorganic [facility] Phosphorus </td><td> 2.9
(2.3-4.7) mg/dL </td> Hemoglobin 8.7 g/dL 12.0-1 <td> [place] [Mass/volume] in 6.0 01/31/2018 [facility] Blood g/dL 09:11</td><td> Health Care HGB [employer] </td><td><para graph styleCode="Ella d"> 8.7 L </paragraph><b r/> (12.0-16.0) g/dL </td> Erythrocytes 3.27 m/mm3 3.90-5 <td> [place] [#/volume] in .20 01/31/2018 [facility] Blood m/mm3 09:11</td><td> Health Care RBC [employer] </td><td><para graph styleCode="Ella d"> 3.27 L </paragraph><b r/> (3.90-5.20) m/mm3 </td> Leukocytes 7.0 k/mm3 4.8-10 <td> [place] [#/volume] in .8 01/31/2018 [facility] Blood by k/mm3 09:11</td><td> Health Care Automated count WBC </td><td> Corporati on 7.0
(4.8-10.8) k/mm3 </td> Platelet mean 10.1 fL 9.8-12 <td> [place] volume [Entitic .8 fL 01/31/2018 [facility] volume] in Blood 09:11</td><td> Health C are by Automated MPV </td><td> Corporation count 10.1
(9.8-12.8) fL </td> Erythrocyte 17.1 % 11.5-1 <td> [place] distribution 4.5 % 01/31/2018 [facility] width [Entitic 09:11</td><td> Health Car e volume] by RDW [facility] Automated count </td><td><para graph styleCode="Ella d"> 17.1 H </paragraph><b r/> (11.5-14.5) % </td> Erythrocyte mean 31.3 % 32.0-3 <td> [place] corpuscular 6.0 % 01/31/2018 [facility] hemoglobin 09:11</td><td> Health Care concentration [employer] [Mass/volume] in </td><td><para Blood from Fetus graph by Automated styleCode="Ella count d"> 31.3 L </paragraph><b r/> (32.0-36.0) % </td> Erythrocyte mean 26.6 pg 27.0-3 <td> [place] corpuscular 1.5 pg 01/31/2018 [facility] hemoglobin 09:11</td><td> Health Care [Entitic mass] [employer] by Automated </td><td><para count graph styleCode="Ella d"> 26.6 L </paragraph><b r/> (27.0-31.5) pg </td> Erythrocyte mean 85.0 fL 81.0-9 <td> [place] corpuscular 9.0 fL 01/31/2018 [facility] volume [Entitic 09:11</td><td> Health Ca re volume] by MCV </td><td> [facility] Automated count 85.0
(81.0-99.0) fL </td> Hematocrit 27.8 % 37.0-4 <td> [place] [Volume 7.0 % 01/31/2018 [facility] of 09:11</td><td> Health Care Blood by HCT [employer] Automated count </td><td><para graph styleCode="Ella d"> 27.8 L </paragraph><b r/> (37.0-47.0) % </td> Immature 0.3 % 0.0-0. <td> [place] granulocytes/100 5 % 01/29/2018 [facility] leukocytes in 21:03</td><td> Health Care Blood by IG% </td><td> Corporation Automated count 0.3
(0.0-0.5) %
The IG fraction represents metamyelocytes , myelocytes and/or
promyelocytes and is only reported as part of the automated
differential when found at a percentage of less than 6.
If higher than 6%, a manual differential will be performed.

(0.0-0.5) % </td> Basophils 0.1 % 0.0-2. <td> [place] [#/volume] in 0 % 01/29/2018 [facility] Blood by 21:03</td><td> Health Care Automated count Basophils [employer] </td><td> 0.1
(0.0-2.0) % </td> Basophils+Eosino 2.0 % 0.0-5. <td> [place] phils+Monocytes 0 % 01/29/2018 [facility] [#/volume] in 21:03</td><td> Health Care Blood by Eosinophils [employer] Automated count </td><td> 2.0
(0.0-5.0) % </td> Monocytes/Leukoc 6.6 % 0.0-11 <td> [place] ytes [Pure .0 % 01/29/2018 [facility] number fraction] 21:03</td><td> Health C are in Blood by Monocytes. [employer] Automated count </td><td> 6.6
(0.0-11.0) % </td> Lymphocytes 32.3 % 17.0-5 <td> [place] [#/volume] in 0.0 % 01/29/2018 [facility] Blood by 21:03</td><td> Health Care Automated count Lymphocytes [facility] </td><td> 32.3
(17.0-50.0) % </td> Platelets 438 k/mm3 160-41 <td> [place] [#/volume] in 0 01/31/2018 [facility] Blood by k/mm3 09:11</td><td> Health Care Automated count Platelet Count Corpor[employer] on </td><td><par agraph styleCode="Ella d"> 438 H </paragraph><b r/> (160-410) k/mm3 </td> Urea nitrogen 14 mg/dL 6-22 <td> [place] [Mass/volume] in mg/dL 01/31/2018 [facility] Blood 09:11</td><td> Health Care BUN </td><td> Corporation 14
(6-22) mg/dL </td> Carbon dioxide, 25 mEq/L 22-30 <td> [place] total mEq/L 01/31/2018 [facility] [Moles/volume] 09:11</td><td> Health Car e in Serum or CO2 </td><td> [facility] Plasma 25
(22-30) mEq/L </td> Chloride 107 mEq/L 98-107 <td> [place] [Moles/volume] mEq/L 01/31/2018 [facility] in Serum or 09:11</td><td> Health Care Plasma Chloride [facility] </td><td> 107
(98-107) mEq/L </td> Potassium 3.5 mEq/L 3.5-5. <td> [place] [Moles/volume] 1 01/31/2018 [facility] in Serum or mEq/L 09:11</td><td> Health Care Plasma Potassium-Seru [facility] m </td><td> 3.5
(3.5-5.1) mEq/L </td> Sodium 140 mEq/L 135-14 <td> [place] [Moles/volume] 5 01/31/2018 [facility] in Serum or mEq/L 09:11</td><td> Health Care Plasma Sodium-Serum [facility] </td><td> 140
(135-145) mEq/L </td> Glucose 132 mg/dL 70-105 <td> [place] [Mass/volume] in mg/dL 01/31/2018 [facility] Blood 09:11</td><td> Health Care Glucose-Serum [facility] </td><td><para graph styleCode="Ella d"> 132 H </paragraph><b r/> (70-105) mg/dL </td> Neutrophils [#] 58.7 % 40.0-7 <td> [place] in Body fluid by 6.0 % 01/29/2018 [facility] Manual count 21:03</td><td> Health Care Neutrophils [facility] </td><td> 58.7
(40.0-76.0) % </td> Albumin 3.4 g/dL 3.4-4. <td> [place] [Mass/volume] in 8 g/dL 01/31/2018 [facility] Serum or Plasma 09:11</td><td> Health Ca re Albumin [facility] </td><td> 3.4
(3.4-4.8) g/dL </td> Proteins - Total 6.3 g/dL 6.4-8. <td> [place] 3 g/dL 01/31/2018 [facility] 09:11</td><td> Health Care Proteins - Corporation Total </td><td><para graph styleCode="Ella d"> 6.3 L </paragraph><b r/> (6.4-8.3) g/dL </td> Bilirubin.total 0.6 mg/dL 0.2-1. <td> [place] [Mass/volume] in 3 01/31/2018 [facility] Blood mg/dL 09:11</td><td> Health Care Bilirubin - Corporation Total </td><td> 0.6
(0.2-1.3) mg/dL </td> Alanine 10 U/L 6-55 <td> [place] aminotransferase U/L 01/31/2018 [facility] [Enzymatic 09:11</td><td> Health Care activity/volume] ALT (SGPT) [employer] in Serum or </td><td> Plasma 10
(6-55) U/L </td> Aspartate 8 U/L 4-35 <td> [place] aminotransferase U/L 01/31/2018 [facility] [Enzymatic 09:11</td><td> Health Care activity/volume] AST (SGOT) [employer] in Serum or </td><td> Plasma 8
(4-35) U/L </td> Creatinine 1.07 mg/dL 0.57-1 <td> [place] [Moles/volume] .11 01/31/2018 [facility] in Serum or mg/dL 09:11</td><td> Health Care Plasma Creatinine. [employer] </td><td> 1.07
(0.57-1.11) mg/dL </td> Phosphate 3.3 mg/dL 2.3-4. <td> [place] [Mass/volume] in 7 01/31/2018 [facility] Serum or Plasma mg/dL 09:11</td><td> Health Ca re Inorganic [employer] Phosphorus </td><td> 3.3
(2.3-4.7) mg/dL </td> Icteric index of Non <td> [place] Serum or Plasma Icteric 01/31/2018 [facility] 09:11</td><td> Health Care Icteric Index [employer] </td><td> Non Icteric
</td> Lipemic index of No Lipemia <td> [place] Serum or Plasma 01/31/2018 [facility] 09:11</td><td> Health Care Lipemia [employer] </td><td> No Lipemia
</td> Hemolysis index No <td> [place] of Serum or Hemolysis 01/31/2018 [facility] Plasma 09:11</td><td> Health Care Hemolysis [employer] Index </td><td> No Hemolysis
</td> Globulin 2.9 gm/dL 2.9-4. <td> [place] [Mass/volume] in 0 01/31/2018 [facility] Serum gm/dL 09:11</td><td> Health Care Globulin [facility] </td><td> 2.9
(2.9-4.0) gm/dL </td> Anion gap in 8 mEq/L 7-13 <td> [place] Serum or Plasma mEq/L 01/31/2018 [facility] 09:11</td><td> Health Care Anion [employer] </td><td> 8
(7-13) mEq/L </td> Calcium 8.5 mg/dL 8.6-10 <td> [place] [Mass/volume] in .2 01/31/2018 [facility] Blood mg/dL 09:11</td><td> Health Care Calcium [facility] </td><td><para graph styleCode="Ella d"> 8.5 L </paragraph><b r/> (8.6-10.2) mg/dL </td> Glucose 133 mg/dL 70-105 <td> [place] [Mass/volume] in mg/dL 01/31/2018 [facility] Capillary blood 08:00</td><td> Health Ca re by Glucometer Glucose - [facility] Finger Stick </td><td><para graph styleCode="Ella d"> 133 H </paragraph><b r/> (70-105) mg/dL </td> Hemoglobin A1C 5.6 % 4.0-5. <td> [place] 6 % 01/31/2018 [facility] 09:11</td><td> [facility] Hemoglobin [employer] A1C </td><td> 5.6
(4.0-5.6) %
Increased risk for diabetes mellitus is seen in patients with HgA1C values
between 5.7-6.4%. Values > or = 6.5% are considered diagnostic of diabetes
mellitus.
=====
ESTIMATED AVERAGE GLUCOSE (eAG)
-----
RELATIONSHIP BETWEEN A1C AND eAG
=====
A1C(%) eAG(mg/dL)
6 126
7 154
8 183
9 212
10 -240
11 -269
12 -298
Source: Adapted from [place] [employer]. Standards of medical
care in diabetes-2014. Diabetes Care.2014;37(S upp 1):S14-S80, table 8.

PLEASE NOTE NEW REFERENCE RANGES EFFECTIVE 14

(4.0-5.6) % </td> Magnesium 2.0 mg/dL 1.6-2. <td> [place] [Mass/volume] in 6 01/31/2018 [facility] Serum or Plasma mg/dL 09:11</td><td> Health Ca re [employer] Level </td><td> 2.0
(1.6-2.6) mg/dL </td> Procedure Social History Code Duration Value Status Description Data Source(s ) Smoking 08/22/2019 [place] Works MEDG EN ([employer] 12:00:00 AM EDT Works - - Unemployed Medical , ) Unemployed Tobacco - Current Tobacco - Current - 1/2 PPD for 32 - 1/2 PPD for 32 years, down to 3 years, down to 3 cigs/day Alcohol - cigs/day Alcohol Hx of alcohol - Hx of alcohol abuse - quit 9mo. abuse - quit 9mo. Illicit Drugs - Hx Illicit Drugs - crack cocaine - Hx crack cocaine quit 9mo ago - - quit 9mo ago - smokes, occasional smokes, marijuana Lives - occasional At home with her 3 marijuana Lives kids - At home with her 3 kids Smoking 08/22/2019 Unknown if ever completed Unknown if ever MEDG EN ([employer] 12:00:00 AM EDT smoked smoked Medical, ) Smoking 08/19/2019 [place] Works MEDG EN ([employer] 12:00:00 AM EDT Works - - Unemployed Medical , PC) Unemployed Tobacco - Current Tobacco - Current - 1/2 PPD for 32 - 1/2 PPD for 32 years, down to 3 years, down to 3 cigs/day Alcohol - cigs/day Alcohol Hx of alcohol - Hx of alcohol abuse - quit 9mo. abuse - quit 9mo. Illicit Drugs - Hx Illicit Drugs - crack cocaine - Hx crack cocaine quit 9mo ago - - quit 9mo ago - smokes, occasional smokes, marijuana Lives - occasional At home with her 3 marijuana Lives kids - At home with her 3 kids Smoking 08/19/2019 Unknown if ever completed Unknown if ever MEDG EN ([facility] 12:00:00 AM EDT smoked smoked Medical, ) Smoking Never smoker completed Never smoker [facility] Vital Signs ID Date Data Source UNK Name Value Range Interpretation Code Description Data Source(s) Heart rate 82 /min 82 /min [facility] ([facility], ) Body mass index 37.8 kg/m2 37.8 kg/m2 [facility] ([facility] (BMI) [Ratio] [facility], ) Diastolic blood 85 mm[Hg] 85 mm[Hg] [facility]GEN ([facility], ) Systolic blood 136 mm[Hg] 136 mm[Hg] MEDGEN ([facility], ) Body weight 256 lb 256 lb [facility] ([facility], ) Body height 69 in 69 in [facility] ([facility], ) Heart rate 82 /min 82 /min [facility] ([facility] Body mass index 37.8 kg/m2 37.8 kg/m2 [facility]GEN ([facility] (BMI) [Ratio] [facility], ) Diastolic blood 85 mm[Hg] 85 mm[Hg] [facility] ([facility]) Systolic blood 136 mm[Hg] 136 mm[Hg] MEDGEN ([facility]) Body weight 256 lb 256 lb [facility] ([facility], ) Body height 69 in 69 in [facility]GEN ([facility], ) Heart rate 69 /min 69 /min [facility] Respiratory rate 15 /min 15 /min [facility] ( [facility]) Diastolic blood 84 mm[Hg] 84 mm[Hg] MEDGEN ([facility], ) Systolic blood 124 mm[Hg] 124 mm[Hg] MEDGEN ([facility], ) Body weight 238 lb 238 lb [facility] ([facility] Heart rate 69 /min 69 /min [facility] Respiratory rate 15 /min 15 /min MEDGEN ( [facility], ) Diastolic blood 84 mm[Hg] 84 mm[Hg] MEDGEN ([facility], ) Systolic blood 124 mm[Hg] 124 mm[Hg] MEDGEN ([facility], ) Body weight 238 lb 238 lb [facility]GEN ([facility], ) Systolic blood 106 mm[Hg] 106 mm[Hg] MEDGEN ([facility], ) Body weight 236 lb 236 lb MEDGEN ([facility], ) Body height 69 in 69 in MEDGEN ([facility], ) Heart rate 56 /min 56 /min [facility] [place] [place] Respiratory rate 16 /min 16 /min [facility] ( [facility] [place] Inhaled oxygen 100 % 100 % MED[facility] ([facility], ) Body mass index 34.8 kg/m2 34.8 kg/m2 MEDGEN ([facility] (BMI) [Ratio] [facility], ) Diastolic blood 75 mm[Hg] 75 mm[Hg] MEDGEN ([facility] pressure [facility], ) Heart rate 56 /min 56 /min [facility] [place] [place] Respiratory rate 16 /min 16 /min MEDGEN ( [facility] [place], ) Inhaled oxygen 100 % 100 % MEDGEN ([facility], ) Body mass index 34.8 kg/m2 34.8 kg/m2 MEDGEN ([facility] (BMI) [Ratio] Medical, ) Diastolic blood 75 mm[Hg] 75 mm[Hg] MEDGEN ([facility] pressure [facility], ) Systolic blood 106 mm[Hg] 106 mm[Hg] MEDGEN ([facility], ) Body weight 236 lb 236 lb MEDGEN ([facility], ) Body height 69 in 69 in MEDGEN ([facility], ) Heart rate 77 /min 77 /min [facility] [place] [place] Respiratory rate 12 /min 12 /min MEDGEN ( [facility] [place], [place] Body temperature 98 F 98 F MEDGEN ( [facility] [place], ) Inhaled oxygen 99 % 99 % MEDGEN ([facility], ) Body mass index 32.5 kg/m2 32.5 kg/m2 MEDGEN ([facility] (BMI) [Ratio] Medical, ) Diastolic blood 83 mm[Hg] 83 mm[Hg] MEDGEN ([facility] pressure [facility], ) Systolic blood 136 mm[Hg] 136 mm[Hg] MEDGEN ([facility], ) Body weight 220 lb 220 lb MEDGEN ([facility], ) Body height 69 in 69 in MEDGEN ([facility], ) Heart rate 77 /min 77 /min [facility] [place] [place] Respiratory rate 12 /min 12 /min MEDGEN ( [facility], ) Body temperature 98 F 98 F MEDGEN ( [facility] [place], ) Inhaled oxygen 99 % 99 % MEDGEN ([facility], ) Body mass index 32.5 kg/m2 32.5 kg/m2 MEDGEN ([facility] (BMI) [Ratio] Medical, ) Diastolic blood 83 mm[Hg] 83 mm[Hg] MEDGEN ([facility] pressure [facility], ) Systolic blood 136 mm[Hg] 136 mm[Hg] MEDGEN ([facility], ) Body weight 220 lb 220 lb MEDGEN ([facility], ) Body height 69 in 69 in MEDGEN ([facility], ) Heart rate 85 /min 85 /min MEDGEN ([facility], ) Respiratory rate 12 /min 12 /min MEDGEN ( [facility], ) Inhaled oxygen 98 % 98 % MEDGEN ([facility], ) Diastolic blood 120 mm[Hg] 120 mm[Hg] MEDGEN ([facility] pressure [facility], ) Systolic blood 180 mm[Hg] 180 mm[Hg] MEDGEN ([facility], ) Body weight 190 lb 190 lb MEDGEN ([facility], ) Heart rate 85 /min 85 /min MEDGEN ([facility], ) Respiratory rate 12 /min 12 /min MEDGEN ( [facility], ) Inhaled oxygen 98 % 98 % MEDGEN ([facility], ) Diastolic blood 120 mm[Hg] 120 mm[Hg] MEDGEN ([facility], ) Systolic blood 180 mm[Hg] 180 mm[Hg] MEDGEN ([facility], ) Body weight 190 lb 190 lb [facility] ([facility], ) Heart rate 79 /min 79 /min [facility] ([facility], ) Respiratory rate 12 /min 12 /min MEDGEN ( [facility], ) Inhaled oxygen 99 % 99 % MEDGEN ([facility] concentration [facility], ) Diastolic blood 96 mm[Hg] 96 mm[Hg] MEDGEN ([facility], ) Systolic blood 174 mm[Hg] 174 mm[Hg] MEDGEN ([facility], ) Body weight 187 lb 187 lb [facility]GEN ([facility], ) Heart rate 79 /min 79 /min MEDGEN ([facility], ) Respiratory rate 12 /min 12 /min MEDGEN ( [facility], ) Inhaled oxygen 99 % 99 % MEDGEN ([facility] concentration [facility], ) Diastolic blood 96 mm[Hg] 96 mm[Hg] MEDGEN ([facility], ) Systolic blood 174 mm[Hg] 174 mm[Hg] MEDGEN ([facility], ) Body weight 187 lb 187 lb [facility]GEN ([facility], ) Heart rate 73 /min 73 /min MEDGEN ([facility] n[facility], ) Inhaled oxygen 98 % 98 % MEDGEN ([facility] concentration [facility], ) Diastolic blood 86 mm[Hg] 86 mm[Hg] MEDGEN ([facility], ) Systolic blood 142 mm[Hg] 142 mm[Hg] MEDGEN ([facility], ) Body weight 172 lb 172 lb [facility]GEN ([facility], ) Heart rate 73 /min 73 /min MEDGEN ([facility] n[facility], ) Inhaled oxygen 98 % 98 % MEDGEN ([facility], ) Diastolic blood 86 mm[Hg] 86 mm[Hg] MEDGEN ([facility], ) Systolic blood 142 mm[Hg] 142 mm[Hg] MEDGEN ([facility], ) Body weight 172 lb 172 lb [facility]GEN ([facility], ) Heart rate 73 /min 73 /min MEDGEN ([facility], ) Respiratory rate 12 /min 12 /min MEDGEN ( [facility], ) Inhaled oxygen 99 % 99 % MEDGEN ([facility] concentration [facility], ) Diastolic blood 100 mm[Hg] 100 mm[Hg] MEDGEN ([facility], ) Systolic blood 180 mm[Hg] 180 mm[Hg] MEDGEN ([facility], ) Body weight 170 lb 170 lb MEDGEN ([facility], ) Heart rate 73 /min 73 /min MEDGEN ([facility], ) Respiratory rate 12 /min 12 /min MEDGEN ( [facility], ) Inhaled oxygen 99 % 99 % MEDGEN ([facility] concentration [facility], ) Diastolic blood 100 mm[Hg] 100 mm[Hg] MEDGEN ([facility], ) Systolic blood 180 mm[Hg] 180 mm[Hg] MEDGEN ([facility], ) Body weight 170 lb 170 lb MEDGEN ([facility], ) Heart rate 70 /min 70 /min MEDGEN ([facility], ) Respiratory rate 15 /min 15 /min MEDGEN ( [facility], ) Body temperature 98 F 98 F MEDGEN ( [facility], ) Diastolic blood 90 mm[Hg] 90 mm[Hg] MEDGEN ([facility], ) Systolic blood 140 mm[Hg] 140 mm[Hg] MEDGEN ([facility], ) Body weight 177 lb 177 lb MEDGEN ([facility], ) Heart rate 70 /min 70 /min MEDGEN ([facility], ) Respiratory rate 15 /min 15 /min MEDGEN ( [facility], ) Body temperature 98 F 98 F MEDGEN ( [facility], ) Diastolic blood 90 mm[Hg] 90 mm[Hg] MEDGEN ([facility], ) Systolic blood 140 mm[Hg] 140 mm[Hg] MEDGEN ([facility], ) Body weight 177 lb 177 lb MEDGEN ([facility], ) Heart rate 84 /min 84 /min MEDGEN ([facility] Medical, ) Respiratory rate 13 /min 13 /min MEDGEN ( [facility], ) Body temperature 98.2 F 98.2 F MEDGEN ( [facility], ) Diastolic blood 79 mm[Hg] 79 mm[Hg] MEDGEN ([facility], ) Systolic blood 161 mm[Hg] 161 mm[Hg] MEDGEN ([facility], ) Body weight 179 lb 179 lb MEDGEN ([facility], ) Heart rate 84 /min 84 /min MEDGEN ([facility], ) Respiratory rate 13 /min 13 /min MEDGEN ( [facility], ) Body temperature 98.2 F 98.2 F MEDGEN ( [facility], ) Diastolic blood 79 mm[Hg] 79 mm[Hg] MEDGEN ([facility], ) Systolic blood 161 mm[Hg] 161 mm[Hg] MEDGEN ([facility], ) Body weight 179 lb 179 lb MEDGEN ([facility], ) Heart rate 104 /min 104 /min MEDGEN ([facility], ) Respiratory rate 18 /min 18 /min MEDGEN ( [facility], ) Body temperature 97.3 F 97.3 F MEDGEN ( [facility], ) Inhaled oxygen 95 % 95 % MEDGEN ([facility], ) Diastolic blood 120 mm[Hg] 120 mm[Hg] MEDGEN ([facility], ) Systolic blood 189 mm[Hg] 189 mm[Hg] MEDGEN ([facility], ) Body weight 185 lb 185 lb [facility]GEN ([facility], ) Heart rate 104 /min 104 /min MEDGEN ([facility], ) Respiratory rate 18 /min 18 /min MEDGEN ( [facility], ) Body temperature 97.3 F 97.3 F MEDGEN ( [facility], ) Inhaled oxygen 95 % 95 % MEDGEN ([facility], ) Diastolic blood 120 mm[Hg] 120 mm[Hg] MEDGEN ([facility], ) Systolic blood 189 mm[Hg] 189 mm[Hg] MEDGEN ([facility], ) Body weight 185 lb 185 lb [facility] ([facility], ) Diastolic blood 99 {} Normal (applies to 99 {} [place] [facility] non-numeric results) [facility] Systolic blood 168 {} Normal (applies to 168 {} [place] [facility] non-numeric results) [facility] First Respiration 18.0000 {} Normal (applies to 18.0000 {} [facility] rate Set non-numeric results) [facility] Heart rate 89.0000 {} Normal (applies to 89.0000 {} [facility] non-numeric results) [facility] Body temperature 97.6000 {} Normal (applies to 97.6000 {} [facility] non-numeric results) [facility] Diastolic blood 99 {} Normal (applies to 99 {} [place] pressure non-numeric results) [facility] Systolic blood 169 {} Normal (applies to 169 {} [facility] [place] pressure non-numeric results) [facility] First Respiration 18.0000 {} Normal (applies to 18.0000 {} [place] rate Set non-numeric results) [facility] Heart rate 89.0000 {} Normal (applies to 89.0000 {} [facility] non-numeric results) [facility] Body temperature 97.5000 {} Normal (applies to 97.5000 {} [facility] non-numeric results) [facility] wt - obtain Normal (applies to {} [facility] non-numeric results) [facility] weight - kg 86.3630 {} Normal (applies to 86.3630 {} [facility] non-numeric results) [facility]
[2019-11-07 13:42] VITALS: BMI 38.9
--- OUTSIDE RECORDS SUMMARY | 2019-11-11 06:53 | XMS ---
[...] is protected by Article 27-F of the [facility] Public Health law. If you continue you may haveaccess to information: Regarding HIV / AIDS; Provided by facilities licensed or operated by the [facility] Office of Mental Health; or Provided by the [facility] Office for People With Developmental Disabilities. If such information is present, then the following [facility] mandated warning applies: This information [...] law may result in a fine or senior care sentence or both. A general authorization for the release of medical or other information is NOT sufficient authorization for further disclosure. Encounters Encounter Providers Location Date Indications Data Source(s ) Attender: Oli 11/07/2019 [facility] ( [facility] 12:00:00 AM EDT [facility], [facility]) Office Attender: Oli Garcia 11/07/2019 12:00:00 AM E DT [facility] ([facility] Office Attender: Oli Garcia 11/07/2019 12:00:00 AM E DT [facility] ([facility] Office Attender: Oli Garcia 11/07/2019 12:00:00 AM E DT [facility] ([facility] Office Attender: Oli Garcia 11/07/2019 12:00:00 AM E DT [facility] ([facility] Office Attender: Oli Garcia 11/07/2019 12:00:00 AM E DT [facility] ([facility], [...] [facility] ([facility] Office Attender: Oli Garica 08/19/2019 12:00:00 AM E DT [facility] ([facility] Office Attender: Oli Garcia 08/19/2019 12:00:00 AM E DT [facility] ([facility] Office Immunizations Vaccine Date Status Description Data Source(s) pneumococcal 12/31/2018 completed [facility] ([facility] polysaccharide PPV23 12:00:00 AM EST Medi lamin, PC) New in 2011. IIV4 12/31/2018 completed [facility] ([facility] 12:00:00 AM EST [facility], PC) pneumococcal 12/31/2018 completed [facility] ([facility] polysaccharide PPV23 12:00:00 AM EST Medi lamin, PC) New in 2011. IIV4 12/31/2018 completed [facility] ([facility] 12:00:00 AM EST Medical, PC) pneumococcal 12/31/2018 completed [facility] ([facility] polysaccharide PPV23 12:00:00 AM EST Medi lamin, PC) New in 2011. IIV4 12/31/2018 completed [facility] (S [facility] 12:00:00 AM EST Medical, PC) Medications Medication Brand Start Product Dose Route Administrative Pharmacy [facility] Indications Reaction Description Data Name Date Form Instructions Instructions Source(s) pantoprazol PANTOP 09/05/ DELAYED 30 complet [facility] TOPRAZOLE [facility] (St e 40 MG RAZOLE 2020 RELEASE ed [facility] Delayed :12655 12:00: TABLET Medica l, Release 0 00 AM PC) Oral Tablet EDT PANTOPRAZOL [id number] Metformin METFOR 10/ TABLET 30 complet METFOR MIN [facility] (St hydrochlori MIN:86 2019 ed [facility] de 500 MG 1007 12:00: Medical, Oral Tablet 00 AM PC) METFORMIN:8 EDT 91716 Metformin METFOR /10/ TABLET 30 complet METFOR MIN [facility] (St hydrochlori MIN:86 2019 ed [facility] de 500 MG 1007 12:00: Medical, Oral Tablet 00 AM PC) METFORMIN:8 EDT 47205 Metformin METFOR 10/ TABLET 30 complet METFOR MIN [facility] (St hydrochlori MIN:86 2019 ed [facility] de 500 MG 1007 12:00: Medical, Oral Tablet 00 AM PC) METFORMIN:8 EDT 12126 atorvastati LIPITO 04/04/ TABLET 90 complet LIPI TOR [facility] (St n 40 MG R:6173 2019 ed [facility] Oral Tablet 20 12:00: Medica l, [Lipitor] 00 AM PC) LIPITOR:617 EST 320 atorvastati LIPITO 24/ TABLET 90 complet LIPI TOR [facility] (St n 40 MG R:6173 2019 ed [facility] Oral Tablet 20 12:00: Medica l, [Lipitor] 00 AM PC) LIPITOR:617 EST 320 atorvastati LIPITO 24/ TABLET 90 complet LIPI TOR [facility] (St n 40 MG R:6173 2019 ed [facility] Oral Tablet 20 12:00: Medica l, [Lipitor] 00 AM PC) LIPITOR:617 EST 320 VASCEPA:181 04/01/ CAPSULE 30 complet VASCE PA [facility] (1181 ed [facility] 12:00: Medical, 00 AM PC) EST VASCEPA:181 04/01/ CAPSULE 30 complet VASCE PA MED[facility] (1181 ed [facility] 12:00: Medical, 00 AM PC) EST VASCEPA:181 04/01/ CAPSULE 30 complet VASCE PA MED[facility] (1181 ed [facility] 12:00: Medical, 00 AM PC) EST pantoprazol PANTOP 01/11/ DELAYED 60 complet [place] TOPRAZOLE [facility] (St e 40 MG RAZOLE 2018 RELEASE ed [facility] Delayed :97583 12:00: TABLET Medica l, Release 0 00 AM PC) Oral Tablet EST PANTOPRAZOL E:[id number] pantoprazol PANTOP 01/11/ DELAYED 60 complet [place] TOPRAZOLE [facility] (St e 40 MG RAZOLE 2018 RELEASE ed [facility] Delayed :58015 12:00: TABLET Medica l, Release 0 00 AM PC) Oral Tablet EST PANTOPRAZOL E:122936 pantoprazol PANTOP 01/11/ DELAYED 60 complet [place] TOPRAZOLE [facility] (St e 40 MG RAZOLE 2018 RELEASE ed [facility] Delayed :27926 12:00: TABLET Medica l, Release 0 00 AM PC) Oral Tablet EST PANTOPRAZOL E:[id number] Albuterol ALBUTE 12/31/ SOLUTION 1 complet ALBU TEROL [facility] (St 0.83 MG/ML ROL 2018 ed SULFATE [facility] Inhalant SULFAT 12:00: Medical , Solution E:6302 00 AM PC) ALBUTEROL 08 EST SULFATE:630 208 Chlorthalid CHLORT 12/31/ TABLET 30 complet CHLO RTHALIDO [facility] (St one 25 MG HALIDO 2019 ed NE [facility] Oral Tablet NE:197 12:00: Medi lamin, CHLORTHALID 499 00 AM PC) ONE:[id number] EST quetiapine SEROQU 12/31/ TABLET 30 complet SEROQ UEL [facility] (St 200 MG Oral EL:153 2018 ed [facility] Tablet 640 12:00: Medical, [Seroquel] 00 AM PC) SEROQUEL:15 EST 3640 Chlorthalid CHLORT 12/31/ TABLET 30 complet CHLO RTHALIDO [facility] (St one 25 MG HALIDO 2018 ed NE [facility] Oral Tablet NE:197 12:00: Medi lamin, CHLORTHALID 499 00 AM PC) ONE:[id number] EST Paroxetine PAXIL: 12/31/ TABLET 30 complet PAXIL [facility] (St 20 MG Oral [id number] 0449 ed [facility] Tablet 12:00: Medical, [Paxil] 00 AM PC) PAXIL:26211 EST 9 Albuterol ALBUTE 12/31/ SOLUTION 1 complet ALBU TEROL [facility] (St 0.83 MG/ML ROL 2018 ed SULFATE [facility] Inhalant SULFAT 12:00: Medical , Solution E:6302 00 AM PC) ALBUTEROL 08 EST SULFATE:630 208 Albuterol ALBUTE 12/31/ SOLUTION 1 complet ALBU TEROL [facility] (St 0.83 MG/ML ROL 2018 ed SULFATE [facility] Inhalant SULFAT 12:00: Medical , Solution E:6302 00 AM PC) ALBUTEROL 08 EST SULFATE:630 208 Chlorthalid CHLORT 12/31/ TABLET 30 complet CHLO RTHALIDO [facility] (St one 25 MG HALIDO 2018 ed NE [facility] Oral Tablet NE:197 12:00: Medi lamin, CHLORTHALID 499 00 AM PC) ONE:[id number] EST Paroxetine PAXIL: 12/31/ TABLET 30 complet PAXIL [facility] (St 20 MG Oral [id number] 5017 ed [facility] Tablet 12:00: Medical, [Paxil] 00 AM PC) PAXIL:89316 EST 9 quetiapine SEROQU 12/31/ TABLET 30 complet SEROQ UEL [facility] (St 200 MG Oral EL:153 2018 ed [facility] Tablet 640 12:00: Medical, [Seroquel] 00 AM PC) SEROQUEL:15 EST 3640 quetiapine SEROQU 12/31/ TABLET 30 complet SEROQ UEL [facility] (St 200 MG Oral EL:153 2018 ed [facility] Tablet 640 12:00: Medical, [Seroquel] 00 AM PC) SEROQUEL:15 EST 3640 Paroxetine PAXIL: 12/31/ TABLET 30 complet PAXIL [facility] (St 20 MG Oral [id number] 4083 ed [facility] Tablet 12:00: Medical, [Paxil] 00 AM PC) PAXIL:91009 EST 9 Bisacodyl 5 DULCOL 12/15/ DELAYED 6 complet DUL COLAX [facility] (St MG Delayed AX 2019 RELEASE ed LAXATIVE [facility] Release LAXATI 12:00: TABLET Medica l, Oral Tablet VE: 00 AM PC) [Dulcolax] 613 EST DULCOLAX LAXATIVE:20 9613 Bisacodyl 5 DULCOL 12/15/ DELAYED 6 complet DUL COLAX [facility] (St MG Delayed AX 2019 RELEASE ed [facility]IVE [facility] Release LAXATI 12:00: TABLET Medica l, Oral Tablet VE: 00 AM PC) [Dulcolax] 613 EST DULCOLAX LAXATIVE:20 9613 Bisacodyl 5 DULCOL 12/15/ DELAYED 6 complet DUL COLAX [facility] (St MG Delayed AX 2019 RELEASE ed LAXATIVE [facility] Release LAXATI 12:00: TABLET Medica l, Oral Tablet VE: 00 AM PC) [Dulcolax] 613 EST DULCOLAX LAXATIVE:20 9613 Losartan LOSART 10/15/ TABLET 30 complet LOSARTA N [facility] ( Potassium 2018 ed POTASSIUM [facility] 100 MG Oral POTASS 12:00: Medi lamin, Tablet IUM:97 00 AM PC) LOSARTAN 9480 EDT POTASSIUM:9 32468 Losartan LOSART 10/15/ TABLET 30 complet LOSARTA N [facility] ( Potassium 2018 ed POTASSIUM [facility] 100 MG Oral POTASS 12:00: Medi lamin, Tablet IUM:97 00 AM PC) LOSARTAN 9480 EDT POTASSIUM:9 99356 Amlodipine AMLODI 10/15/ TABLET 30 complet AMLOD IPINE [facility] (St 10 MG Oral PINE:2018 ed [facility] Tablet 95330 12:00: Medical, AMLODIPINE: 00 AM PC) 034744 EDT Amlodipine AMLODI 10/15/ TABLET 30 complet AMLOD IPINE [facility] (St 10 MG Oral PINE:2018 ed [facility] Tablet 08971 12:00: Medical, AMLODIPINE: 00 AM PC) 218669 EDT Amlodipine AMLODI 10/15/ TABLET 30 complet AMLOD IPINE [facility] (St 10 MG Oral PINE:2018 ed [facility] Tablet 60901 12:00: Medical, AMLODIPINE: 00 AM PC) 815155 EDT Losartan LOSART 10/15/ TABLET 30 complet LOSARTA N [facility] (St Potassium AN 2019 ed POTASSIUM [facility] 100 MG Oral POTASS 12:00: Medi lamin, Tablet IUM:97 00 AM PC) LOSARTAN 9480 EDT POTASSIUM:9 44080 pantoprazol PANTOP 11/16/ DELAYED 30 complet [place] TOPRAZOLE [facility] (St e 40 MG RAZOLE 2018 RELEASE ed [facility] Delayed :42310 12:00: TABLET Medica l, Release 0 00 AM PC) Oral Tablet EDT PANTOPRAZOL E:[id number] pantoprazol PANTOP 11/16/ DELAYED 30 complet [place] TOPRAZOLE [facility] (St e 40 MG RAZOLE 2018 RELEASE ed [facility] Delayed :89006 12:00: TABLET Medica l, Release 0 00 AM PC) Oral Tablet EDT PANTOPRAZOL E:179708 pantoprazol PANTOP 11/16/ DELAYED 30 complet [place] TOPRAZOLE [facility] (St e 40 MG RAZOLE 2018 RELEASE ed [facility] Delayed :07237 12:00: TABLET Medica l, Release 0 00 AM PC) Oral Tablet EDT PANTOPRAZOL E:761269 120 ACTUAT SYMBIC 10/25/ AEROSOL 1 complet SYMB ICORT [facility] (St Budesonide ORT:2018 ed [facility] 0.16 84735 12:00: Medical, MG/ACTUAT / 00 AM PC) formoterol EDT fumarate 0.0045 MG/ACTUAT Metered Dose Inhaler [Symbicort] SYMBICORT:1 356199 SPIRIVA 10/25/ AEROSOL 1 complet SPIRIVA Macario GILLIAM (St RESPIMAT:2018 ed RESPIMAT [facility] 93342 12:00: Medical, 00 AM PC) EDT 120 ACTUAT SYMBIC 10/25/ AEROSOL 1 complet SYMB ICORT [facility] (St Budesonide ORT:2018 ed [facility] 0.16 69812 12:00: Medical, MG/ACTUAT / 00 AM PC) formoterol EDT fumarate 0.0045 MG/ACTUAT Metered Dose Inhaler [Symbicort] SYMBICORT:1 933655 varenicline CHANTI 10/25/ TABLET 30 complet JI TIX [facility] (St 1 MG Oral X:6371 2018 ed [facility] Tablet 90 12:00: Medical, [Chantix] 00 AM PC) CHANTIX:637 EDT 190 NEBULIZER 10/25/ complet NEBULIZER [facility] (St COMPRESSOR 2019 ed COMPRESSOR [facility] KIT: 12:00: KIT Medical, 00 AM PC) EDT NEBULIZER 10/25/ complet NEBULIZER [facility] (St COMPRESSOR 2019 ed COMPRESSOR [facility] KIT: 12:00: KIT Medical, 00 AM PC) EDT SPIRIVA 10/25/ AEROSOL 1 complet SPIRIVA M ROSSN (St RESPIMAT:2018 ed RESPIMAT [facility] 41120 12:00: Medical, 00 AM PC) EDT varenicline CHANTI 10/25/ TABLET 30 complet JI TIX [facility] (St 1 MG Oral X:6370 2018 ed [facility] Tablet 90 12:00: Medical, [Chantix] 00 AM PC) CHANTIX:637 EDT 190 Albuterol ALBUTE 10/25/ AEROSOL 1 complet ALBUT JAIMIE [facility] (St 0.2018 ed SULFATE HFA [facility] MG/ACTUAT SULFAT 12:00: Medica l, Metered E 00 AM PC) Dose HFA:13 EDT Inhaler 47555 ALBUTEROL SULFATE HFA:[id number] 120 ACTUAT SYMBIC 10/25/ AEROSOL 1 complet SYMB ICORT [facility] (St Budesonide ORT:2018 ed [facility] 0.16 38660 12:00: Medical, MG/ACTUAT / 00 AM PC) formoterol EDT fumarate 0.0045 MG/ACTUAT Metered Dose Inhaler [Symbicort] SYMBICORT:1 407382 NEBULIZER 10/25/ complet NEBULIZER [facility] (St COMPRESSOR 2019 ed COMPRESSOR [facility] KIT: 12:00: KIT Medical, 00 AM PC) EDT SPIRIVA 10/25/ AEROSOL 1 complet SPIRIVA M EDGEN (St RESPIMAT:2018 ed RESPIMAT [facility] 38941 12:00: Medical, 00 AM PC) EDT Albuterol ALBUTE 10/25/ AEROSOL 1 complet ALBUT JAIMIE [facility] (St 0.2018 ed SULFATE HFA [facility] MG/ACTUAT SULFAT 12:00: Medica l, Metered E 00 AM PC) Dose HFA:13 EDT Inhaler 90707 ALBUTEROL SULFATE HFA:1493606 varenicline CHANTI 10/25/ TABLET 30 complet JI TIX [facility] (St 1 MG Oral X:6371 2019 ed [facility] Tablet 90 12:00: Medical, [Chantix] 00 AM PC) CHANTIX:637 EDT 190 Albuterol ALBUTE 10/25/ AEROSOL 1 complet ALBUT JAIMIE [facility] (St 0.09 ROL 2019 ed SULFATE HFA [facility] MG/ACTUAT SULFAT 12:00: Medica l, Metered E 00 AM PC) Dose HFA:13 EDT Inhaler 39389 ALBUTEROL SULFATE HFA:[id number] Lisinopril 943895 complet [place] [5 mg 393 ed [facility] Tablet]: 5 Health MG Oral Care DAILY Corporatio n Clindamycin 995077 complet Pedro Pablo tcheste HCl [150 mg 339 [facility] Capsule]: Health 450 MG Oral Care EVERY 6 Corporatio HOURS n Ferrous 394082 complet [place] ronald Sulfate 645 ed [facility] [325 mg (65 Health mg iron) Care Tablet]: Corporatio 325 MG Oral n SPECIAL DAYS OF THE WEEK Metformin 765606 complet [place] [1,000 mg 974 [facility] Tablet]: 1 Health Tablet Oral Care 2 TIMES A Corporatio DAY n Chlorhexidi 647215 complet Pedro Pablo tcheste ne 959 ed [facility] Gluconate Health [0.12 % Care Cup]: 15 ML Corporat io Oral 3 n TIMES A DAY Amlodipine 743986 complet [place] [10 mg 927 ed [facility] Tablet]: 10 Health MG Oral Care DAILY IN Corporatio MORNING n Folic Acid 047501 complet [place] [1 mg 366 ed [facility] Tablet]: 1 Health MG Oral Care DAILY IN Corporatio MORNING n Insurance Providers Payer name Policy type Policy ID Covered Covered constitution party's Policy P dinorah / Coverage constitution party ID relationship to [place] Inf ormation type irving [facility] [id number] SP [id number] HEALTH NON CAP MEDICAID OF [id number] [facility] [id number] [facility] [id number] SP [id number] HEALTH NON CAP MEDICAID [id number] SP [id number] MEDICAID [id number] SP [id number] TRAVELERS [id number] SP [id number] THE [id number] MOISE [id number] Problems, Conditions, and Diagnoses Code Display Name Description Problem Effective Data Type Dates Source(s) N63.20 Unspecified lump in UNSPECIFIED LUMP IN Problem 020 [facility] (St the left breast, THE LEFT BREAST, 12:00:00 AM [facility] unspecified quadrant UNSPECIFIED QUADRANT EDT Medical, ) S34.21XA Injury of nerve root INJURY OF NERVE ROOT Problem 11/06 [facility] (St of lumbar spine, OF LUMBAR SPINE, 12:00:00 AM [facility] initial encounter INITIAL ENCOUNTER EDT Medical, PC) 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 Problem [facility] (St behavior of the BEHAVIOR OF THE 12:00:00 AM Damian hernandez'rachel submandibular SUBMANDIBULAR EDT Medical, PC) salivary glands [place]S F17.210 Nicotine dependence, NICOTINE DEPENDENCE, Problem 11/06 [facility] (St cigarettes, CIGARETTES, 12:00:00 AM [facility] uncomplicated UNCOMPLICATED EDT Medical, ) E66.8 Other obesity OTHER OBESITY Problem 08/19/2019 MEDGEN ( St 12:00:00 AM [facility], ) E66.8 Other obesity OTHER OBESITY Problem 08/19/2019 MEDGEN ( St 12:00:00 AM [facility], ) E66.8 Other obesity OTHER OBESITY Problem 08/19/2019 MEDGEN ( St 12:00:00 AM [facility], ) M54.16 Radiculopathy, lumbar RADICULOPATHY, LUMBAR Problem 07/2019 MED[facility] (St region REGION 12:00:00 AM [facility], ) M54.16 Radiculopathy, lumbar RADICULOPATHY, LUMBAR Problem 07/2019 MED[facility] (St region REGION 12:00:00 AM [facility], ) M50.00 Cervical disc CERVICAL DISC Problem 04/25/2019 MEDGEN ( St disorder with DISORDER WITH 12:00:00 AM [facility] myelopathy, MYELOPATHY, T Medical, ) unspecified cervical UNSPECIFIED CERVICAL region REGION M50.00 Cervical disc CERVICAL DISC Problem 04/25/2019 MEDGEN ( St disorder with DISORDER WITH 12:00:00 AM [facility] myelopathy, MYELOPATHY, EDT Medical, ) unspecified cervical UNSPECIFIED CERVICAL region REGION M50.00 Cervical disc CERVICAL DISC Problem 04/25/2019 MEDGEN ( St disorder with DISORDER WITH 12:00:00 AM [facility] myelopathy, MYELOPATHY, [facility]) unspecified cervical UNSPECIFIED CERVICAL region REGION E78.5 Hyperlipidemia, HYPERLIPIDEMIA, Problem 04/19/2019 MEDG EN (St unspecified UNSPECIFIED 12:00:00 AM [facility], ) E78.1 Pure PURE Problem 04/19/2019 MEDGEN (St hyperglyceridemia HYPERGLYCERIDEMIA 12:00:00 AM [facility]) G56.02 Carpal tunnel CARPAL TUNNEL Problem 04/19/2019 MEDGEN ( St syndrome, left upper SYNDROME, LEFT UPPER 12:00 :00 AM [facility]) 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 Problem 020 [facility] (St and larynx AND LARYNX 12:00:00 AM [facility], ) E78.5 Hyperlipidemia, HYPERLIPIDEMIA, Problem 04/19/2019 MEDG EN (St unspecified UNSPECIFIED 12:00:00 AM [facility], ) E78.1 Pure PURE Problem 04/19/2019 MEDGEN (St hyperglyceridemia HYPERGLYCERIDEMIA 12:00:00 AM [facility], ) G56.02 Carpal tunnel CARPAL TUNNEL Problem 04/19/2019 MEDGEN ( St syndrome, left upper SYNDROME, LEFT UPPER 12:00 :00 AM [facility], ) 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 Problem 020 MED[facility] (St and larynx AND LARYNX 12:00:00 AM [facility], ) E78.5 Hyperlipidemia, HYPERLIPIDEMIA, Problem 04/19/2019 MEDG EN (St unspecified UNSPECIFIED 12:00:00 AM [facility], ) E78.1 Pure PURE Problem 04/19/2019 MEDGEN (St hyperglyceridemia HYPERGLYCERIDEMIA 12:00:00 AM [facility], ) G56.02 Carpal tunnel CARPAL TUNNEL Problem 04/19/2019 MEDGEN ( St syndrome, left upper SYNDROME, LEFT UPPER 12:00 :00 AM [facility] limb LIMB EDT Medical, PC) 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 Problem 020 [facility] (St and larynx AND LARYNX 12:00:00 AM [facility] EDT Medical, PC) R20.2 Paresthesia of skin PARESTHESIA OF SKIN Problem 020 [facility] (St 12:00:00 AM [facility] EST Medical, PC) Z00.01 Encounter for general ENCOUNTER FOR GENERAL Problem 11/2019 MEDGEN (St adult medical ADULT MEDICAL 12:00:00 AM [facility] examination with EXAMINATION WITH EST Me dical, PC) abnormal findings ABNORMAL FINDINGS R20.2 Paresthesia of skin PARESTHESIA OF SKIN Problem 020 [facility] (St 12:00:00 AM [facility] EST Medical, PC) Z00.01 Encounter for general ENCOUNTER FOR GENERAL Problem 11/2019 MEDGEN (St adult medical ADULT MEDICAL 12:00:00 AM [facility] examination with EXAMINATION WITH EST Me dical, PC) abnormal findings ABNORMAL FINDINGS R20.2 Paresthesia of skin PARESTHESIA OF SKIN Problem 020 [facility] (St 12:00:00 AM [facility] EST Medical, PC) Z00.01 Encounter for general ENCOUNTER FOR GENERAL Problem 11/2019 MED[facility] (St adult medical ADULT MEDICAL 12:00:00 AM [facility] examination with EXAMINATION WITH EST Me dical, PC) abnormal findings ABNORMAL FINDINGS Z12.31 Encounter for ENCOUNTER FOR Problem 12/31/2018 MED[facility] ( St screening mammogram SCREENING MAMMOGRAM 12:00:0 0 AM [facility] for malignant FOR MALIGNANT EST Medical, PC) neoplasm of breast NEOPLASM OF BREAST Z12.31 Encounter for ENCOUNTER FOR Problem 12/31/2018 MED[facility] ( St screening mammogram SCREENING MAMMOGRAM 12:00:0 0 AM [facility] for malignant FOR MALIGNANT EST Medical, PC) neoplasm of breast NEOPLASM OF BREAST Z12.31 Encounter for ENCOUNTER FOR Problem 12/31/2018 MED[facility] ( St screening mammogram SCREENING MAMMOGRAM 12:00:0 0 AM [facility] for malignant FOR MALIGNANT EST Medical, PC) neoplasm of breast NEOPLASM OF BREAST D64.9 Anemia, unspecified ANEMIA, UNSPECIFIED Problem 019 [facility] (St 12:00:00 AM [facility] EST Medical, PC) R10.84 Generalized abdominal GENERALIZED ABDOMINAL Problem 07/2018 MED[facility] (St pain PAIN 12:00:00 AM [facility], ) D64.9 Anemia, unspecified ANEMIA, UNSPECIFIED Problem 019 [facility] (St 12:00:00 AM [facility]) R10.84 Generalized abdominal GENERALIZED ABDOMINAL Problem 07/2018 MED[facility] (St pain PAIN 12:00:00 AM [facility], ) D64.9 Anemia, unspecified ANEMIA, UNSPECIFIED Problem 019 [facility] (St 12:00:00 AM [facility]) R10.84 Generalized abdominal GENERALIZED ABDOMINAL Problem 07/2018 MED[facility] (St pain PAIN 12:00:00 AM [facility], ) R91.8 Other nonspecific OTHER NONSPECIFIC Problem 12/08/2018 MED[facility] (St abnormal finding of ABNORMAL FINDING OF 12:00:0 0 AM [facility]) F31.9 Bipolar disorder, BIPOLAR DISORDER, Problem 12/08/2018 MED[facility] (St unspecified UNSPECIFIED 12:00:00 AM [facility]) R91.8 Other nonspecific OTHER NONSPECIFIC Problem 12/08/2018 [facility] (St abnormal finding of ABNORMAL FINDING OF 12:00:0 0 AM [facility]) F31.9 Bipolar disorder, BIPOLAR DISORDER, Problem 12/08/2018 [facility] (St unspecified UNSPECIFIED 12:00:00 AM [facility]) R91.8 Other nonspecific OTHER NONSPECIFIC Problem 12/08/2018 [facility] (St abnormal finding of ABNORMAL FINDING OF 12:00:0 0 AM [facility]) F31.9 Bipolar disorder, BIPOLAR DISORDER, Problem 12/08/2018 [facility] (St unspecified UNSPECIFIED 12:00:00 AM [facility], ) R22.1 Localized swelling, LOCALIZED SWELLING, Problem 019 [facility] (St mass and lump, neck MASS AND LUMP, NECK 12:00:0 0 AM [facility]) R22.1 Localized swelling, LOCALIZED SWELLING, Problem 019 [facility] (St mass and lump, neck MASS AND LUMP, NECK 12:00:0 0 AM [facility], ) R22.1 Localized swelling, LOCALIZED SWELLING, Problem 019 [facility] (St mass and lump, neck MASS AND LUMP, NECK 12:00:0 0 AM [facility], ) Z71.6 Tobacco abuse TOBACCO ABUSE Problem 11/01/2018 MED[facility] ( St counseling COUNSELING 12:00:00 AM [facility], ) Z71.6 Tobacco abuse TOBACCO ABUSE Problem 11/01/2018 MED[facility] ( St counseling COUNSELING 12:00:00 AM [facility], ) Z71.6 Tobacco abuse TOBACCO ABUSE Problem 11/01/2018 MEDGEN ( St counseling COUNSELING 12:00:00 AM [facility], ) D50.9 Iron deficiency IRON DEFICIENCY Problem 10/25/2018 MEDG EN (St anemia, unspecified ANEMIA, UNSPECIFIED 12:00:0 0 AM [facility], ) J44.9 Chronic obstructive CHRONIC OBSTRUCTIVE Problem 019 MED[facility] (St pulmonary disease, PULMONARY DISEASE, 12:00:00 AM [facility] unspecified UNSPECIFIED [facility], ) K21.9 Gastro-esophageal GASTRO-ESOPHAGEAL Problem 10/25/2018 MED[facility] (St reflux disease REFLUX DISEASE 12:00:00 AM [facility] without esophagitis WITHOUT ESOPHAGITIS [facility], ) I10 Essential (primary) ESSENTIAL (PRIMARY) Problem 019 MED[facility] (St hypertension HYPERTENSION 12:00:00 AM [facility], ) E11.9 Type 2 diabetes TYPE 2 DIABETES Problem 10/25/2018 MEDG EN (St mellitus without MELLITUS WITHOUT 12:00:00 AM J [facility] complications COMPLICATIONS [facility], ) 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 12:00:0 0 AM [facility], ) D50.9 Iron deficiency IRON DEFICIENCY Problem 10/25/2018 MEDG EN (St anemia, unspecified ANEMIA, UNSPECIFIED 12:00:0 0 AM [facility], ) J44.9 Chronic obstructive CHRONIC OBSTRUCTIVE Problem 019 [facility] (St pulmonary disease, PULMONARY DISEASE, 12:00:00 AM [facility] unspecified UNSPECIFIED [facility], ) K21.9 Gastro-esophageal GASTRO-ESOPHAGEAL Problem 10/25/2018 MED[facility] (St reflux disease REFLUX DISEASE 12:00:00 AM [facility] without esophagitis WITHOUT ESOPHAGITIS [facility], ) I10 Essential (primary) ESSENTIAL (PRIMARY) Problem 019 MED[facility] (St hypertension HYPERTENSION 12:00:00 AM [facility], ) E11.9 Type 2 diabetes TYPE 2 DIABETES Problem 10/25/2018 MEDG EN (St mellitus without MELLITUS WITHOUT 12:00:00 AM J [facility] complications COMPLICATIONS [facility], ) 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 12:00:0 0 AM [facility], ) D50.9 Iron deficiency IRON DEFICIENCY Problem 10/25/2018 MEDG EN (St anemia, unspecified ANEMIA, UNSPECIFIED 12:00:0 0 AM [facility], ) J44.9 Chronic obstructive CHRONIC OBSTRUCTIVE Problem 019 MED[facility] (St pulmonary disease, PULMONARY DISEASE, 12:00:00 AM [facility] unspecified UNSPECIFIED [facility], ) K21.9 Gastro-esophageal GASTRO-ESOPHAGEAL Problem 10/25/2018 MED[facility] (St reflux disease REFLUX DISEASE 12:00:00 AM [facility] without esophagitis WITHOUT ESOPHAGITIS [facility], ) I10 Essential (primary) ESSENTIAL (PRIMARY) Problem 019 MED[facility] (St hypertension HYPERTENSION 12:00:00 AM [facility], ) E11.9 Type 2 diabetes TYPE 2 DIABETES Problem 10/25/2018 MEDG EN (St mellitus without MELLITUS WITHOUT 12:00:00 AM J ohn's complications COMPLICATIONS [facility], ) 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 12:00:0 0 AM [facility], ) Surgeries/Procedures Procedure Description Date Indications Data Source(s) Documentation of current 11/07/2019 MED GEN ([facility] medications (procedure) 12:00:00 AM JACOB farias, ) Documentation of current 11/07/2019 MED GEN ([facility] medications (procedure) 12:00:00 AM JACOB farias, ) Documentation of current 11/07/2019 MED GEN ([facility] medications (procedure) 12:00:00 AM EDT jarrett, ) Documentation of current 11/07/2019 MED GEN ([facility] medications (procedure) 12:00:[facility] Documentation of current 11/07/2019 MED GEN ([facility] medications (procedure) 12:00:00 [facility] Documentation of current 11/07/2019 MED GEN ([facility] medications (procedure) 12:00:00 AM EDT [facility], ) Documentation of current 11/07/2019 MED GEN ([facility] medications (procedure) 12:00:00 AM EDT jarrett, ) Documentation of current 11/07/2019 MED GEN ([facility] medications (procedure) 12:00:00 AM EDT jarrett, ) Documentation of current 11/07/2019 MED GEN ([facility] medications (procedure) 12:00:00 AM EDT jarrett, ) Documentation of current 11/07/2019 MED GEN ([facility] medications (procedure) 12:00:00 AM EDT [facility], ) Documentation of current 11/07/2019 MED GEN ([facility] medications (procedure) 12:00:00 AM EDT [facility], ) OFFICE OUTPATIENT VISIT 11/07/2019 MEDG EN ([facility] 25 MINUTES 12:00:00 AM [facility], ) ECG ROUTINE ECG W/LEAST 11/07/2019 MEDG EN ([facility] 12 LDS W/I&R 12:00:00 AM [facility], ) COLLECTION VENOUS BLOOD 11/07/2019 MEDG EN ([facility] VENIPUNCTURE 12:00:00 AM [facility], ) OFFICE OUTPATIENT VISIT 08/19/2019 MEDG EN ([facility] 15 MINUTES 12:00:00 AM [facility], ) COLLECTION VENOUS BLOOD 08/19/2019 MEDG EN ([facility] VENIPUNCTURE 12:00:00 AM [facility], ) OFFICE OUTPATIENT VISIT 08/19/2019 MEDG EN ([facility] 15 MINUTES 12:00:00 AM [facility], ) OFFICE OUTPATIENT VISIT 08/19/2019 MEDG EN ([facility] 15 MINUTES 12:00:00 AM EDT Medical, ) Documentation of current 08/15/2019 MED GEN ([facility] medications (procedure) [facility] Documentation of current 08/15/2019 MED GEN ([facility] medications (procedure) 12:00:00 AM EDT [facility], ) OFFICE OUTPATIENT VISIT 08/15/2019 MEDG EN ([facility] 15 MINUTES 12:00:00 AM EDT [facility], ) Documentation of current 08/15/2019 MED GEN ([facility] medications (procedure) 12:00:00 AM EDT [facility], ) OFFICE OUTPATIENT VISIT 08/15/2019 MEDG EN ([facility] 15 MINUTES 12:00:00 AM EDT Medical, ) OFFICE OUTPATIENT VISIT 04/25/2019 MEDG EN ([facility] 10 MINUTES 12:00:00 AM EDT Medical, ) OFFICE OUTPATIENT VISIT 04/25/2019 MEDG EN ([facility] 10 MINUTES 12:00:00 AM EDT Medical, ) OFFICE OUTPATIENT VISIT 04/25/2019 MEDG EN ([facility] 10 MINUTES 12:00:00 AM EDT Medical, ) PREVENT MED CARDIOLOGY FELLOW&/RISK 04/19/2019 ME DGEN ([facility] FACTOR REDJ SPX 15 MIN 12:00:00 AM EDT [facility], ) OFFICE OUTPATIENT VISIT 04/19/2019 MEDG EN ([facility] 15 MINUTES 12:00:00 AM EDT Medical, ) PREVENT MED CARDIOLOGY FELLOW&/RISK 04/19/2019 ME DGEN ([facility] FACTOR REDJ SPX 15 MIN 12:00:00 AM EDT Md dicva, ) OFFICE OUTPATIENT VISIT 04/19/2019 MEDG EN ([facility] 15 MINUTES 12:00:00 AM EDT Medical, ) PREVENT MED CARDIOLOGY FELLOW&/RISK 04/19/2019 ME DGEN ([facility] FACTOR REDJ SPX 15 MIN 12:00:00 AM EDT Md [facility], ) OFFICE OUTPATIENT VISIT 04/19/2019 MEDG EN ([facility] 15 MINUTES 12:00:00 AM EDT [facility], ) Documentation of current 03/21/2019 MED GEN [...] EN ([facility] 25 MINUTES 12:00:00 AM [facility]) Documentation of current 03/21/2019 MED GEN ([facility] medications (procedure) 12:00:00 AM NOE Piedra) Documentation of current 03/21/2019 MED GEN ([facility] medications (procedure) 12:00:00 AM [facility]) Documentation of current 03/21/2019 MED GEN ([facility] medications (procedure) 12:00:00 AM NOE Piedra) Documentation of current 03/21/2019 MED GEN ([facility] medications (procedure) 12:00:00 AM [facility]) Documentation of current 03/21/2019 MED GEN [...] GEN ([facility] medications (procedure) 12:00:00 AM EST M edical, PC) Documentation of current 03/21/2019 MED GEN [...] AM [facility]) Documentation of current 03/21/2019 MED GEN ([facility] medications (procedure) 12:00:00 AM NOE Piedra) Documentation of current 03/21/2019 MED GEN ([facility] medications (procedure) 12:00:00 AM [facility]) Documentation of current 03/21/2019 MED GEN [...] EN ([facility] 25 MINUTES 12:00:00 AM [facility]) Documentation of current 03/21/2019 MED GEN [...] 12:00:00 AM NOE Piedra) OFFICE OUTPATIENT VISIT 01/03/2019 MEDG EN ([facility] 15 MINUTES 12:00:00 AM [facility]) Documentation of current 01/03/2019 MED GEN ([facility] medications (procedure) 12:00:00 AM NOE Piedra) Documentation of current 01/03/2019 MED GEN ([facility] medications (procedure) 12:00:00 AM NOE Piedra) Documentation of current 01/03/2019 MED GEN ([facility] medications (procedure) 12:00:00 AM NOE Piedra) Documentation of current 01/03/2019 MED GEN ([facility] medications (procedure) 12:00:00 AM EST M edical, PC) Documentation of current 01/03/2019 MED GEN ([facility] medications (procedure) 12:00:00 AM [facility]) OFFICE OUTPATIENT VISIT 01/03/2019 MEDG EN ([facility] 15 MINUTES 12:00:00 AM [facility]) Documentation of current 01/03/2019 MED GEN ([facility] medications (procedure) 12:00:00 AM [facility]) Documentation of current 01/03/2019 MED GEN ([facility] medications (procedure) 12:00:00 AM [facility]) Documentation of current 01/03/2019 MED GEN ([facility] medications (procedure) 12:00:00 AM [facility]) Documentation of current 01/03/2019 MED GEN ([facility] medications (procedure) 12:00:00 AM [facility]) Documentation of current 01/03/2019 MED GEN ([facility] medications (procedure) 12:00:00 AM [facility]) OFFICE OUTPATIENT VISIT 01/03/2019 MEDG EN ([facility] 15 MINUTES 12:00:00 AM A[facility], [facility]) Documentation of current 12/31/2018 MED GEN ([facility] medications (procedure) 12:00:00 AM [facility]) Documentation of current 12/31/2018 MED GEN ([facility] medications (procedure) 12:00:00 AM [facility]) Documentation of current 12/31/2018 MED GEN ([facility] medications (procedure) 12:00:00 AM [facility]) Documentation of current 12/31/2018 MED GEN ([facility] medications (procedure) 12:00:00 AM [facility]) Documentation of current 12/31/2018 MED [...] medications (procedure) 12:00:00 AM [facility]) OFFICE OUTPATIENT VISIT 12/31/2018 MEDG EN [...] MEDG EN ([facility] 15 MINUTES 12:00:00 AM NOE [place]) Documentation of [...] medications (procedure) 12:00:00 AM [facility]) BLOOD OCCULT PEROXIDASE 12/15/2018 MEDG EN ([facility] ACTV QUAL OTHER SOURCES 12:00:00 AM CAMERON farias, NOE) COLLECTION VENOUS BLOOD 12/15/2018 MEDG EN ([facility] VENIPUNCTURE 12:00:00 AM [facility]) Documentation of current 12/15/2018 MED GEN [...] medications (procedure) 12:00:00 AM [facility] farias, PC) BLOOD OCCULT PEROXIDASE 12/15/2018 MEDG EN ([facility] ACTV QUAL OTHER SOURCES 12:00:00 AM [facility] farias, PC) COLLECTION VENOUS BLOOD 12/15/2018 MEDG EN ([facility] [...] 12:00:00 AM NOE [place]) Documentation of current 12/08/2018 MED GEN ([facility] medications (procedure) 12:00:00 AM NOE Jain) Documentation of current 12/08/2018 MED GEN ([facility] medications (procedure) 12:00:00 AM EDT [facility]) Documentation of current 12/08/2018 MED GEN ([facility] medications (procedure) 12:00:00 AM EDT [facility], PC) Documentation of current 12/08/2018 MED GEN ([facility] medications (procedure) 12:00:00 AM EDT [facility], PC) Documentation of current 12/08/2018 MED GEN ([facility] medications (procedure) 12:00:00 AM EDT [facility], PC) Documentation of current 12/08/2018 MED GEN ([facility] medications (procedure) 12:00:00 AM EDT [facility], PC) Documentation of current 12/08/2018 MED GEN ([facility] medications (procedure) 12:00:00 AM EDT [facility], PC) Documentation of current 12/08/2018 MED GEN ([facility] medications (procedure) 12:00:00 AM EDT [facility], PC) Documentation of current 12/08/2018 MED GEN ([facility] medications (procedure) 12:00:00 AM EDT jarrett, PC) Documentation of current 12/08/2018 MED GEN ([facility] medications (procedure) 12:00:00 AM EDT [facility], PC) Documentation of current 12/08/2018 MED GEN ([facility] medications (procedure) 12:00:00 AM EDT jarrett, PC) Documentation of current 12/08/2018 MED GEN ([facility] medications (procedure) 12:00:00 AM EDT jarrett, PC) Documentation of current 12/08/2018 MED GEN ([facility] medications (procedure) 12:00:00 AM EDT jarrett, PC) Documentation of current 12/08/2018 MED GEN ([facility] medications (procedure) 12:00:00 AM EDT [facility]ical, PC) Documentation of current 12/08/2018 MED GEN ([facility] medications (procedure) 12:00:00 AM EDT [facility], PC) Documentation of current 12/08/2018 MED GEN ([facility] medications (procedure) 12:00:00 AM EDT [facility], PC) Documentation of current 12/08/2018 MED GEN ([facility] medications (procedure) 12:00:00 AM EDT M edical, ) Documentation of current 12/08/2018 MED GEN ([facility] medications (procedure) 12:00:00 AM EDT edical, ) Documentation of current 12/08/2018 MED GEN ([facility] medications (procedure) 12:00:00 AM EDT edical, ) Documentation of current 12/08/2018 MED GEN ([facility] medications (procedure) 12:00:00 AM EDT edical, ) Documentation of current 12/08/2018 MED GEN ([facility] medications (procedure) 12:00:00 [facility]ation of current 12/08/2018 MED GEN ([facility] medications (procedure) 12:00:00 AM ED[facility] Documentation of current 12/08/2018 MED GEN ([facility] medications (procedure) 12:00:00 AM EDT [facility] Documentation of current 12/08/2018 MED GEN ([facility] medications (procedure) 12:00:00 AM EDT [facility] Documentation of current 12/08/2018 MED GEN ([facility] medications (procedure) 12:00:00 AM ED[facility] Documentation of current 12/08/2018 MED GEN ([facility] medications (procedure) 12:00:00 AM EDT [facility], ) Documentation of current 12/08/2018 MED GEN ([facility] medications (procedure) 12:00:00 AM ED[facility] OFFICE OUTPATIENT VISIT 11/16/2018 MEDG EN ([facility] 15 MINUTES 12:00:00 AM ED Medical, ) GLUC BLD GLUC MNTR DEV 11/16/2018 MEDGE N ([facility] CLEARED FDA SPEC HOME USE 12:00:00 AM EDT Medical, ) OFFICE OUTPATIENT VISIT 11/16/2018 MEDG EN ([facility] 15 MINUTES 12:00:00 AM EDT Medical, PC) GLUC BLD GLUC MNTR DEV 11/16/2018 MEDGE N ([facility] CLEARED FDA SPEC HOME USE 12:00:00 AM ED Medical, ) OFFICE OUTPATIENT VISIT 11/16/2018 MEDG EN ([facility] 15 MINUTES 12:00:00 AM ED Medical, PC) GLUC BLD GLUC MNTR DEV 11/16/2018 MEDGE N ([facility] CLEARED FDA SPEC HOME USE 12:00:00 AM EDT Medical, PC) Documentation of current 11/01/2018 MED GEN ([facility] medications (procedure) 12:00:00 AM EDT edical, PC) Documentation of current 11/01/2018 MED GEN ([facility] medications (procedure) 12:00:00 AM EDT edical, PC) Documentation of current 11/01/2018 MED GEN ([facility] medications (procedure) 12:00:00 AM EDT edical, PC) Documentation of current 11/01/2018 MED GEN ([facility] medications (procedure) 12:00:00 AM EDT edical, PC) Documentation of current 11/01/2018 MED GEN ([facility] medications (procedure) 12:00:00 AM EDT edical, PC) Documentation of current 11/01/2018 MED GEN ([facility] medications (procedure) 12:00:00 AM EDT edical, PC) Documentation of current 11/01/2018 MED GEN ([facility] medications (procedure) 12:00:00 AM EDT edical, PC) Documentation of current 11/01/2018 MED GEN ([facility] medications (procedure) 12:00:00 AM EDT edical, PC) Documentation of current 11/01/2018 MED GEN ([facility] medications (procedure) 12:00:00 AM EDT edical, PC) Documentation of current 11/01/2018 MED GEN ([facility] medications (procedure) 12:00:00 AM EDT julesical, PC) Documentation of current 11/01/2018 MED GEN ([facility] medications (procedure) 12:00:00 AM EDT edical, PC) Documentation of current 11/01/2018 MED GEN ([facility] medications (procedure) 12:00:00 AM EDT edical, PC) Documentation of current 11/01/2018 MED GEN ([facility] medications (procedure) 12:00:00 AM EDT edical, PC) Documentation of current 11/01/2018 MED GEN ([facility] medications (procedure) 12:00:00 AM EDT M edical, PC) Documentation of current 11/01/2018 MED GEN ([facility] medications (procedure) 12:00:00 AM EDT [facility]) Documentation of current 11/01/2018 MED GEN ([facility] medications (procedure) 12:00:00 AM EDT NOE Mclean) Documentation of current 11/01/2018 MED GEN ([facility] medications (procedure) 12:00:00 AM EDT jarrett, PC) Documentation of current 11/01/2018 MED GEN ([facility] medications (procedure) 12:00:00 AM EDT NOE farias) Documentation of current 11/01/2018 MED GEN ([facility] medications (procedure) 12:00:00 AM EDT jarrett, PC) Documentation of current 11/01/2018 MED GEN ([facility] medications (procedure) 12:00:00 AM EDT [facility]rett PC) Documentation of current 11/01/2018 MED GEN ([facility] medications (procedure) 12:00:00 AM EDT NOE Mclean) OFFICE OUTPATIENT VISIT 11/01/2018 MEDG EN ([facility] 15 MINUTES 12:00:00 AM ED Medical, PC) COLLECTION VENOUS BLOOD 11/01/2018 MEDG EN ([facility] VENIPUNCTURE 12:00:00 AM ED Medical, PC) Documentation of current 11/01/2018 MED GEN ([facility] medications (procedure) 12:00:00 AM EDT NOE Mclean) Documentation of current 11/01/2018 MED GEN ([facility] medications (procedure) 12:00:00 AM EDT NOE Mclean) Documentation of current 11/01/2018 MED GEN ([facility] medications (procedure) 12:00:00 AM EDT [facility]) Documentation of current 11/01/2018 MED GEN ([facility] medications (procedure) 12:00:00 AM EDT [facility], [facility]) Documentation of current 11/01/2018 MED GEN ([facility] medications (procedure) 12:00:00 AM EDT [facility], [facility]) Documentation of current 11/01/2018 MED GEN ([facility] medications (procedure) 12:00:00 AM EDT [facility] farias, PC) Documentation of current 11/01/2018 MED GEN ([facility] medications (procedure) 12:00:00 AM EDT jarrett, PC) Documentation of current 11/01/2018 MED GEN ([facility] medications (procedure) 12:00:00 AM EDT jarrett, PC) Documentation of current 11/01/2018 MED GEN ([facility] medications (procedure) 12:00:00 AM EDT julesical, PC) Documentation of current 11/01/2018 MED GEN [...] AM EDT julesical, PC) Documentation of current 11/01/2018 MED GEN ([facility] medications (procedure) 12:00:00 AM EDT jarrett, PC) OFFICE OUTPATIENT VISIT 11/01/2018 MEDG EN ([facility] 15 MINUTES 12:00:00 AM EDT Medical, ) COLLECTION VENOUS BLOOD 11/01/2018 MEDG EN ([facility] VENIPUNCTURE 12:00:00 AM EDT Medical, ) Documentation of current 11/01/2018 MED GEN ([facility] medications (procedure) 12:00:00 AM EDT edical, PC) Documentation of current 11/01/2018 MED GEN ([facility] medications (procedure) 12:00:00 AM EDT edical, PC) Documentation of current 11/01/2018 MED GEN ([facility] medications (procedure) 12:00:00 AM EDT edical, PC) Documentation of current 11/01/2018 MED GEN ([facility] medications (procedure) 12:00:00 AM EDT edical, PC) Documentation of current 11/01/2018 MED GEN ([facility] medications (procedure) 12:00:00 AM EDT edical, PC) Documentation of current 11/01/2018 MED GEN ([facility] medications (procedure) 12:00:00 AM EDT edical, PC) Documentation of current 11/01/2018 MED GEN ([facility] medications (procedure) 12:00:00 AM EDT edical, PC) Documentation of current 11/01/2018 MED GEN ([facility] medications (procedure) 12:00:00 AM EDT edical, PC) Documentation of current 11/01/2018 MED GEN ([facility] medications (procedure) 12:00:00 AM EDT edical, PC) Documentation of current 11/01/2018 MED GEN ([facility] medications (procedure) 12:00:00 AM EDT edical, PC) Documentation of current 11/01/2018 MED GEN ([facility] medications (procedure) 12:00:00 AM EDT edical, PC) Documentation of current 11/01/2018 MED GEN ([facility] medications (procedure) 12:00:00 AM EDT edical, PC) Documentation of current 11/01/2018 MED GEN ([facility] medications (procedure) 12:00:00 AM EDT edical, PC) Documentation of current 11/01/2018 MED GEN ([facility] medications (procedure) 12:00:00 AM EDT jarrett, PC) Documentation of current 11/01/2018 MED GEN ([facility] medications (procedure) 12:00:00 AM EDT jarrett, PC) Documentation of current 11/01/2018 MED GEN ([facility] medications (procedure) 12:00:00 AM EDT julesical, PC) Documentation of current 11/01/2018 MED GEN [...] MEDG EN ([facility] 15 MINUTES 12:00:00 AM [facility], ) COLLECTION VENOUS BLOOD 11/01/2018 MEDG EN ([facility] VENIPUNCTURE 12:00:00 AM [facility], ) Documentation of current 10/25/2018 MED GEN [...] medications (procedure) 12:00:00 AM EDT julesical, ) TOBACCO USE CESSATION 10/25/2018 MEDGEN ([facility] INTENSIVE >10 MINUTES 12:00:00 AM EDT Med ical, PC) NONINVASIVE EAR/PULSE 10/25/2018 MEDGEN ([facility] OXIMETRY OVERNIGHT 12:00:00 AM EDT Medica l, ) MONITOR GLUC BLD GLUC MNTR DEV 10/25/2018 MEDGE N ([facility] CLEARED FDA SPEC HOME USE 12:00:00 AM [facility] Medical, PC) COLLECTION VENOUS BLOOD 10/25/2018 MEDG EN ([facility] VENIPUNCTURE 12:00:00 AM [facility] Medical, PC) Documentation of current 10/25/2018 MED GEN ([facility] medications (procedure) 12:00:00 AM EDT julesical, PC) Documentation of current 10/25/2018 MED GEN ([facility] medications (procedure) 12:00:00 AM EDT edical, PC) Documentation of current 10/25/2018 MED GEN ([facility] medications (procedure) 12:00:00 AM EDT edical, PC) Documentation of current 10/25/2018 MED GEN ([facility] medications (procedure) 12:00:00 AM EDT edical, PC) Documentation of current 10/25/2018 MED GEN ([facility] medications (procedure) 12:00:00 AM EDT edical, PC) Documentation of current 10/25/2018 MED GEN ([facility] medications (procedure) 12:00:00 AM EDT edical, PC) Documentation of current 10/25/2018 MED GEN ([facility] medications (procedure) 12:00:00 AM EDT edical, PC) Documentation of current 10/25/2018 MED GEN ([facility] medications (procedure) 12:00:00 AM EDT edical, PC) Documentation of current 10/25/2018 MED GEN ([facility] medications (procedure) 12:00:00 AM EDT edical, PC) Documentation of current 10/25/2018 MED GEN ([facility] medications (procedure) 12:00:00 AM EDT julesical, PC) Documentation of current 10/25/2018 MED GEN ([facility] medications (procedure) 12:00:00 AM EDT edical, PC) Documentation of current 10/25/2018 MED GEN ([facility] medications (procedure) 12:00:00 AM EDT edical, PC) Documentation of current 10/25/2018 MED GEN ([facility] medications (procedure) 12:00:00 AM EDT edical, PC) Documentation of current 10/25/2018 MED GEN ([facility] medications (procedure) 12:00:00 AM EDT edical, PC) Documentation of current 10/25/2018 MED GEN ([facility] medications (procedure) 12:00:00 AM EDT edical, PC) Documentation of current 10/25/2018 MED GEN ([facility] medications (procedure) 12:00:00 AM EDT edical, PC) Documentation of current 10/25/2018 MED GEN ([facility] medications (procedure) 12:00:00 AM EDT edical, PC) Documentation of current 10/25/2018 MED GEN ([facility] medications (procedure) 12:00:00 AM EDT edical, PC) TOBACCO USE CESSATION 10/25/2018 MEDGEN ([facility] INTENSIVE >10 MINUTES 12:00:00 AM EDT Med ical, PC) NONINVASIVE EAR/PULSE 10/25/2018 MEDGEN ([facility] OXIMETRY OVERNIGHT 12:00:00 AM EDT Medica l, ) MONITOR GLUC BLD GLUC MNTR DEV 10/25/2018 MEDGE N ([facility] CLEARED FDA SPEC HOME USE 12:00:00 AM EDT Medical, ) COLLECTION VENOUS BLOOD 10/25/2018 MEDG EN ([facility] VENIPUNCTURE 12:00:00 AM [facility] Medical, ) Documentation of current 10/25/2018 MED GEN ([facility] medications (procedure) 12:00:00 AM EDT julesical, PC) Documentation of current 10/25/2018 MED GEN ([facility] medications (procedure) 12:00:00 AM EDT julesical, PC) Documentation of current 10/25/2018 MED GEN ([facility] medications (procedure) 12:00:00 AM EDT julesical, PC) Documentation of current 10/25/2018 MED GEN ([facility] medications (procedure) 12:00:00 AM EDT edical, PC) Documentation of current 10/25/2018 MED GEN ([facility] medications (procedure) 12:00:00 AM EDT edical, PC) Documentation of current 10/25/2018 MED GEN ([facility] medications (procedure) 12:00:00 AM EDT edical, PC) Documentation of current 10/25/2018 MED GEN ([facility] medications (procedure) 12:00:00 AM EDT julesical, PC) Documentation of current 10/25/2018 MED GEN ([facility] medications (procedure) 12:00:00 AM EDT edical, ) Documentation of current 10/25/2018 MED GEN ([facility] medications (procedure) 12:00:00 AM EDT edical, ) Documentation of current 10/25/2018 MED GEN ([facility] medications (procedure) 12:00:00 AM EDT [facility] Documentation of current 10/25/2018 MED GEN ([facility] medications (procedure) 12:00:00 AM EDT [facility] Documentation of current 10/25/2018 MED GEN ([facility] medications (procedure) 12:00:00 AM EDT [facility] Documentation of current 10/25/2018 MED GEN ([facility] medications (procedure) 12:00:00 AM EDT [facility] Documentation of current 10/25/2018 MED GEN ([facility] medications (procedure) 12:00:00 AM EDT [facility] Documentation of current 10/25/2018 MED GEN ([facility] medications (procedure) 12:00:00 AM EDT [facility] Documentation of current 10/25/2018 MED GEN ([facility] medications (procedure) 12:00:00 AM EDT [facility] Documentation of current 10/25/2018 MED GEN ([facility] medications (procedure) 12:00:00 AM EDT [facility] Documentation of current 10/25/2018 MED GEN ([facility] medications (procedure) 12:00:00 AM EDT [facility] TOBACCO USE CESSATION 10/25/2018 MEDGEN ([facility] INTENSIVE >10 MINUTES 12:00:00 AM EDT Med ical, ) NONINVASIVE EAR/PULSE 10/25/2018 MEDGEN ([facility] OXIMETRY OVERNIGHT 12:00:00 AM EDT Medica l, ) MONITOR GLUC BLD GLUC MNTR DEV 10/25/2018 MEDGE N ([facility] CLEARED FDA SPEC HOME USE 12:00:00 AM [facility] Medical, ) COLLECTION VENOUS BLOOD 10/25/2018 MEDG EN ([facility] VENIPUNCTURE 12:00:00 AM [facility], ) Results ID Date Data Source [id number] 11/07/2019 03:09:00 PM EDT [facility] Name Value Range Interpretation Description Data Sup porting Code Source(s) Document(s ) SARS [facility] coronavirus 2 RNA This lab was ordered by [facility] and reported by [facility]. ID Date Data Source [id number] 08/19/2019 12:00:00 AM EDT [facility] ([facility] Name Value Range Interpretation Code Description Data Patti rce(s) Supporting Document(s ) ID Date Data Source [id number] 08/19/2019 12:00:00 AM EDT [facility] ([facility]) Name Value Range Interpretation Code Description Data Patti rce(s) Supporting Document(s ) PDF . Normal (applies to MEDGEN (St non-numeric results) [facility], ) ID Date Data Source [id number] 08/19/2019 12:00:00 AM EDT [facility] ([facility] Name Value Range Interpretation Code Description Data Patti rce(s) Supporting Document(s ) Please note Normal (applies to MEDGEN (S t non-numeric [facility] results) Medical, ) ID Date Data Source [id number] 08/19/2019 12:00:00 AM EDT [facility] ([facility] Name Value Range Interpretation Description Data Sup porting Code Source(s) Document(s ) Vitamin D, 15.8 Below low normal MEDGEN (St 25-Hydroxy ng/mL [facility], ) ID Date Data Source [id number] 08/19/2019 12:00:00 AM EDT [facility] ([facility]) Name Value Range Interpretation Description Data Sup porting Code Source(s) Document(s ) Hemoglobin A1c 6.5 % Above high normal MEDGEN (St in Blood [facility] [place], ) ID Date Data Source [id number] 08/19/2019 12:00:00 AM EDT [facility] ([facility] Name Value Range Interpretation Description Data Sup porting Code Source(s) Document(s ) Cholesterol 180 Normal (applies MEDGEN (St [Mass/volume] in mg/dL to non-numeric [facility] Serum or Plasma results) [facility], [facility]) Triglyceride 79 mg/dL Normal (applies [facility] (St [Mass/volume] in to non-numeric [facility] Serum or Plasma results) Medical, ) HDL Cholesterol 62 mg/dL Normal (applies MEDGEN ( St to non-numeric [facility] results) [facility], ) LDL Cholesterol 102 Above high normal MED[facility] (St Calc mg/dL [facility], ) VLDL Cholesterol 16 mg/dL Normal (applies [facility] (St Lamin to non-numeric [facility] results) [facility], ) ID Date Data Source [id number] 08/19/2019 12:00:00 AM EDT [facility] ([facility], ) Name Value Range Interpretation Description Data Sup porting Code Source(s) Document(s ) Glucose 104 Above high MEDGEN (St [Mass/volume] in mg/dL normal [facility] Urine collected for Medical, unspecified PC) duration Urea nitrogen 16 mg/dL Normal (applies [facility] (St [Mass/volume] in to non-numeric [facility] Serum or Plasma results) Medical, ) eGFR If NonAfricn 72 Normal (applies MEDGEN (St Am mL/min/1 to non-numeric [facility] .73 results) Medical, ) Creatinine 0.92 Normal (applies [facility] (St [Interpretation] in mg/dL to non-numeric [facility] Urine results) Medical, ) eGFR If Africn Am 83 Normal (applies [facility]GEN (St mL/min/1 to non-numeric [facility] .73 results) Medical, ) Sodium 139 Normal (applies [facility] (St [Moles/volume] in mmol/L to non-numeric [facility] Serum or Plasma results) Medical, ) BUN/Creatinine 17 Normal (applies [facility]GEN (S t Ratio to non-numeric [facility] results) Medical, ) Potassium 4.3 Normal (applies [facility]GEN (St [Mass/volume] in mmol/L to non-numeric [facility] Blood results) Medical, ) Chloride 105 Normal (applies [facility] (St [Moles/volume] in mmol/L to non-numeric [facility] Serum or Plasma results) Medical, ) Carbon dioxide, 19 Below low normal MEDGEN (St total mmol/L [facility] [Moles/volume] in Medical, Serum or Plasma PC) Protein 7.3 g/dL Normal (applies [facility] (St [Mass/volume] in to non-numeric [facility] Serum or Plasma results) Medical, ) Calcium 9.3 Normal (applies [facility] (St [Moles/volume] in mg/dL to non-numeric [facility] Urine collected for results) Medical, unspecified ) duration Microalbumin 4.3 g/dL Normal (applies [facility] (St [Mass/time] in to non-numeric [facility] Urine collected for results) Medical, unspecified ) duration Globulin, Total 3.0 g/dL Normal (applies [facility]GEN ( St to non-numeric [facility] results) Medical, ) A/G Ratio 1.4 Normal (applies [facility] (St to non-numeric [facility] results) Medical, ) Alkaline 93 IU/L Normal (applies [facility] (St phosphatase to non-numeric [facility] [Enzymatic results) Medical, activity/volume] in ) Serum, Plasma or Blood Bilirubin.total 0.3 Normal (applies MEDGEN ( St [Mass/volume] in mg/dL to non-numeric [facility] Serum or Plasma results) Medical, ) Aspartate 11 IU/L Normal (applies [facility] (St aminotransferase to non-numeric [facility] [Enzymatic results) Medical, activity/volume] in ) Serum or Plasma Alanine 9 IU/L Normal (applies [facility]GEN (St aminotransferase to non-numeric [facility] [Enzymatic results) Medical, activity/volume] in ) Serum or Plasma ID Date Data Source [id number] 08/19/2019 12:00:00 AM EDT [facility] ([facility] ) Name Value Range Interpretation Description Data Sup porting Code Source(s) Document(s ) Leukocytes 5.7 Normal (applies MEDGEN (St [#/volume] in x10E3/uL to non-numeric [facility] Blood by results) Medical, ) Automated count Erythrocytes 4.79 Normal (applies MEDGEN (St [#/volume] in x10E6/uL to non-numeric [facility] Blood by results) Medical, ) Automated count Hemoglobin 13.4 Normal (applies [facility] (St [Mass/volume] in g/dL to non-numeric [facility] Blood results) Medical, ) Hematocrit 41.3 % Normal (applies [facility] (St [Volume to non-numeric [facility] Fraction] of results) Medical, ) Blood by Automated count MCV 86 fL Normal (applies [facility] (St to non-numeric [facility] results) [facility], ) MCH 28.0 pg Normal (applies [facility] (St to non-numeric [facility] results) [facility], ) MCHC 32.4 Normal (applies [facility] (St g/dL to non-numeric [facility] results) [facility], ) Platelets 251 Normal (applies MEDGEN (St [#/area] in x10E3/uL to non-numeric [facility] Blood by results) [facility], ) Microscopy high power field RDW 15.2 % Normal (applies [facility] (St to non-numeric [facility] results) [facility], ) Neutrophils [#] 53 % Normal (applies MEDGEN ( St in Body fluid by to non-numeric [facility] Manual count results) [facility], ) Lymphs 36 % Normal (applies [facility] (St to non-numeric [facility] results) [facility], ) Eos 2 % Normal (applies [facility] (St to non-numeric [facility] results) [facility], ) Monocytes 6 % Normal (applies [facility] (St [#/volume] in to non-numeric [facility] Cord blood results) [facility], ) Basos 1 % Normal (applies [facility] (St to non-numeric [facility] results) [facility], ) Neutrophils 3.1 Normal (applies [facility] (St (Absolute) x10E3/uL to non-numeric [facility] results) [facility], ) Lymphs 2.1 Normal (applies [facility] (St (Absolute) x10E3/uL to non-numeric [facility] results) [facility], ) Monocytes(Absolu 0.4 Normal (applies [facility] (St te) x10E3/uL to non-numeric [facility] results) [facility], ) Eos (Absolute) 0.1 Normal (applies [facility] (S t x10E3/uL to non-numeric [facility] results) [facility], ) Baso (Absolute) 0.0 Normal (applies MEDGEN ( St x10E3/uL to non-numeric [facility] results) [facility], ) Immature 2 % Normal (applies [facility] (St Granulocytes to non-numeric [facility] results) [facility], ) Immature Grans 0.1 Normal (applies [facility] (S t (Abs) x10E3/uL to non-numeric [facility] results) [facility], ) ID Date Data Source [id number] 08/19/2019 12:00:00 AM EDT [facility] ([facility]) Name Value Range Interpretation Code Description Data Patti rce(s) Supporting Document(s ) TSH 1.380 Normal (applies to [facility] (St uIU/mL non-numeric [facility] results) [facility], [facility]) T4,Free(D 1.16 ng/dL Normal (applies to [facility] (St irect) non-numeric [facility] results) [facility], [facility]) ID Date Data Source [id number] 03/21/2019 12:00:00 AM EST [facility] ([facility]) Name Value Range Interpretation Code Description Data Patti rce(s) Supporting Document(s ) ID Date Data Source [id number] 03/21/2019 12:00:00 AM EST [facility] ([facility]) Name Value Range Interpretation Code Description Data Patti rce(s) Supporting Document(s ) Test Code Normal (applies to [facility] (St Change non-numeric [facility] results) Medical, ) ID Date Data Source [id number] 03/21/2019 12:00:00 AM EST [facility] ([facility]) Name Value Range Interpretation Code Description Data Patti rce(s) Supporting Document(s ) RPR Non Reactive Normal (applies to [facility] ( St non-numeric [facility] results) Medical, ) ID Date Data Source [id number] 03/21/2019 12:00:00 AM EST [facility] ([facility]) Name Value Range Interpretation Description Data Sup porting Code Source(s) Document(s ) HIV Screen Non Normal (applies MED[facility] (St 4th Reactive to non-numeric [facility] Generation results) Medical, ) wRfx ID Date Data Source [id number] 03/21/2019 12:00:00 AM EST [facility] ([facility]) Name Value Range Interpretation Code Description Data Patti rce(s) Supporting Document(s ) TSH 1.700 Normal (applies to [facility] (St uIU/mL non-numeric results) [facility], ) ID Date Data Source [id number] 03/21/2019 12:00:00 AM EST [facility] ([facility]) Name Value Range Interpretation Description Data Sup porting Code Source(s) Document(s ) Hemoglobin 6.0 % Above high normal [facility] (St A1c/Hemoglobin. [facility] total in Blood Medical, ) ID Date Data Source [id number] 03/21/2019 12:00:00 AM EST [facility] ([facility] ) Name Value Range Interpretation Code Description Data Patti rce(s) Supporting Document(s ) PDF Image . Normal (applies to [facility] (St non-numeric results) [facility], ) ID Date Data Source [id number] 03/21/2019 12:00:00 AM EST [facility] ([facility] ) Name Value Range Interpretation Code Description Data Patti rce(s) Supporting Document(s ) FSH 75.9 mIU/mL Normal (applies to [facility] (S t non-numeric results) [facility]) LH 45.0 mIU/mL Normal (applies to [facility] (S t non-numeric results) [facility]) ID Date Data Source [id number] 03/21/2019 12:00:00 AM EST [facility] [...] target amplification method ID Date Data Source [id number] 03/21/2019 12:00:00 AM EST [facility] ([facility] ) Name Value Range Interpretation Description Data Sup porting Code Source(s) Document(s ) HBsAg Screen Negative Normal (applies [facility] (St to non-numeric [facility] results) Medical, ) Hepatitis A Indeterminate Abnormal [facility] (St virus IgM Ab (applies to [facility] [Presence] in non-numeric Medical, Serum or results) PC) Plasma by Immunoassay Hepatitis B Negative Normal (applies [facility] (St virus core to non-numeric [facility] IgM Ab results) Medical, [Presence] in PC) Serum or Plasma by Immunoassay Hep C Virus <0.1 Normal (applies [facility] (St Ab to non-numeric [facility] results) Medical, ) ID Date Data Source [id number] 03/21/2019 12:00:00 AM EST [facility] ([facility], ) Name Value Range Interpretation Description Data Sup porting Code Source(s) Document(s ) Cholesterol 275 Above high normal [facility] (St [Mass/volume] in mg/dL [facility] Serum or Plasma Medical, PC) Triglyceride 155 Above high normal [facility] (S t [Mass/volume] in mg/dL [facility] Serum or Plasma Medical, PC) VLDL Cholesterol 31 mg/dL Normal (applies [facility] (St Lamin to non-numeric [facility] results) Medical, PC) HDL Cholesterol 72 mg/dL Normal (applies [facility] ( St to non-numeric [facility] results) [facility], PC) LDL Cholesterol 172 Above high normal [facility] (St Calc mg/dL [facility], ) ID Date Data Source [id number] 03/21/2019 12:00:00 AM EST [facility] ([facility], ) Name Value Range Interpretation Description Data Sup porting Code Source(s) Document(s ) Glucose 72 mg/dL Normal (applies [facility] (St [Mass/volume] in to non-numeric [facility] Urine collected for results) Medical, unspecified PC) duration Urea nitrogen 20 mg/dL Normal (applies [facility] (St [Mass/volume] in to non-numeric [facility] Serum or Plasma results) Medical, PC) Creatinine 0.82 Normal (applies [facility] (St [Interpretation] in mg/dL to non-numeric [facility] Urine results) Medical, PC) eGFR If NonAfricn 83 Normal (applies [facility] (St Am mL/min/1 to non-numeric [facility] .73 results) Medical, PC) eGFR If Africn Am 96 Normal (applies [facility] (St mL/min/1 to non-numeric [facility] .73 results) Medical, PC) BUN/Creatinine 24 Above high [facility] (St Ratio normal [facility], ) Sodium 141 Normal (applies [facility] (St [Moles/volume] in mmol/L to non-numeric [facility] Serum or Plasma results) Medical, PC) Potassium 3.5 Normal (applies [facility] (St [Mass/volume] in mmol/L to non-numeric [facility] Blood results) Medical, PC) Chloride 100 Normal (applies [facility] (St [Moles/volume] in mmol/L to non-numeric [facility] Serum or Plasma results) Medical, ) Calcium 9.2 Normal (applies [facility] (St [Moles/volume] in mg/dL to non-numeric [facility] Urine collected for results) Medical, unspecified PC) duration Carbon dioxide, 26 Normal (applies MEDGEN ( St total mmol/L to non-numeric [facility] [Moles/volume] in results) Medical, Serum or Plasma PC) Protein 7.4 g/dL Normal (applies [facility] (St [Mass/volume] in to non-numeric [facility] Serum or Plasma results) Medical, ) Microalbumin 4.3 g/dL Normal (applies MED[facility] (St [...] activity/volume] in PC) Serum or Plasma Alanine 22 IU/L Normal (applies [facility]GEN (St aminotransferase to non-numeric [facility] [Enzymatic results) Medical, activity/volume] in PC) Serum or Plasma ID Date Data Source [id number] 03/21/2019 12:00:00 AM EST [facility] ([facility], ) Name Value Range Interpretation Description Data Sup porting Code Source(s) Document(s ) Leukocytes 6.5 Normal (applies MEDGEN (St [#/volume] in x10E3/uL to non-numeric [facility] Blood by results) Medical, ) Automated count Hemoglobin 12.8 Normal (applies [facility] (St [Mass/volume] in g/dL to non-numeric [facility] Blood results) [facility], ) Erythrocytes 4.58 Normal (applies MEDGEN (St [#/volume] in x10E6/uL to non-numeric [facility] Blood by results) [facility], ) Automated count Hematocrit 38.3 % Normal (applies [facility] (St [Volume to non-numeric [facility] Fraction] of results) [facility], ) Blood by Automated count MCV 84 fL Normal (applies [facility] (St to non-numeric [facility] results) [facility], ) MCH 27.9 pg Normal (applies [facility] (St to non-numeric [facility] results) [facility], ) MCHC 33.4 Normal (applies [facility] (St g/dL to non-numeric [facility] results) [facility], ) Platelets 309 Normal (applies MED[facility] (St [#/area] in x10E3/uL to non-numeric [facility] Blood by results) [facility], ) Microscopy high power field RDW 17.7 % Above high normal [facility] ([facility], ) Neutrophils [#] 51 % Normal (applies MEDGEN ( St in Body fluid by to non-numeric [facility] Manual count results) [facility], ) Monocytes 10 % Normal (applies [facility] (St [#/volume] in to non-numeric [facility] Cord blood results) [facility], ) Lymphs 37 % Normal (applies [facility] (St to non-numeric [facility] results) [facility], ) Eos 1 % Normal (applies [facility] (St to non-numeric [facility] results) [facility], ) Basos 1 % Normal (applies [facility] (St to non-numeric [facility] results) [facility], ) Neutrophils 3.3 Normal (applies [facility] (St (Absolute) x10E3/uL to non-numeric [facility] results) [facility], ) Monocytes(Absolu 0.6 Normal (applies MEDGEN (St te) x10E3/uL to non-numeric [facility] results) [facility], ) Lymphs 2.4 Normal (applies [facility] (St (Absolute) x10E3/uL to non-numeric [facility] results) [facility], ) Eos (Absolute) 0.1 Normal (applies [facility] (S t x10E3/uL to non-numeric [facility] results) [facility], ) Baso (Absolute) 0.0 Normal (applies [facility] ( St x10E3/uL to non-numeric [facility] results) Medical, ) Immature 0 % Normal (applies [facility] (St Granulocytes to non-numeric [facility] results) Medical, ) Immature Grans 0.0 Normal (applies [facility] (S t (Abs) x10E3/uL to non-numeric [facility] results) Medical, ) ID Date Data Source [id number] 03/21/2019 12:00:00 AM EST [facility] ([facility], ) Name Value Range Interpretation Code Description Data Patti rce(s) Supporting Document(s ) ID Date Data Source [id number] 03/21/2019 12:00:00 AM EST [facility] ([facility], ) Name Value Range Interpretation Code Description Data Patti rce(s) Supporting Document(s ) ID Date Data Source [id number] 03/21/2019 12:00:00 AM EST [facility] ([facility], ) Name Value Range Interpretation Code Description Data Patti rce(s) Supporting Document(s ) RPR Non Reactive Normal (applies to [facility] ( St non-numeric [facility] results) Medical, ) ID Date Data Source [id number] 03/21/2019 12:00:00 AM EST [facility] ([facility] ) Name Value Range Interpretation Description Data Sup porting Code Source(s) Document(s ) HIV Screen Non Normal (applies MED[facility] (St 4th Reactive to non-numeric [facility] Generation results) Medical, ) wRfx ID Date Data Source [id number] 03/21/2019 12:00:00 AM EST [facility] ([facility], ) Name Value Range Interpretation Code Description Data Patti rce(s) Supporting Document(s ) TSH 1.700 Normal (applies to [facility] (St uIU/mL non-numeric results) [facility], ) ID Date Data Source [id number] 03/21/2019 12:00:00 AM EST [facility] ([facility], ) Name Value Range Interpretation Description Data Sup porting Code Source(s) Document(s ) Hemoglobin 6.0 % Above high normal [facility] (St A1c/Hemoglobin. [facility] total in Blood Medical, ) ID Date Data Source [id number] 03/21/2019 12:00:00 AM EST [facility] ([facility]) Name Value Range Interpretation Code Description Data Patti rce(s) Supporting Document(s ) PDF Image . Normal (applies to [facility] (St non-numeric results) [facility]) ID Date Data Source [id number] 03/21/2019 12:00:00 AM EST [facility] ([facility]) Name Value Range Interpretation Code Description Data Patti rce(s) Supporting Document(s ) FSH 75.9 mIU/mL Normal (applies to [facility] (S t non-numeric results) [facility]) LH 45.0 mIU/mL Normal (applies to [facility] (S t non-numeric results) [facility]) ID Date Data Source [id number] 03/21/2019 12:00:00 AM EST [facility] [...] target amplification method ID Date Data Source [id number] 03/21/2019 12:00:00 AM EST [facility] ([facility]) Name Value Range Interpretation Description Data Sup porting Code Source(s) Document(s ) Hepatitis A Indeterminate Abnormal [facility] (St virus IgM Ab (applies to [facility] [Presence] in non-numeric Medical, Serum or results) PC) Plasma by Immunoassay HBsAg Screen Negative Normal (applies [facility] (St to non-numeric [facility] results) Medical, ) Hepatitis B Negative Normal (applies [facility] (St virus core to non-numeric [facility] IgM Ab results) Medical, [Presence] in PC) Serum or Plasma by Immunoassay Hep C Virus <0.1 Normal (applies [facility] (St Ab to non-numeric [facility] results) Medical, ) ID Date Data Source [id number] 03/21/2019 12:00:00 AM EST [facility] ([facility]) Name Value Range Interpretation Description Data Sup porting Code Source(s) Document(s ) Cholesterol 275 Above high normal [facility] (St [Mass/volume] in mg/dL [facility] Serum or Plasma Medical, PC) HDL Cholesterol 72 mg/dL Normal (applies [facility] ( St to non-numeric [facility] results) Medical, PC) Triglyceride 155 Above high normal [facility] (S t [Mass/volume] in mg/dL [facility] Serum or Plasma Medical, PC) VLDL Cholesterol 31 mg/dL Normal (applies [facility] (St Lamin to non-numeric [facility] results) Medical, PC) LDL Cholesterol 172 Above high normal [facility] (St Calc mg/dL [facility], ) ID Date Data Source [id number] 03/21/2019 12:00:00 AM EST [facility] ([facility] [place], ) Name Value Range Interpretation Description Data [...] 24 Above high [facility] (St Ratio normal [facility], [facility]) Sodium 141 Normal (applies MED[facility] (St [...] collected for results) Medical, unspecified ) duration Protein 7.4 g/dL Normal (applies [facility] (St [Mass/volume] in to non-numeric [facility] Serum or Plasma results) Medical, ) Globulin, Total 3.1 g/dL Normal (applies [facility] ( St to non-numeric [facility] results) Medical, ) A/G Ratio 1.4 Normal (applies [facility] (St to non-numeric [facility] results) Medical, ) Bilirubin.total 0.3 Normal (applies [facility] ( St [Mass/volume] in mg/dL to non-numeric [facility] Serum or Plasma results) Medical, ) Alkaline 69 IU/L Normal (applies [facility] (St phosphatase to non-numeric [facility] [Enzymatic results) Medical, activity/volume] in PC) Serum, Plasma or Blood Aspartate 23 IU/L Normal (applies MEDGEN (St aminotransferase to non-numeric [facility] [Enzymatic results) Medical, activity/volume] in PC) Serum or Plasma Alanine 22 IU/L Normal (applies [facility]GEN (St aminotransferase to non-numeric [facility] [Enzymatic results) Medical, activity/volume] in PC) Serum or Plasma ID Date Data Source [id number] 03/21/2019 12:00:00 AM EST [facility] ([facility] [...] in g/dL to non-numeric [facility] Blood results) [facility], ) MCV 84 fL Normal (applies [facility] (St to non-numeric [facility] results) [facility], ) Hematocrit 38.3 % Normal (applies MEDGEN (St [Volume to non-numeric [facility] Fraction] of results) [facility], ) Blood by Automated count MCH 27.9 pg Normal (applies [facility] (St to non-numeric [facility] results) [facility], ) MCHC 33.4 Normal (applies [facility] (St g/dL to non-numeric [facility] results) [facility], ) RDW 17.7 % Above high normal [facility] ([facility], ) Platelets 309 Normal (applies MEDGEN (St [#/area] in x10E3/uL to non-numeric [facility] Blood by results) [facility], ) Microscopy high power field Neutrophils [#] 51 % Normal (applies MEDGEN ( St in Body fluid by to non-numeric [facility] Manual count results) [facility], ) Monocytes 10 % Normal (applies MEDGEN (St [#/volume] in to non-numeric [facility] Cord blood results) [facility], ) Lymphs 37 % Normal (applies [facility] (St to non-numeric [facility] results) [facility], ) Basos 1 % Normal (applies [facility]GEN (St to non-numeric [facility] results) [facility], ) Eos 1 % Normal (applies [facility] (St to non-numeric [facility] results) [facility], ) Neutrophils 3.3 Normal (applies MEDGEN (St (Absolute) x10E3/uL to non-numeric [facility] results) [facility], ) Monocytes(Absolu 0.6 Normal (applies MEDGEN (St te) x10E3/uL to non-numeric [facility] results) [facility], ) Lymphs 2.4 Normal (applies MEDGEN (St (Absolute) x10E3/uL to non-numeric [facility] results) [facility], ) Eos (Absolute) 0.1 Normal (applies MEDGEN (S t x10E3/uL to non-numeric [facility] results) [facility], ) Baso (Absolute) 0.0 Normal (applies MEDGEN ( St x10E3/uL to non-numeric [facility] results) [facility], ) Immature 0 % Normal (applies MEDGEN (St Granulocytes to non-numeric [facility] results) [facility], ) Immature Grans 0.0 Normal (applies MEDGEN (S t (Abs) x10E3/uL to non-numeric [facility] results) [facility], ) ID Date Data Source [id number] 03/21/2019 12:00:00 AM EST [facility] ([facility], ) Name Value Range Interpretation Code Description Data Patti rce(s) Supporting Document(s ) ID Date Data Source [id number] 03/21/2019 12:00:00 AM EST [facility] ([facility], ) Name Value Range Interpretation Code Description Data Patti rce(s) Supporting Document(s ) ID Date Data Source [id number] 03/21/2019 12:00:00 AM EST [facility] ([facility], ) Name Value Range Interpretation Code Description Data Patti rce(s) Supporting Document(s ) RPR Non Reactive Normal (applies to MEDGEN ( St non-numeric [facility] results) Medical, ) ID Date Data Source [id number] 03/21/2019 12:00:00 AM EST [facility] ([facility], ) Name Value Range Interpretation Description Data Sup porting Code Source(s) Document(s ) HIV Screen Non Normal (applies MEDGEN (St 4th Reactive to non-numeric [facility] Generation results) [facility], ) wRfx ID Date Data Source [id number] 03/21/2019 12:00:00 AM EST [facility] ([facility], ) Name Value Range Interpretation Code Description Data Patti rce(s) Supporting Document(s ) TSH 1.700 Normal (applies to MEDGEN (St uIU/mL non-numeric results) [facility], ) ID Date Data Source [id number] 03/21/2019 12:00:00 AM EST [facility] ([facility], ) Name Value Range Interpretation Description Data Sup porting Code Source(s) Document(s ) Hemoglobin 6.0 % Above high normal [facility] (St A1c/Hemoglobin. [facility] total in Blood [facility], ) ID Date Data Source [id number] 03/21/2019 12:00:00 AM EST [facility] ([facility], ) Name Value Range Interpretation Code Description Data Patti rce(s) Supporting Document(s ) PDF Image . Normal (applies to [facility] (St non-numeric results) [facility]) ID Date Data Source [id number] 03/21/2019 12:00:00 AM EST [facility] ([facility] ) Name Value Range Interpretation Code Description Data Patti rce(s) Supporting Document(s ) LH 45.0 mIU/mL Normal (applies to [facility] (S t non-numeric results) [facility]) FSH 75.9 mIU/mL Normal (applies to [facility] (S t non-numeric results) [facility]) ID Date Data Source [id number] 03/21/2019 12:00:00 AM EST [facility] ([facility], ) Name Value Range Interpretation Description Data [...] target amplification method ID Date Data Source [id number] 03/21/2019 12:00:00 AM EST [facility], ) Name Value Range Interpretation Description Data Sup porting Code Source(s) Document(s ) Hepatitis A Indeterminate Abnormal MED[facility] (St virus IgM Ab (applies to [facility] [Presence] in non-numeric Medical, Serum or results) PC) Plasma by Immunoassay HBsAg Screen Negative Normal (applies [facility] (St to non-numeric [facility] results) Medical, ) Hepatitis B Negative Normal (applies [facility] (St virus core to non-numeric [facility] IgM Ab results) [facility], [Presence] in PC) Serum or Plasma by Immunoassay Hep C Virus <0.1 Normal (applies [facility] (St Ab to non-numeric [facility] results) [facility], ) ID Date Data Source [id number] 03/21/2019 12:00:00 AM EST [facility] ([facility], ) Name Value Range Interpretation Description Data Sup porting Code Source(s) Document(s ) Cholesterol 275 Above high normal MED[facility] (St [Mass/volume] in mg/dL [facility] Serum or Plasma Medical, ) HDL Cholesterol 72 mg/dL Normal (applies [facility] ( St to non-numeric [facility] results) Medical, ) Triglyceride 155 Above high normal [facility] (S t [Mass/volume] in mg/dL [facility] Serum or Plasma Medical, ) VLDL Cholesterol 31 mg/dL Normal (applies [facility] (St Lamin to non-numeric [facility] results) [facility], [facility]) LDL Cholesterol 172 Above high normal MED[facility] (St Calc mg/dL [facility], ) ID Date Data Source [id number] 03/21/2019 12:00:00 AM EST [facility] ([facility], ) Name Value Range Interpretation Description Data Sup porting Code Source(s) Document(s ) Glucose 72 mg/dL Normal (applies MED[facility] (St [Mass/volume] in to non-numeric [facility] Urine collected for results) Medical, unspecified PC) duration Urea nitrogen 20 mg/dL Normal (applies [facility] (St [Mass/volume] in to non-numeric [facility] Serum or Plasma results) Medical, ) Creatinine 0.82 Normal (applies [facility] (St [Interpretation] in mg/dL to non-numeric [facility] Urine results) Medical, ) eGFR If NonAfricn 83 Normal (applies MED[facility] (St Am mL/min/1 to non-numeric [facility] .73 results) [facility], PC) eGFR If Africn Am 96 Normal (applies [facility] (St mL/min/1 to non-numeric [facility] .73 results) Medical, ) Sodium 141 Normal (applies [facility] (St [Moles/volume] in mmol/L to non-numeric [facility] Serum or Plasma results) Medical, ) BUN/Creatinine 24 Above high [facility] (St Ratio normal [facility], ) Chloride 100 Normal (applies [facility] (St [Moles/volume] in mmol/L to non-numeric [facility] Serum or Plasma results) [facility], [facility]) Potassium 3.5 Normal (applies [facility] (St [Mass/volume] in mmol/L to non-numeric [facility] Blood results) Medical, ) Calcium 9.2 Normal (applies [facility] (St [Moles/volume] in mg/dL to non-numeric [facility] Urine collected for results) Medical, unspecified PC) duration Protein 7.4 g/dL Normal (applies [facility] (St [Mass/volume] in to non-numeric [facility] Serum or Plasma results) Medical, ) Carbon dioxide, 26 Normal (applies [facility] ( St total mmol/L to non-numeric [facility] [Moles/volume] in results) Medical, Serum or Plasma PC) Globulin, Total 3.1 g/dL Normal (applies [facility] ( St to non-numeric [facility] results) Medical, ) Microalbumin 4.3 g/dL Normal (applies [facility] (St [Mass/time] in to non-numeric [facility] Urine collected for results) [facility], unspecified PC) duration A/G Ratio 1.4 Normal (applies [facility] (St to non-numeric [facility] results) Medical, ) Bilirubin.total 0.3 Normal (applies [facility] ( St [Mass/volume] in mg/dL to non-numeric [facility] Serum or Plasma results) Medical, ) Alkaline 69 IU/L Normal (applies [facility] (St phosphatase to non-numeric [facility] [Enzymatic results) Medical, activity/volume] in PC) Serum, Plasma or Blood Aspartate 23 IU/L Normal (applies [facility] (St aminotransferase to non-numeric [facility] [Enzymatic results) Medical, activity/volume] in PC) Serum or Plasma Alanine 22 IU/L Normal (applies [facility] (St aminotransferase to non-numeric [facility] [Enzymatic results) Medical, activity/volume] in PC) Serum or Plasma ID Date Data Source [id number] 03/21/2019 12:00:00 AM EST [facility] ([facility] [...] (St to non-numeric [facility] results) Medical, ) Hematocrit 38.3 % Normal (applies [facility] (St [Volume to non-numeric [facility] Fraction] of results) [facility], ) Blood by Automated count MCHC 33.4 Normal (applies [facility] (St g/dL to non-numeric [facility] results) [facility], ) MCH 27.9 pg Normal (applies [facility] (St to non-numeric [facility] results) [facility], ) RDW 17.7 % Above high normal [facility] ([facility], ) Platelets 309 Normal (applies MED[facility] (St [#/area] in x10E3/uL to non-numeric [facility] Blood by results) [facility], ) Microscopy high power field Neutrophils [#] 51 % Normal (applies [facility] ( St in Body fluid by to non-numeric [facility] Manual count results) [facility], ) Monocytes 10 % Normal (applies [facility] (St [#/volume] in to non-numeric [facility] Cord blood results) [facility], ) Lymphs 37 % Normal (applies [facility] (St to non-numeric [facility] results) [facility], ) Eos 1 % Normal (applies [facility] (St to non-numeric [facility] results) [facility], ) Basos 1 % Normal (applies [facility] (St to non-numeric [facility] results) [facility], ) Lymphs 2.4 Normal (applies MED[facility] (St (Absolute) x10E3/uL to non-numeric [facility] results) [facility], ) Neutrophils 3.3 Normal (applies MED[facility] (St (Absolute) x10E3/uL to non-numeric [facility] results) [facility], ) Monocytes(Absolu 0.6 Normal (applies MEDGEN (St te) x10E3/uL to non-numeric [facility] results) [facility], ) Eos (Absolute) 0.1 Normal (applies [facility] (S t x10E3/uL to non-numeric [facility] results) [facility], ) Baso (Absolute) 0.0 Normal (applies MEDGEN ( St x10E3/uL to non-numeric [facility] results) [facility], ) Immature 0 % Normal (applies [facility] (St Granulocytes to non-numeric [facility] results) [facility], ) Immature Grans 0.0 Normal (applies [facility]GEN (S t (Abs) x10E3/uL to non-numeric [facility] results) [facility], ) ID Date Data Source [id number] 12/15/2018 12:00:00 AM EST [facility] ([facility], ) Name Value Range Interpretation Code Description Data Patti rce(s) Supporting Document(s ) Ferritin, 38 ng/mL Normal (applies to [facility] (St Serum non-numeric [facility] results) [facility], ) ID Date Data Source [id number] 12/15/2018 12:00:00 AM EST [facility] ([facility], ) Name Value Range Interpretation Description Data Sup porting Code Source(s) Document(s ) Deamidated 8 units Normal (applies MED[facility] (St Gliadin Abs, IgA to non-numeric [facility] results) [facility], ) Immunoglobulin A, 332 Normal (applies [facility] (St Qn, Serum mg/dL to non-numeric [facility] results) [facility], ) t-Transglutaminas <2 Normal (applies [facility] (St e (tTG) IgA to non-numeric [facility] results) [facility]) ID Date Data Source [id number] 12/15/2018 12:00:00 AM EST [facility] ([facility], ) Name Value Range Interpretation Description Data Sup porting Code Source(s) Document(s ) Iron 386 ug/dL Normal (applies to MED[facility] (St Bind.Cap.(TIBC non-numeric [facility] ) results) [facility], ) Iron 50 ug/dL Normal (applies to [facility] (St [Mass/volume] non-numeric [facility] in Serum or results) [facility], ) Plasma UIBC 336 ug/dL Normal (applies to [facility] (St non-numeric [facility] results) [facility], ) Iron 13 % Below low normal [facility] (St saturation [facility] [Mass [facility], ) Fraction] in Serum or Plasma ID Date Data Source [id number] 12/15/2018 12:00:00 AM EST [facility] ([facility], ) Name Value Range Interpretation Description Data Sup porting Code Source(s) Document(s ) Leukocytes 5.3 Normal (applies [facility] (St [#/volume] in x10E3/uL to non-numeric [facility] Blood by results) [facility], ) Automated count Erythrocytes 4.86 Normal (applies [facility] (St [#/volume] in x10E6/uL to non-numeric [facility] Blood by results) [facility], ) Automated count Hemoglobin 12.2 Normal (applies [facility] (St [Mass/volume] in g/dL to non-numeric [facility] Blood results) [facility]) Hematocrit 38.8 % Normal (applies [facility] (St [Volume to non-numeric [facility] Fraction] of results) [facility]) Blood by Automated count MCV 80 fL Normal (applies [facility] (St to non-numeric [facility] results) [facility]) MCH 25.1 pg Below low normal [facility] ([facility], ) MCHC 31.4 Below low normal [facility] (St g/dL [facility], ) RDW 19.0 % Above high normal [facility] ([facility], ) Platelets 308 Normal (applies MED[facility] (St [#/area] in x10E3/uL to non-numeric [facility] Blood by results) [facility]) Microscopy high power field Neutrophils [#] 56 % Normal (applies MED[facility] ( St in Body fluid by to non-numeric [facility] Manual count results) [facility]) Lymphs 34 % Normal (applies [facility] (St to non-numeric [facility] results) [facility]) Monocytes 8 % Normal (applies [facility] (St [#/volume] in to non-numeric [facility] Cord blood results) [facility]) Eos 1 % Normal (applies [facility] (St to non-numeric [facility] results) [facility]) Basos 1 % Normal (applies [facility] (St to non-numeric [facility] results) [facility]) Neutrophils 3.0 Normal (applies [facility] (St (Absolute) x10E3/uL to non-numeric [facility] results) [facility]) Lymphs 1.8 Normal (applies [facility] (St (Absolute) x10E3/uL to non-numeric [facility] results) [facility]) Monocytes(Absolu 0.4 Normal (applies [facility] (St te) x10E3/uL to non-numeric [facility] results) [facility]) Eos (Absolute) 0.0 Normal (applies [facility] (S t x10E3/uL to non-numeric [facility] results) [facility], ) Immature 0 % Normal (applies [facility] (St Granulocytes to non-numeric [facility] results) [facility]) Baso (Absolute) 0.0 Normal (applies [facility] ( St x10E3/uL to non-numeric [facility] results) [facility], PC) Immature Grans 0.0 Normal (applies [facility] (S t (Abs) x10E3/uL to non-numeric [facility] results) [facility], [facility]) ID Date Data Source [id number] 12/15/2018 12:00:00 AM EST [facility] ([facility] [...] non-numeric [facility] .73 results) [facility], [facility]) BUN/Creatinine 18 Normal (applies [...] or Plasma results) [facility], PC) Carbon dioxide, 22 Normal (applies [facility] ( St total mmol/L to non-numeric [facility] [Moles/volume] in results) Medical, Serum or Plasma PC) Calcium 9.6 Normal (applies [facility] (St [Moles/volume] in mg/dL to non-numeric [facility] Urine collected for results) Medical, unspecified [facility]) duration Microalbumin 4.6 g/dL Normal (applies MED[facility] (St [Mass/time] in to non-numeric [facility] Urine collected for results) [facility], unspecified [facility]) duration Protein 7.3 g/dL Normal (applies [facility] (St [Mass/volume] in to non-numeric [facility] Serum or Plasma results) Medical, ) Globulin, Total 2.7 g/dL Normal (applies [facility] ( St to non-numeric [facility] results) [facility], ) Bilirubin.total 0.3 Normal (applies [facility]GEN ( St [Mass/volume] in mg/dL to non-numeric [facility] Serum or Plasma results) Medical, ) A/G Ratio 1.7 Normal (applies [facility] (St to non-numeric [facility] results) [facility], ) Alkaline 61 IU/L Normal (applies [facility]GEN (St phosphatase to non-numeric [facility] [Enzymatic results) Medical, activity/volume] in PC) Serum, Plasma or Blood Alanine 8 IU/L Normal (applies [facility] (St aminotransferase to non-numeric [facility] [Enzymatic results) Medical, activity/volume] in ) Serum or Plasma Aspartate 11 IU/L Normal (applies [facility] (St aminotransferase to non-numeric [facility] [Enzymatic results) Medical, activity/volume] in PC) Serum or Plasma ID Date Data Source [id number] 12/15/2018 12:00:00 AM EST [facility] ([facility], ) Name Value Range Interpretation Code Description Data Patti rce(s) Supporting Document(s ) Ferritin, 38 ng/mL Normal (applies to [facility]GEN (St Serum non-numeric [facility] results) [facility], ) ID Date Data Source [id number] 12/15/2018 12:00:00 AM EST [facility] ([facility]) Name Value Range Interpretation Description Data Sup porting Code Source(s) Document(s ) Deamidated 8 units Normal (applies MED[facility] (St Gliadin Abs, IgA to non-numeric [facility] results) Medical, ) t-Transglutaminas <2 Normal (applies MED[facility] (St e (tTG) IgA to non-numeric [facility] results) Medical, ) Immunoglobulin A, 332 Normal (applies MEDGEN (St Qn, Serum mg/dL to non-numeric [facility] results) [facility], ) ID Date Data Source [id number] 12/15/2018 12:00:00 AM EST [facility] ([facility], ) Name Value Range Interpretation Description Data Sup porting Code Source(s) Document(s ) Iron 386 ug/dL Normal (applies to MEDGEN (St Bind.Cap.(TIBC non-numeric [facility] ) results) [facility], ) UIBC 336 ug/dL Normal (applies to [facility] (St non-numeric [facility] results) [facility], ) Iron 50 ug/dL Normal (applies to [facility] (St [Mass/volume] non-numeric [facility] in Serum or results) [facility], ) Plasma Iron 13 % Below low normal [facility] (St saturation [facility] [[facility], ) Fraction] in Serum or Plasma ID Date Data Source [id number] 12/15/2018 12:00:00 AM EST [facility] ([facility], ) Name Value Range Interpretation Description Data Sup porting Code Source(s) Document(s ) Leukocytes 5.3 Normal (applies MEDGEN (St [#/volume] in x10E3/uL to non-numeric [facility] Blood by results) [facility], ) Automated count Erythrocytes 4.86 Normal (applies MEDGEN (St [#/volume] in x10E6/uL to non-numeric [facility] Blood by results) [facility], ) Automated count Hemoglobin 12.2 Normal (applies [facility] (St [Mass/volume] in g/dL to non-numeric [facility] Blood results) [facility], ) MCV 80 fL Normal (applies [facility] (St to non-numeric [facility] results) [facility], ) Hematocrit 38.8 % Normal (applies [facility] (St [Volume to non-numeric [facility] Fraction] of results) [facility], ) Blood by Automated count MCHC 31.4 Below low normal [facility] (St g/dL [facility], ) MCH 25.1 pg Below low normal [facility] ([facility], ) Platelets 308 Normal (applies MEDGEN (St [#/area] in x10E3/uL to non-numeric [facility] Blood by results) [facility], ) Microscopy high power field RDW 19.0 % Above high normal [facility] ([facility], ) Neutrophils [#] 56 % Normal (applies MED[facility] ( St in Body fluid by to non-numeric [facility] Manual count results) [facility], ) Monocytes 8 % Normal (applies MEDGEN [...] MED[facility] (St Granulocytes to non-numeric [facility] results) [facility], ) Immature Grans 0.0 Normal (applies MED[facility] (S t (Abs) x10E3/uL to non-numeric [facility] results) [facility], ) ID Date Data Source [id number] 12/15/2018 12:00:00 AM EST [facility] ([facility] [...] (St aminotransferase to non-numeric [facility] [Enzymatic results) [facility], activity/volume] in ) Serum or Plasma ID Date Data Source [id number] 12/15/2018 12:00:00 AM EST [facility] ([facility]) Name Value Range Interpretation Code Description Data Patti rce(s) Supporting Document(s ) Ferritin, 38 ng/mL Normal (applies to [facility] (St Serum non-numeric [facility] results) [facility]) ID Date Data Source [id number] 12/15/2018 12:00:00 AM EST [facility] ([facility]) Name Value Range Interpretation Description Data Sup porting Code Source(s) Document(s ) Deamidated 8 units Normal (applies [facility] (St Gliadin Abs, IgA to non-numeric [facility] results) [facility]) t-Transglutaminas <2 Normal (applies [facility] (St e (tTG) IgA to non-numeric [facility] results) [facility]) Immunoglobulin A, 332 Normal (applies [facility] (St Qn, Serum mg/dL to non-numeric [facility] results) [facility]) ID Date Data Source [id number] 12/15/2018 12:00:00 AM EST [facility] ([facility], ) Name Value Range Interpretation Description Data Sup porting Code Source(s) Document(s ) UIBC 336 ug/dL Normal (applies to [facility] (St non-numeric [facility] results) [facility], ) Iron 386 ug/dL Normal (applies to [facility] (St Bind.Cap.(TIBC non-numeric [facility] ) results) [facility], ) Iron 50 ug/dL Normal (applies to [facility] (St [Mass/volume] non-numeric [facility] in Serum or results) [facility], ) Plasma Iron 13 % Below low normal [facility] (St saturation [facility] [Mass [facility], ) Fraction] in Serum or Plasma ID Date Data Source [id number] 12/15/2018 12:00:00 AM EST [facility] ([facility]) Name Value Range Interpretation Description Data Sup porting Code Source(s) Document(s ) Leukocytes 5.3 Normal (applies MED[facility] (St [#/volume] in x10E3/uL to non-numeric [facility] Blood by results) [facility], ) Automated count Erythrocytes 4.86 Normal (applies [facility] (St [#/volume] in x10E6/uL to non-numeric [facility] Blood by results) [facility]) Automated count Hematocrit 38.8 % Normal (applies [facility] (St [Volume to non-numeric [facility] Fraction] of results) [facility]) Blood by Automated count Hemoglobin 12.2 Normal (applies [facility] (St [Mass/volume] in g/dL to non-numeric [facility] Blood results) [facility]) MCH 25.1 pg Below low normal [facility] ([facility], ) MCV 80 fL Normal (applies [facility] (St to non-numeric [facility] results) [facility]) MCHC 31.4 Below low normal [facility] (St g/dL [facility], ) RDW 19.0 % Above high normal [facility] ([facility], ) Platelets 308 Normal (applies MED[facility] (St [#/area] in x10E3/uL to non-numeric [facility] Blood by results) [facility], ) Microscopy high power field Neutrophils [#] 56 % Normal (applies MED[facility] ( St in Body fluid by to non-numeric [facility] Manual count results) [facility]) Lymphs 34 % Normal (applies [facility] (St to non-numeric [facility] results) [facility]) Monocytes 8 % Normal (applies [facility] (St [#/volume] in to non-numeric [facility] Cord blood results) [facility]) Basos 1 % Normal (applies [facility] (St to non-numeric [facility] results) [facility]) Eos 1 % Normal (applies [facility] (St to non-numeric [facility] results) [facility]) Lymphs 1.8 Normal (applies [facility] (St (Absolute) x10E3/uL to non-numeric [facility] results) [facility], ) Neutrophils 3.0 Normal (applies MED[facility] (St (Absolute) x10E3/uL to non-numeric [facility] results) [facility]) Monocytes(Absolu 0.4 Normal (applies MEDGEN (St te) x10E3/uL to non-numeric [facility] results) [facility], ) Eos (Absolute) 0.0 Normal (applies [facility] (S t x10E3/uL to non-numeric [facility] results) [facility], [facility]) Baso (Absolute) 0.0 Normal (applies MED[facility] ( St x10E3/uL to non-numeric [facility] results) [facility], [facility]) Immature 0 % Normal (applies [facility] (St Granulocytes to non-numeric [facility] results) [facility], [facility]) Immature Grans 0.0 Normal (applies [facility] (S t (Abs) x10E3/uL to non-numeric [facility] results) [facility], [facility]) ID Date Data Source [id number] 12/15/2018 12:00:00 AM EST [facility] [...] collected for results) Medical, unspecified ) duration Protein 7.3 g/dL Normal (applies [facility] (St [Mass/volume] in to non-numeric [facility] Serum or Plasma results) Medical, ) Microalbumin 4.6 g/dL Normal (applies [facility] (St [Mass/time] in to non-numeric [facility] Urine collected for results) Medical, unspecified ) duration Globulin, Total 2.7 g/dL Normal (applies [facility] ( St to non-numeric [facility] results) Medical, ) A/G Ratio 1.7 Normal (applies [facility] (St to non-numeric [facility] results) [facility], ) Alkaline 61 IU/L Normal (applies MEDGEN [...] Serum or Plasma ID Date Data Source [id number] 11/01/2018 12:00:00 AM EDT [facility], ) Name Value Range Interpretation Description Data Sup porting Code Source(s) Document(s ) Vitamin B12 468 pg/mL Normal (applies to [facility] (S t non-numeric [facility] results) [facility], ) Folate 3.1 ng/mL Normal (applies to [facility] (St (Folic non-numeric [facility] Acid), Serum results) [facility], ) ID Date Data Source [id number] 11/01/2018 12:00:00 AM EDT [facility], ) Name Value Range Interpretation Description Data Sup porting Code Source(s) Document(s ) Folate 3.1 ng/mL Normal (applies to [facility] (St (Folic non-numeric [facility] Acid), Serum results) [facility], ) Vitamin B12 468 pg/mL Normal (applies to [facility] (S t non-numeric [facility] results) Medical, ) ID Date Data Source [id number] 11/01/2018 12:00:00 AM EDT [facility] ) Name Value Range Interpretation Description Data Sup porting Code Source(s) Document(s ) Folate 3.1 ng/mL Normal (applies to MED[facility] (St (Folic non-numeric [facility] Acid), Serum results) Medical, ) Vitamin B12 468 pg/mL Normal (applies to [facility] (S t non-numeric [facility] results) [facility], ) ID Date Data Source [id number] 10/25/2018 12:00:00 AM EDT [facility] ) Name Value Range Interpretation Code Description Data Patti rce(s) Supporting Document(s ) ID Date Data Source [id number] 10/25/2018 12:00:00 AM EDT [facility] ) Name Value Range Interpretation Code Description Data Patti rce(s) Supporting Document(s ) PDF Image . Normal (applies to [facility] (St non-numeric results) [facility], ) ID Date Data Source [id number] 10/25/2018 12:00:00 AM EDT [facility] ([facility] ) Name Value Range Interpretation Code Description Data Patti rce(s) Supporting Document(s ) Ferritin, 66 ng/mL Normal (applies to [facility] (St Serum non-numeric [facility] results) Medical, ) ID Date Data Source [id number] 10/25/2018 12:00:00 AM EDT [facility] Name Value Range Interpretation Description Data Sup porting Code Source(s) Document(s ) Hemoglobin 5.5 % Normal (applies to MEDGEN (St A1c/Hemoglobin. non-numeric [facility] total in Blood results) [facility], ) ID Date Data Source [id number] 10/25/2018 12:00:00 AM EDT [facility] ) Name Value Range Interpretation Description Data Sup porting Code Source(s) Document(s ) UIBC 324 ug/dL Normal (applies to [facility] (St non-numeric [facility] results) Medical, ) Iron 359 ug/dL Normal (applies to MEDGEN (St Bind.Cap.(TIBC non-numeric [facility] ) results) [facility], ) Iron 35 ug/dL Normal (applies to MEDGEN (St [Mass/volume] non-numeric [facility] in Serum or results) [facility], ) Plasma Iron 10 % Below low normal MEDGEN (St saturation [facility] [[facility], ) Fraction] in Serum or Plasma ID Date Data Source [id number] 10/25/2018 12:00:00 AM EDT [facility] ([facility], ) Name Value Range Interpretation Description Data Sup porting Code Source(s) Document(s ) Leukocytes 10.7 Normal (applies MEDGEN (St [#/volume] in x10E3/uL to non-numeric [facility] Blood by results) [facility], ) Automated count Hemoglobin 9.7 g/dL Below low normal [facility] (St [Mass/volume] in [facility] Blood [facility], ) Erythrocytes 3.78 Normal (applies [facility]GEN (St [#/volume] in x10E6/uL to non-numeric [facility] Blood by results) [facility], ) Automated count Hematocrit 32.1 % Below low normal [facility]GEN (St [Volume [facility] Fraction] of [facility], ) Blood by Automated count MCV 85 fL Normal (applies MEDGEN (St to non-numeric [facility] results) [facility], ) MCH 25.7 pg Below low normal [facility] ([facility], ) RDW 18.5 % Above high normal [facility] ([facility], ) MCHC 30.2 Below low normal [facility]GEN (St g/dL [facility], ) Platelets 496 Above high normal MEDGEN (St [#/area] in x10E3/uL [facility] Blood by [facility], ) Microscopy high power field ID Date Data Source [id number] 10/25/2018 12:00:00 AM EDT [facility] ([facility], ) Name Value Range Interpretation Description Data Sup porting Code Source(s) Document(s ) Glucose 97 mg/dL Normal (applies [facility]GEN (St [Mass/volume] in to non-numeric [facility] Urine collected for results) [facility] duration Urea nitrogen 19 mg/dL Normal (applies [facility] (St [Mass/volume] in to non-numeric [facility] Serum or Plasma results) [facility], PC) eGFR If NonAfricn 70 Normal (applies [facility]GEN (St Am mL/min/1 to non-numeric [facility] .73 results) [facility], PC) Creatinine 0.95 Normal (applies [facility]GEN (St [Interpretation] in mg/dL to non-numeric [facility] Urine results) [facility], PC) BUN/Creatinine 20 Normal (applies [facility]GEN (S t Ratio to non-numeric [facility] results) [facility], [facility]) eGFR If Africn Am 80 Normal (applies [facility]GEN (St mL/min/1 to non-numeric [facility] .73 results) [facility], PC) Sodium 141 Normal (applies [facility]GEN (St [Moles/volume] in mmol/L to non-numeric [facility] Serum or Plasma results) [facility], PC) Chloride 106 Normal (applies [facility]GEN (St [Moles/volume] in mmol/L to non-numeric [facility] Serum or Plasma results) [facility], PC) Potassium 4.0 Normal (applies [facility]GEN (St [Mass/volume] in mmol/L to non-numeric [facility] Blood results) [facility], PC) Protein 7.2 g/dL Normal (applies [facility]GEN (St [Mass/volume] in to non-numeric [facility] Serum or Plasma results) [facility], [facility]) Calcium 9.4 Normal (applies [facility] (St [Moles/volume] in mg/dL to non-numeric [facility] Urine collected for results) Medical, unspecified PC) duration Microalbumin 4.1 g/dL Normal (applies [facility]GEN (St [Mass/time] in to non-numeric [facility] Urine collected for results) Medical, unspecified PC) duration Globulin, Total 3.1 g/dL Normal (applies [facility]GEN ( St to non-numeric [facility] results) Medical, PC) A/G Ratio 1.3 Normal (applies [facility] (St to non-numeric [facility] results) Medical, PC) Alkaline 62 IU/L Normal (applies [facility]GEN (St phosphatase to non-numeric [facility] [Enzymatic results) Medical, activity/volume] in PC) Serum, Plasma or Blood Bilirubin.total 0.7 Normal (applies [facility]GEN ( St [Mass/volume] in mg/dL to non-numeric [facility] Serum or Plasma results) Medical, PC) Aspartate 13 IU/L Normal (applies [facility]GEN (St aminotransferase to non-numeric [facility] [Enzymatic results) [facility], activity/volume] in ) Serum or Plasma ID Date Data Source [id number] 10/25/2018 12:00:00 AM EDT [facility] ([facility], ) Name Value Range Interpretation Description Data Sup porting Code Source(s) Document(s ) Leukocytes 10.7 Normal (applies [facility]GEN (St [#/volume] in x10E3/uL to non-numeric [facility] Blood by results) Medical, ) Automated count Erythrocytes 3.78 Normal (applies [facility]GEN (St [#/volume] in x10E6/uL to non-numeric [facility] Blood by results) [facility], ) Automated count Hemoglobin 9.7 g/dL Below low normal [facility]GEN (St [Mass/volume] in [facility] Blood [facility], ) Hematocrit 32.1 % Below low normal [facility] (St [Volume [facility] Fraction] of [facility], ) Blood by Automated count MCV 85 fL Normal (applies [facility]GEN (St to non-numeric [facility] results) [facility], ) MCH 25.7 pg Below low normal [facility] ([facility], ) MCHC 30.2 Below low normal [facility] (St g/dL [facility], ) RDW 18.5 % Above high normal [facility] ([facility], ) Platelets 496 Above high normal MEDGEN (St [#/area] in x10E3/uL [facility] Blood by [facility], ) Microscopy high power field ID Date Data Source [id number] 10/25/2018 12:00:00 AM EDT [facility] ([facility], ) Name Value Range Interpretation Description Data Sup porting Code Source(s) Document(s ) Urea nitrogen 19 mg/dL Normal (applies [facility]GEN (St [Mass/volume] in to non-numeric [facility] Serum or Plasma results) [facility], ) Glucose 97 mg/dL Normal (applies [facility]GEN (St [Mass/volume] in to non-numeric [facility] Urine collected for results) [facility] duration eGFR If NonAfricn 70 Normal (applies [facility]GEN (St Am mL/min/1 to non-numeric [facility] .73 results) [facility], ) Creatinine 0.95 Normal (applies [facility]GEN (St [Interpretation] in mg/dL to non-numeric [facility] Urine results) Medical, ) eGFR If Africn Am 80 Normal (applies [facility]GEN (St mL/min/1 to non-numeric [facility] .73 results) Medical, ) BUN/Creatinine 20 Normal (applies [facility]GEN (S t Ratio to non-numeric [facility] results) [facility], ) Sodium 141 Normal (applies [facility]GEN (St [Moles/volume] in mmol/L to non-numeric [facility] Serum or Plasma results) Medical, ) Potassium 4.0 Normal (applies [facility]GEN (St [Mass/volume] in mmol/L to non-numeric [facility] Blood results) Medical, ) Chloride 106 Normal (applies [facility]GEN (St [Moles/volume] in mmol/L to non-numeric [facility] Serum or Plasma results) Medical, ) Calcium 9.4 Normal (applies [facility]GEN (St [Moles/volume] in mg/dL to non-numeric [facility] Urine collected for results) Medical, unspecified ) duration Protein 7.2 g/dL Normal (applies [facility]GEN (St [Mass/volume] in to non-numeric [facility] Serum or Plasma results) Medical, ) Microalbumin 4.1 g/dL Normal (applies [facility]GEN (St [Mass/time] in to non-numeric [facility] Urine collected for results) [facility], unspecified ) duration Globulin, Total 3.1 g/dL Normal (applies [...] in ) Serum, Plasma or Blood Aspartate 13 IU/L Normal (applies [facility]GEN (St aminotransferase to non-numeric [facility] [Enzymatic results) Medical, activity/volume] in ) Serum or Plasma ID Date Data Source [id number] 10/25/2018 12:00:00 AM EDT [facility] ([facility], ) Name Value Range Interpretation Code Description Data Patti rce(s) Supporting Document(s ) ID Date Data Source [id number] 10/25/2018 12:00:00 AM EDT [facility] ([facility], ) Name Value Range Interpretation Code Description Data Patti rce(s) Supporting Document(s ) PDF Image . Normal (applies to [facility] (St non-numeric results) [facility], ) ID Date Data Source [id number] 10/25/2018 12:00:[facility], ) Name Value Range Interpretation Code Description Data Patti rce(s) Supporting Document(s ) Ferritin, 66 ng/mL Normal (applies to [facility] (St Serum non-numeric [facility] results) [facility], ) ID Date Data Source [id number] 10/25/2018 12:00:00 [facility], ) Name Value Range Interpretation Description Data Sup porting Code Source(s) Document(s ) Hemoglobin 5.5 % Normal (applies to [facility] (St A1c/Hemoglobin. non-numeric [facility] total in Blood results) [facility], ) ID Date Data Source [id number] 10/25/2018 12:00:00 AM [facility], ) Name Value Range Interpretation Description Data Sup porting Code Source(s) Document(s ) UIBC 324 ug/dL Normal (applies to [facility] (St non-numeric [facility] results) [facility], ) Iron 359 ug/dL Normal (applies to [facility] (St Bind.Cap.(TIBC non-numeric [facility] ) results) [facility], ) Iron 10 % Below low normal [facility] (St saturation [facility] [[facility], ) Fraction] in Serum or Plasma Iron 35 ug/dL Normal (applies to [facility] (St [Mass/volume] non-numeric [facility] in Serum or results) [facility], ) Plasma ID Date Data Source [id number] 10/25/2018 12:00:00 AM [facility], ) Name Value Range Interpretation Description Data Sup porting Code Source(s) Document(s ) Leukocytes 10.7 Normal (applies [facility] (St [#/volume] in x10E3/uL to non-numeric [facility] Blood by results) Medical, ) Automated count Hemoglobin 9.7 g/dL Below low normal [facility] (St [Mass/volume] in [facility] Blood [facility], ) Erythrocytes 3.78 Normal (applies [facility] (St [#/volume] in x10E6/uL to non-numeric [facility] Blood by results) Medical, ) Automated count MCV 85 fL Normal (applies [facility] (St to non-numeric [facility] results) Medical, ) Hematocrit 32.1 % Below low normal [facility] (St [Volume [facility] Fraction] of [facility], ) Blood by Automated count MCH 25.7 pg Below low normal [facility] MCHC 30.2 Below low normal [facility] (St g/dL [facility], ) Platelets 496 Above high normal [facility] (St [#/area] in x10E3/uL [facility] Blood by [facility], ) Microscopy high power field RDW 18.5 % Above high normal [facility] ([facility], ) ID Date Data Source [id number] 10/25/2018 12:00:00 AM EDT [facility] ([facility], ) Name Value Range Interpretation Description Data Sup porting Code Source(s) Document(s ) Glucose 97 mg/dL Normal (applies [facility] (St [Mass/volume] in to non-numeric [facility] Urine collected for results) [facility], unspecified PC) duration Creatinine 0.95 Normal (applies [facility] (St [Interpretation] in mg/dL to non-numeric [facility] Urine results) Medical, ) Urea nitrogen 19 mg/dL Normal (applies [facility] (St [Mass/volume] in to non-numeric [facility] Serum or Plasma results) Medical, ) eGFR If Africn Am 80 Normal (applies [facility] (St mL/min/1 to non-numeric [facility] .73 results) [facility], PC) eGFR If NonAfricn 70 Normal (applies [facility] (St Am mL/min/1 to non-numeric [facility] .73 results) [facility], PC) Potassium 4.0 Normal (applies [facility] (St [Mass/volume] in mmol/L to non-numeric [facility] Blood results) [facility], PC) Sodium 141 Normal (applies [...] Serum or Plasma ID Date Data Source [id number] 10/25/2018 12:00:00 AM EDT [facility] ) Name Value Range Interpretation Code Description Data Patti rce(s) Supporting Document(s ) ID Date Data Source [id number] 10/25/2018 12:00:00 AM EDT [facility] Name Value Range Interpretation Code Description Data Patti rce(s) Supporting Document(s ) PDF Image . Normal (applies to [facility] (St non-numeric results) [facility], ) ID Date Data Source [id number] 10/25/2018 12:00:00 [facility] Name Value Range Interpretation Code Description Data Patti rce(s) Supporting Document(s ) Ferritin, 66 ng/mL Normal (applies to [facility] (St Serum non-numeric [facility] results) [facility], ) ID Date Data Source [id number] 10/25/2018 12:00:00 AM EDT [facility], ) Name Value Range Interpretation Description Data Sup porting Code Source(s) Document(s ) Hemoglobin 5.5 % Normal (applies to [facility] (St A1c/Hemoglobin. non-numeric [facility] total in Blood results) [facility], ) ID Date Data Source [id number] 10/25/2018 12:00:00 AM [facility] Name Value Range Interpretation Description Data Sup porting Code Source(s) Document(s ) Iron 359 ug/dL Normal ([facility] (St Bind.Cap.(TIBC non-numeric [facility] ) results) Medical, ) Iron 35 ug/dL Normal (applies to [facility] (St [Mass/volume] non-numeric [facility] in Serum or results) Medical, ) Plasma UIBC 324 ug/dL Normal (applies to [facility] (St non-numeric [facility] results) [facility], ) Iron 10 % Below low normal [facility] (St saturation [facility] [[facility], ) Fraction] in Serum or Plasma ID Date Data Source [id number] 01/31/2018 11:03:32 AM [facility] [id number] [facility] Name Value Range Interpretation Description Data Sup porting Code Source(s) Document(s ) Chest PA (PACSIMAGE <td> 01/29/2018 [place] & 20:10</td><td> [facility] ) Final Chest PA & Lateral Health Care Result </td><td>[facility] ([place]) Name: hugh RICHARDS SOPHIAChelsey MRN: styleCode="Sal [id number] Sex: F ">(PACSIMAGE : 1965 )</paragraph>
Location: [...] 21:44

</td> Chest PA (PACSIMAGE <td> 01/29/2018 [place] & 20:10</td><td> [facility] ) Final Chest PA & Lateral Health Care Result </td><td>[facility] ([place]) Name: hugh RICHARDS MRN: styleCode="Italics [id number] Sex: F ">(PACSIMAGE : 1965 )</paragraph>
Location: [...] 21:44

</td> Chest PA (PACSIMAGE <td> 01/29/2018 [place] & 20:10</td><td> [facility] Lateral ) Final Chest PA & Lateral Health Care Result </td><td>[facility] ([place]) Name: hugh RICHARDS MRN: styleCode="Sal [id number] Sex: F ">(PACSIMAGE : 1965 )</paragraph>
Location: F
Final Admitting Result Physician:

EMERGENCY Name: FRANCISCO RICHARDS SERVICE
Requesting Sex: Physician: F
TAY KLEIN : Exam: CHEST 1965 PA AND LATERAL Location: F 01/29/2018
20:42 Admitting HISTORY: Physician: Admission EMERGENCY SERVICE TECHNIQUE:
Portable, Requesting frontal Physician: TAY radiograph juan antonio KLEIN the chest

COMPARISON: No Exam: CHEST PA [...] 01/29/2018 21:44

</td> ID Date Data Source [id number] 01/31/2018 11:03:32 AM EST [facility] [id number] Name Value Range Interpretation Description Data Sup porting Code Source(s) Document(s ) Hematocrit 28.2 % 37.0-4 <td> [facility] [Volume 7.0 % 02/01/2018 [facility] Fraction] of 07:30</td><td> Health Care Blood by HCT [facility] Automated count </td><td><para graph styleCode="Ella d"> 28.2 L </paragraph><b r/> (37.0-47.0) % </td> Erythrocytes 3.32 m/mm3 3.90-5 <td> [facility] [#/volume] in .20 02/01/2018 [facility] Blood m/mm3 07:30</td><td> Health Care RBC [facility] </td><td><para graph styleCode="Ella d"> 3.32 L </paragraph><b r/> (3.90-5.20) m/mm3 </td> Hemoglobin 8.8 g/dL 12.0-1 <td> [facility] [Mass/volume] in 6.0 02/01/2018 [facility] Blood g/dL 07:30</td><td> Health Care HGB [facility] </td><td><para graph styleCode="Ella d"> 8.8 L </paragraph><b r/> (12.0-16.0) g/dL </td> Erythrocyte mean 84.9 fL 81.0-9 <td> [place] corpuscular 9.0 fL 02/01/2018 [facility] volume [Entitic 07:30</td><td> Health Ca re volume] by MCV </td><td> Corporation Automated count 84.9
(81.0-99.0) fL </td> Leukocytes 8.4 k/mm3 4.8-10 <td> [place] [#/volume] in .8 02/01/2018 [facility] Blood by k/mm3 07:30</td><td> Health Care Automated count WBC </td><td> Corporati on 8.4
(4.8-10.8) k/mm3 </td> Platelets 484 k/mm3 160-41 <td> [place] [#/volume] in 0 02/01/2018 [facility] Blood by k/mm3 07:30</td><td> Health Care Automated count Platelet Count Corporati on </td><td><par agraph styleCode="Ella d"> 484 H </paragraph><b r/> (160-410) k/mm3 </td> Erythrocyte mean 26.5 pg 27.0-3 <td> [place] corpuscular 1.5 pg 02/01/2018 [facility] hemoglobin 07:30</td><td> Health Care [Entitic mass] [facility] Corporation by Automated </td><td><para count graph styleCode="Ella d"> 26.5 L </paragraph><b r/> (27.0-31.5) pg </td> Lymphocytes 32.3 % 17.0-5 <td> [place] [#/volume] in 0.0 % 01/29/2018 [facility] Blood by 21:03</td><td> Health Care Automated count Lymphocytes Corporation </td><td> 32.3
(17.0-50.0) % </td> Platelet mean 10.4 fL 9.8-12 <td> [facility] volume [Entitic .8 fL 02/01/2018 [facility] volume] in Blood 07:30</td><td> Health C are by Automated MPV </td><td> Corporation count 10.4
(9.8-12.8) fL </td> Erythrocyte mean 31.2 % 32.0-3 <td> [place] corpuscular 6.0 % 02/01/2018 [facility] hemoglobin 07:30</td><td> Health Care [facility] [Mass/volume] in </td><td><para Blood from Fetus graph by Automated styleCode="Ella count d"> 31.2 L </paragraph><b r/> (32.0-36.0) % </td> Erythrocyte 16.9 % 11.5-1 <td> [facility] distribution 4.5 % 02/01/2018 [facility] width [Entitic 07:30</td><td> Health Car e volume] by RDW [employer] Automated count </td><td><para graph styleCode="Ella d"> 16.9 H </paragraph><b r/> (11.5-14.5) % </td> Immature 0.3 % 0.0-0. <td> [facility] granulocytes/100 5 % 01/29/2018 [facility] leukocytes in 21:03</td><td> Health Care Blood by IG% </td><td> [employer] Automated count 0.3
(0.0-0.5) %
The IG fraction represents metamyelocytes , myelocytes and/or
promyelocytes and is only reported as part of the automated
differential when found at a percentage of less than 6.
If higher than 6%, a manual differential will be performed.

(0.0-0.5) % </td> Monocytes/Leukoc 6.6 % 0.0-11 <td> [place] ytes [Pure .0 % 01/29/2018 [facility] number fraction] 21:03</td><td> Health C are in Blood by Monocytes. Corporation Automated count </td><td> 6.6
(0.0-11.0) % </td> Basophils 0.1 % 0.0-2. <td> [facility] [#/volume] in 0 % 01/29/2018 [facility] Blood by 21:03</td><td> Health Care Automated count Basophils Corporation </td><td> 0.1
(0.0-2.0) % </td> Basophils+Eosino 2.0 % 0.0-5. <td> [facility] phils+Monocytes 0 % 01/29/2018 [facility] [#/volume] in 21:03</td><td> Health Care Blood by Eosinophils [employer] Automated count </td><td> 2.0
(0.0-5.0) % </td> Glucose 94 mg/dL 70-105 <td> [facility] [Mass/volume] in mg/dL 02/01/2018 [facility] Blood 07:30</td><td> Health Care Glucose-Serum [facility] </td><td> 94
(70-105) mg/dL </td> Neutrophils [#] 58.7 % 40.0-7 <td> [facility] in Body fluid by 6.0 % 01/29/2018 [facility] Manual count 21:03</td><td> Health Care Neutrophils [facility] </td><td> 58.7
(40.0-76.0) % </td> Sodium 139 mEq/L 135-14 <td> [facility] [Moles/volume] 5 02/01/2018 [facility] in Serum or mEq/L 07:30</td><td> Health Care Plasma Sodium-Serum [facility] </td><td> 139
(135-145) mEq/L </td> Urea nitrogen 12 mg/dL 6-22 <td> [facility] [Mass/volume] in mg/dL 02/01/2018 [facility] Blood 07:30</td><td> Health Care BUN </td><td> Corporation 12
(6-22) mg/dL </td> Chloride 108 mEq/L 98-107 <td> [facility] [Moles/volume] mEq/L 02/01/2018 [facility] in Serum or 07:30</td><td> Health Care Plasma Chloride [facility] </td><td><para graph styleCode="Ella d"> 108 H </paragraph><b r/> (98-107) mEq/L </td> Carbon dioxide, 25 mEq/L 22-30 <td> [facility] total mEq/L 02/01/2018 [facility] [Moles/volume] 07:30</td><td> Health Car e in Serum or CO2 </td><td> Corporation Plasma 25
(22-30) mEq/L </td> Aspartate 8 U/L 4-35 <td> [facility] aminotransferase U/L 02/01/2018 [facility] [Enzymatic 07:30</td><td> Health Care activity/volume] AST (SGOT) Corporation in Serum or </td><td> Plasma 8
(4-35) U/L </td> Creatinine 0.99 mg/dL 0.57-1 <td> [facility] [Moles/volume] .11 02/01/2018 [facility] in Serum or mg/dL 07:30</td><td> Health Care Plasma Creatinine. Corporation </td><td> 0.99
(0.57-1.11) mg/dL </td> Potassium 3.8 mEq/L 3.5-5. <td> [facility] [Moles/volume] 1 02/01/2018 [facility] in Serum or mEq/L 07:30</td><td> Health Care Plasma Potassium-Seru Corporation m </td><td> 3.8
(3.5-5.1) mEq/L </td> Alanine 10 U/L 6-55 <td> [place] aminotransferase U/L 02/01/2018 [facility] [Enzymatic 07:30</td><td> Health Care activity/volume] ALT (SGPT) Corporation in Serum or </td><td> Plasma 10
(6-55) U/L </td> Albumin 3.5 g/dL 3.4-4. <td> [facility] [Mass/volume] in 8 g/dL 02/01/2018 [facility] Serum or Plasma 07:30</td><td> Health Ca re Albumin Corporation </td><td> 3.5
(3.4-4.8) g/dL </td> Calcium 8.8 mg/dL 8.6-10 <td> [facility] [Mass/volume] in .2 02/01/2018 [facility] Blood mg/dL 07:30</td><td> Health Care Calcium [facility] </td><td> 8.8
(8.6-10.2) mg/dL </td> Anion gap in 6 mEq/L 7-13 <td> [facility] Serum or Plasma mEq/L 02/01/2018 [facility] 07:30</td><td> Health Care Anion Gap Corporation </td><td><para graph styleCode="Ella d"> 6 L </paragraph><b r/> (7-13) mEq/L </td> Bilirubin.total 0.6 mg/dL 0.2-1. <td> [facility] [Mass/volume] in 3 02/01/2018 [facility] Blood mg/dL 07:30</td><td> Health Care Bilirubin - [facility] Total </td><td> 0.6
(0.2-1.3) mg/dL </td> Proteins - Total 6.6 g/dL 6.4-8. <td> Cocke 3 g/dL 02/01/2018 [facility] 07:30</td><td> Health Care Proteins - [facility] Total </td><td> 6.6
(6.4-8.3) g/dL </td> Phosphate 2.9 mg/dL 2.3-4. <td> [facility] [Mass/volume] in 7 02/01/2018 [facility] Serum or Plasma mg/dL 07:30</td><td> Health Wi re Inorganic [employer] Phosphorus </td><td> 2.9
(2.3-4.7) mg/dL </td> Globulin 3.1 gm/dL 2.9-4. <td> [place] [Mass/volume] in 0 02/01/2018 [facility] Serum gm/dL 07:30</td><td> Health Care Globulin Corporation </td><td> 3.1
(2.9-4.0) gm/dL </td> Hemolysis index No <td> [place] of Serum or Hemolysis 02/01/2018 [facility] Plasma 07:30</td><td> Health Care Hemolysis Corporation Index </td><td> No Hemolysis
</td> Icteric index of Not <td> [facility] Serum or Plasma Icteric 02/01/2018 [facility] 07:30</td><td> Health Care Icteric Index [facility] </td><td> Not Icteric
</td> Magnesium 2.0 mg/dL 1.6-2. <td> [place] [Mass/volume] in 6 02/01/2018 [facility] Serum or Plasma mg/dL 07:30</td><td> Health [facility] Magnesium Corporation Level </td><td> 2.0
(1.6-2.6) mg/dL </td> Lipemic index of No Lipemia <td> Cocke Serum or Plasma 02/01/2018 [facility] 07:30</td><td> Health Care Lipemia Index Corporation </td><td> No Lipemia
</td> Hemoglobin A1C 5.6 % 4.0-5. <td> Cocke 6 % 01/31/2018 [facility] 09:11</td><td> Health Care Hemoglobin Corporation A1C [...]
11 -269
12 -298
Source: Adapted from [place] [employer]. Standards of medical
care in diabetes-2014. Diabetes Care.2014;37(S [facility] 1):S14-S80, table 8.

PLEASE NOTE NEW REFERENCE RANGES EFFECTIVE 14

(4.0-5.6) % </td> Glucose 94 mg/dL 70-105 <td> [place] [Mass/volume] in mg/dL 02/01/2018 [facility] Capillary blood 12:32</td><td> Health Ca re by Glucometer Glucose - Sensobi Finger Stick </td><td> 94
(70-105) mg/dL </td> Hemoglobin 8.8 g/dL 12.0-1 <td> [place]ke [Mass/volume] in 6.0 02/01/2018 [facility] Blood g/dL 07:30</td><td> Health Care HGB Sensobi </td><td><para graph styleCode="Ella d"> 8.8 L </paragraph><b r/> (12.0-16.0) g/dL </td> Erythrocytes 3.32 m/mm3 3.90-5 <td> [place] [#/volume] in .20 02/01/2018 [facility] Blood m/mm3 07:30</td><td> Health Care RBC Corporation </td><td><para graph styleCode="Ella d"> 3.32 L </paragraph><b r/> (3.90-5.20) m/mm3 </td> Leukocytes 8.4 k/mm3 4.8-10 <td> [place] [#/volume] in .8 02/01/2018 [facility] Blood by k/mm3 07:30</td><td> Health Care Automated count WBC </td><td> Corporati on 8.4
(4.8-10.8) k/mm3 </td> Platelet mean 10.4 fL 9.8-12 <td> [place] volume [Entitic .8 fL 02/01/2018 [facility] volume] in Blood 07:30</td><td> Health C are by Automated MPV </td><td> Corporation count 10.4
(9.8-12.8) fL </td> Erythrocyte 16.9 % 11.5-1 <td> [place] distribution 4.5 % 02/01/2018 [facility] width [Entitic 07:30</td><td> Health Car e volume] by RDW [employer] Automated count </td><td><para graph styleCode="Ella d"> 16.9 H </paragraph><b r/> (11.5-14.5) % </td> Erythrocyte mean 31.2 % 32.0-3 <td> [place] corpuscular 6.0 % 02/01/2018 [facility] hemoglobin 07:30</td><td> Health Care concentration [employer] [Mass/volume] in </td><td><para Blood from Fetus graph by Automated styleCode="Ella count d"> 31.2 L </paragraph><b r/> (32.0-36.0) % </td> Erythrocyte mean 26.5 pg 27.0-3 <td> [place] corpuscular 1.5 pg 02/01/2018 [facility] hemoglobin 07:30</td><td> Health Care [Entitic mass] [employer] by Automated </td><td><para count graph styleCode="Ella d"> 26.5 L </paragraph><b r/> (27.0-31.5) pg </td> Erythrocyte mean 84.9 fL 81.0-9 <td> [place] corpuscular 9.0 fL 02/01/2018 [facility] volume [Entitic 07:30</td><td> Health Ca re volume] by MCV </td><td> Corporation Automated count 84.9
(81.0-99.0) fL </td> Hematocrit 28.2 % 37.0-4 <td> [place] [Volume 7.0 % 02/01/2018 [place] Fraction] of 07:30</td><td> Health Care Blood by HCT [employer] Automated count </td><td><para graph styleCode="Ella d"> 28.2 L </paragraph><b r/> (37.0-47.0) % </td> Immature 0.3 % 0.0-0. <td> [place]ke granulocytes/100 5 % 01/29/2018 [facility] leukocytes in 21:03</td><td> Health Care Blood by IG% </td><td> Corporation Automated count 0.3
(0.0-0.5) %
The IG fraction represents metamyelocytes , myelocytes and/or
promyelocytes and is only reported as part of the automated
differential when found at a percentage of less than 6.
If higher than 6%, a manual differential will be performed.

(0.0-0.5) % </td> Basophils 0.1 % 0.0-2. <td> [place] [#/volume] in 0 % 01/29/2018 [facility] Blood by 21:03</td><td> Health Care Automated count Basophils Corporation </td><td> 0.1
(0.0-2.0) % </td> Basophils+Eosino 2.0 % 0.0-5. <td> [place]ke phils+Monocytes 0 % 01/29/2018 [facility] [#/volume] in 21:03</td><td> Health Care Blood by Eosinophils [employer] Automated count </td><td> 2.0
(0.0-5.0) % </td> Monocytes/Leukoc 6.6 % 0.0-11 <td> [place] ytes [Pure .0 % 01/29/2018 [facility] number fraction] 21:03</td><td> Health C are in Blood by Monocytes. S[employer] Automated count </td><td> 6.6
(0.0-11.0) % </td> Lymphocytes 32.3 % 17.0-5 <td> [place] [#/volume] in 0.0 % 01/29/2018 [facility] Blood by 21:03</td><td> Health Care Automated count Lymphocytes Corporation </td><td> 32.3
(17.0-50.0) % </td> Platelets 484 k/mm3 160-41 <td> [place] [#/volume] in 0 02/01/2018 [facility] Blood by k/mm3 07:30</td><td> Health Care Automated count Platelet Count Corporati on </td><td><par agraph styleCode="Ella d"> 484 H </paragraph><b r/> (160-410) k/mm3 </td> Carbon dioxide, 25 mEq/L 22-30 <td> [place] total mEq/L 02/01/2018 [facility] [Moles/volume] 07:30</td><td> Health Car e in Serum or CO2 </td><td> Sensobi Plasma 25
(22-30) mEq/L </td> Chloride 108 mEq/L 98-107 <td> [place] [Moles/volume] mEq/L 02/01/2018 [facility] in Serum or 07:30</td><td> Health Care Plasma Chloride S[employer]obi </td><td><para graph styleCode="Ella d"> 108 H </paragraph><b r/> (98-107) mEq/L </td> Potassium 3.8 mEq/L 3.5-5. <td> [place] [Moles/volume] 1 02/01/2018 [facility] in Serum or mEq/L 07:30</td><td> Health Care Plasma Potassium-Seru Sensobi m </td><td> 3.8
(3.5-5.1) mEq/L </td> Sodium 139 mEq/L 135-14 <td> [place] [Moles/volume] 5 02/01/2018 [facility] in Serum or mEq/L 07:30</td><td> Health Care Plasma Sodium-Serum Corporation </td><td> 139
(135-145) mEq/L </td> Glucose 94 mg/dL 70-105 <td> [place] [Mass/volume] in mg/dL 02/01/2018 [facility] Blood 07:30</td><td> Health Care Glucose-Serum Corporation </td><td> 94
(70-105) mg/dL </td> Neutrophils [#] 58.7 % 40.0-7 <td> [place] in Body fluid by 6.0 % 01/29/2018 [facility] Manual count 21:03</td><td> Health Care Neutrophils Corporation </td><td> 58.7
(40.0-76.0) % </td> Albumin 3.5 g/dL 3.4-4. <td> [place] [Mass/volume] in 8 g/dL 02/01/2018 [facility] Serum or Plasma 07:30</td><td> Health Ca re Albumin Corporation </td><td> 3.5
(3.4-4.8) g/dL </td> Proteins - Total 6.6 g/dL 6.4-8. <td> Cocke 3 g/dL 02/01/2018 [facility] 07:30</td><td> Health Care Proteins - Corporation Total </td><td> 6.6
(6.4-8.3) g/dL </td> Bilirubin.total 0.6 mg/dL 0.2-1. <td> [place] [Mass/volume] in 3 02/01/2018 [facility] Blood mg/dL 07:30</td><td> Health Care Bilirubin - Corporation Total </td><td> 0.6
(0.2-1.3) mg/dL </td> Alanine 10 U/L 6-55 <td> [place] aminotransferase U/L 02/01/2018 [facility] [Enzymatic 07:30</td><td> Health Care activity/volume] ALT (SGPT) Corporation in Serum or </td><td> Plasma 10
(6-55) U/L </td> Aspartate 8 U/L 4-35 <td> [place] aminotransferase U/L 02/01/2018 [facility] [Enzymatic 07:30</td><td> Health Care activity/volume] AST (SGOT) Corporation in Serum or </td><td> Plasma 8
(4-35) U/L </td> Creatinine 0.99 mg/dL 0.57-1 <td> [place] [Moles/volume] .11 02/01/2018 [facility] in Serum or mg/dL 07:30</td><td> Health Care Plasma Creatinine. [facility] </td><td> 0.99
(0.57-1.11) mg/dL </td> Urea nitrogen 12 mg/dL 6-22 <td> [place] [Mass/volume] in mg/dL 02/01/2018 [facility] Blood 07:30</td><td> Health Care BUN </td><td> Corporation 12
(6-22) mg/dL </td> Icteric index of Not <td> [place] Serum or Plasma Icteric 02/01/2018 [facility] 07:30</td><td> Health Care Icteric Index Corporation </td><td> Not Icteric
</td> Lipemic index of No Lipemia <td> [place] Serum or Plasma 02/01/2018 [facility] 07:30</td><td> Health Care Lipemia Index Corporation </td><td> No Lipemia
</td> Hemolysis index No <td> [place] of Serum or Hemolysis 02/01/2018 [facility] Plasma 07:30</td><td> Health Care Hemolysis Corporation Index </td><td> No Hemolysis
</td> Globulin 3.1 gm/dL 2.9-4. <td> [place] [Mass/volume] in 0 02/01/2018 [facility] Serum gm/dL 07:30</td><td> Health Care Globulin Corporation </td><td> 3.1
(2.9-4.0) gm/dL </td> Anion gap in 6 mEq/L 7-13 <td> [place] Serum or Plasma mEq/L 02/01/2018 [facility] 07:30</td><td> Health Care Anion Gap [employer] </td><td><para graph styleCode="Ella d"> 6 L </paragraph><b r/> (7-13) mEq/L </td> Calcium 8.8 mg/dL 8.6-10 <td> [place] [Mass/volume] in .2 02/01/2018 [facility] Blood mg/dL 07:30</td><td> [facility] Calcium Sensobi </td><td> 8.8
(8.6-10.2) mg/dL </td> Glucose 94 mg/dL 70-105 <td> [place] [Mass/volume] in mg/dL 02/01/2018 [facility] Capillary blood 12:32</td><td> Health Wi re by Glucometer Glucose - Sensobi Finger Stick </td><td> 94
(70-105) mg/dL </td> Hemoglobin A1C 5.6 % 4.0-5. <td> Cocke 6 % 01/31/2018 [facility] 09:11</td><td> [facility] Hemoglobin Sensobi A1C </td><td> 5.6
(4.0-5.6) %
Increased risk for diabetes mellitus is seen in patients with HgA1C values
between 5.7-6.4%. Values > or = 6.5% are considered diagnostic of diabetes
mellitus.
=====
ESTIMATED AVERAGE GLUCOSE (eAG)
-----
RELATIONSHIP BETWEEN A1C AND eAG
=====
A1C(%) eAG(mg/dL)
6 126
7 154
8 183
9 212
10 -240
11 -269
12 -298
Source: Adapted from [place] [employer]. Standards of medical
care in diabetes-2014. Diabetes Care.2014;37(S p 1):S14-S80, table 8.

PLEASE NOTE NEW REFERENCE RANGES EFFECTIVE 14

(4.0-5.6) % </td> Magnesium 2.0 mg/dL 1.6-2. <td> Cocke [Mass/volume] in 6 02/01/2018 [facility] Serum or Plasma mg/dL 07:30</td><td> [employer] Magnesium [employer] Level </td><td> 2.0
(1.6-2.6) mg/dL </td> Phosphate 2.9 mg/dL 2.3-4. <td> [place] [Mass/volume] in 7 02/01/2018 [facility] Serum or Plasma mg/dL 07:30</td><td> [facility] Inorganic [employer] Phosphorus </td><td> 2.9
(2.3-4.7) mg/dL </td> Hemoglobin 8.7 g/dL 12.0-1 <td> [place] [Mass/volume] in 6.0 01/31/2018 [facility] Blood g/dL 09:11</td><td> Health Care HGB Corporation </td><td><para graph styleCode="Ella d"> 8.7 L </paragraph><b r/> (12.0-16.0) g/dL </td> Erythrocytes 3.27 m/mm3 3.90-5 <td> [place] [#/volume] in .20 01/31/2018 [facility] Blood m/mm3 09:11</td><td> Health Care RBC [employer] </td><td><para graph styleCode="Ella d"> 3.27 L </paragraph><b r/> (3.90-5.20) m/mm3 </td> Leukocytes 7.0 k/mm3 4.8-10 <td> [place] [#/volume] in .8 01/31/2018 [facility] Blood by k/mm3 09:11</td><td> Health Care Automated count WBC </td><td> Corporati on 7.0
(4.8-10.8) k/mm3 </td> Platelet mean 10.1 fL 9.8-12 <td> [place]ke volume [Entitic .8 fL 01/31/2018 [facility] volume] in Blood 09:11</td><td> Health C are by Automated MPV </td><td> Sensobi count 10.1
(9.8-12.8) fL </td> Erythrocyte 17.1 % 11.5-1 <td> [place]ke distribution 4.5 % 01/31/2018 [facility] width [Entitic 09:11</td><td> Health Car e volume] by RDW [employer] Automated count </td><td><para graph styleCode="Ella d"> 17.1 H </paragraph><b r/> (11.5-14.5) % </td> Erythrocyte mean 31.3 % 32.0-3 <td> [place] corpuscular 6.0 % 01/31/2018 [facility] hemoglobin 09:11</td><td> Health Care concentration MCHC [employer] [Mass/volume] in </td><td><para Blood from Fetus graph by Automated styleCode="Ella count d"> 31.3 L </paragraph><b r/> (32.0-36.0) % </td> Erythrocyte mean 26.6 pg 27.0-3 <td> [place] corpuscular 1.5 pg 01/31/2018 [facility] hemoglobin 09:11</td><td> Health Care [Entitic mass] [employer] by Automated </td><td><para count graph styleCode="Ella d"> 26.6 L </paragraph><b r/> (27.0-31.5) pg </td> Erythrocyte mean 85.0 fL 81.0-9 <td> [place] corpuscular 9.0 fL 01/31/2018 [facility] volume [Entitic 09:11</td><td> Health Ca re volume] by MCV </td><td> [employer] Automated count 85.0
(81.0-99.0) fL </td> Hematocrit 27.8 % 37.0-4 <td> [place] [Volume 7.0 % 01/31/2018 [place] Fraction] of 09:11</td><td> Health Care Blood by HCT [employer] Automated count </td><td><para graph styleCode="Ella d"> 27.8 L </paragraph><b r/> (37.0-47.0) % </td> Immature 0.3 % 0.0-0. <td> [place]ke granulocytes/100 5 % 01/29/2018 [facility] leukocytes in 21:03</td><td> Health Care Blood by IG% </td><td> Corporation Automated count 0.3
(0.0-0.5) %
The IG fraction represents metamyelocytes , myelocytes and/or
promyelocytes and is only reported as part of the automated
differential when found at a percentage of less than 6.
If higher than 6%, a manual differential will be performed.

(0.0-0.5) % </td> Basophils 0.1 % 0.0-2. <td> [place]ke [#/volume] in 0 % 01/29/2018 [facility] Blood by 21:03</td><td> Health Care Automated count Basophils Corporation </td><td> 0.1
(0.0-2.0) % </td> Basophils+Eosino 2.0 % 0.0-5. <td> [place] phils+Monocytes 0 % 01/29/2018 [facility] [#/volume] in 21:03</td><td> Health Care Blood by Eosinophils [employer] Automated count </td><td> 2.0
(0.0-5.0) % </td> Monocytes/Leukoc 6.6 % 0.0-11 <td> [place] ytes [Pure .0 % 01/29/2018 [facility] number fraction] 21:03</td><td> Health C are in Blood by Monocytes. Corporation Automated count </td><td> 6.6
(0.0-11.0) % </td> Lymphocytes 32.3 % 17.0-5 <td> [place] [#/volume] in 0.0 % 01/29/2018 [facility] Blood by 21:03</td><td> Health Care Automated count Lymphocytes [employer] </td><td> 32.3
(17.0-50.0) % </td> Platelets 438 k/mm3 160-41 <td> [place] [#/volume] in 0 01/31/2018 [facility] Blood by k/mm3 09:11</td><td> Health Care Automated count Platelet Count Corporati on </td><td><par agraph styleCode="Ella d"> 438 H </paragraph><b r/> (160-410) k/mm3 </td> Urea nitrogen 14 mg/dL 6-22 <td> [place] [Mass/volume] in mg/dL 01/31/2018 [facility] Blood 09:11</td><td> Health Care BUN </td><td> Corporation 14
(6-22) mg/dL </td> Carbon dioxide, 25 mEq/L 22-30 <td> [place] total mEq/L 01/31/2018 [facility] [Moles/volume] 09:11</td><td> Health Car e in Serum or CO2 </td><td> Sensobi Plasma 25
(22-30) mEq/L </td> Chloride 107 mEq/L 98-107 <td> [place] [Moles/volume] mEq/L 01/31/2018 [place] in Serum or 09:11</td><td> Health Care Plasma Chloride S[employer]obi </td><td> 107
(98-107) mEq/L </td> Potassium 3.5 mEq/L 3.5-5. <td> [place] [Moles/volume] 1 01/31/2018 [facility] in Serum or mEq/L 09:11</td><td> Health Care Plasma Potassium-Seru Sensobi m </td><td> 3.5
(3.5-5.1) mEq/L </td> Sodium 140 mEq/L 135-14 <td> [place] [Moles/volume] 5 01/31/2018 [facility] in Serum or mEq/L 09:11</td><td> Health Care Plasma Sodium-Serum Sensobi </td><td> 140
(135-145) mEq/L </td> Glucose 132 mg/dL 70-105 <td> [place] [Mass/volume] in mg/dL 01/31/2018 [facility] Blood 09:11</td><td> Health Care Glucose-Serum [employer] </td><td><para graph styleCode="Ella d"> 132 H </paragraph><b r/> (70-105) mg/dL </td> Neutrophils [#] 58.7 % 40.0-7 <td> [place] in Body fluid by 6.0 % 01/29/2018 [facility] Manual count 21:03</td><td> Health Care Neutrophils [employer] </td><td> 58.7
(40.0-76.0) % </td> Albumin 3.4 g/dL 3.4-4. <td> [place] [Mass/volume] in 8 g/dL 01/31/2018 [facility] Serum or Plasma 09:11</td><td> Health Ca re Albumin S[employer] </td><td> 3.4
(3.4-4.8) g/dL </td> Proteins - Total 6.3 g/dL 6.4-8. <td> Cocke 3 g/dL 01/31/2018 [facility] 09:11</td><td> Health Care Proteins - Corporation Total </td><td><para graph styleCode="Ella d"> 6.3 L </paragraph><b r/> (6.4-8.3) g/dL </td> Bilirubin.total 0.6 mg/dL 0.2-1. <td> [place] [Mass/volume] in 3 01/31/2018 [facility] Blood mg/dL 09:11</td><td> Health Care Bilirubin - Corporation Total </td><td> 0.6
(0.2-1.3) mg/dL </td> Alanine 10 U/L 6-55 <td> [place] aminotransferase U/L 01/31/2018 [facility] [Enzymatic 09:11</td><td> Health Care activity/volume] ALT (SGPT) Corporation in Serum or </td><td> Plasma 10
(6-55) U/L </td> Aspartate 8 U/L 4-35 <td> [place] aminotransferase U/L 01/31/2018 [facility] [Enzymatic 09:11</td><td> Health Care activity/volume] AST (SGOT) Corporation in Serum or </td><td> Plasma 8
(4-35) U/L </td> Creatinine 1.07 mg/dL 0.57-1 <td> [place] [Moles/volume] .11 01/31/2018 [facility] in Serum or mg/dL 09:11</td><td> Health Care Plasma Creatinine. Corporation </td><td> 1.07
(0.57-1.11) mg/dL </td> Phosphate 3.3 mg/dL 2.3-4. <td> [place] [Mass/volume] in 7 01/31/2018 [facility] Serum or Plasma mg/dL 09:11</td><td> Health Ca re Inorganic Corporation Phosphorus </td><td> 3.3
(2.3-4.7) mg/dL </td> Icteric index of Non <td> [place] Serum or Plasma Icteric 01/31/2018 [facility] 09:11</td><td> Health Care Icteric Index Corporation </td><td> Non Icteric
</td> Lipemic index of No Lipemia <td> [place] Serum or Plasma 01/31/2018 [facility] 09:11</td><td> Health Care Lipemia Index Corporation </td><td> No Lipemia
</td> Hemolysis index No <td> [place] of Serum or Hemolysis 01/31/2018 [facility] Plasma 09:11</td><td> Health Care Hemolysis Corporation Index </td><td> No Hemolysis
</td> Globulin 2.9 gm/dL 2.9-4. <td> [place] [Mass/volume] in 0 01/31/2018 [facility] Serum gm/dL 09:11</td><td> Health Care Globulin [employer] </td><td> 2.9
(2.9-4.0) gm/dL </td> Anion gap in 8 mEq/L 7-13 <td> [place] Serum or Plasma mEq/L 01/31/2018 [facility] 09:11</td><td> Health Care Anion Gap Corporation </td><td> 8
(7-13) mEq/L </td> Calcium 8.5 mg/dL 8.6-10 <td> [place] [Mass/volume] in .2 01/31/2018 [facility] Blood mg/dL 09:11</td><td> Health Care Calcium Corporation </td><td><para graph styleCode="Ella d"> 8.5 L </paragraph><b r/> (8.6-10.2) mg/dL </td> Glucose 133 mg/dL 70-105 <td> [place] [Mass/volume] in mg/dL 01/31/2018 [facility] Capillary blood 08:00</td><td> Health Ca re by Glucometer Glucose - Sensobi Finger Stick </td><td><para graph styleCode="Ella d"> 133 H </paragraph><b r/> (70-105) mg/dL </td> Hemoglobin A1C 5.6 % 4.0-5. <td> [place] 6 % 01/31/2018 [place] 09:11</td><td> [facility] Hemoglobin [facility] A1C </td><td> 5.6
(4.0-5.6) %
Increased risk for diabetes mellitus is seen in patients with HgA1C values
between 5.7-6.4%. Values > or = 6.5% are considered diagnostic of diabetes
mellitus.
=====
ESTIMATED AVERAGE GLUCOSE (eAG)
-----
RELATIONSHIP BETWEEN A1C AND eAG
=====
A1C(%) eAG(mg/dL)
6 126
7 154
8 183
9 212
10 -240
11 -269
12 -298
Source: Adapted from [place] [employer]. Standards of medical
care in diabetes-2014. Diabetes Care.2014;37(S p 1):S14-S80, table 8.

PLEASE NOTE NEW REFERENCE RANGES EFFECTIVE 14

(4.0-5.6) % </td> Magnesium 2.0 mg/dL 1.6-2. <td> [place] [Mass/volume] in 6 01/31/2018 [facility] Serum or Plasma mg/dL 09:11</td><td> Health Ca re Magnesium Corporation Level </td><td> 2.0
(1.6-2.6) mg/dL </td> Procedure Social History Code Duration Value Status Description Data Source(s ) Smoking 11/07/2019 [place] [employer] EN ([employer] 12:00:00 AM EDT Works - - Unemployed Medical , ) Unemployed Tobacco - Current Tobacco - Current - 1/2 PPD for 32 - 1/2 PPD for 32 years Alcohol - Hx years Alcohol - of alcohol abuse - Hx of alcohol quit Illicit abuse - quit Drugs - Hx crack Illicit Drugs - cocaine smokes, Hx crack cocaine occasional smokes, marijuana Lives - occasional At home with her 3 marijuana Lives kids - At home with her 3 kids Smoking 11/07/2019 Unknown if ever completed Unknown if ever MEDG EN ([employer] 12:00:00 AM EDT smoked smoked Medical, ) Smoking 08/22/2019 [place] Works MED[employer] EN ([employer] 12:00:00 AM EDT Works - - Unemployed [...] ever completed Unknown if ever MEDG EN ([employer] 12:00:00 AM EDT smoked smoked [facility], ) Smoking 08/19/2019 [place] Works MEDG EN ([facility] 12:00:00 AM EDT Works - - Unemployed [...] ever completed Unknown if ever MEDG EN ([facility] 12:00:00 AM EDT smoked smoked Medical, ) Smoking Never smoker completed Never smoker [facility] Corporati on Vital Signs ID Date Data Source UNK Name Value Range Interpretation Code Description Data Source(s) Heart rate 84 /min 84 /min [facility] ([facility], ) Respiratory rate 16 /min 16 /min [facility] ( [facility], ) Body temperature 99 F 99 F MEDGEN ( [place], ) Inhaled oxygen 97 % 97 % MEDGEN ([facility], ) Diastolic blood 89 mm[Hg] 89 mm[Hg] [facility] ([facility], ) Systolic blood 138 mm[Hg] 138 mm[Hg] MEDGEN ([facility], ) Body weight 265 lb 265 lb [facility] ([facility], ) Heart rate 82 /min 82 /min [facility] ([facility], ) Body mass index 37.8 kg/m2 37.8 kg/m2 MEDGEN ([facility] (BMI) [Ratio] [facility], ) Diastolic blood 85 mm[Hg] 85 mm[Hg] [facility]GEN ([facility], ) Systolic blood 136 mm[Hg] 136 mm[Hg] MEDGEN ([facility], ) Body weight 256 lb 256 lb MEDGEN ([facility], ) Body height 69 in 69 [...] 69 in 69 in MEDGEN ([facility], ) Heart rate 82 /min 82 /min [facility] ([facility], ) Body mass index 37.8 kg/m2 37.8 kg/m2 MEDGEN ([facility] (BMI) [Ratio] [facility], ) Diastolic blood 85 mm[Hg] 85 mm[Hg] MEDGEN ([facility], ) Systolic blood 136 mm[Hg] 136 mm[Hg] MEDGEN ([facility], ) Body weight 256 lb 256 lb MEDGEN ([facility], ) Body height 69 in 69 in MEDGEN ([facility], ) Heart rate 69 /min 69 /min [facility] ([facility], ) Respiratory rate 15 /min 15 /min MEDGEN ( [facility], ) Diastolic blood 84 mm[Hg] 84 mm[Hg] MEDGEN ([facility], ) Systolic blood 124 mm[Hg] 124 mm[Hg] MEDGEN ([facility], ) Body weight 238 lb 238 lb MEDGEN ([facility], ) Heart rate 69 /min 69 /min [facility] ([facility], ) Respiratory rate 15 /min 15 /min MEDGEN ( [facility], ) Diastolic blood 84 mm[Hg] 84 mm[Hg] MEDGEN ([facility], ) Systolic blood 124 mm[Hg] 124 mm[Hg] MEDGEN ([facility], ) Body weight 238 lb 238 lb MEDGEN ([facility], ) Heart rate 69 /min 69 /min MEDGEN ([facility], ) Respiratory rate 15 /min 15 /min MEDGEN ( [facility], ) Diastolic blood 84 mm[Hg] 84 mm[Hg] MEDGEN ([facility], ) Systolic blood 124 mm[Hg] 124 mm[Hg] [facility] ([facility], ) Body weight 238 lb 238 lb MED[facility] ([facility], ) Systolic blood 106 mm[Hg] 106 mm[Hg] MED[facility] ([facility], ) Body weight 236 lb 236 lb MED[facility] ([facility], ) Body height 69 in 69 in MEDGEN ([facility], ) Heart rate 56 /min 56 /min [facility] ([facility], ) Respiratory rate 16 /min 16 /min MED[facility] ( [facility], ) Inhaled oxygen 100 % 100 % MEDGEN ([place], ) Body mass index 34.8 kg/m2 34.8 kg/m2 MEDGEN ([facility] (BMI) [Ratio] [facility], ) Diastolic blood 75 mm[Hg] 75 mm[Hg] MEDGEN ([facility], ) Systolic blood 106 mm[Hg] 106 mm[Hg] MEDGEN ([place], ) Body weight 236 lb 236 lb MEDGEN ([facility], ) Body height 69 in 69 in MEDGEN ([facility], ) Heart rate 56 /min 56 /min MEDGEN ([facility], ) Respiratory rate 16 /min 16 /min MEDGEN ( [facility], ) Inhaled oxygen 100 % 100 % MEDGEN ([place], ) Body mass index 34.8 kg/m2 34.8 kg/m2 MEDGEN ([facility] (BMI) [Ratio] [facility], ) Diastolic blood 75 mm[Hg] 75 mm[Hg] MEDGEN ([facility], ) Heart rate 56 /min 56 /min MEDGEN ([facility], ) Respiratory rate 16 /min 16 /min MEDGEN ( [facility], ) Inhaled oxygen 100 % 100 % MEDGEN ([facility], ) Body mass index 34.8 kg/m2 34.8 kg/m2 MEDGEN ([facility] (BMI) [Ratio] [facility], ) Diastolic blood 75 mm[Hg] 75 mm[Hg] MEDGEN ([facility], ) Systolic blood 106 mm[Hg] 106 mm[Hg] MEDGEN ([facility], ) Body weight 236 lb 236 lb MEDGEN ([facility], ) Body height 69 in 69 in MEDGEN ([facility], ) Heart rate 77 /min 77 /min MEDGEN ([facility], ) Respiratory rate 12 /min 12 /min MEDGEN ( [facility], ) Body temperature 98 F 98 F MEDGEN ( [facility]) Inhaled oxygen 99 % 99 % MEDGEN ([facility], ) Body mass index 32.5 kg/m2 32.5 kg/m2 MEDGEN ([facility] (BMI) [Ratio] [facility], ) Diastolic blood 83 mm[Hg] 83 mm[Hg] MEDGEN ([facility], ) Systolic blood 136 mm[Hg] 136 mm[Hg] MEDGEN ([facility], ) Body weight 220 lb 220 lb MEDGEN ([facility], ) Body height 69 in 69 in MEDGEN ([facility], ) Heart rate 77 /min 77 /min MEDGEN ([facility], ) Respiratory rate 12 /min 12 /min MEDGEN ( [facility], ) Body temperature 98 F 98 F MEDGEN ( [facility]) Inhaled oxygen 99 % 99 % MEDGEN ([facility], ) Body mass index 32.5 kg/m2 32.5 kg/m2 MEDGEN ([facility] (BMI) [Ratio] [facility], ) Diastolic blood 83 mm[Hg] 83 mm[Hg] MEDGEN ([facility], ) Systolic blood 136 mm[Hg] 136 mm[Hg] MEDGEN ([place], ) Body weight 220 lb 220 lb MEDGEN ([facility], ) Body height 69 in 69 in MEDGEN ([facility], ) Heart rate 77 /min 77 /min MEDGEN ([facility], ) Respiratory rate 12 /min 12 /min MEDGEN ( [facility], ) Body temperature 98 F 98 F MEDGEN ( [facility], ) Inhaled oxygen 99 % 99 % MEDGEN ([facility], ) Body mass index 32.5 kg/m2 32.5 kg/m2 MEDGEN ([facility] (BMI) [Ratio] [facility], ) Diastolic blood 83 mm[Hg] 83 mm[Hg] MEDGEN ([facility], ) Systolic blood 136 mm[Hg] 136 mm[Hg] MEDGEN ([facility], ) Body weight 220 lb 220 lb MEDGEN ([facility], ) Body height 69 in 69 in MEDGEN ([facility], ) Heart rate 85 /min 85 /min MEDGEN ([facility], ) Respiratory rate 12 /min 12 /min MEDGEN ( [facility], ) Inhaled oxygen 98 % 98 % MEDGEN ([facility], ) Diastolic blood 120 mm[Hg] 120 mm[Hg] MEDGEN ([facility], ) Systolic blood 180 mm[Hg] 180 mm[Hg] MEDGEN ([facility], ) Body weight 190 lb 190 lb MEDGEN ([facility], ) Heart rate 85 /min 85 /min MEDGEN ([facility], ) Respiratory rate 12 /min 12 /min MEDGEN ( [facility], ) Inhaled oxygen 98 % 98 % MEDGEN ([facility], ) Diastolic blood 120 mm[Hg] 120 mm[Hg] MEDGEN ([facility], ) Systolic blood 180 mm[Hg] 180 mm[Hg] MEDGEN ([facility], ) Body weight 190 lb 190 lb MEDGEN ([facility], ) Heart rate 85 /min 85 /min MEDGEN ([facility], ) Respiratory rate 12 /min 12 /min MEDGEN ( [facility], ) Inhaled oxygen 98 % 98 % MEDGEN ([facility], ) Diastolic blood 120 mm[Hg] 120 mm[Hg] MEDGEN ([facility], ) Systolic blood 180 mm[Hg] 180 mm[Hg] MEDGEN ([facility], ) Body weight 190 lb 190 lb MEDGEN ([facility], ) Heart rate 79 /min 79 /min MEDGEN ([facility], ) Respiratory rate 12 /min 12 /min MEDGEN ( [facility], ) Inhaled oxygen 99 % 99 % MEDGEN ([facility], ) Diastolic blood 96 mm[Hg] 96 mm[Hg] MEDGEN ([facility], ) Systolic blood 174 mm[Hg] 174 mm[Hg] MEDGEN ([facility], ) Body weight 187 lb 187 lb MEDGEN ([facility], ) Heart rate 79 /min 79 /min MEDGEN ([facility], ) Respiratory rate 12 /min 12 /min MEDGEN ( [facility], ) Inhaled oxygen 99 % 99 % MEDGEN ([facility], ) Diastolic blood 96 mm[Hg] 96 mm[Hg] MEDGEN ([facility], ) Systolic blood 174 mm[Hg] 174 mm[Hg] MEDGEN ([facility], ) Body weight 187 lb 187 lb MEDGEN ([facility], ) Heart rate 79 /min 79 /min MEDGEN ([facility], ) Respiratory rate 12 /min 12 /min MEDGEN ( [facility], ) Inhaled oxygen 99 % 99 % MEDGEN ([facility], ) Diastolic blood 96 mm[Hg] 96 mm[Hg] MEDGEN ([facility], ) Systolic blood 174 mm[Hg] 174 mm[Hg] MEDGEN ([facility], ) Body weight 187 lb 187 lb MEDGEN ([facility], ) Heart rate 73 /min 73 /min MEDGEN ([facility], ) Inhaled oxygen 98 % 98 % MEDGEN ([facility], ) Diastolic blood 86 mm[Hg] 86 mm[Hg] MEDGEN ([facility], ) Systolic blood 142 mm[Hg] 142 mm[Hg] MEDGEN ([facility], ) Body weight 172 lb 172 lb MEDGEN ([facility], ) Heart rate 73 /min 73 /min [facility]GEN [facility], ) Inhaled oxygen 98 % 98 % MEDGEN ([facility], ) Diastolic blood 86 mm[Hg] 86 mm[Hg] MEDGEN ([facility], ) Systolic blood 142 mm[Hg] 142 mm[Hg] MEDGEN ([facility], ) Body weight 172 lb 172 lb MEDGEN ([facility], ) Heart rate 73 /min 73 /min [facility]GEN [facility], ) Inhaled oxygen 98 % 98 % MEDGEN ([facility], ) Diastolic blood 86 mm[Hg] 86 mm[Hg] MEDGEN ([facility], ) Systolic blood 142 mm[Hg] 142 mm[Hg] MEDGEN ([facility], ) Body weight 172 lb 172 lb MEDGEN ([facility], ) Heart rate 73 /min 73 /min [facility]GEN [facility], [facility] Respiratory rate 12 /min 12 /min MEDGEN ( [facility], ) Inhaled oxygen 99 % 99 % MEDGEN ([facility], ) Diastolic blood 100 mm[Hg] 100 mm[Hg] MEDGEN ([facility], ) Systolic blood 180 mm[Hg] 180 mm[Hg] MEDGEN ([facility], ) Body weight 170 lb 170 lb MEDGEN ([facility], ) Heart rate 73 /min 73 /min MEDGEN ([facility], ) Respiratory rate 12 /min 12 /min MEDGEN ( [facility], ) Inhaled oxygen 99 % 99 % MEDGEN ([facility], ) Diastolic blood 100 mm[Hg] 100 mm[Hg] MEDGEN ([facility], ) Systolic blood 180 mm[Hg] 180 mm[Hg] MEDGEN ([facility], ) Body weight 170 lb 170 lb MEDGEN ([facility], ) Heart rate 73 /min 73 /min MEDGEN ([facility], ) Respiratory rate 12 /min 12 /min MEDGEN ( [facility], ) Inhaled oxygen 99 % 99 % MEDGEN ([place], ) Diastolic blood 100 mm[Hg] 100 mm[Hg] MEDGEN ([facility], ) Systolic blood 180 mm[Hg] 180 mm[Hg] MEDGEN ([facility], ) Body weight 170 lb 170 lb MEDGEN ([facility], ) Heart rate 70 /min 70 /min MEDGEN ([facility], ) Respiratory rate 15 /min 15 /min MEDGEN ( [place], ) Body temperature 98 F 98 F MEDGEN ( [facility], ) Diastolic blood 90 mm[Hg] 90 mm[Hg] MEDGEN ([facility], ) Systolic blood 140 mm[Hg] 140 mm[Hg] MEDGEN ([facility], ) Body weight 177 lb 177 lb MEDGEN ([facility], ) Heart rate 70 /min 70 /min MEDGEN ([facility], ) Respiratory rate 15 /min 15 /min MEDGEN ( [facility], ) Body temperature 98 F 98 F MEDGEN ( [facility], ) Diastolic blood 90 mm[Hg] 90 mm[Hg] MEDGEN ([facility], ) Systolic blood 140 mm[Hg] 140 mm[Hg] MEDGEN ([facility], ) Body weight 177 lb 177 lb MEDGEN ([facility], ) Heart rate 70 /min 70 /min MEDGEN ([facility], ) Respiratory rate 15 /min 15 /min MEDGEN ( [facility], ) Body temperature 98 F 98 F MEDGEN ( [place], ) Diastolic blood 90 mm[Hg] 90 mm[Hg] MEDGEN ([facility], ) Systolic blood 140 mm[Hg] 140 mm[Hg] MEDGEN ([facility], ) Body weight 177 lb 177 lb MEDGEN ([facility], ) Heart rate 84 /min 84 /min MEDGEN ([facility], ) Respiratory rate 13 /min 13 /min MEDGEN ( [place], ) Body temperature 98.2 F 98.2 F MEDGEN ( [facility], ) Diastolic blood 79 mm[Hg] 79 mm[Hg] MEDGEN ([facility], ) Systolic blood 161 mm[Hg] 161 mm[Hg] MEDGEN ([facility], ) Body weight 179 lb 179 lb MEDGEN ([facility], ) Heart rate 84 /min 84 /min MEDGEN ([facility], ) Respiratory rate 13 /min 13 /min MEDGEN ( [place], ) Body temperature 98.2 F 98.2 F MEDGEN ( [facility], ) Diastolic blood 79 mm[Hg] 79 mm[Hg] MEDGEN ([facility], ) Systolic blood 161 mm[Hg] 161 mm[Hg] MEDGEN ([facility], ) Body weight 179 lb 179 lb MEDGEN ([facility], ) Heart rate 84 /min 84 /min MEDGEN ([facility], ) Respiratory rate 13 /min 13 /min MEDGEN ( [place], ) Body temperature 98.2 F 98.2 F MEDGEN ( [place], ) Diastolic blood 79 mm[Hg] 79 mm[Hg] MEDGEN ([facility], ) Systolic blood 161 mm[Hg] 161 mm[Hg] MEDGEN ([facility], ) Body weight 179 lb 179 lb MEDGEN ([facility], ) Heart rate 104 /min 104 /min MEDGEN ([facility], ) Respiratory rate 18 /min 18 /min MEDGEN ( [place], ) Body temperature 97.3 F 97.3 F MEDGEN ( [facility], ) Inhaled oxygen 95 % 95 % MEDGEN ([place], ) Diastolic blood 120 mm[Hg] 120 mm[Hg] MEDGEN ([facility], ) Systolic blood 189 mm[Hg] 189 mm[Hg] MEDGEN ([facility] Body weight 185 lb 185 lb MEDGEN ([facility] Heart rate 104 /min 104 /min [facility] Respiratory rate 18 /min 18 /min MEDGEN ( [facility] Body temperature 97.3 F 97.3 F MEDGEN ( [facility]) Inhaled oxygen 95 % 95 % MEDGEN ([facility] ) Diastolic blood 120 mm[Hg] 120 mm[Hg] MEDGEN ([facility]) Systolic blood 189 mm[Hg] 189 mm[Hg] MEDGEN ([facility]) Body weight 185 lb 185 lb MEDGEN ([facility] Heart rate 104 /min 104 /min [facility] Respiratory rate 18 /min 18 /min MEDGEN ( [facility] Body temperature 97.3 F 97.3 F MEDGEN ( [facility]) Inhaled oxygen 95 % 95 % MEDGEN ([facility] ) Diastolic blood 120 mm[Hg] 120 mm[Hg] MEDGEN ([facility] Systolic blood 189 mm[Hg] 189 mm[Hg] MEDGEN ([facility]) Body weight 185 lb 185 lb MEDGEN ([facility] Diastolic blood 99 {} Normal (applies to 99 {} [place] [facility] non-numeric results) [facility] Systolic blood 168 {} Normal (applies to 168 {} [place] [facility] non-numeric results) [facility] First Respiration 18.0000 {} Normal (applies to 18.0000 {} [place] rate Set non-numeric results) [facility] Heart rate 89.0000 {} Normal (applies to 89.0000 {} [facility] [facility] non-numeric results) [facility] Body temperature 97.6000 {} Normal (applies to 97.6000 {} [place] non-numeric results) [facility] Diastolic blood 99 {} Normal (applies to 99 {} [place] pressure non-numeric results) [facility] Systolic blood 169 {} Normal (applies to 169 {} [facility] pressure non-numeric results) [facility] First Respiration 18.0000 {} Normal (applies to 18.0000 {} [place] rate Set non-numeric results) [facility] Heart rate 89.0000 {} Normal (applies to 89.0000 {} [place] non-numeric results) [facility] Body temperature 97.5000 {} Normal (applies to 97.5000 {} [place] non-numeric results) [facility] wt - obtain Normal (applies to {} [facility] non-numeric results) [facility] weight - kg 86.3630 {} Normal (applies to 86.3630 {} [facility] non-numeric results) [facility]
--- NOTE | 2019-11-11 07:17 | HP ---
History & Physical Update - Physical Physical: No Change - Assessment Assessment: No Change - Plan Plan: No Change
[2019-11-11] MEDS ORDERED: BUPIVACAINE HCL/PF 0.25% (2.5MG/ML) 10 ML VIAL ONE ×2 (07:24→08:12)
[2019-11-11] MEDS ORDERED: PROPOFOL 20 ML ONE ×3 (07:59→09:51)
[2019-11-11] MEDS ORDERED: SUCCINYLCHOLINE CHLORIDE 200 MG/10 ML SYRINGE ONE (07:59)
[2019-11-11] MEDS ORDERED: MIDAZOLAM HCL 2 MG/2 ML SINGLE DOSE VIAL ONE (07:59)
--- NOTE | 2019-11-11 08:50 | OPR ---
DATE OF SURGERY: 11/11/2019 PROCEDURE: Left open carpal tunnel release. PREOPERATIVE DIAGNOSIS: Left carpal tunnel syndrome. POSTOPERATIVE DIAGNOSIS: Left carpal tunnel syndrome. SURGEON: Shawn Polanco DO EMAIL MARKETING INTERN: Duke Welch DO ANESTHESIA: General IMPLANTS: None. SPECIMEN: None TOURNIQUET TIME: 10 minutes EBL: minimal COMPLICATIONS: None INDICATIONS: The patient is a 54 year old female with severe left carpal tunnel syndrome with worsening symptoms, despite conservative treatment. She wished to proceed with the open operative release. We discussed the risks and benefits of the procedure. The risks included but were not limited to infection, wound healing problems, possibility of recurrence, intractable pain, scarring, damage to nerves and vessels, and fu rther surgery for seen and unforeseen complications and recurrence. Ms Tomlinson gave written consent to proceed. I marked the correct side pre-operatively. SURGEONS NARRATIVE: We brought the patient to the operating room and placed her in a supine position with the left arm abducted to 90 degrees. She underwent successful induction of general anesthesia, and the anesthesia service administered the intravenous antibiotics. We next prepped the right arm with ChloraPrep and draped the arm sterilely. We applied a 18 inch tourniquet around the proximal arm. I placed a juan miguel in the proximal palm along the ring finger metacarpal axis at the base of the hand and took the juan miguel ulnarly at the transverse wrist crease. We exsanguinated the right arm, and we raised the tourniquet to 250 mm Hg. We made a 1.5 cm incision and used the bipolar cautery for hemostasis of the small vessels. We next identified the palmaris longus and cut along the ulnar side and then reflected the tendon radially. We identified the palmaris brevis and the transverse carpal ligament. We continued the exposure and then identified the transverse carpal ligament, which then we incised. It was thick and fibrotic and we incised it from the mid palm to the junction with the forearm, using a probe and groove to protect the median nerve at all times. We did additional release distally into the mid palm to divide any residual attached palmar fascia and into the distal aspect of the forearm. Care was taken not to injure the vascular arch in the mid palm. We evaluated the median nerve and noted that it was compressed by the transverse carpal ligament in the mid to distal part of the carpal tunnel with noted swelling proximally. I looked for the recurrent median nerve and found it to branch distally through the radial side of the transverse ligament. There was excellent decompression of the median nerve. With this done, we deflated the tourniquet and saw moderate reperfusion hyperemia in the previously compressed portion of the median nerve. We applied direct pressure and used bipolar cautery for hemostasis. We then irrigated the wound thoroughly. We closed the incision with interrupted 3-0 nylon sutures. I then injected 15 ml's of .25% Marcaine subcutaenously around the incision. We dressed the incision with Xeroform and applied sterile dressings and an NAT bandage. We left the fingers and thumb free from the MP joints distally. We transferred the patient to the recovery room in a stable and awake condition. I was present for the entire procedure and performed the operation. Duke Welch was first-visitor services assistant during the case as there was not a qualified resident glazing department supervisor available. The patient was given detailed post-operative instructions, and will follow up in my office in 7-10 days. Shawn Polanco DO
[2019-11-11] MEDS ORDERED: ONDANSETRON 4 MG/2 ML VIAL IVPUSH PRN (08:57)
[2019-11-11] MEDS ORDERED: LACTATED RINGERS SOLUTION 1,000 ML IV SCH (09:00)
[2019-11-11] MEDS ORDERED: ONDANSETRON 4 MG/2 ML VIAL ONE (09:21)
[2019-11-11 10:00] VITALS: BP 121/77; PULSE 67; TEMP 98.6
== END 2019-11-11 10:35 | disposition home or self-care (01) ==
LOC: FASU 06:45
PROVIDERS: ATTEND Orthopaedic Surgery Sports Medicine
PROC: 01N50ZZ Release Median Nerve, Open Approach (ICD-10-PCS; principal; 2019-11-11 08:28)
DX: G56.02 Carpal tunnel syndrome, left upper limb (principal)
CPT/HCPCS: 82962; 94760

== ENCOUNTER 2020-05-04 05:34 | Day surgery (SDC) | payer OTHER ==
[2020-05-02 17:15] VITALS: BMI 42.0
[~2020-05-04 05:34] MED LIST: BUPIVACAINE HCL/PF 0.75% 10 ML VIAL PNB ONE; IOHEXOL 180 MG/1 ML ML IJ ONE; LIDOCAINE HCL 1% PRESERVATIVE FREE - 30ML VIAL IJ ONE
[2020-05-04] MEDS ORDERED: BUPIVACAINE HCL/PF 0.75% 10 ML VIAL ONE ×2 (10:29→10:39)
[2020-05-04] MEDS ORDERED: LIDOCAINE HCL/PF 1% SDV 5ML VIAL ONE (10:30)
[2020-05-04] MEDS ORDERED: IOHEXOL 180 MG/1 ML ML IJ ONE (10:52)
[2020-05-04] MEDS ORDERED: LIDOCAINE HCL 1% PRESERVATIVE FREE - 30ML VIAL IJ ONE (10:52)
[2020-05-04] MEDS ORDERED: BUPIVACAINE HCL/PF 0.75% 10 ML VIAL PNB ONE (10:52)
[2020-05-07 16:10] VITALS: BP 120/82; PULSE 77; TEMP 98.8
== END 2020-05-04 12:00 | disposition home or self-care (01) ==
LOC: JASU-SURG 05:34
PROVIDERS: ATTEND Pain Medicine Pain Medicine
PROC: BR16YZZ Fluoroscopy of Lumbar Facet Joint(s) using Other Contrast (ICD-10-PCS; 2020-05-04)
PROC: 3E0T3BZ Introduction of Anesthetic Agent into Peripheral Nerves and Plexi, Percutaneous Approach (ICD-10-PCS; principal; 2020-05-04 10:30)
DX: M47.816 Spondylosis without myelopathy or radiculopathy, lumbar region (principal)
CPT/HCPCS: 76000-TC-FY

== ENCOUNTER 2020-07-20 04:17 | Day surgery (SDC) | payer OTHER ==
[2020-07-20] MEDS ORDERED: LIDOCAINE HCL/PF 1% SDV 5ML VIAL ONE (07:22)
[2020-07-20] MEDS ORDERED: BUPIVACAINE HCL/PF 0.75% 10 ML VIAL ONE (07:22)
[2020-07-20] MEDS ORDERED: IOHEXOL 180 MG/1 ML ML IJ ONE ×3 (11:40→11:48)
[2020-07-20] MEDS ORDERED: LIDOCAINE HCL 1% PRESERVATIVE FREE - 30ML VIAL IJ ONE ×3 (11:40)
[2020-07-20] MEDS ORDERED: BUPIVACAINE HCL/PF 0.75% 10 ML VIAL NR ONE ×2 (11:41→11:50)
[2020-07-20 15:52] VITALS: BP 146/84; PULSE 76; TEMP 96.8
== END 2020-07-20 12:35 | disposition home or self-care (01) ==
LOC: JASU-SURG 04:17
PROVIDERS: ATTEND Pain Medicine Pain Medicine
PROC: BR16YZZ Fluoroscopy of Lumbar Facet Joint(s) using Other Contrast (ICD-10-PCS; 2020-07-20)
PROC: 3E0T3BZ Introduction of Anesthetic Agent into Peripheral Nerves and Plexi, Percutaneous Approach (ICD-10-PCS; principal; 2020-07-20 12:00)
DX: M47.816 Spondylosis without myelopathy or radiculopathy, lumbar region (principal)
CPT/HCPCS: 76000-TC-FY

== ENCOUNTER 2020-09-07 10:05 | Day surgery (SDC) | payer OTHER ==
[2020-08-29 11:01] VITALS: BMI 41.2
[2020-09-07] MEDS ORDERED: BUPIVACAINE HCL/PF 0.25% (2.5MG/ML) 10 ML VIAL ONE (11:00)
[2020-09-07] MEDS ORDERED: ceFAZolin SODIUM 1 GM VIAL ONE ×2 (11:00→11:28)
[2020-09-07] MEDS ORDERED: LIDOCAINE HCL/PF 2% SDV 5ML VIAL ONE (11:00)
[2020-09-07] MEDS ORDERED: MIDAZOLAM HCL 2 MG/2 ML SINGLE DOSE VIAL ONE (11:01)
[2020-09-07] MEDS ORDERED: PROPOFOL 20 ML ONE (11:01)
[2020-09-07] MEDS ORDERED: ONDANSETRON 4 MG/2 ML VIAL ONE (11:39)
[2020-09-07] MEDS ORDERED: PHENYLEPHRINE HCL 10 MG/1 ML SINGLE DOSE VIAL ONE (11:42)
[2020-09-07] MEDS ORDERED: oxyCODONE HCL 5 MG TABLET PO PRN (12:21)
[2020-09-07] MEDS ORDERED: ONDANSETRON 4 MG/2 ML VIAL IVPUSH PRN (12:21)
[2020-09-07] MEDS ORDERED: KETOROLAC TROMETHAMINE 30 MG/1 ML VIAL IVPUSH PRN (12:24)
[2020-09-07] MEDS ORDERED: ALBUTEROL SO4 2.5/IPRATROPIUM 0.5 INH SOL 3 ML VIAL.NEB. NEB ONE ×2 (12:27→12:32)
[2020-09-07] MEDS ORDERED: LACTATED RINGERS SOLUTION 1,000 ML IV SCH (12:30)
[2020-09-07 13:37] VITALS: TEMP 97
[2020-09-07 14:03] VITALS: PULSE 72
[2020-09-07 14:30] VITALS: BP 104/70
== END 2020-09-07 14:30 | disposition home or self-care (01) ==
LOC: FASU 10:05
PROVIDERS: ATTEND Orthopaedic Surgery Sports Medicine
PROC: 0SBD4ZZ Excision of Left Knee Joint, Percutaneous Endoscopic Approach (ICD-10-PCS; principal; 2020-09-07 11:45)
DX: S83.282A Other tear of lateral meniscus, current injury, left knee, initial encounter (principal); M65.9 Synovitis and tenosynovitis, unspecified; X58.XXXA Exposure to other specified factors, initial encounter; Y93.9 Activity, unspecified; Y92.9 Unspecified place or not applicable
CPT/HCPCS: 82962; 88304-TC; 94760

== ENCOUNTER 2020-09-16 22:16 | Emergency (ER) | payer OTHER ==
[2020-09-16 22:31] VITALS: BMI 39.7
[2020-09-16] MEDS ORDERED: morphine CARPU-JECT 4 MG/1 ML DISP.SYRIN IVPUSH ONE (23:47)
[2020-09-16] MEDS ORDERED: ONDANSETRON 4 MG/2 ML VIAL IVPUSH ONE (23:53)
[2020-09-16] MEDS ORDERED: ONDANSETRON 4 MG/2 ML VIAL ONE (23:55)
[2020-09-16] MEDS ORDERED: morphine SULFATE 4 MG/ML VIAL ONE (23:55)
[2020-09-17 00:21] LABS: HEMOGLOBIN 14.3 GM/dL (10.7-15.3); MCH 28.4 pg (25.7-33.7); MEAN CELL VOLUME 83.4 fl (80-96); MEAN PLT VOLUME 8.7 fl (7.5-11.1); PLATELET COUNT 385 10^3/uL (134-434); RBC 5.04 M/mm3 (3.60-5.2); RDW 16.5 % (11.6-15.6); WHITE BLOOD COUNT 12.3 K/mm3 (4.0-10.0)
[2020-09-17 00:48] LABS: CHLORIDE 101 mmol/L (98-107); SODIUM 136 mmol/L (136-145)
[2020-09-17 00:49] LABS: CALCIUM 9.2 mg/dL (8.5-10.1)
[2020-09-17 00:50] LABS: ALBUMIN 3.9 g/dl (3.4-5.0); ANION GAP 13 MMOL/L (8-16); BLOOD UREA NITROGEN 19.2 mg/dL (7-18); CO2 21 mmol/L (21-32); GLUCOSE,RANDOM 157 mg/dL (74-106)
[2020-09-17 00:53] LABS: CREATININE 1.3 mg/dL (0.55-1.3); SGOT/AST 31 U/L (15-37); SGPT/ALT 19 U/L (13-61)
[2020-09-17 00:55] LABS: BILIRUBIN,TOTAL 0.7 mg/dL (0.2-1); TOT PROT 8.7 g/dl (6.4-8.2)
[2020-09-17 00:56] LABS: ALK PHOS 85 U/L (45-117)
[2020-09-17] MEDS ORDERED: SODIUM CHLORIDE 0.9% 500 ML INFUS.BAG IV ONE (01:25)
[2020-09-17] MEDS ORDERED: SUCRALFATE 1 GM TABLET (FP) PO ONE (04:35)
[2020-09-17] MEDS ORDERED: SUCRALFATE 1 GM TABLET (FP) ONE (04:40)
[2020-09-17 05:03] VITALS: BP 142/76; PULSE 83; TEMP 98.3
== END 2020-09-17 05:47 | disposition home or self-care (01) ==
LOC: JER 22:16
PROC: 3E033NZ Introduction of Analgesics, Hypnotics, Sedatives into Peripheral Vein, Percutaneous Approach (ICD-10-PCS; principal; 2020-09-16)
PROC: 3E033GC Introduction of Other Therapeutic Substance into Peripheral Vein, Percutaneous Approach (ICD-10-PCS; 2020-09-16)
DX: K29.70 Gastritis, unspecified, without bleeding (principal); R10.9 Unspecified abdominal pain
CPT/HCPCS: 36415; 74177-TC; 80053; 82550; 82553; 84484; 85027; 93005; 93010; 99285-25; Q9967

== ENCOUNTER 2020-11-02 04:16 | Day surgery (SDC) | payer OTHER ==
[2020-11-01 09:01] VITALS: BMI 39.1
[~2020-11-02 04:16] MED LIST changes: +BUPIVACAINE HCL/PF 0.75% 10 ML VIAL NR ONE; -BUPIVACAINE HCL/PF 0.75% 10 ML VIAL PNB ONE; +DEXAMETHASONE SOD PHOSPHATE 10 MG/1 ML VIAL IM ONE; +LIDOCAINE HCL/PF 2% SDV 5ML VIAL INF ONE
[2020-11-02] MEDS ORDERED: LIDOCAINE HCL/PF 1% SDV 5ML VIAL ONE (07:08)
[2020-11-02] MEDS ORDERED: DEXAMETHASONE SOD PHOSPHATE 10 MG/1 ML VIAL ONE (07:08)
[2020-11-02] MEDS ORDERED: BUPIVACAINE HCL/PF 0.5% (5MG/ML) 10 ML VIAL ONE (07:09)
[2020-11-02] MEDS ORDERED: BUPIVACAINE HCL/PF 0.75% 10 ML VIAL ONE (07:09)
[2020-11-02] MEDS ORDERED: LIDOCAINE HCL/PF 2% SDV 5ML VIAL ONE (07:13)
[2020-11-02 09:12] VITALS: TEMP 98.7
[2020-11-02] MEDS ORDERED: MIDAZOLAM HCL 2 MG/2 ML SINGLE DOSE VIAL ONE (10:23)
[2020-11-02] MEDS ORDERED: LIDOCAINE HCL 1% PRESERVATIVE FREE - 30ML VIAL IJ ONE (10:53)
[2020-11-02] MEDS ORDERED: IOHEXOL 180 MG/1 ML ML IJ ONE (10:53)
[2020-11-02] MEDS ORDERED: BUPIVACAINE HCL/PF 0.75% 10 ML VIAL NR ONE (11:09)
[2020-11-02] MEDS ORDERED: LIDOCAINE HCL/PF 2% SDV 5ML VIAL INF ONE (11:09)
[2020-11-02] MEDS ORDERED: DEXAMETHASONE SOD PHOSPHATE 10 MG/1 ML VIAL IM ONE (11:09)
[2020-11-02 11:55] VITALS: PULSE 70
[2020-11-02 13:26] VITALS: BP 129/83
== END 2020-11-02 13:25 | disposition home or self-care (01) ==
LOC: JASU-SURG 04:16
PROVIDERS: ATTEND Pain Medicine Pain Medicine
PROC: BR16YZZ Fluoroscopy of Lumbar Facet Joint(s) using Other Contrast (ICD-10-PCS; 2020-11-02)
PROC: 3E0T3TZ Introduction of Destructive Agent into Peripheral Nerves and Plexi, Percutaneous Approach (ICD-10-PCS; principal; 2020-11-02 10:30)
DX: M47.816 Spondylosis without myelopathy or radiculopathy, lumbar region (principal)
CPT/HCPCS: 76000-TC-FY; J1100

== ENCOUNTER 2020-12-28 04:21 | Day surgery (SDC) | payer OTHER ==
[2020-12-26 14:25] VITALS: BMI 37.6
[2020-12-28] MEDS ORDERED: BUPIVACAINE HCL/PF 0.5% (5MG/ML) 10 ML VIAL ONE (07:20)
[2020-12-28] MEDS ORDERED: LIDOCAINE HCL/PF 1% SDV 5ML VIAL ONE ×2 (07:20→14:24)
[2020-12-28] MEDS ORDERED: DEXAMETHASONE SOD PHOSPHATE 10 MG/1 ML VIAL ONE ×2 (07:20→14:24)
[2020-12-28] MEDS ORDERED: BUPIVACAINE HCL/PF 0.75% 10 ML VIAL PNB ONE (14:49)
[2020-12-28] MEDS ORDERED: IOHEXOL 180 MG/1 ML ML IJ ONE (14:50)
[2020-12-28] MEDS ORDERED: LIDOCAINE HCL/PF 2% SDV 5ML VIAL INF ONE (14:51)
[2020-12-28 16:00] VITALS: BP 121/72; PULSE 73; TEMP 97.8
== END 2020-12-28 16:06 | disposition home or self-care (01) ==
LOC: JASU-SURG 04:21
PROVIDERS: ATTEND Pain Medicine Pain Medicine
PROC: 3E0T3TZ Introduction of Destructive Agent into Peripheral Nerves and Plexi, Percutaneous Approach (ICD-10-PCS; principal; 2020-12-28 15:30)
PROC: BR16YZZ Fluoroscopy of Lumbar Facet Joint(s) using Other Contrast (ICD-10-PCS; 2020-12-28 15:30)
DX: M47.816 Spondylosis without myelopathy or radiculopathy, lumbar region (principal); I10 Essential (primary) hypertension; E11.9 Type 2 diabetes mellitus without complications
CPT/HCPCS: 76000-TC-FY; J1100

== ENCOUNTER → 2021-01-14 | Day surgery (SDC) | payer OTHER ==
[2021-01-14 10:43] LABS: BASO % 1.1 % (0-2.0); EOS % 0.7 % (0-4.5); HEMATOCRIT 39.2 % (32.4-45.2); HEMOGLOBIN 13.3 GM/dL (10.7-15.3); LYMPH % 45.5 % (8-40); MCH 28.7 pg (25.7-33.7); MEAN CELL VOLUME 84.6 fl (80-96); MEAN PLT VOLUME 8.4 fl (7.5-11.1); MONO % 7.3 % (3.8-10.2); NEUT % 45.4 % (42.8-82.8); PLATELET COUNT 361 10^3/uL (134-434); RBC 4.64 M/mm3 (3.60-5.2); WHITE BLOOD COUNT 10.7 K/mm3 (4.0-10.0)
[2021-01-14 10:49] LABS: INR 1.05 (0.83-1.09); PROTHROMBIN TIME (PATIENT) 12.3 SEC (9.7-13.0)
== END | disposition home or self-care (01) ==
LOC: JRADIR 09:51
PROVIDERS: ATTEND Otolaryngology
PROC: BW4FZZZ Ultrasonography of Neck (ICD-10-PCS; principal; 2021-01-14)
PROC: 0WB Anatomical Regions, General, Excision (ICD-10-PCS; 2021-01-14)
DX: D11.9 Benign neoplasm of major salivary gland, unspecified (principal)
CPT/HCPCS: 36415; 42400; 76942-TC; 85025; 85610; 88305-TC; 88341-TC; 88342-TC

== ENCOUNTER 2022-05-20 11:10 | Emergency (ER) | payer OTHER ==
[2022-05-20 11:28] VITALS: BMI 43.8
[2022-05-20] MEDS: ALBUTEROL SO4 2.5/IPRATROPIUM 0.5 INH SOL 3 ML VIAL.NEB. NEB SCH ×4 (12:00→13:02)
[2022-05-20 12:43] LABS: BASO % 0.7 % (0-2.0); EOS % 1.2 % (0-4.5); HEMATOCRIT 34.7 % (32.4-45.2); HEMOGLOBIN 11.8 GM/dL (10.7-15.3); LYMPH % 23.5 % (8-40); MCH 28.7 pg (25.7-33.7); MEAN CELL VOLUME 84.2 fl (80-96); MEAN PLT VOLUME 9.7 fl (7.5-11.1); MONO % 5.1 % (3.8-10.2); NEUT % 69.5 % (42.8-82.8); PLATELET COUNT 284 10^3/uL (134-434); RBC 4.13 M/mm3 (3.60-5.2); RDW 16.8 % (11.6-15.6); WHITE BLOOD COUNT 8.7 K/mm3 (4.0-10.0)
[2022-05-20 12:48] LABS: VENOUS BASE EXCESS -2.2 mmol/L (-2-2); VENOUS O2 SATURATION 84.9 % (70-80); VENOUS PCO2 31.2 mmHg (38-52); VENOUS PH 7.442 (7.310-7.410)
[2022-05-20] MEDS ORDERED: ALBUTEROL SO4 2.5/IPRATROPIUM 0.5 INH SOL 3 ML VIAL.NEB. NEB ONE (12:48)
[2022-05-20 12:49] LABS: INR 1.12 (0.83-1.09)
[2022-05-20 13:09] LABS: CALCIUM 8.6 mg/dL (8.5-10.1)
[2022-05-20 13:11] LABS: CREATININE 0.8 mg/dL (0.55-1.3)
[2022-05-20 13:14] LABS: BILIRUBIN,TOTAL 0.6 mg/dL (0.2-1); TOT PROT 6.6 g/dl (6.4-8.2)
[2022-05-20 13:17] LABS: N-TERMINAL BNP 679.6 pg/ml (5-125)
[2022-05-20] MEDS ORDERED: ACETAMINOPHEN 325 MG TABLET (FP) ONE (13:52)
[2022-05-20] MEDS ORDERED: ACETAMINOPHEN 325 MG TABLET (FP) PO ONE (13:53)
[2022-05-20] MEDS ORDERED: ONDANSETRON 4 MG/2 ML VIAL IVPUSH ONE (13:53)
[2022-05-20] MEDS ORDERED: ONDANSETRON 4 MG/2 ML VIAL ONE (13:55)
[2022-05-20 19:54] VITALS: BP 151/81
[2022-05-20] MEDS ORDERED: METOCLOPRAMIDE HCL INJECTION 10 MG/2 ML VIAL IVPB ONE (20:13)
[2022-05-20] MEDS ORDERED: METOCLOPRAMIDE HCL INJECTION 10 MG/2 ML VIAL ONE (20:18)
[2022-05-20 21:47] VITALS: PULSE 95; RESP 20; TEMP 98.9
== END 2022-05-20 21:48 | disposition home or self-care (01) ==
LOC: JER 11:10
PROC: 3E033GC Introduction of Other Therapeutic Substance into Peripheral Vein, Percutaneous Approach (ICD-10-PCS; principal; 2022-05-20)
PROC: 3E033GC Introduction of Other Therapeutic Substance into Peripheral Vein, Percutaneous Approach (ICD-10-PCS; 2022-05-20)
PROC: 3E0F7GC Introduction of Other Therapeutic Substance into Respiratory Tract, Via Natural or Artificial Opening (ICD-10-PCS; 2022-05-20)
DX: R06.02 Shortness of breath (principal); R07.9 Chest pain, unspecified; R50.9 Fever, unspecified; R09.3 Abnormal sputum; R11.0 Nausea; R09.89 Other specified symptoms and signs involving the circulatory and respiratory systems; Z20.822 Contact with and (suspected) exposure to COVID-19
CPT/HCPCS: 0241U-QW; 36415; 71045-TC-FY; 71275-TC; 80053; 82803; 83880; 84484; 85025; 85610; 85730; 93005; 93010; 99285-25; Q9967

== ENCOUNTER 2022-12-02 18:21 | Emergency (ER) | payer OTHER ==
[2022-12-02 18:29] VITALS: BMI 39.4
[2022-12-02] MEDS ORDERED: methylPREDNISolone NA SUCC 125 MG/2 ML VIAL IVPUSH ONE (19:22)
[2022-12-02] MEDS ORDERED: AZITHROMYCIN IVPB 500 MG in DEXTROSE 5%-WATER - 250 ML IVPB ONE (19:24)
[2022-12-02] MEDS ORDERED: MAGNESIUM SULF 50% (8.12 MEQ/2 ML-1 GM VIAL) IVPB ONE (19:28)
[2022-12-02] MEDS ORDERED: methylPREDNISolone NA SUCC 125 MG/2 ML VIAL ONE (19:34)
[2022-12-02] MEDS ORDERED: ALBUTEROL SO4 2.5/IPRATROPIUM 0.5 INH SOL 3 ML VIAL.NEB. NEB ONE (19:34)
[2022-12-02] MEDS ORDERED: AZITHROMYCIN IVPB 500 MG/250 ML BAG IVPB ONE (19:35)
[2022-12-02 20:11] LABS: VENOUS BASE EXCESS -2.5 mmol/L (-2-2); VENOUS O2 SATURATION 92.3 % (70-80); VENOUS PCO2 26.7 mmHg (38-52); VENOUS PH 7.49 (7.310-7.410)
[2022-12-02] MEDS: ALBUTEROL SO4 2.5/IPRATROPIUM 0.5 INH SOL 3 ML VIAL.NEB. NEB SCH ×3 (20:16→20:39)
[2022-12-02 20:21] LABS: BASO % 0.5 % (0-2.0); EOS % 1.4 % (0-4.5); HEMATOCRIT 32.6 % (32.4-45.2); HEMOGLOBIN 10.6 GM/dL (10.7-15.3); LYMPH % 26.4 % (8-40); MCH 26.5 pg (25.7-33.7); MCHC 32.6 g/dl (32.0-36.0); MEAN CELL VOLUME 81.3 fl (80-96); MEAN PLT VOLUME 7.8 fl (7.5-11.1); MONO % 6.5 % (3.8-10.2); NEUT % 65.2 % (42.8-82.8); PLATELET COUNT 492 10^3/uL (134-434); RBC 4.02 M/mm3 (3.60-5.2); RDW 18.3 % (11.6-15.6); WHITE BLOOD COUNT 10.3 K/mm3 (4.0-10.0)
[2022-12-02] MEDS ORDERED: MAGNESIUM 1GM/D5W - 1 GM/100 ML IVPB IVPB ONE (20:30)
[2022-12-02 20:39] LABS: POTASSIUM 3.3 mmol/L (3.5-5.1)
[2022-12-02 20:42] LABS: CALCIUM 8.8 mg/dL (8.5-10.1)
[2022-12-02 20:43] LABS: ALBUMIN 3.3 g/dl (3.4-5.0); BLOOD UREA NITROGEN 18.8 mg/dL (7-18); MAGNESIUM 2.2 mg/dL (1.8-2.4)
[2022-12-02 20:46] LABS: CREATININE 0.8 mg/dL (0.55-1.3)
[2022-12-02 20:48] LABS: BILIRUBIN,TOTAL 1.1 mg/dL (0.2-1); TOT PROT 7.2 g/dl (6.4-8.2)
[2022-12-02 21:18] VITALS: BP 152/84
[2022-12-02 22:13] VITALS: PULSE 95; RESP 15; TEMP 97.9
[2022-12-02] MEDS ORDERED: guaiFENesin 200 MG/10 ML 10 ML UNIT-DOSE CUPS PO ONE (22:55)
[2022-12-02] MEDS ORDERED: guaiFENesin/CODEINE 10 ML UNIT-DOSE CUPS ONE (23:02)
[2022-12-02] MEDS ORDERED: guaiFENesin 200 MG/10 ML 10 ML UNIT-DOSE CUPS ONE (23:10)
== END 2022-12-02 23:30 | disposition home or self-care (01) ==
LOC: JER 18:21
PROC: 3E03329 Introduction of Other Anti-infective into Peripheral Vein, Percutaneous Approach (ICD-10-PCS; principal; 2022-12-02)
PROC: 3E033GC Introduction of Other Therapeutic Substance into Peripheral Vein, Percutaneous Approach (ICD-10-PCS; 2022-12-02)
PROC: 3E033GC Introduction of Other Therapeutic Substance into Peripheral Vein, Percutaneous Approach (ICD-10-PCS; 2022-12-02)
PROC: 3E0F7GC Introduction of Other Therapeutic Substance into Respiratory Tract, Via Natural or Artificial Opening (ICD-10-PCS; 2022-12-02)
DX: J44.1 Chronic obstructive pulmonary disease with (acute) exacerbation (principal); R06.02 Shortness of breath; R50.9 Fever, unspecified; R09.89 Other specified symptoms and signs involving the circulatory and respiratory systems; R09.3 Abnormal sputum; R05.9 Cough, unspecified; F41.9 Anxiety disorder, unspecified; R06.4 Hyperventilation; R11.2 Nausea with vomiting, unspecified; R51.9 Headache, unspecified; R07.9 Chest pain, unspecified; Z20.822 Contact with and (suspected) exposure to COVID-19
CPT/HCPCS: 0241U-QW; 36415; 71045-TC-FY; 80053; 82803; 83735; 84484; 85025; 87040; 93005; 93010; 99285-25

== ENCOUNTER 2022-12-22 19:57 | Inpatient (IN) | payer OTHER ==
[2022-12-22 20:05] VITALS: BMI 35.4
[2022-12-22] MEDS ORDERED: methylPREDNISolone NA SUCC 125 MG/2 ML VIAL IVPUSH ONE (20:59)
[2022-12-22] MEDS ORDERED: ALBUTEROL SO4 2.5/IPRATROPIUM 0.5 INH SOL 3 ML VIAL.NEB. NEB ONE ×3 (21:04→22:25)
[2022-12-22] MEDS ORDERED: methylPREDNISolone NA SUCC 125 MG/2 ML VIAL ONE (21:05)
[2022-12-22] MEDS: ALBUTEROL SO4 2.5/IPRATROPIUM 0.5 INH SOL 3 ML VIAL.NEB. NEB SCH ×4 (21:31→22:37)
[2022-12-22 21:54] LABS: VENOUS BASE EXCESS -2.3 mmol/L (-2-2); VENOUS O2 SATURATION 95.4 % (70-80); VENOUS PH 7.442 (7.310-7.410)
[2022-12-22 21:59] LABS: BASO % 0.9 % (0-2.0); HEMATOCRIT 34.2 % (32.4-45.2); HEMOGLOBIN 10.9 GM/dL (10.7-15.3); MCH 26.8 pg (25.7-33.7); MCHC 31.9 g/dl (32.0-36.0); MEAN CELL VOLUME 84.1 fl (80-96); MEAN PLT VOLUME 8.8 fl (7.5-11.1); MONO % 7.3 % (3.8-10.2); NEUT % 53.8 % (42.8-82.8); PLATELET COUNT 353 10^3/uL (134-434); RBC 4.06 M/mm3 (3.60-5.2); RDW 19.5 % (11.6-15.6); WHITE BLOOD COUNT 8.1 K/mm3 (4.0-10.0)
[2022-12-22 22:14] LABS: INR 1.32 (0.83-1.09); PROTHROMBIN TIME (PATIENT) 15.3 SEC (9.7-13.0)
[2022-12-22 22:17] LABS: ACTIVATED PTT 33.4 SECONDS (25.2-36.5); POTASSIUM 4.1 mmol/L (3.5-5.1)
[2022-12-22 22:19] LABS: CALCIUM 9.3 mg/dL (8.5-10.1)
[2022-12-22 22:20] LABS: ALBUMIN 3.2 g/dl (3.4-5.0); BLOOD UREA NITROGEN 20.7 mg/dL (7-18)
[2022-12-22 22:23] LABS: CREATININE 1.1 mg/dL (0.55-1.3)
[2022-12-22 22:25] LABS: TOT PROT 6.9 g/dl (6.4-8.2)
[2022-12-22] MEDS ORDERED: CEFTRIAXONE 1,000 MG in DEXTROSE 5%-WATER - 50 ML IVPB ONE (23:11)
[2022-12-22] MEDS ORDERED: AZITHROMYCIN IVPB 500 MG in DEXTROSE 5%-WATER - 250 ML IVPB ONE (23:12)
[2022-12-22] MEDS ORDERED: QUEtiapine FUMARATE 200 MG TABLET PO ONE (23:14)
[2022-12-22] MEDS ORDERED: CEFTRIAXONE 1 GM/50 ML BAG ONE (23:17)
[2022-12-22] MEDS ORDERED: ACETAMINOPHEN 1000 MG/100 ML BAG IVPB ONE (23:22)
[2022-12-22] MEDS ORDERED: ACETAMINOPHEN INJECTION 100 ML IVPB ONE (23:38)
[2022-12-22] MEDS ORDERED: QUEtiapine FUMARATE 100 MG TABLET (FP) ONE (23:39)
[2022-12-23] MEDS ORDERED: NICOTINE 14 MG/24 HOURS TOPICAL PATCH TD SCH (00:49)
[2022-12-23] MEDS ORDERED: AZITHROMYCIN IVPB 500 MG/250 ML BAG IVPB ONE ×2 (00:49→21:34)
[2022-12-23] MEDS: INSULIN SLIDING SCALE (NOVOLOG) 1 VIAL SQ SCH ×4 (02:39→16:30)
[2022-12-23] MEDS ORDERED: FUROSEMIDE 40 MG/4 ML INJECTABLE VIAL IVPUSH SCH (06:00)
[2022-12-23] MEDS ORDERED: ALBUTEROL SO4 2.5/IPRATROPIUM 0.5 INH SOL 3 ML VIAL.NEB. NEB ONE (06:57)
[2022-12-23] MEDS: ALBUTEROL SO4 2.5/IPRATROPIUM 0.5 INH SOL 3 ML VIAL.NEB. NEB SCH ×5 (07:19→21:48)
[2022-12-23 07:25] LABS: HEMATOCRIT 33.2 % (32.4-45.2); HEMOGLOBIN 10.6 GM/dL (10.7-15.3); MCHC 31.8 g/dl (32.0-36.0); PLATELET COUNT 318 10^3/uL (134-434); RDW 19.6 % (11.6-15.6); WHITE BLOOD COUNT 10.3 K/mm3 (4.0-10.0)
[2022-12-23 07:30] LABS: POTASSIUM 4.1 mmol/L (3.5-5.1)
[2022-12-23] MEDS ORDERED: FUROSEMIDE 40 MG/4 ML INJECTABLE VIAL IVPUSH ONE (07:30)
[2022-12-23 07:37] LABS: CALCIUM 8.9 mg/dL (8.5-10.1)
[2022-12-23 07:38] LABS: ALBUMIN 3.3 g/dl (3.4-5.0); MAGNESIUM 2.1 mg/dL (1.8-2.4); PHOSPHOROUS 2.9 mg/dL (2.5-4.9)
[2022-12-23 07:40] LABS: BILIRUBIN,TOTAL 0.6 mg/dL (0.2-1); TOT PROT 7.2 g/dl (6.4-8.2)
[2022-12-23 07:41] LABS: CREATININE 1.1 mg/dL (0.55-1.3)
[2022-12-23 07:47] LABS: N-TERMINAL BNP 2462.9 pg/ml (5-125)
[2022-12-23] MEDS ORDERED: APIXABAN 5 MG TABLET ONE ×2 (08:51→21:34)
[2022-12-23] MEDS ORDERED: NICOTINE 14 MG/24 HOURS TOPICAL PATCH TD ONE (08:53)
[2022-12-23] MEDS ORDERED: ALBUTEROL SO4 2.5/IPRATROPIUM 0.5 INH SOL 3 ML VIAL.NEB. NEB PRN (09:00)
[2022-12-23] MEDS: APIXABAN 5 MG TABLET PO SCH ×2 (09:14→21:48)
[2022-12-23] MEDS: LOSARTAN POTASSIUM 50 MG TABLET PO SCH (09:14)
[2022-12-23] MEDS: BUDESONIDE 0.5 MG/2 ML INH SUSP VIAL NEB SCH ×2 (09:14→21:48)
[2022-12-23] MEDS: amLODIPine BESYLATE 10 MG TABLET (FP) PO SCH (09:15)
[2022-12-23] MEDS: FUROSEMIDE 40 MG/4 ML INJECTABLE VIAL IVPUSH SCH ×2 (09:15→21:48)
[2022-12-23] MEDS: NICOTINE 14 MG/24 HOURS TOPICAL PATCH TD SCH (09:15)
[2022-12-23] MEDS: PARoxetine HCL 20 MG TABLET PO SCH (09:15)
[2022-12-23] MEDS ORDERED: buPROPion HCL 100 MG TABLET ONE (09:16)
[2022-12-23] MEDS: buPROPion HCL 100 MG TABLET PO SCH ×2 (09:18→21:48)
[2022-12-23] MEDS ORDERED: methylPREDNISolone NA SUCC 40 MG/1 ML VIAL IVPUSH SCH ×2 (10:00)
[2022-12-23] MEDS ORDERED: ENOXAPARIN NA (PORCINE) 40 MG/0.4 ML DISP.SYRIN SQ SCH (10:00)
[2022-12-23] MEDS ORDERED: HYDROCHLOROTHIAZIDE 25 MG TABLET (FP) ONE (14:41)
[2022-12-23] MEDS: HYDROCHLOROTHIAZIDE 25 MG TABLET (FP) PO SCH (14:44)
[2022-12-23] MEDS: methylPREDNISolone NA SUCC 40 MG/1 ML VIAL IVPUSH SCH (17:49)
[2022-12-23] MEDS ORDERED: QUEtiapine FUMARATE 100 MG TABLET (FP) ONE (21:34)
[2022-12-23] MEDS ORDERED: AZITHROMYCIN IVPB 500 MG/250 ML BAG IVPB SCH (22:00)
[2022-12-24] MEDS ORDERED: methylPREDNISolone NA SUCC 40 MG/1 ML VIAL ONE (02:15)
[2022-12-24] MEDS: methylPREDNISolone NA SUCC 40 MG/1 ML VIAL IVPUSH SCH ×2 (02:32→09:01)
[2022-12-24] MEDS: INSULIN SLIDING SCALE (NOVOLOG) 1 VIAL SQ SCH (06:34)
[2022-12-24] MEDS ORDERED: ALBUTEROL SO4 2.5/IPRATROPIUM 0.5 INH SOL 3 ML VIAL.NEB. NEB PRN (08:01)
[2022-12-24] MEDS: BUDESONIDE 0.5 MG/2 ML INH SUSP VIAL NEB SCH (08:55)
[2022-12-24] MEDS: ALBUTEROL SO4 2.5/IPRATROPIUM 0.5 INH SOL 3 ML VIAL.NEB. NEB SCH (08:55)
[2022-12-24] MEDS ORDERED: FUROSEMIDE 40 MG/4 ML INJECTABLE VIAL ONE (08:58)
[2022-12-24] MEDS: buPROPion HCL 100 MG TABLET PO SCH (09:01)
[2022-12-24] MEDS: NICOTINE 14 MG/24 HOURS TOPICAL PATCH TD SCH (09:01)
[2022-12-24] MEDS: amLODIPine BESYLATE 10 MG TABLET (FP) PO SCH (09:01)
[2022-12-24] MEDS: HYDROCHLOROTHIAZIDE 25 MG TABLET (FP) PO SCH (09:01)
[2022-12-24] MEDS: PARoxetine HCL 20 MG TABLET PO SCH (09:01)
[2022-12-24] MEDS: FUROSEMIDE 40 MG/4 ML INJECTABLE VIAL IVPUSH SCH (09:01)
[2022-12-24] MEDS: LOSARTAN POTASSIUM 50 MG TABLET PO SCH (09:01)
[2022-12-24] MEDS: APIXABAN 5 MG TABLET PO SCH (09:01)
[2022-12-24 13:16] VITALS: BP 149/85; PULSE 87; RESP 18; TEMP 98.3
[2022-12-25 15:08] LABS: ATYPICAL pANCA <1:20 titer (Neg:<1:20); C-ANCA <1:20 titer (Neg:<1:20)
== END 2022-12-24 11:23 | disposition home or self-care (01) | DRG 194 ==
LOC: JER 19:57 → JERBED 23:20
PROVIDERS: ADMIT Internal Medicine; ATTEND Internal Medicine
DX: I11.0 Hypertensive heart disease with heart failure (principal); I50.33 Acute on chronic diastolic (congestive) heart failure; E11.9 Type 2 diabetes mellitus without complications; I48.0 Paroxysmal atrial fibrillation; Z99.81 Dependence on supplemental oxygen; F31.9 Bipolar disorder, unspecified; J44.1 Chronic obstructive pulmonary disease with (acute) exacerbation; J20.9 Acute bronchitis, unspecified; F39 Unspecified mood [affective] disorder; K21.9 Gastro-esophageal reflux disease without esophagitis; F17.210 Nicotine dependence, cigarettes, uncomplicated; J06.9 Acute upper respiratory infection, unspecified; Z79.84 Long term (current) use of oral hypoglycemic drugs
CPT/HCPCS: 0241U-QW; 36415; 71046-TC-FY; 71250-TC; 80053; 82803; 82962; 83036; 83520; 83735; 83880; 84100; 84484; 85025; 85027; 85610; 85730; 86038; 86200; 86256; 86431; 93005; 93010; 93306-TC; 94640; 94761; 99285-25

== ENCOUNTER 2023-02-16 14:20 | Inpatient (IN) | payer OTHER ==
[2023-02-16] MEDS ORDERED: methylPREDNISolone NA SUCC 125 MG/2 ML VIAL IVPUSH ONE (15:51)
[2023-02-16] MEDS ORDERED: ALBUTEROL SO4 2.5/IPRATROPIUM 0.5 INH SOL 3 ML VIAL.NEB. NEB ONE (16:14)
[2023-02-16] MEDS ORDERED: methylPREDNISolone NA SUCC 125 MG/2 ML VIAL ONE (16:14)
[2023-02-16 16:26] LABS: BASO % 1.5 % (0-2.0); EOS % 1.3 % (0-4.5); HEMATOCRIT 35.5 % (32.4-45.2); HEMOGLOBIN 11.1 GM/dL (10.7-15.3); LYMPH % 26.9 % (8-40); MCH 25.8 pg (25.7-33.7); MCHC 31.4 g/dl (32.0-36.0); MEAN CELL VOLUME 82.2 fl (80-96); MEAN PLT VOLUME 7.8 fl (7.5-11.1); MONO % 7.1 % (3.8-10.2); NEUT % 63.2 % (42.8-82.8); PLATELET COUNT 450 10^3/uL (134-434); RBC 4.32 M/mm3 (3.60-5.2); WHITE BLOOD COUNT 8.2 K/mm3 (4.0-10.0)
[2023-02-16] MEDS: ALBUTEROL SO4 2.5/IPRATROPIUM 0.5 INH SOL 3 ML VIAL.NEB. NEB SCH ×3 (16:27→17:29)
[2023-02-16 16:32] LABS: INR 1.32 (0.83-1.09); PROTHROMBIN TIME (PATIENT) 15.3 SEC (9.7-13.0)
[2023-02-16 16:34] LABS: ACTIVATED PTT 34.7 SECONDS (25.2-36.5)
[2023-02-16 16:56] LABS: POTASSIUM 3.6 mmol/L (3.5-5.1)
[2023-02-16 16:58] LABS: CALCIUM 9.5 mg/dL (8.5-10.1)
[2023-02-16 16:59] LABS: ALBUMIN 3.6 g/dl (3.4-5.0); BLOOD UREA NITROGEN 13.7 mg/dL (7-18)
[2023-02-16 17:03] LABS: BILIRUBIN,TOTAL 1.3 mg/dL (0.2-1); TOT PROT 7.4 g/dl (6.4-8.2)
[2023-02-16] MEDS ORDERED: ALBUTEROL SO4 0.083% IH SOL 2.5 MG/3 ML VIAL.NEB. NEB ONE (18:15)
[2023-02-16] MEDS ORDERED: MAGNESIUM SULF 50% (8.12 MEQ/2 ML-1 GM VIAL) IVPB ONE (18:15)
[2023-02-16] MEDS ORDERED: AZITHROMYCIN IVPB 500 MG in DEXTROSE 5%-WATER - 250 ML IVPB ONE (18:15)
[2023-02-16] MEDS ORDERED: MAGNESIUM SULF 50% (8.12 MEQ/2 ML-1 GM VIAL) ONE (19:05)
[2023-02-16] MEDS ORDERED: MAGNESIUM 1GM/D5W - 1 GM/100 ML IVPB IVPB ONE (19:06)
[2023-02-16] MEDS ORDERED: NICOTINE 21 MG/24 HOURS TOPICAL PATCH TD SCH (21:15)
[2023-02-16] MEDS ORDERED: NICOTINE 14 MG/24 HOURS TOPICAL PATCH TD ONE (21:40)
[2023-02-16] MEDS ORDERED: AZITHROMYCIN IVPB 500 MG/250 ML BAG IVPB ONE (21:40)
[2023-02-16] MEDS ORDERED: QUEtiapine FUMARATE 100 MG TABLET (FP) PO ONE (21:55)
[2023-02-16] MEDS: NICOTINE 14 MG/24 HOURS TOPICAL PATCH TD SCH (21:59)
[2023-02-16] MEDS: INSULIN ASPART SLIDING SCALE (NOVOLOG) 1 VIAL SQ SCH (23:55)
[2023-02-17 00:07] LABS: N-TERMINAL BNP 3101.2 pg/ml (5-125)
[2023-02-17] MEDS ORDERED: LOSARTAN POTASSIUM 50 MG TABLET ONE (00:10)
[2023-02-17] MEDS ORDERED: QUEtiapine FUMARATE 100 MG TABLET (FP) ONE (00:11)
[2023-02-17] MEDS ORDERED: CITALOPRAM HYDROBROMIDE 10 MG TABLET ONE (00:11)
[2023-02-17] MEDS ORDERED: ATORVASTATIN CA 40 MG TABLET (FP) ONE (00:11)
[2023-02-17] MEDS: CITALOPRAM HYDROBROMIDE 20 MG TABLET PO SCH ×2 (01:05→21:32)
[2023-02-17] MEDS: LOSARTAN POTASSIUM 50 MG TABLET PO SCH ×2 (01:05→21:31)
[2023-02-17] MEDS: ATORVASTATIN CA 40 MG TABLET (FP) PO SCH ×2 (01:05→21:31)
[2023-02-17 04:03] VITALS: BMI 50.6
[2023-02-17 06:08] LABS: ARTERIAL BLD GAS O2 SATURATION 95.4 % (95-98); ARTERIAL BLOOD GAS BASE EXCESS -0.7 mmol/L (-2-2); ARTERIAL BLOOD GAS PO2 69.2 mmHg (80-100); ARTERIAL BLOOD GAS pH 7.492 (7.350-7.450)
[2023-02-17 06:09] LABS: ALLENS TEST POSITIVE
[2023-02-17] MEDS: INSULIN ASPART SLIDING SCALE (NOVOLOG) 1 VIAL SQ SCH ×4 (06:30→21:39)
[2023-02-17] MEDS ORDERED: ALBUTEROL SO4 2.5/IPRATROPIUM 0.5 INH SOL 3 ML VIAL.NEB. NEB PRN (06:43)
[2023-02-17] MEDS ORDERED: FUROSEMIDE 40 MG/4 ML INJECTABLE VIAL IVPUSH ONE ×2 (07:15→09:15)
[2023-02-17] MEDS: CHLORTHALIDONE 25 MG TABLET PO SCH (09:21)
[2023-02-17] MEDS: methylPREDNISolone NA SUCC 40 MG/1 ML VIAL IVPUSH SCH ×4 (09:21→21:30)
[2023-02-17 10:19] LABS: HEMATOCRIT 31.2 % (32.4-45.2); HEMOGLOBIN 9.9 GM/dL (10.7-15.3); MCH 25.6 pg (25.7-33.7); MCHC 31.7 g/dl (32.0-36.0); MEAN CELL VOLUME 80.9 fl (80-96); MEAN PLT VOLUME 8.2 fl (7.5-11.1); PLATELET COUNT 398 10^3/uL (134-434); RBC 3.86 M/mm3 (3.60-5.2); RDW 19.6 % (11.6-15.6); WHITE BLOOD COUNT 11.9 K/mm3 (4.0-10.0)
[2023-02-17 10:37] LABS: POTASSIUM 3.9 mmol/L (3.5-5.1)
[2023-02-17 10:42] LABS: BLOOD UREA NITROGEN 16.3 mg/dL (7-18); CALCIUM 8.7 mg/dL (8.5-10.1)
[2023-02-17] MEDS: ENOXAPARIN NA (PORCINE) 40 MG/0.4 ML DISP.SYRIN SQ SCH (10:42)
[2023-02-17] MEDS: NICOTINE 14 MG/24 HOURS TOPICAL PATCH TD SCH (10:42)
[2023-02-17] MEDS: PANTOPRAZOLE 40 MG TABLET PO SCH (10:42)
[2023-02-17] MEDS: amLODIPine BESYLATE 10 MG TABLET (FP) PO SCH (10:42)
[2023-02-17 10:45] LABS: CREATININE 1.2 mg/dL (0.55-1.3)
[2023-02-17 10:46] LABS: BILIRUBIN,TOTAL 0.9 mg/dL (0.2-1); TOT PROT 6.5 g/dl (6.4-8.2)
[2023-02-17] MEDS: buPROPion HCL 100 MG TABLET PO SCH ×2 (11:27→21:34)
[2023-02-17] MEDS: QUEtiapine FUMARATE 100 MG TABLET (FP) PO SCH (21:31)
[2023-02-18] MEDS: methylPREDNISolone NA SUCC 40 MG/1 ML VIAL IVPUSH SCH ×4 (03:00→21:33)
[2023-02-18] MEDS: INSULIN ASPART SLIDING SCALE (NOVOLOG) 1 VIAL SQ SCH ×4 (06:39→21:33)
[2023-02-18] MEDS: CHLORTHALIDONE 25 MG TABLET PO SCH (07:55)
[2023-02-18] MEDS: ENOXAPARIN NA (PORCINE) 40 MG/0.4 ML DISP.SYRIN SQ SCH (09:38)
[2023-02-18] MEDS: buPROPion HCL 100 MG TABLET PO SCH ×2 (09:39→21:33)
[2023-02-18] MEDS: NICOTINE 14 MG/24 HOURS TOPICAL PATCH TD SCH (09:39)
[2023-02-18] MEDS: amLODIPine BESYLATE 10 MG TABLET (FP) PO SCH (09:39)
[2023-02-18] MEDS: PANTOPRAZOLE 40 MG TABLET PO SCH (09:39)
[2023-02-18 10:44] LABS: HEMATOCRIT 35.3 % (32.4-45.2); HEMOGLOBIN 10.9 GM/dL (10.7-15.3); MCH 25.2 pg (25.7-33.7); MCHC 30.9 g/dl (32.0-36.0); MEAN CELL VOLUME 81.7 fl (80-96); MEAN PLT VOLUME 8.4 fl (7.5-11.1); PLATELET COUNT 476 10^3/uL (134-434); RBC 4.33 M/mm3 (3.60-5.2); RDW 19.9 % (11.6-15.6)
[2023-02-18 11:13] LABS: ANISOCYTOSIS 0; MACROCYTOSIS 0
[2023-02-18 11:15] LABS: POTASSIUM 4.2 mmol/L (3.5-5.1)
[2023-02-18 11:24] LABS: BLOOD UREA NITROGEN 19.2 mg/dL (7-18); CALCIUM 9.5 mg/dL (8.5-10.1)
[2023-02-18 11:25] LABS: ALBUMIN 3.5 g/dl (3.4-5.0)
[2023-02-18 11:27] LABS: CREATININE 1.1 mg/dL (0.55-1.3)
[2023-02-18 11:28] LABS: TOT PROT 7.4 g/dl (6.4-8.2)
[2023-02-18 11:29] LABS: BILIRUBIN,TOTAL 0.6 mg/dL (0.2-1)
[2023-02-18 11:40] LABS: PH,URINE 6.5 (5.0-8.0); URINE APPEARANCE CLEAR; URINE BILIRUBIN NEGATIVE (NEGATIVE); URINE COLOR YELLOW; URINE GLUCOSE (UA) NEGATIVE (NEGATIVE); URINE KETONE NEGATIVE (NEGATIVE); URINE LEUK ESTERASE NEGATIVE (NEGATIVE); URINE NITRITE NEGATIVE (NEGATIVE); URINE PROTEIN NEGATIVE (NEGATIVE)
[2023-02-18] MEDS: ALBUTEROL SO4 2.5/IPRATROPIUM 0.5 INH SOL 3 ML VIAL.NEB. NEB SCH (20:56)
[2023-02-18] MEDS: QUEtiapine FUMARATE 100 MG TABLET (FP) PO SCH (21:31)
[2023-02-18] MEDS: CITALOPRAM HYDROBROMIDE 20 MG TABLET PO SCH (21:31)
[2023-02-18] MEDS: ATORVASTATIN CA 40 MG TABLET (FP) PO SCH (21:32)
[2023-02-18] MEDS: guaiFENesin 600 MG TABLET.ER (FP) PO SCH (21:32)
[2023-02-18] MEDS: LOSARTAN POTASSIUM 50 MG TABLET PO SCH (21:32)
[2023-02-19] MEDS: methylPREDNISolone NA SUCC 40 MG/1 ML VIAL IVPUSH SCH ×2 (02:46→09:01)
[2023-02-19] MEDS: INSULIN ASPART SLIDING SCALE (NOVOLOG) 1 VIAL SQ SCH ×4 (06:31→21:35)
[2023-02-19] MEDS: ALBUTEROL SO4 2.5/IPRATROPIUM 0.5 INH SOL 3 ML VIAL.NEB. NEB SCH ×5 (08:12→21:03)
[2023-02-19] MEDS: CHLORTHALIDONE 25 MG TABLET PO SCH (09:02)
[2023-02-19] MEDS: amLODIPine BESYLATE 10 MG TABLET (FP) PO SCH (10:21)
[2023-02-19] MEDS: FUROSEMIDE 40 MG/4 ML INJECTABLE VIAL IVPUSH SCH (10:21)
[2023-02-19] MEDS: PANTOPRAZOLE 40 MG TABLET PO SCH (10:21)
[2023-02-19] MEDS: buPROPion HCL 100 MG TABLET PO SCH ×2 (10:21→21:32)
[2023-02-19] MEDS: guaiFENesin 600 MG TABLET.ER (FP) PO SCH ×2 (10:21→21:32)
[2023-02-19] MEDS: ENOXAPARIN NA (PORCINE) 40 MG/0.4 ML DISP.SYRIN SQ SCH (10:21)
[2023-02-19] MEDS: NICOTINE 14 MG/24 HOURS TOPICAL PATCH TD SCH (10:21)
[2023-02-19 11:21] LABS: HEMATOCRIT 35.7 % (32.4-45.2); HEMOGLOBIN 11.2 GM/dL (10.7-15.3); MCH 25.7 pg (25.7-33.7); MCHC 31.3 g/dl (32.0-36.0); MEAN CELL VOLUME 82.2 fl (80-96); MEAN PLT VOLUME 8.6 fl (7.5-11.1); PLATELET COUNT 449 10^3/uL (134-434); RBC 4.35 M/mm3 (3.60-5.2); RDW 19.2 % (11.6-15.6); WHITE BLOOD COUNT 17.1 K/mm3 (4.0-10.0)
[2023-02-19] MEDS: predniSONE 20 MG TABLET (UD) PO SCH (12:08)
[2023-02-19 12:12] LABS: CHLORIDE 104 mmol/L (98-107); POTASSIUM 4.2 mmol/L (3.5-5.1); SODIUM 137 mmol/L (136-145)
[2023-02-19 12:17] LABS: ANISOCYTOSIS 1+; MACROCYTOSIS 0
[2023-02-19 12:18] LABS: BLOOD UREA NITROGEN 23.5 mg/dL (7-18)
[2023-02-19 12:20] LABS: ALBUMIN 3.3 g/dl (3.4-5.0); ANION GAP 12 mmol/L (4-13); CO2 22 mmol/L (21-32); CREATININE 1.2 mg/dL (0.55-1.3); SGOT/AST 7 U/L (15-37)
[2023-02-19 12:21] LABS: CALCIUM 9.1 mg/dL (8.5-10.1); GLUCOSE,RANDOM 237 mg/dL (74-106)
[2023-02-19 12:22] LABS: BILIRUBIN,TOTAL 0.5 mg/dL (0.2-1); TOT PROT 7.2 g/dl (6.4-8.2)
[2023-02-19 12:23] LABS: ALK PHOS 63 U/L (45-117)
[2023-02-19 12:24] LABS: SGPT/ALT 15 U/L (13-61)
[2023-02-19 17:08] VITALS: RESP 18
[2023-02-19] MEDS: POLYETHYLENE GLYCOL (HEALTHYLAX) 3350 17 GM PACKET PO SCH (17:10)
[2023-02-19] MEDS ORDERED: DOCUSATE SODIUM 100 MG CAPSULE (FP) PO ONE (19:49)
[2023-02-19] MEDS: LOSARTAN POTASSIUM 50 MG TABLET PO SCH (21:31)
[2023-02-19] MEDS: CITALOPRAM HYDROBROMIDE 20 MG TABLET PO SCH (21:31)
[2023-02-19] MEDS: QUEtiapine FUMARATE 100 MG TABLET (FP) PO SCH (21:31)
[2023-02-19] MEDS: ATORVASTATIN CA 40 MG TABLET (FP) PO SCH (21:32)
[2023-02-20 02:30] VITALS: PULSE 89
[2023-02-20] MEDS: INSULIN ASPART SLIDING SCALE (NOVOLOG) 1 VIAL SQ SCH ×2 (06:58→12:20)
[2023-02-20] MEDS: ALBUTEROL SO4 2.5/IPRATROPIUM 0.5 INH SOL 3 ML VIAL.NEB. NEB SCH ×3 (08:15→16:01)
[2023-02-20] MEDS: CHLORTHALIDONE 25 MG TABLET PO SCH (08:54)
[2023-02-20] MEDS: POLYETHYLENE GLYCOL (HEALTHYLAX) 3350 17 GM PACKET PO SCH (10:37)
[2023-02-20] MEDS: guaiFENesin 600 MG TABLET.ER (FP) PO SCH (10:38)
[2023-02-20] MEDS: amLODIPine BESYLATE 10 MG TABLET (FP) PO SCH (10:38)
[2023-02-20] MEDS: NICOTINE 14 MG/24 HOURS TOPICAL PATCH TD SCH (10:38)
[2023-02-20] MEDS: FUROSEMIDE 40 MG/4 ML INJECTABLE VIAL IVPUSH SCH (10:38)
[2023-02-20] MEDS: PANTOPRAZOLE 40 MG TABLET PO SCH (10:38)
[2023-02-20] MEDS: ENOXAPARIN NA (PORCINE) 40 MG/0.4 ML DISP.SYRIN SQ SCH (10:38)
[2023-02-20] MEDS: predniSONE 20 MG TABLET (UD) PO SCH (10:38)
[2023-02-20] MEDS: buPROPion HCL 100 MG TABLET PO SCH (10:39)
[2023-02-20 12:29] LABS: HEMATOCRIT 40.1 % (32.4-45.2); HEMOGLOBIN 12.5 GM/dL (10.7-15.3); MCH 25.2 pg (25.7-33.7); MCHC 31.1 g/dl (32.0-36.0); MEAN CELL VOLUME 81.1 fl (80-96); MEAN PLT VOLUME 8.5 fl (7.5-11.1); PLATELET COUNT 472 10^3/uL (134-434); RBC 4.94 M/mm3 (3.60-5.2); RDW 19.3 % (11.6-15.6); WHITE BLOOD COUNT 14.9 K/mm3 (4.0-10.0)
[2023-02-20 12:51] LABS: POTASSIUM 3.5 mmol/L (3.5-5.1)
[2023-02-20 12:54] LABS: BLOOD UREA NITROGEN 28.9 mg/dL (7-18); CALCIUM 8.8 mg/dL (8.5-10.1)
[2023-02-20 12:58] LABS: CREATININE 1.3 mg/dL (0.55-1.3)
[2023-02-20 13:43] VITALS: BP 135/80; TEMP 98.4
[2023-02-20 16:08] LABS: ATYPICAL pANCA <1:20 titer (Neg:<1:20); C-ANCA <1:20 titer (Neg:<1:20)
[2023-02-21] MEDS ORDERED: SPIRONOLACTONE 25 MG TABLET PO SCH (10:00)
== END 2023-02-20 16:17 | disposition home or self-care (01) | DRG 140 ==
LOC: JER 14:20 → JERBED 18:15 → J5S 02-17 03:35
PROVIDERS: ADMIT Internal Medicine; ATTEND Internal Medicine
DX: J44.1 Chronic obstructive pulmonary disease with (acute) exacerbation (principal); I11.0 Hypertensive heart disease with heart failure; I50.32 Chronic diastolic (congestive) heart failure; E66.01 Morbid (severe) obesity due to excess calories; Z68.41 Body mass index [BMI] 40.0-44.9, adult; E11.9 Type 2 diabetes mellitus without complications; E78.5 Hyperlipidemia, unspecified; F17.210 Nicotine dependence, cigarettes, uncomplicated; F31.9 Bipolar disorder, unspecified; F32.A Depression, unspecified; J45.909 Unspecified asthma, uncomplicated; K21.9 Gastro-esophageal reflux disease without esophagitis
CPT/HCPCS: 0241U-QW; 36415; 36600; 71046-TC-FY; 80048; 80053; 81003; 82728; 82803; 82962; 83520; 83540; 83550; 83880; 84466; 84484; 85025; 85027; 85045; 85610; 85651; 85730; 86038; 86140; 86200; 86256; 86431; 93005; 93010; 94640; 94761; 99285-25

== ENCOUNTER 2023-09-22 06:08 | Day surgery (SDC) | payer OTHER ==
[2023-09-22 06:55] VITALS: BMI 37.9
[2023-09-22] MEDS ORDERED: BUPIVACAINE HCL/PF 0.5% (5 MG/ML) 30 ML VIAL IJ ONE (08:17)
[2023-09-22] MEDS ORDERED: BUPIVACAINE LIPOSOME/PF (EXPAREL) 266 MG/20 ML VIAL ONE (08:17)
[2023-09-22] MEDS ORDERED: MIDAZOLAM HCL 2 MG/2 ML SINGLE DOSE VIAL ONE ×2 (08:17→09:28)
[2023-09-22] MEDS ORDERED: ACETAMINOPHEN INJECTION 100 ML IVPB ONE (08:18)
[2023-09-22] MEDS ORDERED: VANCOMYCIN 1,000 MG VIAL (RESTRICTED TO ID ONLY) ONE (08:25)
[2023-09-22] MEDS ORDERED: PROPOFOL 20 ML ONE ×2 (09:17→10:06)
[2023-09-22] MEDS ORDERED: TRANEXAMIC ACID 1000 MG/10 ML VIAL ONE ×2 (09:53→09:54)
[2023-09-22] MEDS ORDERED: ONDANSETRON 4 MG/2 ML VIAL ONE (09:54)
[2023-09-22] MEDS ORDERED: BUPIVICAINE 0.25%/MORPH PF/KETOROLAC - 51ML DISP.SYRINGE IA ONE (10:14)
[2023-09-22] MEDS ORDERED: MAG HYDROX/AL HYDROX/SIMETH 30 ML UNIT-DOSE CUP PO PRN (11:01)
[2023-09-22] MEDS ORDERED: oxyCODONE HCL 5 MG TABLET PO PRN (11:57)
[2023-09-22] MEDS: LACTATED RINGERS SOLUTION 1,000 ML IV SCH ×2 (13:35→16:23)
[2023-09-22] MEDS: ONDANSETRON 4 MG/2 ML VIAL IVPUSH PRN (16:17)
[2023-09-22] MEDS: CEFAZOLIN SODIUM 2 GM in DEXTROSE 5%-WATER 100 ML IVPB SCH (16:20)
[2023-09-22] MEDS: oxyCODONE HCL 5 MG TABLET PO PRN (20:15)
[2023-09-22] MEDS: GABAPENTIN 300 MG CAPSULE PO SCH (21:51)
[2023-09-22] MEDS: SENNOSIDES/DOCUSATE COMBO (SENNA PLUS) TABLET (UD) PO SCH (21:51)
[2023-09-22] MEDS: ASPIRIN COATED 81 MG TABLET.EC PO SCH (21:51)
[2023-09-23 07:45] LABS: HEMATOCRIT 37.8 % (32.4-45.2); HEMOGLOBIN 12.1 G/dL (10.7-15.3); MCH 28.4 pg (25.7-33.7); MCHC 31.9 g/dl (32.0-36.0); MEAN PLT VOLUME 9.6 fl (7.5-11.1); RBC 4.25 10^6/uL (3.60-5.2); RDW 15.1 % (11.6-15.6); WHITE BLOOD COUNT 9.1 10^3/uL (4.0-10.8)
[2023-09-23 08:03] LABS: CALCIUM 8.7 mg/dl (8.5-10.1); CREATININE 1.1 mg/dl (0.6-1.3); POTASSIUM 4.1 mmol/L (3.5-5.1)
[2023-09-23] MEDS: PANTOPRAZOLE 40 MG TABLET PO SCH (09:26)
[2023-09-23] MEDS: MULTIVITAMINS (DAILY MVI) TABLET (FP) PO SCH (09:26)
[2023-09-23 22:34] VITALS: RESP 18
[2023-09-24 07:53] LABS: HEMATOCRIT 39.3 % (32.4-45.2); HEMOGLOBIN 12.6 G/dL (10.7-15.3); MCH 28.4 pg (25.7-33.7); MEAN CELL VOLUME 88.7 fl (80-96); MEAN PLT VOLUME 9.8 fl (7.5-11.1); PLATELET COUNT 224.4 10^3/uL (134-434); RBC 4.43 10^6/uL (3.60-5.2); RDW 15.6 % (11.6-15.6); WHITE BLOOD COUNT 10.2 10^3/uL (4.0-10.8)
[2023-09-24 09:12] VITALS: BP 129/76; PULSE 85; TEMP 99.1
== END 2023-09-24 13:42 | disposition home or self-care (01) ==
LOC: FASUSAT 06:08 → FASU 06:08 → SUATTDRO 06:08 → FM/S 12:51 → FASU 12:51 → FM/S 12:56 → FASUSAT 09-24 13:42
PROC: 8E0Y0CZ Robotic Assisted Procedure of Lower Extremity, Open Approach (ICD-10-PCS; 2023-09-22)
PROC: 0SRD0JA Replacement of Left Knee Joint with Synthetic Substitute, Uncemented, Open Approach (ICD-10-PCS; principal; 2023-09-22 09:44)
DX: M17.12 Unilateral primary osteoarthritis, left knee (principal)
CPT/HCPCS: 20985; 27447; C1776; S2900; 36415; 73560-TC-LT-FY; 80048; 82010; 82962; 85027; 88305-TC; 88311-TC; 94760; 97010-GP; 97116-GP; 97162-GP; J0131

== ENCOUNTER 2023-11-17 10:34 | Observation (INO) | payer OTHER ==
[2023-11-17 11:53] VITALS: BMI 37.8
[2023-11-17] MEDS ORDERED: ALBUTEROL SO4 2.5/IPRATROPIUM 0.5 INH SOL 3 ML VIAL.NEB. NEB ONE (11:56)
[2023-11-17] MEDS: ALBUTEROL SO4 2.5/IPRATROPIUM 0.5 INH SOL 3 ML VIAL.NEB. NEB SCH ×2 (12:02→20:03)
[2023-11-17 12:14] LABS: BASO % 1.2 % (0-2.0); HEMATOCRIT 32.4 % (32.4-45.2); HEMOGLOBIN 10.9 GM/dL (10.7-15.3); LYMPH % 20.8 % (8-40); MCH 28.8 pg (25.7-33.7); MCHC 33.6 g/dl (32.0-36.0); MEAN CELL VOLUME 85.7 fl (80-96); MEAN PLT VOLUME 8.8 fl (7.5-11.1); MONO % 7.4 % (3.8-10.2); NEUT % 69.6 % (42.8-82.8); PLATELET COUNT 365 10^3/uL (134-434); RBC 3.78 M/mm3 (3.60-5.2); RDW 17.4 % (11.6-15.6); WHITE BLOOD COUNT 9.6 K/mm3 (4.0-10.0)
[2023-11-17] MEDS ORDERED: QUEtiapine FUMARATE 100 MG TABLET (FP) ONE (12:56)
[2023-11-17] MEDS: QUEtiapine FUMARATE 200 MG TABLET PO ONE (13:02)
[2023-11-17 13:05] LABS: POTASSIUM 3.6 mmol/L (3.5-5.1)
[2023-11-17 13:07] LABS: CALCIUM 9.1 mg/dL (8.5-10.1)
[2023-11-17 13:08] LABS: ALBUMIN 3.5 g/dl (3.4-5.0); BLOOD UREA NITROGEN 18.3 mg/dL (7-18)
[2023-11-17 13:11] LABS: CREATININE 0.9 mg/dL (0.55-1.3)
[2023-11-17 13:13] LABS: BILIRUBIN,TOTAL 0.8 mg/dL (0.2-1); TOT PROT 7.1 g/dl (6.4-8.2)
[2023-11-17] MEDS ORDERED: LOSARTAN POTASSIUM 50 MG TABLET ONE (13:57)
[2023-11-17 14:00] LABS: HIV INTERPRETATION NEGATIVE (NEGATIVE)
[2023-11-17] MEDS: LOSARTAN POTASSIUM 50 MG TABLET PO ONE (14:00)
[2023-11-17] MEDS: ASPIRIN 325 MG TABLET PO ONE (14:00)
[2023-11-17] MEDS: methylPREDNISolone NA SUCC 125 MG/2 ML VIAL IVPB ONE (14:19)
[2023-11-17] MEDS ORDERED: methylPREDNISolone NA SUCC 125 MG/2 ML VIAL ONE (15:15)
[2023-11-17] MEDS ORDERED: ALBUTEROL SO4 2.5/IPRATROPIUM 0.5 INH SOL 3 ML VIAL.NEB. NEB PRN (16:15)
[2023-11-17] MEDS ORDERED: FUROSEMIDE 40 MG/4 ML INJECTABLE VIAL ONE (19:25)
[2023-11-17] MEDS: FUROSEMIDE 40 MG/4 ML INJECTABLE VIAL IVPUSH ONE (19:27)
[2023-11-17] MEDS: ATORVASTATIN CA 40 MG TABLET (FP) PO SCH (21:23)
[2023-11-17] MEDS: QUEtiapine FUMARATE 100 MG TABLET (FP) PO SCH (21:23)
[2023-11-17] MEDS: LOSARTAN POTASSIUM 50 MG TABLET PO SCH (21:23)
[2023-11-18] MEDS: amLODIPine BESYLATE 10 MG TABLET (FP) PO SCH (10:15)
[2023-11-18] MEDS: CITALOPRAM HYDROBROMIDE 20 MG TABLET PO SCH (10:16)
[2023-11-18] MEDS: predniSONE 20 MG TABLET (UD) PO SCH (10:16)
[2023-11-18] MEDS: ENOXAPARIN NA (PORCINE) 40 MG/0.4 ML DISP.SYRIN SQ SCH (10:16)
[2023-11-18 10:52] VITALS: RESP 20
[2023-11-18] MEDS: EMPAGLIFLOZIN (JARDIANCE) 10 MG TABLET PO SCH (12:17)
[2023-11-18] MEDS: AZITHROMYCIN IVPB 500 MG/250 ML BAG IVPB SCH (12:18)
[2023-11-18 13:08] LABS: BASO % 0.2 % (0-2.0); HEMOGLOBIN 11.1 GM/dL (10.7-15.3); LYMPH % 10.1 % (8-40); MCH 28.3 pg (25.7-33.7); MCHC 32.7 g/dl (32.0-36.0); MEAN CELL VOLUME 86.5 fl (80-96); MEAN PLT VOLUME 8.7 fl (7.5-11.1); MONO % 4.5 % (3.8-10.2); NEUT % 85.2 % (42.8-82.8); PLATELET COUNT 356 10^3/uL (134-434); RBC 3.93 M/mm3 (3.60-5.2); RDW 16.9 % (11.6-15.6); WHITE BLOOD COUNT 15.4 K/mm3 (4.0-10.0)
[2023-11-18 13:32] LABS: POTASSIUM 3.9 mmol/L (3.5-5.1)
[2023-11-18 13:37] LABS: BLOOD UREA NITROGEN 24.1 mg/dL (7-18)
[2023-11-18 13:38] LABS: CALCIUM 9.5 mg/dL (8.5-10.1)
[2023-11-18 13:39] LABS: ALBUMIN 3.6 g/dl (3.4-5.0); MAGNESIUM 2.2 mg/dL (1.8-2.4)
[2023-11-18 13:42] LABS: PHOSPHOROUS 3.1 mg/dL (2.5-4.9)
[2023-11-18 13:43] LABS: BILIRUBIN,TOTAL 0.9 mg/dL (0.2-1)
[2023-11-18 13:44] LABS: TOT PROT 7.4 g/dl (6.4-8.2)
[2023-11-18] MEDS: LEVALBUTEROL HCL 0.63 MG/3 ML VIAL.NEB. IH SCH (20:05)
[2023-11-18] MEDS: ACETAMINOPHEN 1000 MG/100 ML BAG IVPB ONE (22:12)
[2023-11-19] MEDS: EMPAGLIFLOZIN (JARDIANCE) 10 MG TABLET PO SCH (06:30)
[2023-11-19] MEDS: AZITHROMYCIN 250 MG TABLET PO ONE (08:50)
[2023-11-19] MEDS: predniSONE 20 MG TABLET (UD) PO SCH (08:50)
[2023-11-19] MEDS: HYDROCHLOROTHIAZIDE 25 MG TABLET (FP) PO ONE (10:16)
[2023-11-19 10:26] LABS: HEMATOCRIT 32.3 % (32.4-45.2); HEMOGLOBIN 10.7 GM/dL (10.7-15.3); MCH 28.4 pg (25.7-33.7); MEAN CELL VOLUME 86.1 fl (80-96); MEAN PLT VOLUME 8.5 fl (7.5-11.1); PLATELET COUNT 343 10^3/uL (134-434); RBC 3.76 M/mm3 (3.60-5.2); RDW 16.9 % (11.6-15.6); WHITE BLOOD COUNT 13.1 K/mm3 (4.0-10.0)
[2023-11-19 10:51] LABS: POTASSIUM 3.2 mmol/L (3.5-5.1)
[2023-11-19 10:56] LABS: CALCIUM 8.8 mg/dL (8.5-10.1)
[2023-11-19 10:57] LABS: ALBUMIN 3.2 g/dl (3.4-5.0); BLOOD UREA NITROGEN 22.1 mg/dL (7-18)
[2023-11-19 11:02] LABS: BILIRUBIN,TOTAL 0.8 mg/dL (0.2-1); TOT PROT 6.6 g/dl (6.4-8.2)
[2023-11-19 11:35] VITALS: BP 155/100; PULSE 107; TEMP 98.8
[2023-11-19] MEDS: hydrALAZINE HCL 10 MG TABLET PO ONE (12:01)
[2023-11-19] MEDS: HYDROCHLOROTHIAZIDE 12.5 MG CAPSULE (FP) PO ONE (12:02)
[2023-11-19] MEDS: FLU VACCINE (FLULAVAL) PF 45 MCG/0.5 ML SYRINGE 2024-2025 IM ONE (12:59)
== END 2023-11-19 16:39 | disposition home or self-care (01) ==
LOC: JER 10:34 → JERBED 15:44 → UNDOADMOB 15:44 → INTOOBSV 15:44 → OBSVTOIN 17:11 → JERBED 17:11 → INTOOBSV 17:11 → J6S 19:48
PROVIDERS: ADMIT Internal Medicine; ATTEND Internal Medicine
PROC: 3E0F7GC Introduction of Other Therapeutic Substance into Respiratory Tract, Via Natural or Artificial Opening (ICD-10-PCS; principal; 2023-11-17)
PROC: 3E033NZ Introduction of Analgesics, Hypnotics, Sedatives into Peripheral Vein, Percutaneous Approach (ICD-10-PCS; 2023-11-17)
PROC: 3E03329 Introduction of Other Anti-infective into Peripheral Vein, Percutaneous Approach (ICD-10-PCS; 2023-11-17)
PROC: 3E023GC Introduction of Other Therapeutic Substance into Muscle, Percutaneous Approach (ICD-10-PCS; 2023-11-17)
PROC: 3E033GC Introduction of Other Therapeutic Substance into Peripheral Vein, Percutaneous Approach (ICD-10-PCS; 2023-11-17)
DX: I11.0 Hypertensive heart disease with heart failure (principal); J44.9 Chronic obstructive pulmonary disease, unspecified; E11.9 Type 2 diabetes mellitus without complications; Z99.81 Dependence on supplemental oxygen; Z72.0 Tobacco use; Z23 Encounter for immunization
CPT/HCPCS: 0241U-QW; 36415; 71045-TC-FY; 71275-TC; 80053; 82962; 83735; 83880; 84100; 84484; 85025; 85027; 85379; 86803; 87389; 90656; 93005; 93010; 93306-TC; 94640; 94761; 96365; 96372; 96375; 99285-25; G0008; G0378; J0131; Q9967